=== PATIENT | male | born 1955 ===

== ENCOUNTER 2017-04-27 19:23 | Inpatient (IN) | payer BC ==
[2017-04-27] MEDS ORDERED: Albuterol-Ipratrop 3 mg / 0.5 (3 ml) UD IH STA ×2 (20:05→23:36)
[2017-04-27 20:24] LABS: HEMOGLOBIN 8.3 g/dL (14.0-18.0); MEAN CELL VOLUME 69.2 fl (80.0-105.0); MEAN CORPUSCULAR HEMOGLOBIN 19.5 pg (25.0-35.0); MEAN CORPUSCULAR HGB CONC 28.2 g/dl (31.0-37.0); MEAN PLATELET VOLUME 9.4 fl (7.0-11.0); RBC 4.25 10^6/uL (3.5-6.1); RED CELL DISTRIBUTION WIDTH 18.9 % (11.5-14.5); WHITE BLOOD COUNT 12.3 10^3/ul (4.5-11.0)
--- NOTE | 2017-04-27 20:32 | ED PDOC ---
Arrival/HPI - General Chief Complaint: Shortness Of Breath Time Seen by Provider: 04/27/17 19:44 Historian: Patient - History of Present Illness Narrative History of Present Illness (Text): 04/27/17 19:45 Gema Fernandez is a 62 year old male, who has no significant past medical history, who presents to the emergency department for reevaluation of chronic shortness of breath for the past few weeks. Patient also states that he has associated worsening bilateral leg swelling during that time. Patient notes that he has trouble sleeping at night. He notes that he has not seen a doctor in years. Patient denies any chest pain, fever, chills, or any other complaints at this time. Family history is consistent with CAD. Time/Duration: < month Symptom Onset: Gradual Symptom Course: Unchanged Severity Level: Mild Activities at Onset: Light Context: Home Past Medical History - Provider Review Nursing Documentation Reviewed: Yes - Psychiatric Hx Psychophysiologic Disorder: No Hx Substance Use: No Family/Social History - Physician Review Nursing Documentation Reviewed: Yes Family/Social History: No Known Family HX Smoking Status: Never Smoked Hx Alcohol Use: Yes Frequency of alcohol use: Socially Hx Substance Use: No Allergies/Home Meds Allergies/Adverse Reactions: Allergies No Known Allergies Allergy (Verified 04/27/17 19:35) Home Medications: Home Meds Medication Instructions Recorded Confirmed No Known Home Med 04/27/17 04/27/17 Review of Systems - Physician Review All systems were reviewed & negative as marked: Yes - Review of Systems Constitutional: absent: Fevers, Night Sweats Eyes: absent: Vision Changes ENT: absent: Hearing Changes Respiratory: SOB Cardiovascular: absent: Chest Pain Gastrointestinal: absent: Abdominal Pain Genitourinary Male: absent: Dysuria, Frequency Musculoskeletal: Other (bilateral leg swelling) Skin: absent: Rash, Pruritis Neurological: absent: Headache, Dizziness Endocrine: absent: Diaphoresis Hemo/Lymphatic: absent: Adenopathy Psychiatric: absent: Anxiety, Depression Physical Exam Vital Signs Reviewed: Yes Vital Signs Temp Pulse Resp BP Pulse Ox 04/28/17 19:20 84 100 04/28/17 19:15 84 101/61 100 04/28/17 19:10 83 100 04/28/17 19:00 83 99/56 L 100 04/28/17 18:50 82 100 04/28/17 18:45 82 102/56 L 99 02/14/18 18:40 83 02/14/18 18:33 81 02/14/18 18:32 81 02/14/18 18:31 81 02/14/18 18:30 82 0214/18 18:28 82 0214/18 18:27 82 0214/18 18:26 83 0214/18 18:25 84 0214/18 18:24 84 0214/18 18:20 86 98 0214/18 18:16 113 H 95/66 L 82 L 0214/18 18:10 78 100 0214/18 18:00 80 99/58 L 100 0214/18 17:50 79 100 0214/18 17:46 78 92/48 L 100 0214/18 17:40 77 100 0214/18 17:37 76 83/46 L 99 0214/18 17:36 76 80/49 L 99 0214/18 17:35 77 85/51 L 99 021418 17:33 77 89/43 L 99 021418 17:32 78 88/46 L 96 0214/18 17:30 77 95/45 L 100 0214/18 17:20 80 99 0214/18 17:15 80 92/38 L 99 0214/18 17:10 80 99 021418 17:02 80 78/46 L 99 021418 17:00 79 80/43 L 97 14/18 16:50 78 99 14/18 16:40 78 99 021418 16:30 79 99 0214/18 16:20 80 100 0214/18 16:10 80 100 0214/18 16:00 80 103/56 L 98 0214/18 10:32 28 H 0214/18 10:30 101 H 153/83 H 100 0214/18 10:27 109 H 0214/18 10:20 97 H 100 0214/18 10:10 97 H 100 0214/18 10:00 97 H 132/69 100 0214/18 09:50 97 H 100 0214/18 09:40 98 H 100 0214/18 09:30 96 H 130/69 100 0214/18 09:20 97 H 100 0214/18 09:10 99 H 100 04/28/17 09:04 118/66 04/28/17 09:00 99 H 118/66 100 04/28/17 08:50 99 H 100 04/28/17 08:40 99 H 100 04/28/17 08:30 99 H 119/59 L 100 04/28/17 08:20 100 H 100 04/28/17 08:10 100 H 100 04/28/17 08:08 32 H 100 04/28/17 08:00 100 H 116/58 L 100 04/28/17 07:57 104 H 04/28/17 07:50 104 H 89 L 04/28/17 07:49 105 H 04/28/17 07:48 102 H 04/28/17 07:47 102 H 04/28/17 07:40 97 H 100 04/28/17 07:38 101 H 125/56 L 100 04/28/17 07:30 104 H 134/61 100 04/28/17 07:23 107 H 04/28/17 07:22 106 H 04/28/17 07:21 107 H 04/28/17 07:20 107 H 04/28/17 07:19 108 H 04/28/17 07:18 109 H 04/28/17 07:17 112 H 04/28/17 07:16 176/106 H 04/28/17 07:15 109 H 04/28/17 07:13 109 H 04/28/17 07:10 106 H 95 04/28/17 07:00 98 H 135/73 96 04/28/17 06:56 127/70 04/28/17 06:55 97 H 33 H 97 04/28/17 06:50 96 H 30 H 91 L 04/28/17 06:40 86 99 04/28/17 06:33 109/60 04/28/17 02:59 112 H 18 127/110 H 96 04/28/17 01:31 99 H 93 H 146/102 H 99 04/27/17 23:23 96 H 20 122/96 H 96 04/27/17 19:59 24 04/27/17 19:23 98.2 F 106 H 22 124/76 98 Temperature: Afebrile Blood Pressure: Normal Pulse: Regular Respiratory Rate: Normal Appearance: Positive for: Well-Appearing, Non-Toxic, Comfortable Pain Distress: None Mental Status: Positive for: Alert and Oriented X 3 - Systems Exam Head: Present: Atraumatic, Normocephalic Pupils: Present: PERRL Extroacular Muscles: Present: EOMI Conjunctiva: Present: Normal Ears: Present: NORMAL TM Mouth: Present: Moist Mucous Membranes Pharnyx: Present: Normal, Other (hoarseness noted accentuated with phonation( chronic as per family)) Neck: Present: Normal Range of Motion Respiratory/Chest: Present: Rhonchi (scattered rhonchi bilaterally) Cardiovascular: Present: Regular Rate and Rhythm, Normal S1, S2. No: Murmurs Abdomen: Present: Normal Bowel Sounds, Other (globus). No: Tenderness, Distention, Peritoneal Signs Back: Present: Normal Inspection Upper Extremity: Present: Normal Inspection. No: Cyanosis, Edema Lower Extremity: Present: Edema (Bilateral LE edema). No: Buzz's Sign, Tenderness (no calf tenderness) Neurological: Present: GCS=15, CN II-XII Intact, Speech Normal, Motor Func Grossly Intact, Normal Sensory Function, Normal Cerebellar Funct, Norm Deep Tendon Reflexes, Gait Normal, Memory Normal, Normal 2Pt Descrimination Skin: Present: Warm, Dry, Normal Color. No: Rashes Psychiatric: Present: Alert, Oriented x 3, Normal Insight, Normal Concentration Medical Decision Making ED Course and Treatment: 04/27/17 20:37 Impression: 62 year old male who presents to the emergency department for reevaluation of chronic shortness of breath for the past few weeks. Plan: -- EKG -- Chest X-ray -- LE Ultrasound -- Labs -- Duoneb -- Rapid Flu -- Blood Culture -- Reassess and disposition Progress Notes: 04/27/17 21:51 EKG reviewed sinus tachycardiac at 104 bpm. LAD. incomplete right bundle branch block. Non specific ST/T wave changes 04/27/17 22:04 US Duplex Lower Extremities negative for DVT. Chest X-ray shows: Limitations: Radiographic technique - mild. Lungs: No consolidation. Pleural space: Cannot exclude small pleural effusions. No pneumothorax. Heart: Mild cardiomegaly. Mediastinum: Tortuosity of thoracic aorta. Prominence of central pulmonary vasculature. Bones/joints: No acute fracture. IMPRESSION: 1. Possible mild pulmonary vascular congestion. Clinical correlation is needed. 2. Incidental/non-acute findings are described above. 04/27/17 22:56 CTA Chest shows: Limitations: Motion artifact - mild to moderate. Suboptimal timing of bolus. Pulmonary arteries: No definite filling defects within main, lobar, segmental branches. Suboptimal evaluation of subsegmental branches. Aorta: Ectasia of ascending thoracic aorta, up to 4.0 cm in diameter. 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 No rupture. Inferior vena cava: Retrograde filling of IVC and hepatic veins. Lungs: Mild atelectasis/scarring. No consolidation. Minimal mosaic pattern of lung parenchyma. Mild interlobular septal thickening. Pleural space: No significant effusion. No pneumothorax. Heart: Mild cardiomegaly. No significant pericardial effusion. Coronary artery calcifications. Bones/joints: Degenerative changes of shoulders and spine. No acute fracture. Soft tissues: Unremarkable. Lymph nodes: No pathologically enlarged lymph nodes. Liver: Fatty infiltration. Upper abdomen: Elevated RIGHT hemidiaphragm. IMPRESSION: 1. No definite pulmonary embolism. 2. Possible early interstitial edema. Clinical correlation is needed. 3. Incidental/non-acute findings are described above. 04/27/17 23:[address] Page, who request patient go to hospitalist service. 04/27/17 23:44 Case discussed with resident commercial collections driver and Dr. Coronel, who is aware and agrees with plan. Accepts patient into hospital service to telemetry for dyspnea, pneumonia , COPD, and hyponatremia. 04/28/17 01:40 CT Neck shows: Limitations: Lack of intravenous contrast. Motion artifact - mild to moderate. Nasopharynx: Unremarkable. Oropharynx: No significant tonsillar enlargement. Hypopharynx: Unremarkable. Larynx: Apparent prominence of aryepiglottic folds with narrowing of airway. Trachea: Unremarkable. Retropharyngeal space: Unremarkable. Submandibular/parotid glands: Unremarkable. Glands are normal in size. Thyroid: Unremarkable. No enlarged or calcified nodules. Bones/joints: Degenerative changes of cervical spine. No acute fracture. Subluxation of LEFT temporomandibular joint. Soft tissues: Unremarkable. Vasculature: No acute findings. Lymph nodes: No pathologically enlarged lymph nodes. Sinuses: Scattered minimal to mild mucosal thickening. LEFT maxillary retention cyst. Mastoid air cells: No mastoid effusion. Orbits: Unremarkable as visualized. Lung apices: Unremarkable as visualized. Other findings: See chest CT report for additional details. IMPRESSION: 1. Apparent prominence of aryepiglottic folds with narrowing of airway. Clinical correlation is needed. 2. Incidental/non-acute findings are described above. ENT and coat ironer hand paged. 04/28/17 01:46 Pt.with continued stridorous-like sounds. CT scan of neck was performed results show apparent prominence of aryepiglottic folds with narrowing of airway. Case was discussed with ENT Dr. Huston, who will come to evaluate pt. Second Hand Dr. Cordova also consult on case to consider possible upgrade to ICU pending ENT evaluation. 04/28/17 03:[address] Huston, present in ED to evaluate pt.Concern for possible eventual airway compromise pt. to go to OR for elective intubation possible tracheostomy/subsequent ICU admission. - Critical Care Critical Care Minutes: 30 minutes - Lab Interpretations Lab Results: 04/27/17 20:15 04/27/17 20:15 Lab Results 04/27/17 23:12: pCO2 47 H, pO2 48.0 L, HCO3 27.2, ABG pH 7.37, ABG Total CO2 28.6 H, ABG O2 Saturation 87.1 L, ABG O2 Content 9.8 L, ABG Base Excess 1.6, ABG Hemoglobin 8.2 L, ABG Carboxyhemoglobin 2.7 H, POC ABG HHb (Measured) 12.6 H , ABG Methemoglobin 0.0, ABG O2 Capacity 11.3 L, Hgb O2 Saturation 84.7 L, FiO2 21.0 04/27/17 20:15: Serum Osmolality 265 L 04/27/17 20:15: WBC 12.3 H, RBC 4.25, Hgb 8.3 L, Hct 29.4 L, MCV 69.2 L, MCH 19.5 L, MCHC 28.2 L, RDW 18.9 H, Plt Count 282, MPV 9.4, Gran % 76.8 H, Lymph % (Auto) 15.1 L, [place] % (Auto) 7.7 H, Eos % (Auto) 0.2 L, Baso % (Auto) 0.2, Gran # 9.27 H, Lymph # (Auto) 1.8, [place] # (Auto) 0.9 H, Eos # (Auto) 0.0, Baso # ( Auto) 0.03 04/27/17 20:15: Sodium 121 L, Potassium 4.4, Chloride 86 L, Carbon Dioxide 28, Anion Gap 12, BUN 5 L, Creatinine 0.6 L, Est GFR ( Amer) > 60, Est GFR ( Non-Af Amer) > 60, Random Glucose 129 H, Calcium 9.1, Total Bilirubin 0.6, AST 54, ALT 49, Alkaline Phosphatase 127 H, Lactate Dehydrogenase 542, Total Creatine Kinase 714 H, CK-MB (CK-2) 5.6 H, CK-MB (CK-2) % 0.8 L, Troponin I < 0.01, NT-Pro-B Natriuret Pep 224, Total Protein 7.5, Albumin 4.1, Globulin 3.4, Albumin/Globulin Ratio 1.2 I have reviewed the lab results: Yes - RAD Interpretation Radiology Orders: 04/27/17 19:59 CHEST PORTABLE [RAD] Stat 04/27/17 20:02 DUPLEX LOWER EXTRM VEIN BILAT [US] Stat 04/27/17 20:56 ANGIO CHEST PE PROTOCOL [CT] Stat Machinery Engineer: ED Physician, Radiologist - EKG Interpretation Interpreted by ED Physician: Yes Type: 12 lead EKG - Medication Orders Current Medication Orders: Acetaminophen (Tylenol 325mg Tab) 650 mg PO Q4H PRN PRN Reason: Fever >100.4 F Dexamethasone (Decadron Inj) 6 mg IVP Q8H [facility] Last Admin: 04/28/17 16:27 Dose: 6 mg IVP Administration Document 04/28/17 16:27 MDU (Rec: 04/28/17 16:28 MDU [id number]) Charges for Administration # of IVP Administrations 1 Folic Acid (Folic Acid) 1 mg IVP DAILY [facility] Last Admin: 04/28/17 16:36 Dose: Heparin Sodium (Porcine) (Heparin) 5,000 units SC Q8 LUCIA PRN Reason: Protocol Last Admin: 04/28/17 16:47 Dose: 5,000 units Subcutaneous Administrations Document 04/28/17 16:47 MDU (Rec: 04/28/17 16:47 MDU [id number]) Injection Site MAR Injection Site Left Arm Charges for Administration # of Subcutaneous Administrations 1 Propofol (Diprivan) 1,000 mg in 100 mls @ 3.538 mls/hr IV .Q24H PRN; Protocol; 5 MCG/KG/MIN PRN Reason: TITRATE PER MD ORDER Last Titration: 04/28/17 16:05 Dose: 0 mcg/kg/min, 0 mls/hr Dalal Agitation Sedation Document 04/28/17 16:05 MDU (Rec: 04/28/17 16:12 MDU [id number]) Dalal Agitation Sedation Scale Dalal Agitation Sedation Scale Score -2 Light Sedation: briefly awakens with eye contact to voice (<10 sec) Titration Intervention Document 04/28/17 16:05 MDU (Rec: 04/28/17 16:12 MDU [id number]) Titration Intake Titration Intake 0 Cumulative Intake 60 Cumulative Intake (Rx) 60 Waste Amount 0 Container Volume 40 Titration Dosing Titration Dose 0 IV Rate 0 Intake/Decrease Paused Cumulative Dose 600 Ceftriaxone Sodium (Rocephin 1 Gram Ivpb) 1 gm in 100 mls @ 100 mls/hr IVPB DAILY LUCIA PRN Reason: Protocol Last Admin: 04/28/17 09:07 Dose: 100 mls/hr eMAR Start Stop Document 04/28/17 09:07 MDU (Rec: 04/28/17 09:08 [id number] Intravenous Solution Start Date 04/28/17 Start Time 09:08 End Date 04/28/17 End time 10:08 Total Infusion Time 60 Vancomycin HCl (Vancomycin 1gm) 1 gm in 250 mls @ 167 mls/hr IVPB Q12H LUCIA PRN Reason: Protocol Last Admin: 04/28/17 19:59 Dose: 167 mls/hr eMAR Start Stop Document 04/28/17 19:59 MDU (Rec: 04/28/17 20:00 [id number][facility] Intravenous Solution Start Date 04/28/17 Start Time 20:00 End Date 04/28/17 End time 21:30 Total Infusion Time 90 Fentanyl Citrate (Fentanyl Citrate/Sodium Chloride 1 Mg/100 Ml) 1,000 mcg in 100 mls @ 2 mls/hr IV .Q24H PRN; Protocol; 20 MCG/HR PRN Reason: TITRATE PER MD ORDER Last Titration: 04/28/17 07:00 Dose: 50 mcg/hr, 5 mls/hr Dalal Agitation Sedation Document 04/28/17 07:00 MDU (Rec: 04/28/17 08:55 MDU [id number]) Dalal Agitation Sedation Scale Dalal Agitation Sedation Scale Score -3 Moderate Sedation:Movement or eye opening to voice (no eye contact) Titration Intervention Document 04/28/17 07:00 MDU (Rec: 04/28/17 08:55 MDU [id number]) Titration Intake Titration Intake 15 Cumulative Intake 15 Cumulative Intake (Rx) 15 Waste Amount 0 Container Volume 85 Titration Dosing Titration Dose 50 IV Rate 5 Intake/Decrease Increased Cumulative Dose 150 Dexmedetomidine HCl (Precedex 400mcg/100ml) 400 mcg in 100 mls @ 5.897 mls/hr IV .[id number] PRN; Protocol; 0.2 MCG/KG/HR PRN Reason: Agitation Last Admin: 04/28/17 17:33 Dose: 1 mcg/kg/hr, 29.484 mls/hr eMAR Start Stop Document 04/28/17 17:33 MDU (Rec: 04/28/17 17:35 MDU [id number]) Intravenous Solution Start Date 04/28/17 Start Time 17:34 End Date 04/28/17 Dalal Agitation Sedation Document 04/28/17 17:33 MDU (Rec: 04/28/17 17:35 [id number]) Dalal Agitation Sedation Scale Dalal Agitation Sedation Scale Score -3 Moderate Sedation:Movement or eye opening to voice (no eye contact) Titration Intervention Document 04/28/17 17:33 MDU (Rec: 04/28/17 17:35 MDU [id number]) Titration Intake Cumulative Intake (Rx) 100 Waste Amount 0 Container Volume 100 Titration Dosing Titration Dose 1 IV Rate 29.484 Intake/Decrease Started/Increased Cumulative Dose 400 Multivitamins/Vitamin C 10 ml/Thiamine HCl 100 mg/ Folic Acid 1 mg/ Sodium Chloride 1,011.2 mls @ 60 mls/hr IV .[id number] ONE Stop: 04/29/17 05:11 Last Admin: 04/28/17 16:39 Dose: 60 mls/hr eMAR Start Stop Document 04/28/17 16:39 MDU (Rec: 04/28/17 16:42 [id number]) Intravenous Solution Start Date 04/28/17 Start Time 16:40 End Date 04/29/17 End time 08:40 Total Infusion Time 960 Lorazepam (Ativan) 4 mg IVP Q2H PRN; Protocol PRN Reason: Agitation Last Admin: 04/28/17 18:19 Dose: 4 mg IVP Administration Document 04/28/17 18:19 MDU (Rec: 04/28/17 19:[id number]) Charges for Administration # of IVP Administrations 1 Behavioural Document 04/28/17 18:19 MDU (Rec: 04/28/17 19:[id number]) Maintenance Maintenance Dose No Nonmedicinal Nonmedicinal Interventions See nurse's notes Behavior Behavior for Medication: Continuous pacing/restlessness Ondansetron HCl (Zofran Inj) 4 mg IVP Q4H PRN PRN Reason: Nausea/Vomiting Pantoprazole Sodium (Protonix Inj) 40 mg IVP DAILY LUCIA Last Admin: 04/28/17 11:15 Dose: 40 mg IVP Administration Document 04/28/17 11:15 MDU (Rec: 04/28/17 11:15 [id number]) Charges for Administration # of IVP Administrations 1 Discontinued Medications Albuterol/Ipratropium (Duoneb 3 Mg/0.5 Mg (3 Ml) Ud) 3 ml IH ONCE STA Stop: 04/27/17 20:06 Last Admin: 04/27/17 20:21 Dose: 3 ml Albuterol/Ipratropium (Duoneb 3 Mg/0.5 Mg (3 Ml) Ud) 3 ml IH ONCE STA Stop: 04/27/17 23:37 Furosemide (Lasix) 20 mg IVP ONCE ONE Stop: 04/28/17 07:47 Last Admin: 04/28/17 09:04 Dose: 20 mg MAR Blood Pressure Document 04/28/17 09:04 MDU (Rec: 04/28/17 09:05 [id number]) Blood Pressure Blood Pressure (100/60-150/90) 118/66 IVP Administration Document 04/28/17 09:04 MDU (Rec: 04/28/17 09:05 MDU [id number]) Charges for Administration # of IVP Administrations 1 Sodium Chloride (Sodium Chloride 0.9%) 1,000 mls @ 150 mls/hr IV .Q6H40M LUCIA Last Admin: 04/27/17 22:05 Dose: 150 mls/hr eMAR Start Stop Document 04/27/17 22:05 JACOB (Rec: 04/27/17 22:06 JACOB [id number]) Intravenous Solution Start Date 04/27/17 Start Time 22:06 Ceftriaxone Sodium (Rocephin 1 Gram Ivpb) 1 gm in 100 mls @ 200 mls/hr IV ONCE STA PRN Reason: Protocol Stop: 04/28/17 00:06 Azithromycin (Zithromax 500mg In Ns) 500 mg in 250 mls @ 166.667 mls/hr IV STAT STA PRN Reason: Protocol Stop: 04/28/17 01:07 Last Admin: 04/28/17 16:43 Dose: Midazolam 100 mg/100ml in NS (Midazolam 100 Mg/100ml In Ns) 100 mg in 100 mls @ 1 mls/hr IV .Q24H PRN; Protocol; 1 MG/HR PRN Reason: Agitation Last Titration: 04/28/17 09:01 Dose: 1 mg/hr, 1 mls/hr [place] Agitation Sedation Document 04/28/17 09:01 MDU (Rec: 04/28/17 09:02 MDU [id number]) Dalal Agitation Sedation Scale [place] Agitation Sedation Scale Score -4 Deep Sedation: No response to voice,but movement or eye opening Titration Intervention Document 04/28/17 09:01 MDU (Rec: 04/28/17 09:02 MDU [id number]) Titration Intake Titration Intake 20 Cumulative Intake 20 Cumulative Intake (Rx) 20 Waste Amount 0 Container Volume 80 Titration Dosing Titration Dose 1 IV Rate 1 Intake/Decrease Running Cumulative Dose 20 Magnesium Sulfate 2 gm/ Sodium (Chloride) 104 mls @ 102 mls/hr IV ONCE ONE Stop: 04/28/17 10:46 Last Admin: 04/28/17 10:37 Dose: 102 mls/hr eMAR Start Stop Document 04/28/17 10:37 MDU (Rec: 02/14/18 10:38 [id number]) Intravenous Solution Start Date 04/28/17 Start Time 10:38 End Date 04/28/17 End time 11:38 Total Infusion Time 60 Lidocaine/Epinephrine (Xylocaine 1% W Epi 1:100,000 Inj) 5 ml IJ STAT STA Stop: 04/28/17 03:23 Last Admin: 04/28/17 16:42 Dose: Lorazepam (Ativan) 4 mg IVP STAT STA PRN Reason: Protocol Stop: 04/28/17 12:54 Last Admin: 04/28/17 12:55 Dose: 4 mg IVP Administration Document 04/28/17 12:55 MDU (Rec: 04/28/17 16:32 [id number]) Charges for Administration # of IVP Administrations 1 Behavioural Document 04/28/17 12:55 MDU (Rec: 04/28/17 16:32 [id number]) Maintenance Maintenance Dose No Nonmedicinal Nonmedicinal Interventions See nurse's notes Behavior Behavior for Medication: Anxiety Continuous pacing/restlessness Dangers to self/others Re-Assess: Reassess Psych Meds Document 04/28/17 13:25 MDU (Rec: 04/28/17 16:44 MDU [id number]) Reassess Psych Med Effective Methylprednisolone (Solu-Medrol) 125 mg IVP ONCE ONE Stop: 04/27/17 21:56 Last Admin: 04/27/17 22:05 Dose: 125 mg IVP Administration Document 04/27/17 22:05 JACOB (Rec: 04/27/17 22:05 JACOB [id number]) Charges for Administration # of IVP Administrations 1 Racepinephrine (Racepinephrine 2.25% Inhl Soln) 0.5 ml IH ONCE STA Stop: 04/27/17 21:56 Last Admin: 04/27/17 22:17 Dose: 0.5 ml Thiamine HCl (Vitamin B1 Inj) 100 mg IM STAT STA Stop: 04/28/17 05:00 Last Admin: 04/28/17 16:42 Dose: - Scribe Statement The provider has reviewed the documentation as recorded by the Ryan Zapata Provider Scribe Attestation: All medical record entries made by the Scribe were at my direction and personally dictated by me. I have reviewed the chart and agree that the record accurately reflects my personal performance of the history, physical exam, medical decision making, and the department course for this patient. I have also personally directed, reviewed, and agree with the discharge instructions and disposition. Disposition/Present on Arrival - Present on Arrival Any Indicators Present on Arrival: No History of DVT/PE: No History of Uncontrolled Diabetes: No Urinary Catheter: No History of Decub. Ulcer: No History Surgical Site Infection Following: None - Disposition Have Diagnosis and Disposition been Completed?: Yes Diagnosis: Dyspnea, Disorder of upper airway, COPD (chronic obstructive pulmonary disease) Disposition: HOSPITALIZED Disposition Time: 04:56 Patient Plan: Admission Condition: GUARDED
[2017-04-27 20:37] LABS: ALB/GLOB RATIO 1.2 (1.1-1.8); ALBUMIN 4.1 g/dL (3.0-4.8); ALT/SGPT 49 U/L (7-56); AST/SGOT 54 U/L (17-59); BLOOD UREA NITROGEN 5 mg/dL (7-21); CALCIUM 9.1 mg/dL (8.4-10.5); GFR AFRICAN-AMERICAN > 60; GFR NON-AFRICAN AMERICAN > 60
[2017-04-27 20:46] LABS: B-TYPE NATRIURETIC PEPTIDE 224 pg/mL (0-450)
[2017-04-27 20:50] LABS: TROPONIN I < 0.01 ng/mL
[2017-04-27 20:55] LABS: CK MB% 0.8 % (2.5-3.0); CK-MB 5.6 ng/mL (0.0-3.6)
[2017-04-27] MEDS ORDERED: Sodium Chloride 0.9% 1,000 ML IV SCH (21:00)
[2017-04-27] MEDS ORDERED: Iohexol 350 MG/100 ML VIAL ONE (21:22)
[2017-04-27] MEDS ORDERED: Racepinephrine 2.25% Inhal Soln 0.5 ML UD ONE (21:53)
[2017-04-27] MEDS ORDERED: Racepinephrine 2.25% Inhal Soln 0.5 ML UD IH STA (21:55)
--- NOTE | 2017-04-27 22:02 | RAD ---
EXAM: XR Chest, 1 View CLINICAL HISTORY: 62 years old, male; Signs and symptoms; Shortness of breath; Additional info: SOB TECHNIQUE: Frontal view of the chest. COMPARISON: No relevant prior studies available. FINDINGS: Limitations: Radiographic technique - mild. Lungs: No consolidation. Pleural space: Cannot exclude small pleural effusions. No pneumothorax. Heart: Mild cardiomegaly. Mediastinum: Tortuosity of thoracic aorta. Prominence of central pulmonary vasculature. Bones/joints: No acute fracture. IMPRESSION: 1. Possible mild pulmonary vascular congestion. Clinical correlation is needed. 2. Incidental/non-acute findings are described above.
--- NOTE | 2017-04-27 22:52 | CT ---
EXAM: CT Angiography Chest With Intravenous Contrast CLINICAL HISTORY: 62 years old, male; Signs and symptoms; Shortness of breath and wheezing; Additional info: SOB pt unable to slow breathing and follow breathing instructions TECHNIQUE: Axial computed tomographic angiography images of the chest with intravenous contrast using pulmonary embolism protocol. All CT scans at this facility use one or more dose reduction techniques, viz.: automated exposure control; ma/kV adjustment per patient size (including targeted exams where dose is matched to indication; i.e. head); or iterative reconstruction technique. MIP reconstructed images were created and reviewed. Coronal and sagittal reformatted images were created and reviewed. CONTRAST: 100 mL of OMNI 350 administered intravenously. COMPARISON: No relevant prior studies available. FINDINGS: Limitations: Motion artifact - mild to moderate. Suboptimal timing of bolus. Pulmonary arteries: No definite filling defects within main, lobar, segmental branches. Suboptimal evaluation of subsegmental branches. Aorta: Ectasia of ascending thoracic aorta, up to 4.0 cm in diameter. 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 No rupture. Inferior vena cava: Retrograde filling of IVC and hepatic veins. Lungs: Mild atelectasis/scarring. No consolidation. Minimal mosaic pattern of lung parenchyma. Mild interlobular septal thickening. Pleural space: No significant effusion. No pneumothorax. Heart: Mild cardiomegaly. No significant pericardial effusion. Coronary artery calcifications. Bones/joints: Degenerative changes of shoulders and spine. No acute fracture. Soft tissues: Unremarkable. Lymph nodes: No pathologically enlarged lymph nodes. Liver: Fatty infiltration. Upper abdomen: Elevated RIGHT hemidiaphragm. IMPRESSION: 1. No definite pulmonary embolism. 2. Possible early interstitial edema. Clinical correlation is needed. 3. Incidental/non-acute findings are described above.
[2017-04-27 23:16] LABS: ARTERIAL BLOOD GAS HCO3 27.2 mmol/L (21-28); ARTERIAL BLOOD GAS HEMOGLOBIN 8.2 g/dL (11.7-17.4); ARTERIAL BLOOD GAS O2 CAPACITY 11.3 mL/dl (16-24); ARTERIAL BLOOD GAS O2 CONTENT 9.8 ML/dl (15-23); ARTERIAL BLOOD GAS O2 SAT 87.1 % (95-98); ARTERIAL BLOOD GAS PCO2 47 mm/Hg (35-45); ARTERIAL BLOOD GAS PH 7.37 (7.35-7.45); ARTERIAL BLOOD GAS TCO2 28.6 mmol.L (22-28)
[2017-04-27] MEDS ORDERED: cefTRIAXone 1 gm 1 GM/100 ML BAG IV STA (23:37)
[2017-04-27] MEDS ORDERED: Azithromycin 500MG/NS 250ml 500 MG/250 ML BAG IV STA (23:38)
--- NOTE | 2017-04-28 00:09 | CP.PCM.HP ---
"<Bruce Pardo - Last Filed: 04/28/17 07:47> History of Present Illness - History of Present Illness History of Present Illness: 62 year old male with no significant past medical history presents to the hospital for 3 weeks of progressive shortness of breath. Patient accompanied by family member at bedside. Patient states he had no inciting events that caused him to become short of breath. He has not been sick or had any sick contacts recently. Initially, patient states shortness of breath was intermittent, but now has been continuous over the last few days. Patient came to the ED due to his 's recommendations. He has never had symptoms like this before. Over the past 3 weeks, patient has admitted to dyspnea on exertion and increased lower extremity edema, both of which are new findings. He has not followed up with a doctor in over 5 years because his PMD retired. Patient admits to mild hoarseness in his breath and inability to talk in complete sentences. He admits to being unable to lay flat without exacerbating his SOB. Patient denied any increased urinary frequency but per sister and brother in-law, he has been urinating more frequently. Denies chest pain, nausea, vomiting, diarrhea, fever , chills, dysuria, changes in vision. PMH: Denies but possible HLD. Surgical History: Right knee surgery Family Medical History: Hyperlipidemia Social History: Daily drinker (as per family member), denies tobacco or illicit drug use. Lives with at home Medication: Garlic pills for HLD Allergies: NKDA Present on Admission - Present on Admission Any Indicators Present on Admission: No Past Patient History - Past Social History Smoking Status: Never Smoked - PSYCHIATRIC Hx Psychophysiologic Disorder: No Hx Substance Use: No - SURGICAL HISTORY Hx Surgeries: No Meds Allergies/Adverse Reactions: Allergies Allergy/AdvReac Type Severity Reaction Status Date / Time No Known Allergies Allergy Verified 04/27/17 19:35 Results - Vital Signs Recent Vital Signs: Last Vital Signs Temp Pulse Resp 24 04/27/17 19:59 BP Pulse Ox - Labs Result Diagrams: 04/27/17 20:15 04/27/17 20:15 Labs: Laboratory Results - last 24 hr 04/27/17 04/27/17 04/27/17 20:15 20:15 23:12 WBC 12.3 H RBC 4.25 Hgb 8.3 L Hct 29.4 L MCV 69.2 L MCH 19.5 L MCHC 28.2 L RDW 18.9 H Plt Count 282 MPV 9.4 pCO2 47 H pO2 48.0 L HCO3 27.2 ABG pH 7.37 ABG Total CO2 28.6 H ABG O2 Saturation 87.1 L ABG O2 Content 9.8 L ABG Base Excess 1.6 ABG Hemoglobin 8.2 L ABG Carboxyhemoglobin 2.7 H POC ABG HHb (Measured) 12.6 H ABG Methemoglobin 0.0 ABG O2 Capacity 11.3 L Hgb O2 Saturation 84.7 L FiO2 21.0 Sodium 121 L Potassium 4.4 Chloride 86 L Carbon Dioxide 28 Anion Gap 12 BUN 5 L Creatinine 0.6 L Est GFR ( Amer) > 60 Est GFR (Non-Af Amer) > 60 Random Glucose 129 H Calcium 9.1 Total Bilirubin 0.6 AST 54 ALT 49 Alkaline Phosphatase 127 H Lactate Dehydrogenase 542 Total Creatine Kinase 714 H CK-MB (CK-2) 5.6 H CK-MB (CK-2) % 0.8 L Troponin I < 0.01 NT-Pro-B Natriuret Pep 224 Total Protein 7.5 Albumin 4.1 Globulin 3.4 Albumin/Globulin Ratio 1.2 Assessment & Plan - Assessment and Plan (Free Text) Assessment: 62 year old male with no past medical history presenting with hypoxemic respiratory failure secondary to upper airway narrowing/obstruction vs epiglottitis. Patient received CT of neck which demonstrated prominence of aryepiglottic folds with significant narrowing of airway. Patient also received CTA of chest which did not show any evidence of PE. ENT was consulted, they determined patient needed a tracheostomy for airway protection. Will admit patient to ICU for further monitoring and care. Will continue antibiotics and steroids. Plan: SOB: DDx: Epiglottitis vs URI vs CHF vs mixed presentation CXR: Pulm congestion (mild) Neck Soft Tissue CT: Shows prominence of aryaepiglottis and narrowing of the airways Chest CT: Negative for PE, mild interstial edema, scarring, and atelactasis BNP: WNL @ 224 ENT Consulted ICU Consulted Rocephin/Vanco Tracheostomy per ENT ProCal Blood/Urine Cultures ECHO Hyponatremia: Likely 2/2 to beer potomania vs polydipsia Urine Sodium, Osm | Serum Osm - F/U HgBA1c Hx of Alcoholism Thiamine and folate Urine Toxicology Possible Hx of HLD Consider Fasting lipid panel in the AM. Proph Protonix Hold Anticoag due to procedure. Patient seen and discussed with Dr. Coronel and Dr. Cordova. Bruce Pardo - PGY1 <Celso Coronel N - Last Filed: 04/29/17 02:37> Results - Vital Signs Recent Vital Signs: Last Vital Signs Temp 99.1 F 04/29/17 00:00 Pulse 82 04/29/17 00:40 Resp 28 H 04/28/17 10:32 BP 101/60 04/29/17 00:30 Pulse Ox 100 04/29/17 00:40 - Labs Result Diagrams: 04/28/17 07:30 04/29/17 00:15 Labs: Laboratory Results - last 24 hr 04/28/17 04/28/17 04/28/17 07:00 07:30 07:30 WBC 16.0 H D RBC 3.91 Hgb 7.6 L Hct 27.0 L MCV 69.1 L MCH 19.4 L MCHC 28.1 L RDW 18.9 H Plt Count 247 MPV 9.3 Gran % 85.0 H Lymph % (Auto) 7.0 L [place] % (Auto) 7.8 H Eos % (Auto) 0.1 L Baso % (Auto) 0.1 Gran # 13.61 H Lymph # (Auto) 1.1 L [place] # (Auto) 1.2 H Eos # (Auto) 0.0 Baso # (Auto) 0.01 Retic Count pCO2 pO2 HCO3 ABG pH ABG Total CO2 ABG O2 Saturation ABG Base Excess ABG Potassium Glucose Lactate Mechanical Rate FiO2 Tidal Volume PEEP Sodium Potassium Chloride Carbon Dioxide Anion Gap BUN Creatinine Est GFR ( Amer) Est GFR (Non-Af Amer) Random Glucose Hemoglobin A1c 6.1 Calcium Phosphorus 4.6 H Magnesium 1.5 L Iron TIBC % Saturation Transferrin Ferritin 8.0 Total Bilirubin AST ALT Alkaline Phosphatase Troponin I Total Protein Albumin Globulin Albumin/Globulin Ratio Triglycerides 35 Cholesterol 134 LDL Cholesterol Direct 74 HDL Cholesterol 44 Vitamin B12 266 Procalcitonin TSH 3rd Generation Arterial Blood Potassium Urine Color Urine Appearance Urine pH Ur Specific [place] Urine Protein Urine Glucose (UA) Urine Ketones Urine Blood Urine Nitrate Urine Bilirubin Urine Urobilinogen Ur Leukocyte Esterase Ur Random Sodium Ur Random Potassium Urine Opiates Screen Urine Methadone Screen Ur Barbiturates Screen Ur Phencyclidine Scrn Ur Amphetamines Screen U Benzodiazepines Scrn U Oth Cocaine Metabols U Cannabinoids Screen 04/28/17 04/28/17 04/28/17 07:30 07:30 08:40 WBC RBC Hgb Hct MCV MCH MCHC RDW Plt Count MPV Gran % Lymph % (Auto) [place] % (Auto) Eos % (Auto) Baso % (Auto) Gran # Lymph # (Auto) [place] # (Auto) Eos # (Auto) Baso # (Auto) Retic Count pCO2 52 H pO2 71.0 L HCO3 25.0 ABG pH 7.29 L ABG Total CO2 26.6 ABG O2 Saturation 97.1 ABG Base Excess -2.3 L ABG Potassium 4.0 Glucose 166 H Lactate 0.8 Mechanical Rate 20 FiO2 60.0 Tidal Volume 400 PEEP 5 Sodium 122 L 121.0 L Potassium 4.2 Chloride 90 L 93.0 L Carbon Dioxide 25 Anion Gap 12 BUN 8 Creatinine 0.8 Est GFR ( Amer) > 60 Est GFR (Non-Af Amer) > 60 Random Glucose 184 H Hemoglobin A1c Calcium 8.0 L Phosphorus Magnesium Iron TIBC % Saturation Transferrin Ferritin Total Bilirubin 0.6 AST 47 ALT 40 Alkaline Phosphatase 100 Troponin I 0.02 D Total Protein 6.8 Albumin 3.4 Globulin 3.4 Albumin/Globulin Ratio 1.0 L Triglycerides Cholesterol LDL Cholesterol Direct HDL Cholesterol Vitamin B12 Procalcitonin 0.08 L TSH 3rd Generation Arterial Blood Potassium 4.0 Urine Color Urine Appearance Urine pH Ur Specific [place] Urine Protein Urine Glucose (UA) Urine Ketones Urine Blood Urine Nitrate Urine Bilirubin Urine Urobilinogen Ur Leukocyte Esterase Ur Random Sodium Ur Random Potassium Urine Opiates Screen Urine Methadone Screen Ur Barbiturates Screen Ur Phencyclidine Scrn Ur Amphetamines Screen U Benzodiazepines Scrn U Oth Cocaine Metabols U Cannabinoids Screen 04/28/17 04/28/17 04/28/17 09:50 09:50 09:50 WBC RBC Hgb Hct MCV MCH MCHC RDW Plt Count MPV Gran % Lymph % (Auto) [place] % (Auto) Eos % (Auto) Baso % (Auto) Gran # Lymph # (Auto) [place] # (Auto) Eos # (Auto) Baso # (Auto) Retic Count 2.88 H pCO2 pO2 HCO3 ABG pH ABG Total CO2 ABG O2 Saturation ABG Base Excess ABG Potassium Glucose Lactate Mechanical Rate FiO2 Tidal Volume PEEP Sodium Potassium Chloride Carbon Dioxide Anion Gap BUN Creatinine Est GFR ( Amer) Est GFR (Non-Af Amer) Random Glucose Hemoglobin A1c Calcium Phosphorus Magnesium Iron 30 L TIBC 363 % Saturation 8 L Transferrin 316.83 Ferritin Total Bilirubin AST ALT Alkaline Phosphatase Troponin I Total Protein Albumin Globulin Albumin/Globulin Ratio Triglycerides Cholesterol LDL Cholesterol Direct HDL Cholesterol Vitamin B12 Procalcitonin TSH 3rd Generation Arterial Blood Potassium Urine Color Urine Appearance Urine pH Ur Specific [place] Urine Protein Urine Glucose (UA) Urine Ketones Urine Blood Urine Nitrate Urine Bilirubin Urine Urobilinogen Ur Leukocyte Esterase Ur Random Sodium Ur Random Potassium Urine Opiates Screen Urine Methadone Screen Ur Barbiturates Screen Ur Phencyclidine Scrn Ur Amphetamines Screen U Benzodiazepines Scrn U Oth Cocaine Metabols U Cannabinoids Screen 04/28/17 04/28/17 04/28/17 10:00 12:40 12:40 WBC RBC Hgb Hct MCV MCH MCHC RDW Plt Count MPV Gran % Lymph % (Auto) [place] % (Auto) Eos % (Auto) Baso % (Auto) Gran # Lymph # (Auto) [place] # (Auto) Eos # (Auto) Baso # (Auto) Retic Count pCO2 pO2 HCO3 ABG pH ABG Total CO2 ABG O2 Saturation ABG Base Excess ABG Potassium Glucose Lactate Mechanical Rate FiO2 Tidal Volume PEEP Sodium Potassium Chloride Carbon Dioxide Anion Gap BUN Creatinine Est GFR ( Amer) Est GFR (Non-Af Amer) Random Glucose Hemoglobin A1c Calcium Phosphorus Magnesium Iron TIBC % Saturation Transferrin Ferritin Total Bilirubin AST ALT Alkaline Phosphatase Troponin I Total Protein Albumin Globulin Albumin/Globulin Ratio Triglycerides Cholesterol LDL Cholesterol Direct HDL Cholesterol Vitamin B12 Procalcitonin TSH 3rd Generation 0.31 L Arterial Blood Potassium Urine Color Light yellow Urine Appearance Clear Urine pH 5.5 Ur Specific [place] <= 1.005 Urine Protein Negative Urine Glucose (UA) Negative Urine Ketones Negative Urine Blood Negative Urine Nitrate Negative Urine Bilirubin Negative Urine Urobilinogen 0.2 Ur Leukocyte Esterase Negative Ur Random Sodium 14 Ur Random Potassium 8.7 Urine Opiates Screen Negative Urine Methadone Screen Negative Ur Barbiturates Screen Negative Ur Phencyclidine Scrn Negative Ur Amphetamines Screen Negative U Benzodiazepines Scrn Positive U Oth Cocaine Metabols Negative U Cannabinoids Screen Negative 04/28/17 04/29/17 19:54 00:15 WBC RBC Hgb Hct MCV MCH MCHC RDW Plt Count MPV Gran % Lymph % (Auto) [place] % (Auto) Eos % (Auto) Baso % (Auto) Gran # Lymph # (Auto) [place] # (Auto) Eos # (Auto) Baso # (Auto) Retic Count pCO2 pO2 HCO3 ABG pH ABG Total CO2 ABG O2 Saturation ABG Base Excess ABG Potassium Glucose Lactate Mechanical Rate FiO2 Tidal Volume PEEP Sodium 128 L 133 Potassium 5.0 5.0 Chloride 96 L 100 Carbon Dioxide 26 28 Anion Gap 11 11 BUN 15 17 Creatinine 0.9 0.8 Est GFR ( Amer) > 60 > 60 Est GFR (Non-Af Amer) > 60 > 60 Random Glucose 130 H 156 H Hemoglobin A1c Calcium 8.6 8.7 Phosphorus Magnesium Iron TIBC % Saturation Transferrin Ferritin Total Bilirubin AST ALT Alkaline Phosphatase Troponin I Total Protein Albumin Globulin Albumin/Globulin Ratio Triglycerides Cholesterol LDL Cholesterol Direct HDL Cholesterol Vitamin B12 Procalcitonin TSH 3rd Generation Arterial Blood Potassium Urine Color Urine Appearance Urine pH Ur Specific [place] Urine Protein Urine Glucose (UA) Urine Ketones Urine Blood Urine Nitrate Urine Bilirubin Urine Urobilinogen Ur Leukocyte Esterase Ur Random Sodium Ur Random Potassium Urine Opiates Screen Urine Methadone Screen Ur Barbiturates Screen Ur Phencyclidine Scrn Ur Amphetamines Screen U Benzodiazepines Scrn U Oth Cocaine Metabols U Cannabinoids Screen"
[2017-04-28 00:37] LABS: BASO # 0.03 K/mm3 (0.0-2.0); BASO % 0.2 % (0.0-3.0); EOS % 0.2 % (1.5-5.0); GRAN # 9.27 (1.4-6.5); GRAN % 76.8 % (50.0-68.0); LYMPH # 1.8 (1.2-3.4); LYMPH % 15.1 % (22.0-35.0); MONO # 0.9 (0.1-0.6); MONO % 7.7 % (1.0-6.0)
--- NOTE | 2017-04-28 00:58 | CT ---
EXAM: CT Neck Without Intravenous Contrast CLINICAL HISTORY: 62 years old, male; Signs and symptoms; Other: SOB TECHNIQUE: Axial computed tomography images of the neck without intravenous contrast. All CT scans at this facility use one or more dose reduction techniques, viz.: automated exposure control; ma/kV adjustment per patient size (including targeted exams where dose is matched to indication; i.e. head); or iterative reconstruction technique. Coronal and sagittal reformatted images were created and reviewed. COMPARISON: No relevant prior studies available. FINDINGS: Limitations: Lack of intravenous contrast. Motion artifact - mild to moderate. Nasopharynx: Unremarkable. Oropharynx: No significant tonsillar enlargement. Hypopharynx: Unremarkable. Larynx: Apparent prominence of aryepiglottic folds with narrowing of airway. Trachea: Unremarkable. Retropharyngeal space: Unremarkable. Submandibular/parotid glands: Unremarkable. Glands are normal in size. Thyroid: Unremarkable. No enlarged or calcified nodules. Bones/joints: Degenerative changes of cervical spine. No acute fracture. Subluxation of LEFT temporomandibular joint. Soft tissues: Unremarkable. Vasculature: No acute findings. Lymph nodes: No pathologically enlarged lymph nodes. Sinuses: Scattered minimal to mild mucosal thickening. LEFT maxillary retention cyst. Mastoid air cells: No mastoid effusion. Orbits: Unremarkable as visualized. Lung apices: Unremarkable as visualized. Other findings: See chest CT report for additional details. IMPRESSION: 1. Apparent prominence of aryepiglottic folds with narrowing of airway. Clinical correlation is needed. 2. Incidental/non-acute findings are described above.
--- NOTE | 2017-04-28 02:44 | CP.PCM.CON ---
<AlisDonis estrella - Last Filed: 04/28/17 04:35> History of Present Illness - History of Present Illness History of Present Illness: 62 year old male with no significant past medical history presents to the hospital for 3 weeks of progressive shortness of breath. Patient accompanied by family member at bedside. Patient states he had no inciting events that caused him to become short of breath. He has not been sick or had any sick contacts recently. Initially, patient states shortness of breath was intermittent, but now has been continuous over the last few days. Patient came to the ED due to his 's recommendations. He has never had symptoms like this before. Over the past 3 weeks, patient has admitted to dyspnea on exertion and increased lower extremity edema, both of which are new findings. He has not followed up with a doctor in over 5 years because his PMD retired. Patient admits to mild hoarseness in his breath and inability to talk in complete sentences. He also mentions having polydipsia, drinking more water than he usually does, although he is unable to quantify how much. Denies chest pain, nausea, vomiting, diarrhea , fever, chills, dysuria, changes in vision. PMH: None Surgical History: Right knee surgery Family Medical History: Hyperlipidemia Social History: Daily drinker (as per family member), denies tobacco or illicit drug use. Lives with at home Medication: None Allergies: NKDA Review of Systems - Review of Systems Review of Systems: 12 point ROS as per HPI, otherwise negative Past Patient History - Past Social History Smoking Status: Never Smoked - PSYCHIATRIC Hx Psychophysiologic Disorder: No Hx Substance Use: No - SURGICAL HISTORY Hx Surgeries: No Meds Allergies/Adverse Reactions: Allergies Allergy/AdvReac Type Severity Reaction Status Date / Time No Known Allergies Allergy Verified 04/27/17 19:35 - Medications Medications: Current Medications Sodium Chloride (Sodium Chloride 0.9%) 1,000 mls @ 150 mls/hr IV .Q6H40M [facility] Last Admin: 04/27/17 22:05 Dose: 150 mls/hr Physical Exam - Constitutional Appears: Toxic, In Acute Distress - Head Exam Head Exam: ATRAUMATIC, NORMAL INSPECTION, NORMOCEPHALIC - Eye Exam Eye Exam: EOMI, Normal appearance - ENT Exam ENT Exam: Mucous Membranes Moist Additional comments: Unable to visualize throat - Neck Exam Neck exam: Positive for: Normal Inspection. Negative for: Lymphadenopathy, Tenderness - Respiratory Exam Respiratory Exam: Decreased Breath Sounds, Respiratory Distress, Stridor. absent: Clear to Auscultation Bilateral, NORMAL BREATHING PATTERN - Cardiovascular Exam Cardiovascular Exam: RRR, +S1, +S2 - GI/Abdominal Exam GI & Abdominal Exam: Normal Bowel Sounds, Soft. absent: Tenderness - Extremities Exam Extremities exam: Positive for: pedal edema (+1 edema b/l). Negative for: calf tenderness - Neurological Exam Neurological exam: Alert, CN II-XII Intact, Oriented x3 - Psychiatric Exam Psychiatric exam: Normal Affect, Normal Mood - Skin Skin Exam: Intact, Normal Color, Warm Results - Vital Signs Recent Vital Signs: Last Vital Signs Temp Pulse Resp 24 04/27/17 19:59 BP Pulse Ox - Labs Result Diagrams: 04/27/17 20:15 04/27/17 20:15 Labs: Laboratory Results - last 24 hr 04/28/17 00:25 Influenza Typ A,B (EIA) Negative for flu a/b Assessment & Plan - Assessment and Plan (Free Text) Plan: 62 year old male with no past medical history presenting with hypoxemic respiratory failure secondary to upper airway narrowing/obstruction vs epiglottitis. Patient received CT of neck which demonstrated prominence of aryepiglottic folds with significant narrowing of airway. Patient also received CTA of chest which did not show any evidence of PE. ENT was consulted, they determined patient needed a tracheostomy for airway protection. Will admit patient to ICU for further monitoring and care. Will continue antibiotics and steroids. Neuro AAOx3 Will add thiamine and folate for history of alcoholism [facility] Protocol Will place patient on sedation after procedure, Propofol drip Cardio Hemodynamically stable Maintain MAP greater than 65 CXR shows pulmonary congestion Strict I's and O's Will obtain Echocardiogram Pulm Tracheostomy as per ENT Will start Decadron 6 mg q8h Maintain O2 sat greater than 92% ABG after procedure ENT consulted GI Protonix NPO Nephro Hyponatremic, possibly secondary to beer potomania or polydipsia Urine lytes and serum osmolality ordered Will recheck sodium in AM No fluids at this time Maintain normovolemia Heme/ID Afebrile, leukocytosis Blood and urine culture Rocephin and Vancomycin Procal ordered Urine tox Hold anticoagulation due to procedure Endo HgA1c Maintain euglycemia Bhsameer, PGY-2 <Tasha,Carlos Q - Last Filed: 04/28/17 05:51> Meds - Medications Medications: Current Medications Acetaminophen (Tylenol 325mg Tab) 650 mg PO Q4H PRN PRN Reason: Fever >100.4 F Dexamethasone (Decadron Inj) 6 mg IVP Q8H [facility]UCIA Folic Acid (Folic Acid) 1 mg IVP DAILY [facility] Propofol (Diprivan) 1,000 mg in 100 mls @ 3.538 mls/hr IV .Q24H PRN; Protocol; 5 MCG/KG/MIN PRN Reason: TITRATE PER MD ORDER Ceftriaxone Sodium (Rocephin 1 Gram Ivpb) 1 gm in 100 mls @ 100 mls/hr IVPB DAILY LUCIA PRN Reason: Protocol Vancomycin HCl (Vancomycin 1gm) 1 gm in 250 mls @ 167 mls/hr IVPB Q12H LUCIA PRN Reason: Protocol Ondansetron HCl (Zofran Inj) 4 mg IVP Q4H PRN PRN Reason: Nausea/Vomiting Pantoprazole Sodium (Protonix Inj) 40 mg IVP DAILY [facility] Results - Vital Signs Recent Vital Signs: Last Vital Signs Temp 98.2 F 04/27/17 19:23 Pulse 112 H 04/28/17 02:59 Resp 18 04/28/17 02:59 BP 127/110 H 04/28/17 02:59 Pulse Ox 96 04/28/17 02:59 - Labs Result Diagrams: 04/27/17 20:15 04/27/17 20:15 Labs: Laboratory Results - last 24 hr 04/28/17 00:25 Influenza Typ A,B (EIA) Negative for flu a/b Attending/Attestation - Attestation I have personally seen and examined this patient.: Yes I have fully participated in the care of the patient.: Yes I have reviewed all pertinent clinical information: Yes Notes (Text): 04/28/17 05:50 I agree with the above mentioned note and exam by the resident with the addition /exception of the following: Reason for ICU consult: stridor 62 y/o male who denies significant PMHx came to the ED with worsening hoarseness and a cough for the past 3 weeks. Patient reported that he also developed some shortness of breath over the past few days. Patient was initially planned to be admitted to the telemetry floor, however his neck CT revealed significant aryepiglottic fold edema/thickness narrowing his airway. I asked Dr. Bello to obtain a stat ENT consultation for video laryngoscopy to determine if the patient required emergent intubation due to his combined hypoxic/hypercapnic failure in the setting of a patient with stridor and hoarseness concering for obstructive epiglotitis. ENT evaluated the patient in the ER and made the decision to bring the patient to the OR for possible endotracheal intubation vs tracheostomy. As per my discussion with the house staff, the patient is scheduled to receive a tracheostomy in the OR. We will continue to treat as epiglotitis with IV Abx and follow along with ENT once he is returned to the ICU. Hyponatremia with an unclear cause at this time as patient did report increased fluid intake; pending serum/urine osm along with urine electrolytes; will hold IVF at this time as his cxr appears to show some pulmonary vascular congestion. all labs and images reviewed personally thus far total time of care: 55 minutes
[2017-04-28] MEDS ORDERED: Racepinephrine 2.25% Inhal Soln 0.5 ML UD ONE (03:18)
[2017-04-28] MEDS ORDERED: Lidocaine 1% w Epi 1:100,000 Inj IJ STA (03:22)
[2017-04-28] MEDS ORDERED: Etomidate 20 mg/10ml Inj IV ONE (04:02)
[2017-04-28] MEDS ORDERED: Oxymetazoline 0.05% Nasal Spray (30 ml) NS ONE (04:02)
[2017-04-28] MEDS ORDERED: Rocuronium 10 mg/ml (5 ml) ONE (04:10)
[2017-04-28] MEDS ORDERED: ePHEDrine 50 mg/ml Inj ONE ×2 (04:15→05:07)
[2017-04-28] MEDS ORDERED: Phenylephrine 10 mg/ml Inj ONE (04:17)
[2017-04-28] MEDS ORDERED: Propofol 10 mg/ml 1,000 MG/100 ML VIAL IV PRN (04:59)
[2017-04-28] MEDS ORDERED: Thiamine 100 mg/ml Inj IM STA (04:59)
[2017-04-28] MEDS ORDERED: Midazolam 100 mg/100ml in NS 100 MG/100 ML SOL IV PRN (06:39)
[2017-04-28] MEDS: Fentanyl 1000mcg/100ml NS 1,000 MCG/100 ML BAG IV PRN ×2 (06:47→22:26)
[2017-04-28] MEDS: Vancomycin 1gm in NS 250ml 1 GM/250 ML BAG IVPB SCH ×2 (06:49→19:59)
[2017-04-28] MEDS: Dexamethasone 4 mg/1 ml IVP SCH ×3 (06:50→21:18)
[2017-04-28] MEDS ORDERED: Propofol 10 mg/ml 1,000 MG/100 ML VIAL ONE (07:15)
[2017-04-28 07:49] LABS: BASO # 0.01 K/mm3 (0.0-2.0); BASO % 0.1 % (0.0-3.0); EOS % 0.1 % (1.5-5.0); GRAN # 13.61 (1.4-6.5); LYMPH # 1.1 (1.2-3.4); MEAN CELL VOLUME 69.1 fl (80.0-105.0); MEAN CORPUSCULAR HEMOGLOBIN 19.4 pg (25.0-35.0); MEAN CORPUSCULAR HGB CONC 28.1 g/dl (31.0-37.0); MEAN PLATELET VOLUME 9.3 fl (7.0-11.0); MONO # 1.2 (0.1-0.6); MONO % 7.8 % (1.0-6.0); RBC 3.91 10^6/uL (3.5-6.1); RED CELL DISTRIBUTION WIDTH 18.9 % (11.5-14.5)
[2017-04-28 07:52] LABS: HEMOGLOBIN 7.6 g/dL (14.0-18.0)
--- NOTE | 2017-04-28 07:58 | CP.CCUPN ---
Addendum entered and electronically signed by Frantz Brenner DO 04/28/17 13:08 : Patient became agitated when placed on trach collar, and Ativan STAT and PRN were ordered. ENT Resident Ju contacted and will examine patient to ensure proper trach collar placement and function. CXR will also be ordered STAT. Original Note: <Frantz Brenner - Last Filed: 04/28/17 12:38> CCU Subjective - Physician Review Subjective (Free Text): Frantz Brenner PGY1 ICU Note for Dr. Rosa Patient seen and examined at bedside s/p emergent tracheostomy by ENT. Patient is sedated s/p tracheostomy. ROS could not be obtained. 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 CCU Objective - Physical Exam Physical Exam Limitations: Positive for: Altered Mental Status Head: Positive for: Atraumatic, Normocephalic Pupils: Positive for: PERRL Conjunctiva: Positive for: Normal Ears: Positive for: Normal Mouth: Positive for: Dry Pharnyx: Positive for: Other (poorly visualized due to body habitus) Neck: Positive for: Other (s/p tracheostomy, on vent) Respiratory/Chest: Positive for: Rales (noted b/l diffusely) Cardiovascular: Positive for: Regular Rate and Rhythm, Normal S1, S2. Negative for: Murmurs Abdomen: Positive for: Normal Bowel Sounds, Other (obese body habitus). Negative for: Tenderness, Distention, Peritoneal Signs Genitourinary Male: Positive for: Other (christianson in place) Back: Positive for: Normal Inspection Upper Extremity: Positive for: Normal Inspection. Negative for: Cyanosis, Edema Lower Extremity: Positive for: Edema (1+ b/l). Negative for: Buzz's Sign, Tenderness (no calf tenderness) Neurological: Positive for: Speech Normal, Other (sedated). Negative for: GCS= 15, CN II-XII Intact (could not assess; sedated) Skin: Positive for: Warm, Dry, Normal Color. Negative for: Rashes Psychiatric: Positive for: Other (sedated, altered) - Medications Active Medications: Active Medications Generic Name Dose Route Start Last Admin Trade Name Freq PRN Reason Stop Dose Admin Acetaminophen 650 mg 04/28/17 04:58 Tylenol 325mg Tab PO Q4H PRN Fever >100.4 F Dexamethasone 6 mg 04/28/17 05:00 04/28/17 06:50 Decadron Inj IVP 6 mg Q8H LUCIA Administration Folic Acid 1 mg 04/28/17 10:00 Folic Acid IVP DAILY LUCIA Propofol 1,000 mg in 100 mls @ 3.538 mls/hr 04/28/17 04:59 Diprivan IV .Q24H PRN TITRATE PER MD ORDER Protocol 5 MCG/KG/MIN Ceftriaxone Sodium 1 gm in 100 mls @ 100 mls/hr 04/28/17 10:00 Rocephin 1 Gram Ivpb IVPB DAILY LUCIA Protocol Vancomycin HCl 1 gm in 250 mls @ 167 mls/hr 04/28/17 05:00 04/28/17 06:49 Vancomycin 1gm IVPB 167 mls/hr Q12H LUCIA Administration Protocol Fentanyl Citrate 1,000 mcg in 100 mls @ 2 mls/hr 04/28/17 06:40 04/28/17 06: 47 Fentanyl Citrate/Sodium Chloride 1 Mg/100 Ml IV 20 mcg/hr .Q24H PRN 2 mls/hr TITRATE PER MD ORDER Administration Protocol 20 MCG/HR Dexmedetomidine HCl 400 mcg in 100 mls @ 5.897 mls/hr 04/28/17 07:36 Precedex 400mcg/100ml IV .[id number] PRN Agitation Protocol 0.2 MCG/KG/HR Ondansetron HCl 4 mg 04/28/17 04:58 Zofran Inj IVP Q4H PRN Nausea/Vomiting Pantoprazole Sodium 40 mg 04/28/17 10:00 Protonix Inj IVP DAILY [facility] - Patient Studies Lab Studies: Lab Studies 04/28/17 04/28/17 Range/Units 07:30 00:25 WBC 16.0 H D (4.5-11.0) 10^3/ul RBC 3.91 (3.5-6.1) 10^6/uL Hgb 7.6 L (14.0-18.0) g/dL Hct 27.0 L (42.0-52.0) % MCV 69.1 L (80.0-105.0) fl MCH 19.4 L (25.0-35.0) pg MCHC 28.1 L (31.0-37.0) g/dl RDW 18.9 H (11.5-14.5) % Plt Count 247 (120.0-450.0) 10^3/uL MPV 9.3 (7.0-11.0) fl Gran % 85.0 H (50.0-68.0) % Lymph % (Auto) 7.0 L (22.0-35.0) % Arthur % (Auto) 7.8 H (1.0-6.0) % Eos % (Auto) 0.1 L (1.5-5.0) % Baso % (Auto) 0.1 (0.0-3.0) % Gran # 13.61 H (1.4-6.5) Lymph # (Auto) 1.1 L (1.2-3.4) Arthur # (Auto) 1.2 H (0.1-0.6) Eos # (Auto) 0.0 (0.0-0.7) Baso # (Auto) 0.01 (0.0-2.0) K/mm3 Influenza Typ A,B (EIA) Negative for flu a/b (NEGATIVE) Laboratory Results - last 24 hr 04/28/17 04/28/17 00:25 07:30 WBC 16.0 H D RBC 3.91 Hgb 7.6 L Hct 27.0 L MCV 69.1 L MCH 19.4 L MCHC 28.1 L RDW 18.9 H Plt Count 247 MPV 9.3 Gran % 85.0 H Lymph % (Auto) 7.0 L Arthur % (Auto) 7.8 H Eos % (Auto) 0.1 L Baso % (Auto) 0.1 Gran # 13.61 H Lymph # (Auto) 1.1 L Arthur # (Auto) 1.2 H Eos # (Auto) 0.0 Baso # (Auto) 0.01 Influenza Typ A,B (EIA) Negative for flu a/b Review of Systems - Review of Systems Systems not reviewed;Unavailable: Intubated Critical Care Progress Note - Ventilator Checklist Head of Bed 30 Degrees: Yes Daily Sedation Vacation: Yes Daily Assessment of Readiness to Wean: Yes Daily Spontaneous Breathing Trial: Yes PUD Prophalyxis: Yes DVT Prophylaxis: Yes Oral Care with Chlorhexidine Gluconate {CHG}: Yes - Vent Settings MODE:: PRESSURE SUPPORT - Extremities/Vascular Does the Patient need a Central Venous Catheter?: No (hemodynamically stable) Does the Patient have a Christianson Catheter?: Yes Does the Patient need a Christianson Catheter?: Yes - Prophylaxis GI Prophylaxis GI: PPI - Prophylaxis DVT Prophylaxis DVT: SCDs - Nutrition Nutrition: Nutrition Category Date Time Status NPO Diet [DIET] Diets 04/28/17 Breakfast Ordered Assessment/Plan - Assessment and Plan (Free Text) Assessment: 62 y/o AAM with a PMH of morbid obesity and sleep apnea who was admitted for combined hypoxic/hypercapnic respiratory failure secondary to upper airway obstruction and narrowing requiring emergent tracheostomy. Plan: Neuro: - Patient is sedated post tracheostomy - CIWA protocol given that family provides hx of daily ETOH abuse - cont thiamine, folic acid and MV given hx of ETOH use - currently sedated on propofol, fentanyl, and versed, will cont to wean patient off - UDS ordered Cardio: - Hemodynamically stable, not requiring pressors - Echo ordered to r/o CHF as cause of pedal edema and shortness of breath - EKG in ED showed sinus tachy @ 104, Left axis deviation, PRWP and an incomplete RBBB - Maintain MAP >65 - Strict I & Os - Bilateral US of LE done to r/o DVT as cause of dyspnea- pending official read - lipid panel ordered Pulm: - Shortness of breath was likely secondary to upper airway obstruction 2/2 floppy epiglottitis possibly exacerbated by infection - Emergent tracheostomy by ENT - Patient currently on vent PS with trach; if patient tolerated, will place on trach collar and if stable, patient will be cleared for transfer from ICU - Protective lung ventilation strategy includes HOB elevated, daily oral care, and aspiration precautions - ABG shows primary respiratory acidosis w/ metabolic alkalosis - Decadron 6mg q8h - Maintain O2 sat >92% - CT neck showed prominence of aryepiglottic folds with narrowing of airway - CTA showed no definite PE, 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, early interstitial edema - CXR- questionable small pleural effusions, mild cardiomegaly, mild pulmonary vascular congestion GI: - Protonix - NPO - Zofran for postop nausea Nephro: - hyponatremia possibly secondary to polydipsia or beer potomania - f/u urine lytes/Osm and serum osmolality/lytes - Mag, phos ordered - No fluids at this time - Maintain normovolemia Heme/Onc: - Microcytic anemia - Anemia workup ordered, f/u iron, ferritin, B12, folate and smear - No overt signs of bleeding, HD stable - conto monitor H/H ID: - Afebrile, leukocytosis present - flu negative - F/u blood and urine cultures, procal, urine tox screen - Rocephin and Vanc for empiric therapy - ID consulted, recs appreciated Endo: - A1c ordered - TSH ordered - Maintain euglycemia (140 - 180) GI PPX: Protonix DVT PPX: Heparin and SCDs Diet: NPO Dispo: Patient is hemodynamically stable and is improving with tapering sedation. Patient currently tolerating PS on vent; if continues to improve, will place on trach collar and if stable, patient will be cleared for transfer from ICU Patient was seen, examined and discussed with attending, Dr. Shelley Brenner PGY1 Pager # [phone] <Arturo Rosa - Last Filed: 04/28/17 16:23> CCU Objective - Vital Signs / Intake & Output Intake and Output (Last 8hrs): Intake & Output 04/28/17 04/28/17 04/28/17 06:59 14:59 22:59 Intake Total 95 0 Balance 95 0 Weight 281 lb Intake: IV 95 0 - Medications Active Medications: Active Medications Generic Name Dose Route Start Last Admin Trade Name Freq PRN Reason Stop Dose Admin Acetaminophen 650 mg 04/28/17 04:58 Tylenol 325mg Tab PO Q4H PRN Fever >100.4 F Dexamethasone 6 mg 04/28/17 05:00 04/28/17 06:50 Decadron Inj IVP 6 mg Q8H LUCIA Administration Folic Acid 1 mg 04/28/17 10:00 Folic Acid IVP DAILY LUCIA Heparin Sodium (Porcine) 5,000 units 04/28/17 08:15 04/28/17 09:12 Heparin SC 5,000 units Q8 LUCIA Administration Protocol Propofol 1,000 mg in 100 mls @ 3.538 mls/hr 04/28/17 04:59 04/28/17 16:05 Diprivan IV 0 mcg/kg/min .Q24H PRN 0 mls/hr TITRATE PER MD ORDER Titration Protocol 5 MCG/KG/MIN Ceftriaxone Sodium 1 gm in 100 mls @ 100 mls/hr 04/28/17 10:00 04/28/17 09:07 Rocephin 1 Gram Ivpb IVPB 100 mls/hr DAILY LUCIA Administration Protocol Vancomycin HCl 1 gm in 250 mls @ 167 mls/hr 04/28/17 05:00 04/28/17 06:49 Vancomycin 1gm IVPB 167 mls/hr Q12H LUCIA Administration Protocol Fentanyl Citrate 1,000 mcg in 100 mls @ 2 mls/hr 04/28/17 06:40 04/28/17 07: 00 Fentanyl Citrate/Sodium Chloride 1 Mg/100 Ml IV 50 mcg/hr .Q24H PRN 5 mls/hr TITRATE PER MD ORDER Titration Protocol 20 MCG/HR Dexmedetomidine HCl 400 mcg in 100 mls @ 5.897 mls/hr 04/28/17 07:36 10:11 Precedex 400mcg/100ml IV 0.2 mcg/kg/hr .[id number] PRN 5.897 mls/hr Agitation Administration Protocol 0.2 MCG/KG/HR Multivitamins/Vitamin C 10 ml/ 1,011.2 mls @ 60 mls/hr 04/28/17 12:20 Thiamine HCl 100 mg/ Folic IV 04/29/17 05:11 Acid 1 mg/ Sodium Chloride .[id number] ONE Lorazepam 4 mg 04/28/17 12:57 Ativan IVP Q2H PRN Agitation Protocol Ondansetron HCl 4 mg 04/28/17 04:58 Zofran Inj IVP Q4H PRN Nausea/Vomiting Pantoprazole Sodium 40 mg 04/28/17 10:00 04/28/17 11:15 Protonix Inj IVP 40 mg DAILY LUCIA Administration - Patient Studies Lab Studies: Lab Studies 04/28/17 04/28/17 04/28/17 Range/Units 12:40 12:40 10:00 WBC (4.5-11.0) 10^3/ul RBC (3.5-6.1) 10^6/uL Hgb (14.0-18.0) g/dL Hct (42.0-52.0) % MCV (80.0-105.0) fl MCH (25.0-35.0) pg MCHC (31.0-37.0) g/dl RDW (11.5-14.5) % Plt Count (120.0-450.0) 10^3/uL MPV (7.0-11.0) fl Gran % (50.0-68.0) % Lymph % (Auto) (22.0-35.0) % Arthur % (Auto) (1.0-6.0) % Eos % (Auto) (1.5-5.0) % Baso % (Auto) (0.0-3.0) % Gran # (1.4-6.5) Lymph # (Auto) (1.2-3.4) Arthur # (Auto) (0.1-0.6) Eos # (Auto) (0.0-0.7) Baso # (Auto) (0.0-2.0) K/mm3 Retic Count (0.5-1.5) % pCO2 (35-45) mm/Hg pO2 (80-100) mm/Hg HCO3 (21-28) mmol/L ABG pH (7.35-7.45) ABG Total CO2 (22-28) mmol.L ABG O2 Saturation (95-98) % ABG Base Excess (-2.0-3.0) mmol/L ABG Potassium (3.6-5.2) mmol/L Glucose (75-110) mg/dl Lactate (0.7-2.1) mmol/L Mechanical Rate FiO2 % Tidal Volume PEEP Sodium (132-148) mmol/L Potassium (3.6-5.0) mmol/L Chloride (98-107) mmol/L Carbon Dioxide (21-33) mmol/L Anion Gap (10-20) BUN (7-21) mg/dL Creatinine (0.8-1.5) mg/dl Est GFR ( Amer) Est GFR (Non-Af Amer) Random Glucose (70-110) mg/dL Hemoglobin A1c (4.2-6.5) % Calcium (8.4-10.5) mg/dL Phosphorus (2.5-4.5) mg/dL Magnesium (1.7-2.2) mg/dL Iron (45-180) ug/dL TIBC (261-462) ug/dL % Saturation (20-55) % Transferrin (206-381) mg/dL Ferritin ng/mL Total Bilirubin (0.2-1.3) mg/dL AST (17-59) U/L ALT (7-56) U/L Alkaline Phosphatase (38-126) U/L Troponin I ng/mL Total Protein (5.8-8.3) g/dL Albumin (3.0-4.8) g/dL Globulin gm/dL Albumin/Globulin Ratio (1.1-1.8) Triglycerides (35-160) mg/dL Cholesterol (130-200) mg/dL LDL Cholesterol Direct (0-129) mg/dL HDL Cholesterol (29-60) mg/dL Procalcitonin (0.19-0.49) NG/ML TSH 3rd Generation 0.31 L (0.46-4.68) mIU/mL Arterial Blood Potassium (3.6-5.2) mmol/L Urine Color Light yellow (YELLOW) Urine Appearance Clear (CLEAR) Urine pH 5.5 (4.7-8.0) Ur Specific [place] <= 1.005 (1.005-1.035) Urine Protein Negative (<30 mg/dL) mg/dL Urine Glucose (UA) Negative (NEGATIVE) mg/dL Urine Ketones Negative (NEGATIVE) mg/dL Urine Blood Negative (NEGATIVE) Urine Nitrate Negative (NEGATIVE) Urine Bilirubin Negative (NEGATIVE) Urine Urobilinogen 0.2 (<1 E.U./dL) E.U./dL Ur Leukocyte Esterase Negative (NEGATIVE) Ange/uL Ur Random Sodium 14 meq/L Ur Random Potassium 8.7 meq/L Urine Opiates Screen Negative (NEGATIVE) Urine Methadone Screen Negative (NEGATIVE) Ur Barbiturates Screen Negative (NEGATIVE) Ur Phencyclidine Scrn Negative (NEGATIVE) Ur Amphetamines Screen Negative (NEGATIVE) U Benzodiazepines Scrn Positive (NEGATIVE) U Oth Cocaine Metabols Negative (NEGATIVE) U Cannabinoids Screen Negative (NEGATIVE) Influenza Typ A,B (EIA) (NEGATIVE) 04/28/17 04/28/17 04/28/17 Range/Units 09:50 09:50 09:50 WBC (4.5-11.0) 10^3/ul RBC (3.5-6.1) 10^6/uL Hgb (14.0-18.0) g/dL Hct (42.0-52.0) % MCV (80.0-105.0) fl MCH (25.0-35.0) pg MCHC (31.0-37.0) g/dl RDW (11.5-14.5) % Plt Count (120.0-450.0) 10^3/uL MPV (7.0-11.0) fl Gran % (50.0-68.0) % Lymph % (Auto) (22.0-35.0) % Arthur % (Auto) (1.0-6.0) % Eos % (Auto) (1.5-5.0) % Baso % (Auto) (0.0-3.0) % Gran # (1.4-6.5) Lymph # (Auto) (1.2-3.4) Arthur # (Auto) (0.1-0.6) Eos # (Auto) (0.0-0.7) Baso # (Auto) (0.0-2.0) K/mm3 Retic Count 2.88 H (0.5-1.5) % pCO2 (35-45) mm/Hg pO2 (80-100) mm/Hg HCO3 (21-28) mmol/L ABG pH (7.35-7.45) ABG Total CO2 (22-28) mmol.L ABG O2 Saturation (95-98) % ABG Base Excess (-2.0-3.0) mmol/L ABG Potassium (3.6-5.2) mmol/L Glucose (75-110) mg/dl Lactate (0.7-2.1) mmol/L Mechanical Rate FiO2 % Tidal Volume PEEP Sodium (132-148) mmol/L Potassium (3.6-5.0) mmol/L Chloride (98-107) mmol/L Carbon Dioxide (21-33) mmol/L Anion Gap (10-20) BUN (7-21) mg/dL Creatinine (0.8-1.5) mg/dl Est GFR ( Amer) Est GFR (Non-Af Amer) Random Glucose (70-110) mg/dL Hemoglobin A1c (4.2-6.5) % Calcium (8.4-10.5) mg/dL Phosphorus (2.5-4.5) mg/dL Magnesium (1.7-2.2) mg/dL Iron 30 L (45-180) ug/dL TIBC 363 (261-462) ug/dL % Saturation 8 L (20-55) % Transferrin 316.83 (206-381) mg/dL Ferritin ng/mL Total Bilirubin (0.2-1.3) mg/dL AST (17-59) U/L ALT (7-56) U/L Alkaline Phosphatase (38-126) U/L Troponin I ng/mL Total Protein (5.8-8.3) g/dL Albumin (3.0-4.8) g/dL Globulin gm/dL Albumin/Globulin Ratio (1.1-1.8) Triglycerides (35-160) mg/dL Cholesterol (130-200) mg/dL LDL Cholesterol Direct (0-129) mg/dL HDL Cholesterol (29-60) mg/dL Procalcitonin (0.19-0.49) NG/ML TSH 3rd Generation (0.46-4.68) mIU/mL Arterial Blood Potassium (3.6-5.2) mmol/L Urine Color (YELLOW) Urine Appearance (CLEAR) Urine pH (4.7-8.0) Ur Specific [place] (1.005-1.035) Urine Protein (<30 mg/dL) mg/dL Urine Glucose (UA) (NEGATIVE) mg/dL Urine Ketones (NEGATIVE) mg/dL Urine Blood (NEGATIVE) Urine Nitrate (NEGATIVE) Urine Bilirubin (NEGATIVE) Urine Urobilinogen (<1 E.U./dL) E.U./dL Ur Leukocyte Esterase (NEGATIVE) Ange/uL Ur Random Sodium meq/L Ur Random Potassium meq/L Urine Opiates Screen (NEGATIVE) Urine Methadone Screen (NEGATIVE) Ur Barbiturates Screen (NEGATIVE) Ur Phencyclidine Scrn (NEGATIVE) Ur Amphetamines Screen (NEGATIVE) U Benzodiazepines Scrn (NEGATIVE) U Oth Cocaine Metabols (NEGATIVE) U Cannabinoids Screen (NEGATIVE) Influenza Typ A,B (EIA) (NEGATIVE) 04/28/17 04/28/17 04/28/17 Range/Units 08:40 07:30 07:30 WBC (4.5-11.0) 10^3/ul RBC (3.5-6.1) 10^6/uL Hgb (14.0-18.0) g/dL Hct (42.0-52.0) % MCV (80.0-105.0) fl MCH (25.0-35.0) pg MCHC (31.0-37.0) g/dl RDW (11.5-14.5) % Plt Count (120.0-450.0) 10^3/uL MPV (7.0-11.0) fl Gran % (50.0-68.0) % Lymph % (Auto) (22.0-35.0) % Arthur % (Auto) (1.0-6.0) % Eos % (Auto) (1.5-5.0) % Baso % (Auto) (0.0-3.0) % Gran # (1.4-6.5) Lymph # (Auto) (1.2-3.4) Arthur # (Auto) (0.1-0.6) Eos # (Auto) (0.0-0.7) Baso # (Auto) (0.0-2.0) K/mm3 Retic Count (0.5-1.5) % pCO2 52 H (35-45) mm/Hg pO2 71.0 L (80-100) mm/Hg HCO3 25.0 (21-28) mmol/L ABG pH 7.29 L (7.35-7.45) ABG Total CO2 26.6 (22-28) mmol.L ABG O2 Saturation 97.1 (95-98) % ABG Base Excess -2.3 L (-2.0-3.0) mmol/L ABG Potassium 4.0 (3.6-5.2) mmol/L Glucose 166 H (75-110) mg/dl Lactate 0.8 (0.7-2.1) mmol/L Mechanical Rate 20 FiO2 60.0 % Tidal Volume 400 PEEP 5 Sodium 121.0 L 122 L (132-148) mmol/L Potassium 4.2 (3.6-5.0) mmol/L Chloride 93.0 L 90 L (98-107) mmol/L Carbon Dioxide 25 (21-33) mmol/L Anion Gap 12 (10-20) BUN 8 (7-21) mg/dL Creatinine 0.8 (0.8-1.5) mg/dl Est GFR ( Amer) > 60 Est GFR (Non-Af Amer) > 60 Random Glucose 184 H (70-110) mg/dL Hemoglobin A1c (4.2-6.5) % Calcium 8.0 L (8.4-10.5) mg/dL Phosphorus (2.5-4.5) mg/dL Magnesium (1.7-2.2) mg/dL Iron (45-180) ug/dL TIBC (261-462) ug/dL % Saturation (20-55) % Transferrin (206-381) mg/dL Ferritin ng/mL Total Bilirubin 0.6 (0.2-1.3) mg/dL AST 47 (17-59) U/L ALT 40 (7-56) U/L Alkaline Phosphatase 100 (38-126) U/L Troponin I 0.02 D ng/mL Total Protein 6.8 (5.8-8.3) g/dL Albumin 3.4 (3.0-4.8) g/dL Globulin 3.4 gm/dL Albumin/Globulin Ratio 1.0 L (1.1-1.8) Triglycerides (35-160) mg/dL Cholesterol (130-200) mg/dL LDL Cholesterol Direct (0-129) mg/dL HDL Cholesterol (29-60) mg/dL Procalcitonin 0.08 L (0.19-0.49) NG/ML TSH 3rd Generation (0.46-4.68) mIU/mL Arterial Blood Potassium 4.0 (3.6-5.2) mmol/L Urine Color (YELLOW) Urine Appearance (CLEAR) Urine pH (4.7-8.0) Ur Specific [place] (1.005-1.035) Urine Protein (<30 mg/dL) mg/dL Urine Glucose (UA) (NEGATIVE) mg/dL Urine Ketones (NEGATIVE) mg/dL Urine Blood (NEGATIVE) Urine Nitrate (NEGATIVE) Urine Bilirubin (NEGATIVE) Urine Urobilinogen (<1 E.U./dL) E.U./dL Ur Leukocyte Esterase (NEGATIVE) Ange/uL Ur Random Sodium meq/L Ur Random Potassium meq/L Urine Opiates Screen (NEGATIVE) Urine Methadone Screen (NEGATIVE) Ur Barbiturates Screen (NEGATIVE) Ur Phencyclidine Scrn (NEGATIVE) Ur Amphetamines Screen (NEGATIVE) U Benzodiazepines Scrn (NEGATIVE) U Oth Cocaine Metabols (NEGATIVE) U Cannabinoids Screen (NEGATIVE) Influenza Typ A,B (EIA) (NEGATIVE) 04/28/17 04/28/17 04/28/17 Range/Units 07:30 07:30 07:00 WBC 16.0 H D (4.5-11.0) 10^3/ul RBC 3.91 (3.5-6.1) 10^6/uL Hgb 7.6 L (14.0-18.0) g/dL Hct 27.0 L (42.0-52.0) % MCV 69.1 L (80.0-105.0) fl MCH 19.4 L (25.0-35.0) pg MCHC 28.1 L (31.0-37.0) g/dl RDW 18.9 H (11.5-14.5) % Plt Count 247 (120.0-450.0) 10^3/uL MPV 9.3 (7.0-11.0) fl Gran % 85.0 H (50.0-68.0) % Lymph % (Auto) 7.0 L (22.0-35.0) % Arthur % (Auto) 7.8 H (1.0-6.0) % Eos % (Auto) 0.1 L (1.5-5.0) % Baso % (Auto) 0.1 (0.0-3.0) % Gran # 13.61 H (1.4-6.5) Lymph # (Auto) 1.1 L (1.2-3.4) Arthur # (Auto) 1.2 H (0.1-0.6) Eos # (Auto) 0.0 (0.0-0.7) Baso # (Auto) 0.01 (0.0-2.0) K/mm3 Retic Count (0.5-1.5) % pCO2 (35-45) mm/Hg pO2 (80-100) mm/Hg HCO3 (21-28) mmol/L ABG pH (7.35-7.45) ABG Total CO2 (22-28) mmol.L ABG O2 Saturation (95-98) % ABG Base Excess (-2.0-3.0) mmol/L ABG Potassium (3.6-5.2) mmol/L Glucose (75-110) mg/dl Lactate (0.7-2.1) mmol/L Mechanical Rate FiO2 % Tidal Volume PEEP Sodium (132-148) mmol/L Potassium (3.6-5.0) mmol/L Chloride (98-107) mmol/L Carbon Dioxide (21-33) mmol/L Anion Gap (10-20) BUN (7-21) mg/dL Creatinine (0.8-1.5) mg/dl Est GFR ( Amer) Est GFR (Non-Af Amer) Random Glucose (70-110) mg/dL Hemoglobin A1c 6.1 (4.2-6.5) % Calcium (8.4-10.5) mg/dL Phosphorus 4.6 H (2.5-4.5) mg/dL Magnesium 1.5 L (1.7-2.2) mg/dL Iron (45-180) ug/dL TIBC (261-462) ug/dL % Saturation (20-55) % Transferrin (206-381) mg/dL Ferritin 8.0 ng/mL Total Bilirubin (0.2-1.3) mg/dL AST (17-59) U/L ALT (7-56) U/L Alkaline Phosphatase (38-126) U/L Troponin I ng/mL Total Protein (5.8-8.3) g/dL Albumin (3.0-4.8) g/dL Globulin gm/dL Albumin/Globulin Ratio (1.1-1.8) Triglycerides 35 (35-160) mg/dL Cholesterol 134 (130-200) mg/dL LDL Cholesterol Direct 74 (0-129) mg/dL HDL Cholesterol 44 (29-60) mg/dL Procalcitonin (0.19-0.49) NG/ML TSH 3rd Generation (0.46-4.68) mIU/mL Arterial Blood Potassium (3.6-5.2) mmol/L Urine Color (YELLOW) Urine Appearance (CLEAR) Urine pH (4.7-8.0) Ur Specific [place] (1.005-1.035) Urine Protein (<30 mg/dL) mg/dL Urine Glucose (UA) (NEGATIVE) mg/dL Urine Ketones (NEGATIVE) mg/dL Urine Blood (NEGATIVE) Urine Nitrate (NEGATIVE) Urine Bilirubin (NEGATIVE) Urine Urobilinogen (<1 E.U./dL) E.U./dL Ur Leukocyte Esterase (NEGATIVE) Ange/uL Ur Random Sodium meq/L Ur Random Potassium meq/L Urine Opiates Screen (NEGATIVE) Urine Methadone Screen (NEGATIVE) Ur Barbiturates Screen (NEGATIVE) Ur Phencyclidine Scrn (NEGATIVE) Ur Amphetamines Screen (NEGATIVE) U Benzodiazepines Scrn (NEGATIVE) U Oth Cocaine Metabols (NEGATIVE) U Cannabinoids Screen (NEGATIVE) Influenza Typ A,B (EIA) (NEGATIVE) 04/28/17 Range/Units 00:25 WBC (4.5-11.0) 10^3/ul RBC (3.5-6.1) 10^6/uL Hgb (14.0-18.0) g/dL Hct (42.0-52.0) % MCV (80.0-105.0) fl MCH (25.0-35.0) pg MCHC (31.0-37.0) g/dl RDW (11.5-14.5) % Plt Count (120.0-450.0) 10^3/uL MPV (7.0-11.0) fl Gran % (50.0-68.0) % Lymph % (Auto) (22.0-35.0) % Arthur % (Auto) (1.0-6.0) % Eos % (Auto) (1.5-5.0) % Baso % (Auto) (0.0-3.0) % Gran # (1.4-6.5) Lymph # (Auto) (1.2-3.4) Arthur # (Auto) (0.1-0.6) Eos # (Auto) (0.0-0.7) Baso # (Auto) (0.0-2.0) K/mm3 Retic Count (0.5-1.5) % pCO2 (35-45) mm/Hg pO2 (80-100) mm/Hg HCO3 (21-28) mmol/L ABG pH (7.35-7.45) ABG Total CO2 (22-28) mmol.L ABG O2 Saturation (95-98) % ABG Base Excess (-2.0-3.0) mmol/L ABG Potassium (3.6-5.2) mmol/L Glucose (75-110) mg/dl Lactate (0.7-2.1) mmol/L Mechanical Rate FiO2 % Tidal Volume PEEP Sodium (132-148) mmol/L Potassium (3.6-5.0) mmol/L Chloride (98-107) mmol/L Carbon Dioxide (21-33) mmol/L Anion Gap (10-20) BUN (7-21) mg/dL Creatinine (0.8-1.5) mg/dl Est GFR ( Amer) Est GFR (Non-Af Amer) Random Glucose (70-110) mg/dL Hemoglobin A1c (4.2-6.5) % Calcium (8.4-10.5) mg/dL Phosphorus (2.5-4.5) mg/dL Magnesium (1.7-2.2) mg/dL Iron (45-180) ug/dL TIBC (261-462) ug/dL % Saturation (20-55) % Transferrin (206-381) mg/dL Ferritin ng/mL Total Bilirubin (0.2-1.3) mg/dL AST (17-59) U/L ALT (7-56) U/L Alkaline Phosphatase (38-126) U/L Troponin I ng/mL Total Protein (5.8-8.3) g/dL Albumin (3.0-4.8) g/dL Globulin gm/dL Albumin/Globulin Ratio (1.1-1.8) Triglycerides (35-160) mg/dL Cholesterol (130-200) mg/dL LDL Cholesterol Direct (0-129) mg/dL HDL Cholesterol (29-60) mg/dL Procalcitonin (0.19-0.49) NG/ML TSH 3rd Generation (0.46-4.68) mIU/mL Arterial Blood Potassium (3.6-5.2) mmol/L Urine Color (YELLOW) Urine Appearance (CLEAR) Urine pH (4.7-8.0) Ur Specific [place] (1.005-1.035) Urine Protein (<30 mg/dL) mg/dL Urine Glucose (UA) (NEGATIVE) mg/dL Urine Ketones (NEGATIVE) mg/dL Urine Blood (NEGATIVE) Urine Nitrate (NEGATIVE) Urine Bilirubin (NEGATIVE) Urine Urobilinogen (<1 E.U./dL) E.U./dL Ur Leukocyte Esterase (NEGATIVE) Ange/uL Ur Random Sodium meq/L Ur Random Potassium meq/L Urine Opiates Screen (NEGATIVE) Urine Methadone Screen (NEGATIVE) Ur Barbiturates Screen (NEGATIVE) Ur Phencyclidine Scrn (NEGATIVE) Ur Amphetamines Screen (NEGATIVE) U Benzodiazepines Scrn (NEGATIVE) U Oth Cocaine Metabols (NEGATIVE) U Cannabinoids Screen (NEGATIVE) Influenza Typ A,B (EIA) Negative for flu a/b (NEGATIVE) Laboratory Results - last 24 hr 04/28/17 04/28/17 04/28/17 00:25 07:00 07:30 WBC RBC Hgb Hct MCV MCH MCHC RDW Plt Count MPV Gran % Lymph % (Auto) Arthur % (Auto) Eos % (Auto) Baso % (Auto) Gran # Lymph # (Auto) Arthur # (Auto) Eos # (Auto) Baso # (Auto) Retic Count pCO2 pO2 HCO3 ABG pH ABG Total CO2 ABG O2 Saturation ABG Base Excess ABG Potassium Glucose Lactate Mechanical Rate FiO2 Tidal Volume PEEP Sodium Potassium Chloride Carbon Dioxide Anion Gap BUN Creatinine Est GFR ( Amer) Est GFR (Non-Af Amer) Random Glucose Hemoglobin A1c 6.1 Calcium Phosphorus 4.6 H Magnesium 1.5 L Iron TIBC % Saturation Transferrin Ferritin 8.0 Total Bilirubin AST ALT Alkaline Phosphatase Troponin I Total Protein Albumin Globulin Albumin/Globulin Ratio Triglycerides 35 Cholesterol 134 LDL Cholesterol Direct 74 HDL Cholesterol 44 Procalcitonin TSH 3rd Generation Arterial Blood Potassium Urine Color Urine Appearance Urine pH Ur Specific [place] Urine Protein Urine Glucose (UA) Urine Ketones Urine Blood Urine Nitrate Urine Bilirubin Urine Urobilinogen Ur Leukocyte Esterase Ur Random Sodium Ur Random Potassium Urine Opiates Screen Urine Methadone Screen Ur Barbiturates Screen Ur Phencyclidine Scrn Ur Amphetamines Screen U Benzodiazepines Scrn U Oth Cocaine Metabols U Cannabinoids Screen Influenza Typ A,B (EIA) Negative for flu a/b 04/28/17 04/28/17 04/28/17 07:30 07:30 07:30 WBC 16.0 H D RBC 3.91 Hgb 7.6 L Hct 27.0 L MCV 69.1 L MCH 19.4 L MCHC 28.1 L RDW 18.9 H Plt Count 247 MPV 9.3 Gran % 85.0 H Lymph % (Auto) 7.0 L [place] % (Auto) 7.8 H Eos % (Auto) 0.1 L Baso % (Auto) 0.1 Gran # 13.61 H Lymph # (Auto) 1.1 L [place] # (Auto) 1.2 H Eos # (Auto) 0.0 Baso # (Auto) 0.01 Retic Count pCO2 pO2 HCO3 ABG pH ABG Total CO2 ABG O2 Saturation ABG Base Excess ABG Potassium Glucose Lactate Mechanical Rate FiO2 Tidal Volume PEEP Sodium 122 L Potassium 4.2 Chloride 90 L Carbon Dioxide 25 Anion Gap 12 BUN 8 Creatinine 0.8 Est GFR ( Amer) > 60 Est GFR (Non-Af Amer) > 60 Random Glucose 184 H Hemoglobin A1c Calcium 8.0 L Phosphorus Magnesium Iron TIBC % Saturation Transferrin Ferritin Total Bilirubin 0.6 AST 47 ALT 40 Alkaline Phosphatase 100 Troponin I 0.02 D Total Protein 6.8 Albumin 3.4 Globulin 3.4 Albumin/Globulin Ratio 1.0 L Triglycerides Cholesterol LDL Cholesterol Direct HDL Cholesterol Procalcitonin 0.08 L TSH 3rd Generation Arterial Blood Potassium Urine Color Urine Appearance Urine pH Ur Specific [place] Urine Protein Urine Glucose (UA) Urine Ketones Urine Blood Urine Nitrate Urine Bilirubin Urine Urobilinogen Ur Leukocyte Esterase Ur Random Sodium Ur Random Potassium Urine Opiates Screen Urine Methadone Screen Ur Barbiturates Screen Ur Phencyclidine Scrn Ur Amphetamines Screen U Benzodiazepines Scrn U Oth Cocaine Metabols U Cannabinoids Screen Influenza Typ A,B (EIA) 04/28/17 04/28/17 04/28/17 08:40 09:50 09:50 WBC RBC Hgb Hct MCV MCH MCHC RDW Plt Count MPV Gran % Lymph % (Auto) [place] % (Auto) Eos % (Auto) Baso % (Auto) Gran # Lymph # (Auto) [place] # (Auto) Eos # (Auto) Baso # (Auto) Retic Count 2.88 H pCO2 52 H pO2 71.0 L HCO3 25.0 ABG pH 7.29 L ABG Total CO2 26.6 ABG O2 Saturation 97.1 ABG Base Excess -2.3 L ABG Potassium 4.0 Glucose 166 H Lactate 0.8 Mechanical Rate 20 FiO2 60.0 Tidal Volume 400 PEEP 5 Sodium 121.0 L Potassium Chloride 93.0 L Carbon Dioxide Anion Gap BUN Creatinine Est GFR ( Amer) Est GFR (Non-Af Amer) Random Glucose Hemoglobin A1c Calcium Phosphorus Magnesium Iron 30 L TIBC 363 % Saturation 8 L Transferrin Ferritin Total Bilirubin AST ALT Alkaline Phosphatase Troponin I Total Protein Albumin Globulin Albumin/Globulin Ratio Triglycerides Cholesterol LDL Cholesterol Direct HDL Cholesterol Procalcitonin TSH 3rd Generation Arterial Blood Potassium 4.0 Urine Color Urine Appearance Urine pH Ur Specific [place] Urine Protein Urine Glucose (UA) Urine Ketones Urine Blood Urine Nitrate Urine Bilirubin Urine Urobilinogen Ur Leukocyte Esterase Ur Random Sodium Ur Random Potassium Urine Opiates Screen Urine Methadone Screen Ur Barbiturates Screen Ur Phencyclidine Scrn Ur Amphetamines Screen U Benzodiazepines Scrn U Oth Cocaine Metabols U Cannabinoids Screen Influenza Typ A,B (EIA) 04/28/17 04/28/17 04/28/17 09:50 10:00 12:40 WBC RBC Hgb Hct MCV MCH MCHC RDW Plt Count MPV Gran % Lymph % (Auto) [place] % (Auto) Eos % (Auto) Baso % (Auto) Gran # Lymph # (Auto) [place] # (Auto) Eos # (Auto) Baso # (Auto) Retic Count pCO2 pO2 HCO3 ABG pH ABG Total CO2 ABG O2 Saturation ABG Base Excess ABG Potassium Glucose Lactate Mechanical Rate FiO2 Tidal Volume PEEP Sodium Potassium Chloride Carbon Dioxide Anion Gap BUN Creatinine Est GFR ( Amer) Est GFR (Non-Af Amer) Random Glucose Hemoglobin A1c Calcium Phosphorus Magnesium Iron TIBC % Saturation Transferrin 316.83 Ferritin Total Bilirubin AST ALT Alkaline Phosphatase Troponin I Total Protein Albumin Globulin Albumin/Globulin Ratio Triglycerides Cholesterol LDL Cholesterol Direct HDL Cholesterol Procalcitonin TSH 3rd Generation 0.31 L Arterial Blood Potassium Urine Color Light yellow Urine Appearance Clear Urine pH 5.5 Ur Specific [place] <= 1.005 Urine Protein Negative Urine Glucose (UA) Negative Urine Ketones Negative Urine Blood Negative Urine Nitrate Negative Urine Bilirubin Negative Urine Urobilinogen 0.2 Ur Leukocyte Esterase Negative Ur Random Sodium Ur Random Potassium Urine Opiates Screen Urine Methadone Screen Ur Barbiturates Screen Ur Phencyclidine Scrn Ur Amphetamines Screen U Benzodiazepines Scrn U Oth Cocaine Metabols U Cannabinoids Screen Influenza Typ A,B (EIA) 04/28/17 12:40 WBC RBC Hgb Hct MCV MCH MCHC RDW Plt Count MPV Gran % Lymph % (Auto) [place] % (Auto) Eos % (Auto) Baso % (Auto) Gran # Lymph # (Auto) [place] # (Auto) Eos # (Auto) Baso # (Auto) Retic Count pCO2 pO2 HCO3 ABG pH ABG Total CO2 ABG O2 Saturation ABG Base Excess ABG Potassium Glucose Lactate Mechanical Rate FiO2 Tidal Volume PEEP Sodium Potassium Chloride Carbon Dioxide Anion Gap BUN Creatinine Est GFR ( Amer) Est GFR (Non-Af Amer) Random Glucose Hemoglobin A1c Calcium Phosphorus Magnesium Iron TIBC % Saturation Transferrin Ferritin Total Bilirubin AST ALT Alkaline Phosphatase Troponin I Total Protein Albumin Globulin Albumin/Globulin Ratio Triglycerides Cholesterol LDL Cholesterol Direct HDL Cholesterol Procalcitonin TSH 3rd Generation Arterial Blood Potassium Urine Color Urine Appearance Urine pH Ur Specific [place] Urine Protein Urine Glucose (UA) Urine Ketones Urine Blood Urine Nitrate Urine Bilirubin Urine Urobilinogen Ur Leukocyte Esterase Ur Random Sodium 14 Ur Random Potassium 8.7 Urine Opiates Screen Negative Urine Methadone Screen Negative Ur Barbiturates Screen Negative Ur Phencyclidine Scrn Negative Ur Amphetamines Screen Negative U Benzodiazepines Scrn Positive U Oth Cocaine Metabols Negative U Cannabinoids Screen Negative Influenza Typ A,B (EIA) Critical Care Progress Note - Nutrition Nutrition: Nutrition Category Date Time Status NPO Diet [DIET] Diets 04/28/17 Breakfast Ordered Attending/Attestation - Attestation I have personally seen and examined this patient.: Yes I have fully participated in the care of the patient.: Yes I have reviewed all pertinent clinical information: Yes Notes (Text): 04/28/17 16:21 62 yo male with upper airways compromise due to hypopharyngeal swelling of unclear etiology, requiring emergent trach. Presently sedated, will continue with protective lung ventilation strategy, eventually weanto PS and trac collar. IV steroids, abx, ID consult, bronchodilators, HOB>35, oral hygiiene, DVT/GI prophylaxis. ENT follow up. CXR--trac in correct position, no acute pulmonary disease. ccm time 40 min
[2017-04-28 08:02] LABS: ALBUMIN 3.4 g/dL (3.0-4.8); ALT/SGPT 40 U/L (7-56); AST/SGOT 47 U/L (17-59); BLOOD UREA NITROGEN 8 mg/dL (7-21); GFR AFRICAN-AMERICAN > 60; GFR NON-AFRICAN AMERICAN > 60
[2017-04-28 08:13] LABS: TROPONIN I 0.02 ng/mL
--- NOTE | 2017-04-28 08:25 | CON ---
DATE: 04/28/2017 OTOLARYNGOLOGY CONSULTATION REFERRING PHYSICIAN: Mary Velazquez MD. REASON FOR CONSULTATION: Respiratory distress, stridor. HISTORY OF PRESENT ILLNESS: This is a 62-year-old male with no known past medical history, presented to [facility] emergency department with 3 weeks of worsening noisy breathing and dyspnea, which had worsened to the point where the patient has had some respiratory distress and came in to the ED for further evaluation and treatment. The patient states that his voice has been changing over the past 3 weeks and has had increased difficulty breathing especially when lying flat. The patient's relative states that he has had no previous issues with his voice or breathing prior to the 3 weeks. The patient is a nonsmoker and has no known history of any lung or heart disease. In the emergency room, the patient received racemic epinephrine, Solu-Medrol, but continued to have respiratory distress. History is limited due to the patient's respiratory status. The patient's relative denies any recent fevers, chills, headaches, neck pain, neck stiffness, odynophagia. Of note, the patient has had difficulty swallowing over the last week. PAST MEDICAL HISTORY: None. PAST SURGICAL HISTORY: No previous surgery to head or neck. ALLERGIES: NO KNOWN DRUG ALLERGIES. MEDICATIONS: As per med rec. SOCIAL HISTORY: The patient is a nonsmoker. No alcohol. No illicits. REVIEW OF SYSTEMS: Twelve-point review of systems is negative except as stated in the HPI. PHYSICAL EXAMINATION: VITAL SIGNS: Temperature 98.2, pulse 106, blood pressure 124/76, respirations 22, O2 of 98% on room air. GENERAL: The patient is in moderate distress, is somnolent, unable to answer questions. HEENT: Head normocephalic, atraumatic. Eyes: Extraocular muscles are grossly intact. Nose: Nares are patent bilaterally. No epistaxis. No discharge. Mouth: Oral mucosa is moist. Tongue is large. There is no floor of mouth or tongue edema. There is no uvular edema. Tonsils are 2+. Ears: Auricles symmetric. No masses. No lesions. NECK: Short, redundant soft tissue. Soft, supple. No palpable adenopathy. LABORATORY DATA: WBC 12.3, hemoglobin 8.3, platelets 282. RADIOLOGY: CT scan of the neck without contrast reveals significant narrowing at the level of the AE folds and vocal cords, which was present for 3 cuts without any severe supraglottic or subglottic edema. ASSESSMENT: This is a 62-year-old male with acute respiratory distress, stridor necessitating emergent nasotracheal intubation and tracheostomy. 1. The patient was consented for tracheostomy and fiberoptic nasotracheal intubation. All risks and benefits of the procedure were described to the patient as well as the patient's relative. Risks included infection, bleeding, damage to the surrounding structures, pneumothorax and possible . The patient understood the risks of procedure and informed consent was obtained. 2. The patient was brought to the operating room, was nasotracheally intubated and subsequently underwent tracheostomy. 3. The patient is now in the Intensive Care Unit. Will need Pulmonary consultation as well as Cardiac consultation. Recommend full workup with labs including troponins. 4. Frequent gentle suctioning of the tracheostomy. 5. Respiratory therapy. 6. We will leave tracheostomy in for at least 10 days before tracheostomy change. Thank you for the consultation. Kamlesh Huston DO
[2017-04-28 08:45] LABS: ARTERIAL BLOOD GAS O2 SAT 97.1 % (95-98); ARTERIAL BLOOD GAS PCO2 52 mm/Hg (35-45); ARTERIAL BLOOD GAS PH 7.29 (7.35-7.45); ARTERIAL BLOOD GAS TCO2 26.6 mmol.L (22-28)
[2017-04-28 09:37] LABS: MAGNESIUM 1.5 mg/dL (1.7-2.2)
--- NOTE | 2017-04-28 09:39 | CARD ---
APPROVED REPORT EKG Measurement Heart [id number] <Conclusion> Sinus tachycardia Left axis deviation/LAHB PRWP Incomplete right bundle branch block
[2017-04-28] MEDS ORDERED: Magnesium Sulfate 2 GM in Sodium Chloride 0.9% 100 ML IV ONE (09:45)
[2017-04-28] MEDS ORDERED: cefTRIAXone 1 gm 1 GM/100 ML BAG IVPB SCH (10:00)
[2017-04-28] MEDS: Dexmedetomidine 400mcg/100mL 400 MCG/100 ML BOTTLE IV PRN ×3 (10:11→22:19)
[2017-04-28 10:22] LABS: IRON 30 ug/dL (45-180)
[2017-04-28 10:32] LABS: % IRON SATURATION 8 % (20-55); TOTAL IRON BINDING CAPACITY 363 ug/dL (261-462)
[2017-04-28] MEDS ORDERED: Sodium Chloride 0.9% 1,000 ML IV SCH (11:45)
[2017-04-28] MEDS ORDERED: Multivitamin (MVI) 10 ML, Thiamine 100 MG, Folic Acid 1 MG in Sodium Chloride 0.9% 1,00... IV ONE (12:20)
[2017-04-28 13:01] LABS: PH,URINE 5.5 (4.7-8.0); URINE BILIRUBIN NEGATIVE (NEGATIVE); URINE BLOOD NEGATIVE (NEGATIVE); URINE GLUCOSE (UA) NEGATIVE (NEGATIVE); URINE LEUKOCYTE ESTERASE NEGATIVE Leu/uL (NEGATIVE); URINE NITRATE NEGATIVE (NEGATIVE); URINE PROTEIN NEGATIVE mg/dL (<30 mg/dL); URINE UROBILINOGEN 0.2 E.U./dL (<1 E.U./dL)
[2017-04-28 13:02] LABS: URINE APPEARANCE CLEAR (CLEAR); URINE COLOR LIGHT YELLOW (YELLOW)
[2017-04-28 13:10] LABS: BARBITURATES, UR NEGATIVE (NEGATIVE); BENZODIAZEPINES, UR POSITIVE (NEGATIVE); OPIATES, UR NEGATIVE (NEGATIVE); PHENCYCLIDINE, UR NEGATIVE (NEGATIVE)
--- NOTE | 2017-04-28 13:33 | RAD ---
HISTORY: sob COMPARISON: Portable chest 04/27/2017 FINDINGS: An endotracheal tube is now placed with the tip terminating approximately 2 cm above the karlos. LUNGS: No active pulmonary disease. PLEURA: No right pleural effusion. No pneumothorax bilaterally. Left costophrenic sulcus is excluded from left base with remaining left pleural space unremarkable as imaged. CARDIOVASCULAR: Prominent cardiac silhouette appears stable. Borderline pulmonary venous congestion. OSSEOUS STRUCTURES: No significant abnormalities. VISUALIZED UPPER ABDOMEN: Normal. OTHER FINDINGS: None. IMPRESSION: Status post endotracheal intubation as described above. No gross infiltrate pleural effusion or pneumothorax is identified at this time although the left costophrenic sulcus is been excluded from the image. PA chest radiograph is recommended. Stable prominent cardiac silhouette. Borderline pulmonary venous congestion again in question.
--- NOTE | 2017-04-28 18:03 | CP.PCM.CON ---
History of Present Illness - History of Present Illness History of Present Illness: Vascular surgery consult note for Dr. Cardenas Consulted for: Thoracic aortic aneurysm Patient is a 62 year old, obese male, with chronic alcohol use who has no known medical history due to patient's aversion to seeing doctors. Patient presented to ER with acute respiratory distress due to floppy epiglotitis and was taken to the OR for an emergency tracheostomy with ENT yesterday. Patient also had a CTA of the chest performed to rule out Pulmonary embolism. It was negative for PE but showed ectasia of the ascending thoracic aorta with max dilation of 4.0 and an aneurysm of the distal aortic arch extending into the descending thoracic aorta 5.0 cm in greatest diameter. Patient is sedated at time of exam but family reports increased fatigue and severe orthopnea but patient has refused to see doctors for years. They deny any complaints of chest pain, headache, or extremity weakness, numbness, or temperature changes. Patient has multiple episodes of hypertension in the hospital with max of 176/107. Family history is positive for father with severe CAD with 2 open heart procedures. Review of Systems - Review of Systems Systems not reviewed;Unavailable: Altered Mental Status Past Patient History - Past Medical History & Family History Past Medical History?: Yes Pertinent Family History: father: CAD with 2 open heart procedures and carotid stents (per family) - Past Social History Smoking Status: Never Smoked Alcohol: < 2 Drinks/Day (1 large glass of cognac) Drugs: Denies Home Situation {Lives}: With Family - PSYCHIATRIC Hx Psychophysiologic Disorder: No Hx Substance Use: No - SURGICAL HISTORY Hx Surgeries: No Other/Comment: right knee surgery Meds Allergies/Adverse Reactions: Allergies Allergy/AdvReac Type Severity Reaction Status Date / Time No Known Allergies Allergy Verified 04/27/17 19:35 - Medications Medications: Current Medications Acetaminophen (Tylenol 325mg Tab) 650 mg PO Q4H PRN PRN Reason: Fever >100.4 F Dexamethasone (Decadron Inj) 6 mg IVP Q8H [facility] Last Admin: 04/28/17 16:27 Dose: 6 mg Folic Acid (Folic Acid) 1 mg IVP DAILY [facility] Last Admin: 04/28/17 16:36 Dose: Not Given Heparin Sodium (Porcine) (Heparin) 5,000 units SC Q8 LUCIA PRN Reason: Protocol Last Admin: 04/28/17 16:47 Dose: 5,000 units Propofol (Diprivan) 1,000 mg in 100 mls @ 3.538 mls/hr IV .Q24H PRN; Protocol; 5 MCG/KG/MIN PRN Reason: TITRATE PER MD ORDER Last Titration: 04/28/17 16:05 Dose: 0 mcg/kg/min, 0 mls/hr Ceftriaxone Sodium (Rocephin 1 Gram Ivpb) 1 gm in 100 mls @ 100 mls/hr IVPB DAILY LUCIA PRN Reason: Protocol Last Admin: 04/28/17 09:07 Dose: 100 mls/hr Vancomycin HCl (Vancomycin 1gm) 1 gm in 250 mls @ 167 mls/hr IVPB Q12H LUCIA PRN Reason: Protocol Last Admin: 04/28/17 06:49 Dose: 167 mls/hr Fentanyl Citrate (Fentanyl Citrate/Sodium Chloride 1 Mg/100 Ml) 1,000 mcg in 100 mls @ 2 mls/hr IV .Q24H PRN; Protocol; 20 MCG/HR PRN Reason: TITRATE PER MD ORDER Last Titration: 04/28/17 07:00 Dose: 50 mcg/hr, 5 mls/hr Dexmedetomidine HCl (Precedex 400mcg/100ml) 400 mcg in 100 mls @ 5.897 mls/hr IV .[id number] PRN; Protocol; 0.2 MCG/KG/HR PRN Reason: Agitation Last Admin: 04/28/17 17:33 Dose: 1 mcg/kg/hr, 29.484 mls/hr Multivitamins/Vitamin C 10 ml/Thiamine HCl 100 mg/ Folic Acid 1 mg/ Sodium Chloride 1,011.2 mls @ 60 mls/hr IV .[id number] ONE Stop: 04/29/17 05:11 Last Admin: 04/28/17 16:39 Dose: 60 mls/hr Lorazepam (Ativan) 4 mg IVP Q2H PRN; Protocol PRN Reason: Agitation Ondansetron HCl (Zofran Inj) 4 mg IVP Q4H PRN PRN Reason: Nausea/Vomiting Pantoprazole Sodium (Protonix Inj) 40 mg IVP DAILY [facility] Last Admin: 04/28/17 11:15 Dose: 40 mg Physical Exam - Constitutional Appears: No Acute Distress - Head Exam Head Exam: ATRAUMATIC, NORMOCEPHALIC - Eye Exam Eye Exam: Normal appearance - ENT Exam ENT Exam: Mucous Membranes Moist - Neck Exam Additional comments: tracheostomy in place, no carotid bruits appreciated - Respiratory Exam Respiratory Exam: Stridor Additional comments: mechanically ventillated - Cardiovascular Exam Cardiovascular Exam: RRR, +S1, +S2. absent: Diastolic murmur, Systolic Murmur Additional comments: heart sounds distant - GI/Abdominal Exam GI & Abdominal Exam: Distended, Soft. absent: Firm Additional comments: No aortic bruit auscultated - Extremities Exam Extremities exam: Positive for: pedal edema, pedal pulses present Additional comments: popliteal pulses palpable. Difference between pulse pressures in the upper extremities: 3. BL wrist pulses palpable. 4 extremity skin normal color and temperature - Neurological Exam Additional comments: sedated - Psychiatric Exam Additional comments: sedated - Skin Skin Exam: Dry, Normal Color, Warm Results - Vital Signs Recent Vital Signs: Last Vital Signs Temp 98.2 F 04/27/17 19:23 Pulse 101 H 04/28/17 10:30 Resp 32 H 04/28/17 08:08 BP 153/83 H 04/28/17 10:30 Pulse Ox 100 04/28/17 10:30 - Labs Result Diagrams: 04/28/17 07:30 04/28/17 19:54 Labs: Laboratory Results - last 24 hr 04/28/17 04/28/17 04/28/17 00:25 07:00 07:30 WBC RBC Hgb Hct MCV MCH MCHC RDW Plt Count MPV Gran % Lymph % (Auto) [place] % (Auto) Eos % (Auto) Baso % (Auto) Gran # Lymph # (Auto) [place] # (Auto) Eos # (Auto) Baso # (Auto) Retic Count pCO2 pO2 HCO3 ABG pH ABG Total CO2 ABG O2 Saturation ABG Base Excess ABG Potassium Glucose Lactate Mechanical Rate FiO2 Tidal Volume PEEP Sodium Potassium Chloride Carbon Dioxide Anion Gap BUN Creatinine Est GFR ( Amer) Est GFR (Non-Af Amer) Random Glucose Hemoglobin A1c 6.1 Calcium Phosphorus 4.6 H Magnesium 1.5 L Iron TIBC % Saturation Transferrin Ferritin 8.0 Total Bilirubin AST ALT Alkaline Phosphatase Troponin I Total Protein Albumin Globulin Albumin/Globulin Ratio Triglycerides 35 Cholesterol 134 LDL Cholesterol Direct 74 HDL Cholesterol 44 Vitamin B12 266 Procalcitonin TSH 3rd Generation Arterial Blood Potassium Urine Color Urine Appearance Urine pH Ur Specific [place] Urine Protein Urine Glucose (UA) Urine Ketones Urine Blood Urine Nitrate Urine Bilirubin Urine Urobilinogen Ur Leukocyte Esterase Ur Random Sodium Ur Random Potassium Urine Opiates Screen Urine Methadone Screen Ur Barbiturates Screen Ur Phencyclidine Scrn Ur Amphetamines Screen U Benzodiazepines Scrn U Oth Cocaine Metabols U Cannabinoids Screen Influenza Typ A,B (EIA) Negative for flu a/b 04/28/17 04/28/17 04/28/17 07:30 07:30 07:30 WBC 16.0 H D RBC 3.91 Hgb 7.6 L Hct 27.0 L MCV 69.1 L MCH 19.4 L MCHC 28.1 L RDW 18.9 H Plt Count 247 MPV 9.3 Gran % 85.0 H Lymph % (Auto) 7.0 L [place] % (Auto) 7.8 H Eos % (Auto) 0.1 L Baso % (Auto) 0.1 Gran # 13.61 H Lymph # (Auto) 1.1 L [place] # (Auto) 1.2 H Eos # (Auto) 0.0 Baso # (Auto) 0.01 Retic Count pCO2 pO2 HCO3 ABG pH ABG Total CO2 ABG O2 Saturation ABG Base Excess ABG Potassium Glucose Lactate Mechanical Rate FiO2 Tidal Volume PEEP Sodium 122 L Potassium 4.2 Chloride 90 L Carbon Dioxide 25 Anion Gap 12 BUN 8 Creatinine 0.8 Est GFR ( Amer) > 60 Est GFR (Non-Af Amer) > 60 Random Glucose 184 H Hemoglobin A1c Calcium 8.0 L Phosphorus Magnesium Iron TIBC % Saturation Transferrin Ferritin Total Bilirubin 0.6 AST 47 ALT 40 Alkaline Phosphatase 100 Troponin I 0.02 D Total Protein 6.8 Albumin 3.4 Globulin 3.4 Albumin/Globulin Ratio 1.0 L Triglycerides Cholesterol LDL Cholesterol Direct HDL Cholesterol Vitamin B12 Procalcitonin 0.08 L TSH 3rd Generation Arterial Blood Potassium Urine Color Urine Appearance Urine pH Ur Specific [place] Urine Protein Urine Glucose (UA) Urine Ketones Urine Blood Urine Nitrate Urine Bilirubin Urine Urobilinogen Ur Leukocyte Esterase Ur Random Sodium Ur Random Potassium Urine Opiates Screen Urine Methadone Screen Ur Barbiturates Screen Ur Phencyclidine Scrn Ur Amphetamines Screen U Benzodiazepines Scrn U Oth Cocaine Metabols U Cannabinoids Screen Influenza Typ A,B (EIA) 04/28/17 04/28/17 04/28/17 08:40 09:50 09:50 WBC RBC Hgb Hct MCV MCH MCHC RDW Plt Count MPV Gran % Lymph % (Auto) [place] % (Auto) Eos % (Auto) Baso % (Auto) Gran # Lymph # (Auto) [place] # (Auto) Eos # (Auto) Baso # (Auto) Retic Count 2.88 H pCO2 52 H pO2 71.0 L HCO3 25.0 ABG pH 7.29 L ABG Total CO2 26.6 ABG O2 Saturation 97.1 ABG Base Excess -2.3 L ABG Potassium 4.0 Glucose 166 H Lactate 0.8 Mechanical Rate 20 FiO2 60.0 Tidal Volume 400 PEEP 5 Sodium 121.0 L Potassium Chloride 93.0 L Carbon Dioxide Anion Gap BUN Creatinine Est GFR ( Amer) Est GFR (Non-Af Amer) Random Glucose Hemoglobin A1c Calcium Phosphorus Magnesium Iron 30 L TIBC 363 % Saturation 8 L Transferrin Ferritin Total Bilirubin AST ALT Alkaline Phosphatase Troponin I Total Protein Albumin Globulin Albumin/Globulin Ratio Triglycerides Cholesterol LDL Cholesterol Direct HDL Cholesterol Vitamin B12 Procalcitonin TSH 3rd Generation Arterial Blood Potassium 4.0 Urine Color Urine Appearance Urine pH Ur Specific [place] Urine Protein Urine Glucose (UA) Urine Ketones Urine Blood Urine Nitrate Urine Bilirubin Urine Urobilinogen Ur Leukocyte Esterase Ur Random Sodium Ur Random Potassium Urine Opiates Screen Urine Methadone Screen Ur Barbiturates Screen Ur Phencyclidine Scrn Ur Amphetamines Screen U Benzodiazepines Scrn U Oth Cocaine Metabols U Cannabinoids Screen Influenza Typ A,B (EIA) 04/28/17 04/28/17 04/28/17 09:50 10:00 12:40 WBC RBC Hgb Hct MCV MCH MCHC RDW Plt Count MPV Gran % Lymph % (Auto) [place] % (Auto) Eos % (Auto) Baso % (Auto) Gran # Lymph # (Auto) [place] # (Auto) Eos # (Auto) Baso # (Auto) Retic Count pCO2 pO2 HCO3 ABG pH ABG Total CO2 ABG O2 Saturation ABG Base Excess ABG Potassium Glucose Lactate Mechanical Rate FiO2 Tidal Volume PEEP Sodium Potassium Chloride Carbon Dioxide Anion Gap BUN Creatinine Est GFR ( Amer) Est GFR (Non-Af Amer) Random Glucose Hemoglobin A1c Calcium Phosphorus Magnesium Iron TIBC % Saturation Transferrin 316.83 Ferritin Total Bilirubin AST ALT Alkaline Phosphatase Troponin I Total Protein Albumin Globulin Albumin/Globulin Ratio Triglycerides Cholesterol LDL Cholesterol Direct HDL Cholesterol Vitamin B12 Procalcitonin TSH 3rd Generation 0.31 L Arterial Blood Potassium Urine Color Light yellow Urine Appearance Clear Urine pH 5.5 Ur Specific [place] <= 1.005 Urine Protein Negative Urine Glucose (UA) Negative Urine Ketones Negative Urine Blood Negative Urine Nitrate Negative Urine Bilirubin Negative Urine Urobilinogen 0.2 Ur Leukocyte Esterase Negative Ur Random Sodium Ur Random Potassium Urine Opiates Screen Urine Methadone Screen Ur Barbiturates Screen Ur Phencyclidine Scrn Ur Amphetamines Screen U Benzodiazepines Scrn U Oth Cocaine Metabols U Cannabinoids Screen Influenza Typ A,B (EIA) 04/28/17 12:40 WBC RBC Hgb Hct MCV MCH MCHC RDW Plt Count MPV Gran % Lymph % (Auto) [place] % (Auto) Eos % (Auto) Baso % (Auto) Gran # Lymph # (Auto) [place] # (Auto) Eos # (Auto) Baso # (Auto) Retic Count pCO2 pO2 HCO3 ABG pH ABG Total CO2 ABG O2 Saturation ABG Base Excess ABG Potassium Glucose Lactate Mechanical Rate FiO2 Tidal Volume PEEP Sodium Potassium Chloride Carbon Dioxide Anion Gap BUN Creatinine Est GFR ( Amer) Est GFR (Non-Af Amer) Random Glucose Hemoglobin A1c Calcium Phosphorus Magnesium Iron TIBC % Saturation Transferrin Ferritin Total Bilirubin AST ALT Alkaline Phosphatase Troponin I Total Protein Albumin Globulin Albumin/Globulin Ratio Triglycerides Cholesterol LDL Cholesterol Direct HDL Cholesterol Vitamin B12 Procalcitonin TSH 3rd Generation Arterial Blood Potassium Urine Color Urine Appearance Urine pH Ur Specific [place] Urine Protein Urine Glucose (UA) Urine Ketones Urine Blood Urine Nitrate Urine Bilirubin Urine Urobilinogen Ur Leukocyte Esterase Ur Random Sodium 14 Ur Random Potassium 8.7 Urine Opiates Screen Negative Urine Methadone Screen Negative Ur Barbiturates Screen Negative Ur Phencyclidine Scrn Negative Ur Amphetamines Screen Negative U Benzodiazepines Scrn Positive U Oth Cocaine Metabols Negative U Cannabinoids Screen Negative Influenza Typ A,B (EIA) - Imaging and Cardiology CT scan - chest Status: Image reviewed by me, Report reviewed by me Assessment & Plan - Assessment and Plan (Free Text) Assessment: 62M with ectasia of the ascending thoracic aorta up to 4.0cm and aneurysm of the distal aortic arch/descending aorta up to 5.0cm in diameter Plan: -Follow up echocardiogram to evaluate for aortic valve insufficiency -Agressive control of hypertension medically -No vascular surgery intervention indicated at this point. If ectasia/aneurysm is asymptomatic and aortic valve is unaffected, patient can follow up with cardiothoracic surgeon as an outpatient for further monitoring and recommendations -Continue management per primary Discussed at length with Dr. Cardenas. Further recs per her Kell Staton PGY2
--- NOTE | 2017-04-28 18:18 | US ---
HISTORY: Leg pain and swelling. Evaluate for DVT PHYSICIAN(S): Clayton Warner MD. TECHNIQUE: Duplex sonography and color-flow Doppler with graded compression were used to evaluate the deep venous systems of both lower extremities. FINDINGS: The visualized deep venous systems of both lower extremities are sonographically normal and compressible. Normal wave forms and augmentation are seen. There is no sonographic evidence for deep venous thrombosis in the visualized segments of both lower extremities. IMPRESSION: No sonographic evidence for deep venous thrombosis in the visualized segments of both lower extremities.
--- NOTE | 2017-04-28 19:01 | CON ---
DATE: HISTORY OF PRESENT ILLNESS: This is a 62-year-old gentleman with history of obesity, who presented to the emergency department for reevaluation of chronic shortness of breath, which was getting worse over the last several weeks. He also reported that his legs started to get progressively more swollen. The patient did not have much of past medical history and did not see a doctor for many years. The patient denies fever, chills, sweats, nausea, vomiting, diarrhea. Due to rapid worsening of his shortness of breath associated with stridor and impending respiratory failure, the patient was emergently intubated and tracheotomy in OR by ENT was done. The patient was transferred to intensive care unit shortly after procedure. CAT scan of the neck revealed substantial swelling in the hypopharyngeal area with substantial narrowing of the airways. The patient was started on antibiotics, steroids and emergent tracheostomy was done. PAST MEDICAL HISTORY: LILIYA ?, obesity. FAMILY HISTORY: Noncontributory. SOCIAL HISTORY: Patient is lifelong nonsmoker; however, has a history of alcohol abuse. No illicit drug abuse. ALLERGIES: NKDA. REVIEW OF SYSTEM: Review of 12-organ system other than mentioned in history of present illness is negative. PHYSICAL EXAMINATION VITAL SIGNS: The patient is on PRVC 400/5/20/60%. ENT: The patient is status post trach. He is obese, with short neck. HEART: Regular rate and rhythm. S1 and S2 normal. ABDOMEN: Soft, nontender, obese, may be mildly distended. MUSCULOSKELETAL: 1+ bilateral pedal and ankle edema. NEUROLOGICAL: The patient was seen moving all extremities prior to sedation. SKIN: Moist. PSYCHIATRIC: The patient is sedated. LABORATORY DATA: Sodium 121, potassium 4.4, chloride 86, carbon dioxide 28, BUN 6, creatinine 0.6, AST 54, ALT 49, calcium 9.1, glucose 129. Troponin less than 0.01. ProBNP 224 (in people with severe obesity, proBNP can be falsely low; thus echocardiogram was ordered), albumin 4.1. WBC 12.3, hemoglobin 8.3, platelet count 282. ABG, 7.37/47/48 on room air. Influenza negative. MEDICATIONS: Tylenol p.r.n., Decadron 6 mg IV q. 8. The patient is on propofol; however, Precedex is ordered and will be switched once Precedex is available. Folic acid, Lasix x1, Zofran p.r.n., Protonix, ceftriaxone, thiamine, vancomycin. Soft tissue neck CT showed apparent prominence of aryepiglottic folds with narrowing of airways. Chest CT showed no definite pulmonary embolism, possible early interstitial edema. Reportedly (no official report, however) lower extremity ultrasound did not reveal DVT. ASSESSMENT AND PLAN: This is a 62-year-old gentleman, who presented to [facility] ER and then ICU with upper airway compromise due to substantial swelling of the hypopharyngeal area compromising his airways. Emergent ENT consult as well as emergent tracheotomy was done. Antibiotics and steroids were started. At present time, the patient is sedated; however, appeared to be comfortable. Huerta catheter was placed. One dose of Lasix was given (the patient has some lower extremity swelling, questionable pulmonary edema, proBNP even though within normal limits--can be falsely lower in people with obesity). Neurologic: The patient is sedated with propofol; however, will be switched to Precedex. The patient was seen moving all extremities. Daily sedation vacation and daily weaning trial will be tried. Pulmonary: The patient is status post tracheotomy for upper airway compromise. At present time, we will proceed with protective lung ventilation strategy with tidal volume 6 to 8 mL per predicted body weight and plateau pressure less than 30 cm of water. We will continue with daily sedation vacation and daily weaning trials. Head of bed elevated more than 35 degrees. Oral hygiene, VAP bundle. Conservative fluid and oxygen management. One dose of Lasix was given. No distinct infiltrate on chest x-ray. Cardiovascular: The patient has cardiogenic pulmonary edema and lower extremity swelling. BNP within normal limits; however, can be falsely low in people with morbid obesity. Echocardiogram is ordered. Troponin x1 is negative and second troponin is pending. EKG: No specific indicators of acute ischemia. Gastrointestinal: The patient will be n.p.o. for now. We will continue with head of bed elevated more than 35 degrees. Gastrointestinal prophylaxis. Infectious Disease: The patient has mild leukocytosis which will be trended. The patient is on ceftriaxone and vancomycin. Infectious Disease consult was requested. Procalcitonin is ordered. Blood culture and urine culture are pending. The patient have substantial areas of swelling in the hypopharyngeal area. The patient is on steroids. Renal: Huerta catheter placed. Urine output will be monitored, with a goal of more than 0.5 mL/kg per hour. Creatinine within normal limits. We will maintain mean arterial pressure more than 65. We will continue to maintain euvolemia and euglycemia for additional nepro-protective effect. We will try to avoid nephrotoxic medication but not at the expense of treating underlying disease. Endocrine: The patient is on steroids for substantial edema of the upper airways. We will keep close eye on glucose. We will maintain blood glucose within 140 to 180 range according to night sugar trial. We will continue to target euvolemia and euglycemia, normothermia and oxygen saturation more than 90%. Deep venous thrombosis and gastrointestinal prophylaxis. ccm time 40 min Arturo Rosa MD [id number]
[2017-04-28 20:24] LABS: BLOOD UREA NITROGEN 15 mg/dL (7-21); CALCIUM 8.6 mg/dL (8.4-10.5); GFR AFRICAN-AMERICAN > 60; GFR NON-AFRICAN AMERICAN > 60
[2017-04-29 01:02] LABS: BLOOD UREA NITROGEN 17 mg/dL (7-21); CALCIUM 8.7 mg/dL (8.4-10.5); GFR AFRICAN-AMERICAN > 60; GFR NON-AFRICAN AMERICAN > 60
[2017-04-29 06:09] LABS: HEMOGLOBIN 7.5 g/dL (14.0-18.0); MEAN CELL VOLUME 71.1 fl (80.0-105.0); MEAN CORPUSCULAR HEMOGLOBIN 19.2 pg (25.0-35.0); MEAN PLATELET VOLUME 9.5 fl (7.0-11.0); RBC 3.91 10^6/uL (3.5-6.1); RED CELL DISTRIBUTION WIDTH 19.6 % (11.5-14.5)
[2017-04-29] MEDS: Dexmedetomidine 400mcg/100mL 400 MCG/100 ML BOTTLE IV PRN ×5 (06:15→22:51)
[2017-04-29] MEDS: Vancomycin 1gm in NS 250ml 1 GM/250 ML BAG IVPB SCH ×2 (06:16→17:53)
[2017-04-29 06:27] LABS: ARTERIAL BLOOD GAS HCO3 25.9 mmol/L (21-28); ARTERIAL BLOOD GAS HEMOGLOBIN 7.2 g/dL (11.7-17.4); ARTERIAL BLOOD GAS O2 CAPACITY 10.3 mL/dl (16-24); ARTERIAL BLOOD GAS O2 CONTENT 10.3 ML/dl (15-23); ARTERIAL BLOOD GAS O2 SAT 100.1 % (95-98); ARTERIAL BLOOD GAS PCO2 40 mm/Hg (35-45); ARTERIAL BLOOD GAS PH 7.42 (7.35-7.45); ARTERIAL BLOOD GAS TCO2 27.1 mmol.L (22-28)
[2017-04-29 06:29] LABS: ALBUMIN 3.3 g/dL (3.0-4.8); ALT/SGPT 36 U/L (7-56); AST/SGOT 43 U/L (17-59); BLOOD UREA NITROGEN 17 mg/dL (7-21); CALCIUM 8.6 mg/dL (8.4-10.5); GFR AFRICAN-AMERICAN > 60; GFR NON-AFRICAN AMERICAN > 60
[2017-04-29] MEDS: Dexamethasone 4 mg/1 ml IVP SCH ×3 (07:40→22:50)
--- NOTE | 2017-04-29 08:03 | CP.CCUPN ---
<Frantz Brenner - Last Filed: 04/29/17 13:38> CCU Subjective - Physician Review Subjective (Free Text): Frantz Brenner PGY1 ICU Note for Dr. Rosa Patient seen and examined at bedside in ICU. Patient remains sedated and is s/p tracheostomy on vent. ROS could not be obtained. No acute overnight events were reported per nursing staff. CCU Objective - Vital Signs / Intake & Output Vital Signs (Last 4 hours): Vital Signs Temp Pulse 04/29/17 06:00 99.6 F 80 Intake and Output (Last 8hrs): Intake & Output 04/28/17 04/29/17 04/29/17 22:59 06:59 14:59 Intake Total 1735 100 Balance 1735 100 Intake: IV 1735 100 Right Forearm 1450 Oral 0 Other: # Bowel Movements 0 - Physical Exam Physical Exam Limitations: Positive for: Altered Mental Status Head: Positive for: Atraumatic, Normocephalic Pupils: Positive for: PERRL Conjunctiva: Positive for: Normal Ears: Positive for: Normal Mouth: Positive for: Moist Mucous Membranes Pharnyx: Positive for: Normal Neck: Positive for: Normal Range of Motion Respiratory/Chest: Positive for: Good Air Exchange, Wheezes (mild b/l diffuse), Other (s/p tracheostomy, on vent). Negative for: Respiratory Distress, Rales, Rhonchi, Tachypneic Cardiovascular: Positive for: Regular Rate and Rhythm, Normal S1, S2. Negative for: Murmurs Abdomen: Positive for: Normal Bowel Sounds, Other (obese body habitus). Negative for: Tenderness, Distention, Peritoneal Signs Genitourinary Male: Positive for: Other (christianson in place) Back: Positive for: Normal Inspection Upper Extremity: Positive for: Normal Inspection. Negative for: Cyanosis, Edema Lower Extremity: Positive for: Edema (1+). Negative for: Buzz's Sign, Tenderness Neurological: Positive for: Other (sedated) Skin: Positive for: Warm, Dry, Normal Color. Negative for: Rashes Psychiatric: Positive for: Other (could not assess, sedated) - Medications Active Medications: Active Medications Generic Name Dose Route Start Last Admin Trade Name Freq PRN Reason Stop Dose Admin Acetaminophen 650 mg 04/28/17 04:58 Tylenol 325mg Tab PO Q4H PRN Fever >100.4 F Dexamethasone 6 mg 04/28/17 05:00 04/29/17 07:40 Decadron Inj IVP 6 mg Q8H LUCIA Administration Folic Acid 1 mg 04/28/17 10:00 04/28/17 16:36 Folic Acid IVP Not Given DAILY [facility] Heparin Sodium (Porcine) 5,000 units 04/28/17 08:15 04/29/17 07:40 Heparin SC 5,000 units Q8 LUCIA Administration Protocol Propofol 1,000 mg in 100 mls @ 3.538 mls/hr 04/28/17 04:59 04/28/17 16:05 Diprivan IV 0 mcg/kg/min .Q24H PRN 0 mls/hr TITRATE PER MD ORDER Titration Protocol 5 MCG/KG/MIN Vancomycin HCl 1 gm in 250 mls @ 167 mls/hr 04/28/17 05:00 04/29/17 06:16 Vancomycin 1gm IVPB 167 mls/hr Q12H LUCIA Administration Protocol Fentanyl Citrate 1,000 mcg in 100 mls @ 2 mls/hr 04/28/17 06:40 04/28/17 22: 26 Fentanyl Citrate/Sodium Chloride 1 Mg/100 Ml IV 50 mcg/hr .Q24H PRN 5 mls/hr TITRATE PER MD ORDER Administration Protocol 20 MCG/HR Dexmedetomidine HCl 400 mcg in 100 mls @ 5.897 mls/hr 04/28/17 07:36 06:15 Precedex 400mcg/100ml IV 1 mcg/kg/hr .[id number] PRN 29.484 mls/hr Agitation Administration Protocol 0.2 MCG/KG/HR Ceftriaxone Sodium 2 gm in 100 mls @ 100 mls/hr 04/29/17 10:00 Rocephin 2 Gm Ivpb IVPB 05/13/17 10:01 DAILY LUCIA Protocol Lorazepam 4 mg 04/28/17 12:57 04/29/17 04:55 Ativan IVP 4 mg Q2H PRN Administration Agitation Protocol Ondansetron HCl 4 mg 04/28/17 04:58 Zofran Inj IVP Q4H PRN Nausea/Vomiting Pantoprazole Sodium 40 mg 04/28/17 10:00 04/28/17 11:15 Protonix Inj IVP 40 mg DAILY LUCIA Administration - Patient Studies Lab Studies: Microbiology Studies 04/28/17 00:19 Blood Culture - Preliminary Blood NO GROWTH AFTER 24 HOURS 04/28/17 00:09 Blood Culture - Preliminary Blood NO GROWTH AFTER 24 HOURS Lab Studies 04/29/17 04/29/17 04/29/17 Range/Units 06:22 05:30 05:30 WBC 12.0 H D (4.5-11.0) 10^3/ul RBC 3.91 (3.5-6.1) 10^6/uL Hgb 7.5 L (14.0-18.0) g/dL Hct 27.8 L (42.0-52.0) % MCV 71.1 L (80.0-105.0) fl MCH 19.2 L (25.0-35.0) pg MCHC 27.0 L (31.0-37.0) g/dl RDW 19.6 H (11.5-14.5) % Plt Count 257 (120.0-450.0) 10^3/uL MPV 9.5 (7.0-11.0) fl Retic Count (0.5-1.5) % pCO2 40 (35-45) mm/Hg pO2 174.0 H (80-100) mm/Hg HCO3 25.9 (21-28) mmol/L ABG pH 7.42 (7.35-7.45) ABG Total CO2 27.1 (22-28) mmol.L ABG O2 Saturation 100.1 H (95-98) % ABG O2 Content 10.3 L (15-23) ML/dl ABG Base Excess 1.3 (-2.0-3.0) mmol/L ABG Hemoglobin 7.2 L (11.7-17.4) g/dL ABG Carboxyhemoglobin 2.2 H (0.5-1.5) % POC ABG HHb (Measured) -0.1 L (0-5) % ABG Methemoglobin 0.2 (0.0-3.0) % ABG O2 Capacity 10.3 L (16-24) mL/dl ABG Potassium (3.6-5.2) mmol/L Hgb O2 Saturation 97.8 (95.0-98.0) % Sodium 136 (132-148) mmol/L Chloride 102 (98-107) mmol/L Glucose (75-110) mg/dl Lactate (0.7-2.1) mmol/L Mechanical Rate FiO2 60.0 % Tidal Volume PEEP Potassium 4.6 (3.6-5.0) mmol/L Carbon Dioxide 27 (21-33) mmol/L Anion Gap 12 (10-20) BUN 17 (7-21) mg/dL Creatinine 0.9 (0.8-1.5) mg/dl Est GFR ( Amer) > 60 Est GFR (Non-Af Amer) > 60 Random Glucose 143 H (70-110) mg/dL Hemoglobin A1c (4.2-6.5) % Calcium 8.6 (8.4-10.5) mg/dL Phosphorus (2.5-4.5) mg/dL Magnesium (1.7-2.2) mg/dL Iron (45-180) ug/dL TIBC (261-462) ug/dL % Saturation (20-55) % Transferrin (206-381) mg/dL Ferritin ng/mL Total Bilirubin 0.3 (0.2-1.3) mg/dL AST 43 (17-59) U/L ALT 36 (7-56) U/L Alkaline Phosphatase 92 (38-126) U/L Troponin I ng/mL Total Protein 6.6 (5.8-8.3) g/dL Albumin 3.3 (3.0-4.8) g/dL Globulin 3.3 gm/dL Albumin/Globulin Ratio 1.0 L (1.1-1.8) Triglycerides (35-160) mg/dL Cholesterol (130-200) mg/dL LDL Cholesterol Direct (0-129) mg/dL HDL Cholesterol (29-60) mg/dL Vitamin B12 (239-931) pg/mL Procalcitonin (0.19-0.49) NG/ML TSH 3rd Generation (0.46-4.68) mIU/mL Arterial Blood Potassium (3.6-5.2) mmol/L Urine Color (YELLOW) Urine Appearance (CLEAR) Urine pH (4.7-8.0) Ur Specific Raymond (1.005-1.035) Urine Protein (<30 mg/dL) mg/dL Urine Glucose (UA) (NEGATIVE) mg/dL Urine Ketones (NEGATIVE) mg/dL Urine Blood (NEGATIVE) Urine Nitrate (NEGATIVE) Urine Bilirubin (NEGATIVE) Urine Urobilinogen (<1 E.U./dL) E.U./dL Ur Leukocyte Esterase (NEGATIVE) Ange/uL Ur Random Sodium meq/L Ur Random Potassium meq/L Urine Opiates Screen (NEGATIVE) Urine Methadone Screen (NEGATIVE) Ur Barbiturates Screen (NEGATIVE) Ur Phencyclidine Scrn (NEGATIVE) Ur Amphetamines Screen (NEGATIVE) U Benzodiazepines Scrn (NEGATIVE) U Oth Cocaine Metabols (NEGATIVE) U Cannabinoids Screen (NEGATIVE) 04/29/17 04/28/17 04/28/17 Range/Units 00:15 19:54 12:40 WBC (4.5-11.0) 10^3/ul RBC (3.5-6.1) 10^6/uL Hgb (14.0-18.0) g/dL Hct (42.0-52.0) % MCV (80.0-105.0) fl MCH (25.0-35.0) pg MCHC (31.0-37.0) g/dl RDW (11.5-14.5) % Plt Count (120.0-450.0) 10^3/uL MPV (7.0-11.0) fl Retic Count (0.5-1.5) % pCO2 (35-45) mm/Hg pO2 (80-100) mm/Hg HCO3 (21-28) mmol/L ABG pH (7.35-7.45) ABG Total CO2 (22-28) mmol.L ABG O2 Saturation (95-98) % ABG O2 Content (15-23) ML/dl ABG Base Excess (-2.0-3.0) mmol/L ABG Hemoglobin (11.7-17.4) g/dL ABG Carboxyhemoglobin (0.5-1.5) % POC ABG HHb (Measured) (0-5) % ABG Methemoglobin (0.0-3.0) % ABG O2 Capacity (16-24) mL/dl ABG Potassium (3.6-5.2) mmol/L Hgb O2 Saturation (95.0-98.0) % Sodium 133 128 L (132-148) mmol/L Chloride 100 96 L (98-107) mmol/L Glucose (75-110) mg/dl Lactate (0.7-2.1) mmol/L Mechanical Rate FiO2 % Tidal Volume PEEP Potassium 5.0 5.0 (3.6-5.0) mmol/L Carbon Dioxide 28 26 (21-33) mmol/L Anion Gap 11 11 (10-20) BUN 17 15 (7-21) mg/dL Creatinine 0.8 0.9 (0.8-1.5) mg/dl Est GFR ( Amer) > 60 > 60 Est GFR (Non-Af Amer) > 60 > 60 Random Glucose 156 H 130 H (70-110) mg/dL Hemoglobin A1c (4.2-6.5) % Calcium 8.7 8.6 (8.4-10.5) mg/dL Phosphorus (2.5-4.5) mg/dL Magnesium (1.7-2.2) mg/dL Iron (45-180) ug/dL TIBC (261-462) ug/dL % Saturation (20-55) % Transferrin (206-381) mg/dL Ferritin ng/mL Total Bilirubin (0.2-1.3) mg/dL AST (17-59) U/L ALT (7-56) U/L Alkaline Phosphatase (38-126) U/L Troponin I ng/mL Total Protein (5.8-8.3) g/dL Albumin (3.0-4.8) g/dL Globulin gm/dL Albumin/Globulin Ratio (1.1-1.8) Triglycerides (35-160) mg/dL Cholesterol (130-200) mg/dL LDL Cholesterol Direct (0-129) mg/dL HDL Cholesterol (29-60) mg/dL Vitamin B12 (239-931) pg/mL Procalcitonin (0.19-0.49) NG/ML TSH 3rd Generation (0.46-4.68) mIU/mL Arterial Blood Potassium (3.6-5.2) mmol/L Urine Color (YELLOW) Urine Appearance (CLEAR) Urine pH (4.7-8.0) Ur Specific Raymond (1.005-1.035) Urine Protein (<30 mg/dL) mg/dL Urine Glucose (UA) (NEGATIVE) mg/dL Urine Ketones (NEGATIVE) mg/dL Urine Blood (NEGATIVE) Urine Nitrate (NEGATIVE) Urine Bilirubin (NEGATIVE) Urine Urobilinogen (<1 E.U./dL) E.U./dL Ur Leukocyte Esterase (NEGATIVE) Ange/uL Ur Random Sodium 14 meq/L Ur Random Potassium 8.7 meq/L Urine Opiates Screen Negative (NEGATIVE) Urine Methadone Screen Negative (NEGATIVE) Ur Barbiturates Screen Negative (NEGATIVE) Ur Phencyclidine Scrn Negative (NEGATIVE) Ur Amphetamines Screen Negative (NEGATIVE) U Benzodiazepines Scrn Positive (NEGATIVE) U Oth Cocaine Metabols Negative (NEGATIVE) U Cannabinoids Screen Negative (NEGATIVE) 04/28/17 04/28/17 04/28/17 Range/Units 12:40 10:00 09:50 WBC (4.5-11.0) 10^3/ul RBC (3.5-6.1) 10^6/uL Hgb (14.0-18.0) g/dL Hct (42.0-52.0) % MCV (80.0-105.0) fl MCH (25.0-35.0) pg MCHC (31.0-37.0) g/dl RDW (11.5-14.5) % Plt Count (120.0-450.0) 10^3/uL MPV (7.0-11.0) fl Retic Count (0.5-1.5) % pCO2 (35-45) mm/Hg pO2 (80-100) mm/Hg HCO3 (21-28) mmol/L ABG pH (7.35-7.45) ABG Total CO2 (22-28) mmol.L ABG O2 Saturation (95-98) % ABG O2 Content (15-23) ML/dl ABG Base Excess (-2.0-3.0) mmol/L ABG Hemoglobin (11.7-17.4) g/dL ABG Carboxyhemoglobin (0.5-1.5) % POC ABG HHb (Measured) (0-5) % ABG Methemoglobin (0.0-3.0) % ABG O2 Capacity (16-24) mL/dl ABG Potassium (3.6-5.2) mmol/L Hgb O2 Saturation (95.0-98.0) % Sodium (132-148) mmol/L Chloride (98-107) mmol/L Glucose (75-110) mg/dl Lactate (0.7-2.1) mmol/L Mechanical Rate FiO2 % Tidal Volume PEEP Potassium (3.6-5.0) mmol/L Carbon Dioxide (21-33) mmol/L Anion Gap (10-20) BUN (7-21) mg/dL Creatinine (0.8-1.5) mg/dl Est GFR ( Amer) Est GFR (Non-Af Amer) Random Glucose (70-110) mg/dL Hemoglobin A1c (4.2-6.5) % Calcium (8.4-10.5) mg/dL Phosphorus (2.5-4.5) mg/dL Magnesium (1.7-2.2) mg/dL Iron (45-180) ug/dL TIBC (261-462) ug/dL % Saturation (20-55) % Transferrin 316.83 (206-381) mg/dL Ferritin ng/mL Total Bilirubin (0.2-1.3) mg/dL AST (17-59) U/L ALT (7-56) U/L Alkaline Phosphatase (38-126) U/L Troponin I ng/mL Total Protein (5.8-8.3) g/dL Albumin (3.0-4.8) g/dL Globulin gm/dL Albumin/Globulin Ratio (1.1-1.8) Triglycerides (35-160) mg/dL Cholesterol (130-200) mg/dL LDL Cholesterol Direct (0-129) mg/dL HDL Cholesterol (29-60) mg/dL Vitamin B12 (239-931) pg/mL Procalcitonin (0.19-0.49) NG/ML TSH 3rd Generation 0.31 L (0.46-4.68) mIU/mL Arterial Blood Potassium (3.6-5.2) mmol/L Urine Color Light yellow (YELLOW) Urine Appearance Clear (CLEAR) Urine pH 5.5 (4.7-8.0) Ur Specific Raymond <= 1.005 (1.005-1.035) Urine Protein Negative (<30 mg/dL) mg/dL Urine Glucose (UA) Negative (NEGATIVE) mg/dL Urine Ketones Negative (NEGATIVE) mg/dL Urine Blood Negative (NEGATIVE) Urine Nitrate Negative (NEGATIVE) Urine Bilirubin Negative (NEGATIVE) Urine Urobilinogen 0.2 (<1 E.U./dL) E.U./dL Ur Leukocyte Esterase Negative (NEGATIVE) Ange/uL Ur Random Sodium meq/L Ur Random Potassium meq/L Urine Opiates Screen (NEGATIVE) Urine Methadone Screen (NEGATIVE) Ur Barbiturates Screen (NEGATIVE) Ur Phencyclidine Scrn (NEGATIVE) Ur Amphetamines Screen (NEGATIVE) U Benzodiazepines Scrn (NEGATIVE) U Oth Cocaine Metabols (NEGATIVE) U Cannabinoids Screen (NEGATIVE) 04/28/17 04/28/17 04/28/17 Range/Units 09:50 09:50 08:40 WBC (4.5-11.0) 10^3/ul RBC (3.5-6.1) 10^6/uL Hgb (14.0-18.0) g/dL Hct (42.0-52.0) % MCV (80.0-105.0) fl MCH (25.0-35.0) pg MCHC (31.0-37.0) g/dl RDW (11.5-14.5) % Plt Count (120.0-450.0) 10^3/uL MPV (7.0-11.0) fl Retic Count 2.88 H (0.5-1.5) % pCO2 52 H (35-45) mm/Hg pO2 71.0 L (80-100) mm/Hg HCO3 25.0 (21-28) mmol/L ABG pH 7.29 L (7.35-7.45) ABG Total CO2 26.6 (22-28) mmol.L ABG O2 Saturation 97.1 (95-98) % ABG O2 Content (15-23) ML/dl ABG Base Excess -2.3 L (-2.0-3.0) mmol/L ABG Hemoglobin (11.7-17.4) g/dL ABG Carboxyhemoglobin (0.5-1.5) % POC ABG HHb (Measured) (0-5) % ABG Methemoglobin (0.0-3.0) % ABG O2 Capacity (16-24) mL/dl ABG Potassium 4.0 (3.6-5.2) mmol/L Hgb O2 Saturation (95.0-98.0) % Sodium 121.0 L (132-148) mmol/L Chloride 93.0 L (98-107) mmol/L Glucose 166 H (75-110) mg/dl Lactate 0.8 (0.7-2.1) mmol/L Mechanical Rate 20 FiO2 60.0 % Tidal Volume 400 PEEP 5 Potassium (3.6-5.0) mmol/L Carbon Dioxide (21-33) mmol/L Anion Gap (10-20) BUN (7-21) mg/dL Creatinine (0.8-1.5) mg/dl Est GFR ( Amer) Est GFR (Non-Af Amer) Random Glucose (70-110) mg/dL Hemoglobin A1c (4.2-6.5) % Calcium (8.4-10.5) mg/dL Phosphorus (2.5-4.5) mg/dL Magnesium (1.7-2.2) mg/dL Iron 30 L (45-180) ug/dL TIBC 363 (261-462) ug/dL % Saturation 8 L (20-55) % Transferrin (206-381) mg/dL Ferritin ng/mL Total Bilirubin (0.2-1.3) mg/dL AST (17-59) U/L ALT (7-56) U/L Alkaline Phosphatase (38-126) U/L Troponin I ng/mL Total Protein (5.8-8.3) g/dL Albumin (3.0-4.8) g/dL Globulin gm/dL Albumin/Globulin Ratio (1.1-1.8) Triglycerides (35-160) mg/dL Cholesterol (130-200) mg/dL LDL Cholesterol Direct (0-129) mg/dL HDL Cholesterol (29-60) mg/dL Vitamin B12 (239-931) pg/mL Procalcitonin (0.19-0.49) NG/ML TSH 3rd Generation (0.46-4.68) mIU/mL Arterial Blood Potassium 4.0 (3.6-5.2) mmol/L Urine Color (YELLOW) Urine Appearance (CLEAR) Urine pH (4.7-8.0) Ur Specific Raymond (1.005-1.035) Urine Protein (<30 mg/dL) mg/dL Urine Glucose (UA) (NEGATIVE) mg/dL Urine Ketones (NEGATIVE) mg/dL Urine Blood (NEGATIVE) Urine Nitrate (NEGATIVE) Urine Bilirubin (NEGATIVE) Urine Urobilinogen (<1 E.U./dL) E.U./dL Ur Leukocyte Esterase (NEGATIVE) Ange/uL Ur Random Sodium meq/L Ur Random Potassium meq/L Urine Opiates Screen (NEGATIVE) Urine Methadone Screen (NEGATIVE) Ur Barbiturates Screen (NEGATIVE) Ur Phencyclidine Scrn (NEGATIVE) Ur Amphetamines Screen (NEGATIVE) U Benzodiazepines Scrn (NEGATIVE) U Oth Cocaine Metabols (NEGATIVE) U Cannabinoids Screen (NEGATIVE) 04/28/17 04/28/17 04/28/17 Range/Units 07:30 07:30 07:30 WBC (4.5-11.0) 10^3/ul RBC (3.5-6.1) 10^6/uL Hgb (14.0-18.0) g/dL Hct (42.0-52.0) % MCV (80.0-105.0) fl MCH (25.0-35.0) pg MCHC (31.0-37.0) g/dl RDW (11.5-14.5) % Plt Count (120.0-450.0) 10^3/uL MPV (7.0-11.0) fl Retic Count (0.5-1.5) % pCO2 (35-45) mm/Hg pO2 (80-100) mm/Hg HCO3 (21-28) mmol/L ABG pH (7.35-7.45) ABG Total CO2 (22-28) mmol.L ABG O2 Saturation (95-98) % ABG O2 Content (15-23) ML/dl ABG Base Excess (-2.0-3.0) mmol/L ABG Hemoglobin (11.7-17.4) g/dL ABG Carboxyhemoglobin (0.5-1.5) % POC ABG HHb (Measured) (0-5) % ABG Methemoglobin (0.0-3.0) % ABG O2 Capacity (16-24) mL/dl ABG Potassium (3.6-5.2) mmol/L Hgb O2 Saturation (95.0-98.0) % Sodium (132-148) mmol/L Chloride (98-107) mmol/L Glucose (75-110) mg/dl Lactate (0.7-2.1) mmol/L Mechanical Rate FiO2 % Tidal Volume PEEP Potassium (3.6-5.0) mmol/L Carbon Dioxide (21-33) mmol/L Anion Gap (10-20) BUN (7-21) mg/dL Creatinine (0.8-1.5) mg/dl Est GFR ( Amer) Est GFR (Non-Af Amer) Random Glucose (70-110) mg/dL Hemoglobin A1c 6.1 (4.2-6.5) % Calcium (8.4-10.5) mg/dL Phosphorus (2.5-4.5) mg/dL Magnesium (1.7-2.2) mg/dL Iron (45-180) ug/dL TIBC (261-462) ug/dL % Saturation (20-55) % Transferrin (206-381) mg/dL Ferritin ng/mL Total Bilirubin (0.2-1.3) mg/dL AST (17-59) U/L ALT (7-56) U/L Alkaline Phosphatase (38-126) U/L Troponin I 0.02 D ng/mL Total Protein (5.8-8.3) g/dL Albumin (3.0-4.8) g/dL Globulin gm/dL Albumin/Globulin Ratio (1.1-1.8) Triglycerides (35-160) mg/dL Cholesterol (130-200) mg/dL LDL Cholesterol Direct (0-129) mg/dL HDL Cholesterol (29-60) mg/dL Vitamin B12 (239-931) pg/mL Procalcitonin 0.08 L (0.19-0.49) NG/ML TSH 3rd Generation (0.46-4.68) mIU/mL Arterial Blood Potassium (3.6-5.2) mmol/L Urine Color (YELLOW) Urine Appearance (CLEAR) Urine pH (4.7-8.0) Ur Specific Raymond (1.005-1.035) Urine Protein (<30 mg/dL) mg/dL Urine Glucose (UA) (NEGATIVE) mg/dL Urine Ketones (NEGATIVE) mg/dL Urine Blood (NEGATIVE) Urine Nitrate (NEGATIVE) Urine Bilirubin (NEGATIVE) Urine Urobilinogen (<1 E.U./dL) E.U./dL Ur Leukocyte Esterase (NEGATIVE) Ange/uL Ur Random Sodium meq/L Ur Random Potassium meq/L Urine Opiates Screen (NEGATIVE) Urine Methadone Screen (NEGATIVE) Ur Barbiturates Screen (NEGATIVE) Ur Phencyclidine Scrn (NEGATIVE) Ur Amphetamines Screen (NEGATIVE) U Benzodiazepines Scrn (NEGATIVE) U Oth Cocaine Metabols (NEGATIVE) U Cannabinoids Screen (NEGATIVE) 04/28/17 Range/Units 07:00 WBC (4.5-11.0) 10^3/ul RBC (3.5-6.1) 10^6/uL Hgb (14.0-18.0) g/dL Hct (42.0-52.0) % MCV (80.0-105.0) fl MCH (25.0-35.0) pg MCHC (31.0-37.0) g/dl RDW (11.5-14.5) % Plt Count (120.0-450.0) 10^3/uL MPV (7.0-11.0) fl Retic Count (0.5-1.5) % pCO2 (35-45) mm/Hg pO2 (80-100) mm/Hg HCO3 (21-28) mmol/L ABG pH (7.35-7.45) ABG Total CO2 (22-28) mmol.L ABG O2 Saturation (95-98) % ABG O2 Content (15-23) ML/dl ABG Base Excess (-2.0-3.0) mmol/L ABG Hemoglobin (11.7-17.4) g/dL ABG Carboxyhemoglobin (0.5-1.5) % POC ABG HHb (Measured) (0-5) % ABG Methemoglobin (0.0-3.0) % ABG O2 Capacity (16-24) mL/dl ABG Potassium (3.6-5.2) mmol/L Hgb O2 Saturation (95.0-98.0) % Sodium (132-148) mmol/L Chloride (98-107) mmol/L Glucose (75-110) mg/dl Lactate (0.7-2.1) mmol/L Mechanical Rate FiO2 % Tidal Volume PEEP Potassium (3.6-5.0) mmol/L Carbon Dioxide (21-33) mmol/L Anion Gap (10-20) BUN (7-21) mg/dL Creatinine (0.8-1.5) mg/dl Est GFR ( Amer) Est GFR (Non-Af Amer) Random Glucose (70-110) mg/dL Hemoglobin A1c (4.2-6.5) % Calcium (8.4-10.5) mg/dL Phosphorus 4.6 H (2.5-4.5) mg/dL Magnesium 1.5 L (1.7-2.2) mg/dL Iron (45-180) ug/dL TIBC (261-462) ug/dL % Saturation (20-55) % Transferrin (206-381) mg/dL Ferritin 8.0 ng/mL Total Bilirubin (0.2-1.3) mg/dL AST (17-59) U/L ALT (7-56) U/L Alkaline Phosphatase (38-126) U/L Troponin I ng/mL Total Protein (5.8-8.3) g/dL Albumin (3.0-4.8) g/dL Globulin gm/dL Albumin/Globulin Ratio (1.1-1.8) Triglycerides 35 (35-160) mg/dL Cholesterol 134 (130-200) mg/dL LDL Cholesterol Direct 74 (0-129) mg/dL HDL Cholesterol 44 (29-60) mg/dL Vitamin B12 266 (239-931) pg/mL Procalcitonin (0.19-0.49) NG/ML TSH 3rd Generation (0.46-4.68) mIU/mL Arterial Blood Potassium (3.6-5.2) mmol/L Urine Color (YELLOW) Urine Appearance (CLEAR) Urine pH (4.7-8.0) Ur Specific Raymond (1.005-1.035) Urine Protein (<30 mg/dL) mg/dL Urine Glucose (UA) (NEGATIVE) mg/dL Urine Ketones (NEGATIVE) mg/dL Urine Blood (NEGATIVE) Urine Nitrate (NEGATIVE) Urine Bilirubin (NEGATIVE) Urine Urobilinogen (<1 E.U./dL) E.U./dL Ur Leukocyte Esterase (NEGATIVE) Ange/uL Ur Random Sodium meq/L Ur Random Potassium meq/L Urine Opiates Screen (NEGATIVE) Urine Methadone Screen (NEGATIVE) Ur Barbiturates Screen (NEGATIVE) Ur Phencyclidine Scrn (NEGATIVE) Ur Amphetamines Screen (NEGATIVE) U Benzodiazepines Scrn (NEGATIVE) U Oth Cocaine Metabols (NEGATIVE) U Cannabinoids Screen (NEGATIVE) Laboratory Results - last 24 hr 04/28/17 04/28/17 04/28/17 07:00 07:30 07:30 WBC RBC Hgb Hct MCV MCH MCHC RDW Plt Count MPV Retic Count pCO2 pO2 HCO3 ABG pH ABG Total CO2 ABG O2 Saturation ABG O2 Content ABG Base Excess ABG Hemoglobin ABG Carboxyhemoglobin POC ABG HHb (Measured) ABG Methemoglobin ABG O2 Capacity ABG Potassium Hgb O2 Saturation Sodium Chloride Glucose Lactate Mechanical Rate FiO2 Tidal Volume PEEP Potassium Carbon Dioxide Anion Gap BUN Creatinine Est GFR ( Amer) Est GFR (Non-Af Amer) Random Glucose Hemoglobin A1c 6.1 Calcium Phosphorus 4.6 H Magnesium 1.5 L Iron TIBC % Saturation Transferrin Ferritin 8.0 Total Bilirubin AST ALT Alkaline Phosphatase Troponin I 0.02 D Total Protein Albumin Globulin Albumin/Globulin Ratio Triglycerides 35 Cholesterol 134 LDL Cholesterol Direct 74 HDL Cholesterol 44 Vitamin B12 266 Procalcitonin TSH 3rd Generation Arterial Blood Potassium Urine Color Urine Appearance Urine pH Ur Specific Raymond Urine Protein Urine Glucose (UA) Urine Ketones Urine Blood Urine Nitrate Urine Bilirubin Urine Urobilinogen Ur Leukocyte Esterase Ur Random Sodium Ur Random Potassium Urine Opiates Screen Urine Methadone Screen Ur Barbiturates Screen Ur Phencyclidine Scrn Ur Amphetamines Screen U Benzodiazepines Scrn U Oth Cocaine Metabols U Cannabinoids Screen 04/28/17 04/28/17 04/28/17 07:30 08:40 09:50 WBC RBC Hgb Hct MCV MCH MCHC RDW Plt Count MPV Retic Count pCO2 52 H pO2 71.0 L HCO3 25.0 ABG pH 7.29 L ABG Total CO2 26.6 ABG O2 Saturation 97.1 ABG O2 Content ABG Base Excess -2.3 L ABG Hemoglobin ABG Carboxyhemoglobin POC ABG HHb (Measured) ABG Methemoglobin ABG O2 Capacity ABG Potassium 4.0 Hgb O2 Saturation Sodium 121.0 L Chloride 93.0 L Glucose 166 H Lactate 0.8 Mechanical Rate 20 FiO2 60.0 Tidal Volume 400 PEEP 5 Potassium Carbon Dioxide Anion Gap BUN Creatinine Est GFR ( Amer) Est GFR (Non-Af Amer) Random Glucose Hemoglobin A1c Calcium Phosphorus Magnesium Iron 30 L TIBC 363 % Saturation 8 L Transferrin Ferritin Total Bilirubin AST ALT Alkaline Phosphatase Troponin I Total Protein Albumin Globulin Albumin/Globulin Ratio Triglycerides Cholesterol LDL Cholesterol Direct HDL Cholesterol Vitamin B12 Procalcitonin 0.08 L TSH 3rd Generation Arterial Blood Potassium 4.0 Urine Color Urine Appearance Urine pH Ur Specific Raymond Urine Protein Urine Glucose (UA) Urine Ketones Urine Blood Urine Nitrate Urine Bilirubin Urine Urobilinogen Ur Leukocyte Esterase Ur Random Sodium Ur Random Potassium Urine Opiates Screen Urine Methadone Screen Ur Barbiturates Screen Ur Phencyclidine Scrn Ur Amphetamines Screen U Benzodiazepines Scrn U Oth Cocaine Metabols U Cannabinoids Screen 04/28/17 04/28/17 04/28/17 09:50 09:50 10:00 WBC RBC Hgb Hct MCV MCH MCHC RDW Plt Count MPV Retic Count 2.88 H pCO2 pO2 HCO3 ABG pH ABG Total CO2 ABG O2 Saturation ABG O2 Content ABG Base Excess ABG Hemoglobin ABG Carboxyhemoglobin POC ABG HHb (Measured) ABG Methemoglobin ABG O2 Capacity ABG Potassium Hgb O2 Saturation Sodium Chloride Glucose Lactate Mechanical Rate FiO2 Tidal Volume PEEP Potassium Carbon Dioxide Anion Gap BUN Creatinine Est GFR ( Amer) Est GFR (Non-Af Amer) Random Glucose Hemoglobin A1c Calcium Phosphorus Magnesium Iron TIBC % Saturation Transferrin 316.83 Ferritin Total Bilirubin AST ALT Alkaline Phosphatase Troponin I Total Protein Albumin Globulin Albumin/Globulin Ratio Triglycerides Cholesterol LDL Cholesterol Direct HDL Cholesterol Vitamin B12 Procalcitonin TSH 3rd Generation 0.31 L Arterial Blood Potassium Urine Color Urine Appearance Urine pH Ur Specific Raymond Urine Protein Urine Glucose (UA) Urine Ketones Urine Blood Urine Nitrate Urine Bilirubin Urine Urobilinogen Ur Leukocyte Esterase Ur Random Sodium Ur Random Potassium Urine Opiates Screen Urine Methadone Screen Ur Barbiturates Screen Ur Phencyclidine Scrn Ur Amphetamines Screen U Benzodiazepines Scrn U Oth Cocaine Metabols U Cannabinoids Screen 04/28/17 04/28/17 04/28/17 12:40 12:40 19:54 WBC RBC Hgb Hct MCV MCH MCHC RDW Plt Count MPV Retic Count pCO2 pO2 HCO3 ABG pH ABG Total CO2 ABG O2 Saturation ABG O2 Content ABG Base Excess ABG Hemoglobin ABG Carboxyhemoglobin POC ABG HHb (Measured) ABG Methemoglobin ABG O2 Capacity ABG Potassium Hgb O2 Saturation Sodium 128 L Chloride 96 L Glucose Lactate Mechanical Rate FiO2 Tidal Volume PEEP Potassium 5.0 Carbon Dioxide 26 Anion Gap 11 BUN 15 Creatinine 0.9 Est GFR ( Amer) > 60 Est GFR (Non-Af Amer) > 60 Random Glucose 130 H Hemoglobin A1c Calcium 8.6 Phosphorus Magnesium Iron TIBC % Saturation Transferrin Ferritin Total Bilirubin AST ALT Alkaline Phosphatase Troponin I Total Protein Albumin Globulin Albumin/Globulin Ratio Triglycerides Cholesterol LDL Cholesterol Direct HDL Cholesterol Vitamin B12 Procalcitonin TSH 3rd Generation Arterial Blood Potassium Urine Color Light yellow Urine Appearance Clear Urine pH 5.5 Ur Specific Raymond <= 1.005 Urine Protein Negative Urine Glucose (UA) Negative Urine Ketones Negative Urine Blood Negative Urine Nitrate Negative Urine Bilirubin Negative Urine Urobilinogen 0.2 Ur Leukocyte Esterase Negative Ur Random Sodium 14 Ur Random Potassium 8.7 Urine Opiates Screen Negative Urine Methadone Screen Negative Ur Barbiturates Screen Negative Ur Phencyclidine Scrn Negative Ur Amphetamines Screen Negative U Benzodiazepines Scrn Positive U Oth Cocaine Metabols Negative U Cannabinoids Screen Negative 04/29/17 04/29/17 04/29/17 00:15 05:30 05:30 WBC 12.0 H D RBC 3.91 Hgb 7.5 L Hct 27.8 L MCV 71.1 L MCH 19.2 L MCHC 27.0 L RDW 19.6 H Plt Count 257 MPV 9.5 Retic Count pCO2 pO2 HCO3 ABG pH ABG Total CO2 ABG O2 Saturation ABG O2 Content ABG Base Excess ABG Hemoglobin ABG Carboxyhemoglobin POC ABG HHb (Measured) ABG Methemoglobin ABG O2 Capacity ABG Potassium Hgb O2 Saturation Sodium 133 136 Chloride 100 102 Glucose Lactate Mechanical Rate FiO2 Tidal Volume PEEP Potassium 5.0 4.6 Carbon Dioxide 28 27 Anion Gap 11 12 BUN 17 17 Creatinine 0.8 0.9 Est GFR ( Amer) > 60 > 60 Est GFR (Non-Af Amer) > 60 > 60 Random Glucose 156 H 143 H Hemoglobin A1c Calcium 8.7 8.6 Phosphorus Magnesium Iron TIBC % Saturation Transferrin Ferritin Total Bilirubin 0.3 AST 43 ALT 36 Alkaline Phosphatase 92 Troponin I Total Protein 6.6 Albumin 3.3 Globulin 3.3 Albumin/Globulin Ratio 1.0 L Triglycerides Cholesterol LDL Cholesterol Direct HDL Cholesterol Vitamin B12 Procalcitonin TSH 3rd Generation Arterial Blood Potassium Urine Color Urine Appearance Urine pH Ur Specific Raymond Urine Protein Urine Glucose (UA) Urine Ketones Urine Blood Urine Nitrate Urine Bilirubin Urine Urobilinogen Ur Leukocyte Esterase Ur Random Sodium Ur Random Potassium Urine Opiates Screen Urine Methadone Screen Ur Barbiturates Screen Ur Phencyclidine Scrn Ur Amphetamines Screen U Benzodiazepines Scrn U Oth Cocaine Metabols U Cannabinoids Screen 04/29/17 06:22 WBC RBC Hgb Hct MCV MCH MCHC RDW Plt Count MPV Retic Count pCO2 40 pO2 174.0 H HCO3 25.9 ABG pH 7.42 ABG Total CO2 27.1 ABG O2 Saturation 100.1 H ABG O2 Content 10.3 L ABG Base Excess 1.3 ABG Hemoglobin 7.2 L ABG Carboxyhemoglobin 2.2 H POC ABG HHb (Measured) -0.1 L ABG Methemoglobin 0.2 ABG O2 Capacity 10.3 L ABG Potassium Hgb O2 Saturation 97.8 Sodium Chloride Glucose Lactate Mechanical Rate FiO2 60.0 Tidal Volume PEEP Potassium Carbon Dioxide Anion Gap BUN Creatinine Est GFR ( Amer) Est GFR (Non-Af Amer) Random Glucose Hemoglobin A1c Calcium Phosphorus Magnesium Iron TIBC % Saturation Transferrin Ferritin Total Bilirubin AST ALT Alkaline Phosphatase Troponin I Total Protein Albumin Globulin Albumin/Globulin Ratio Triglycerides Cholesterol LDL Cholesterol Direct HDL Cholesterol Vitamin B12 Procalcitonin TSH 3rd Generation Arterial Blood Potassium Urine Color Urine Appearance Urine pH Ur Specific Raymond Urine Protein Urine Glucose (UA) Urine Ketones Urine Blood Urine Nitrate Urine Bilirubin Urine Urobilinogen Ur Leukocyte Esterase Ur Random Sodium Ur Random Potassium Urine Opiates Screen Urine Methadone Screen Ur Barbiturates Screen Ur Phencyclidine Scrn Ur Amphetamines Screen U Benzodiazepines Scrn U Oth Cocaine Metabols U Cannabinoids Screen Review of Systems - Review of Systems Systems not reviewed;Unavailable: Intubated Critical Care Progress Note - Ventilator Checklist Head of Bed 30 Degrees: Yes Daily Sedation Vacation: Yes Daily Assessment of Readiness to Wean: Yes Daily Spontaneous Breathing Trial: Yes PUD Prophalyxis: Yes DVT Prophylaxis: Yes - Extremities/Vascular Does the Patient have a Central Venous Catheter?: No Does the Patient need a Central Venous Catheter?: No Does the Patient have a Christianson Catheter?: Yes Does the Patient need a Christianson Catheter?: Yes - Restraints Justification for Restraints: High risk for self extubation, High risk for removing IV access, High risk for harming self - Prophylaxis GI Prophylaxis GI: PPI - Prophylaxis DVT Prophylaxis DVT: Heparin SQ, SCDs - Nutrition Nutrition: Nutrition Category Date Time Status NPO Diet [DIET] Diets 04/28/17 Breakfast Ordered Assessment/Plan - Assessment and Plan (Free Text) Assessment: 62 y/o AAM with a PMH of morbid obesity and sleep apnea who was admitted for combined hypoxic/hypercapnic respiratory failure secondary to upper airway obstruction and narrowing requiring emergent tracheostomy. Plan: Neuro: - Patient remains sedated due to agitation - CIWA protocol given that family provides hx of daily ETOH abuse - cont thiamine, folic acid and MV given hx of ETOH use - daily attempts to wean off sedation - UDS was unremarkable Cardio: - Hemodynamically stable, not requiring pressors - Echo showed EF 52% and unremarkable valvular findings - EKG in ED showed sinus tachy @ 104, Left axis deviation, PRWP and an incomplete RBBB - Maintain MAP >65 - Strict I & Os - Bilateral US of LE done to r/o DVT as cause of dyspnea- pending official read - lipid panel ordered Pulm: - Shortness of breath was likely secondary to upper airway obstruction 2/2 epiglottitis possibly exacerbated by infection - s/p emergent tracheostomy by ENT - Patient currently on vent PS with tracheostomy; if patient tolerated, will place on trach collar as tolerated and if stable, patient will be cleared for transfer from ICU - Protective lung ventilation strategy includes HOB elevated, daily oral care, and aspiration precautions; daily attempts to wean off vent and sedation; GI and DVT ppx - Decadron 6mg q8h - Maintain O2 sat >92% - CT neck showed prominence of aryepiglottic folds with narrowing of airway - CTA showed no definite PE, 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, early interstitial edema - CXR shows low lung volumes on right with no other acute findings GI: - Protonix - NPO - Zofran for postop nausea Nephro: - hyponatremia improved - will trend electrolytes and replete as needed - No fluids at this time - Maintain normovolemia Heme/Onc: - Microcytic anemia noted - No overt signs of bleeding, HD stable - cont to monitor H/H ID: - Afebrile, leukocytosis improved - flu negative - F/u blood and urine cultures, procal, urine tox screen - Rocephin and Vanc for empiric therapy - ID consulted, recs appreciated Endo: - A1c showed patient no diabetic - Thyroid studies showed subclinial hyperthyroidsim - Maintain euglycemia (140 - 180) GI PPX: Protonix DVT PPX: Heparin and SCDs Diet: NPO Dispo: Patient is hemodynamically stable. continue attempting weaning off sedation. Patient currently tolerating PS on vent; if continues to improve, will place on trach collar and if stable, patient will be cleared for transfer from ICU Patient was seen, examined and discussed with attending, Dr. Shelley Brenner PGY1 Pager # [phone] <Arturo Rosa - Last Filed: 04/30/17 12:43> CCU Objective - Vital Signs / Intake & Output Intake and Output (Last 8hrs): Intake & Output 04/29/17 04/30/17 04/30/17 22:59 06:59 14:59 Intake Total 1484 912 0.8 Output Total 1250 1250 Balance 234 -338 0.8 Intake: IV 1484 912 0.8 Left Antecubital 800 120 Left Hand 384 490 Left Wrist 0 Right Wrist 0 Oral 0 Output: Urine 1250 1250 Urethral (Christianson) 1250 1250 Stool 0 Other: # Bowel Movements 0 - Medications Active Medications: Active Medications Generic Name Dose Route Start Last Admin Trade Name Freq PRN Reason Stop Dose Admin Acetaminophen 650 mg 04/30/17 09:49 04/30/17 10:06 Tylenol 650 Mg Supp RC 650 mg Q4H PRN Administration Fever >100.4 F Acetylcysteine 4 ml 04/30/17 12:45 Acetylcysteine 20% IH [id number] LUCIA Albuterol/Ipratropium 3 ml 04/30/17 12:34 Duoneb 3 Mg/0.5 Mg (3 Ml) Ud IH [id number] LUCIA Dexamethasone 4 mg 04/30/17 10:30 Decadron Inj IVP Q8H LUCIA Folic Acid 1 mg 04/28/17 10:00 04/29/17 13:50 Folic Acid IVP 1 mg DAILY LUCIA Administration Heparin Sodium (Porcine) 5,000 units 04/28/17 08:15 04/30/17 05:30 Heparin SC 5,000 units Q8 LUCIA Administration Protocol Propofol 1,000 mg in 100 mls @ 3.538 mls/hr 04/28/17 04:59 04/28/17 16:05 Diprivan IV 0 mcg/kg/min .Q24H PRN 0 mls/hr TITRATE PER MD ORDER Titration Protocol 5 MCG/KG/MIN Vancomycin HCl 1 gm in 250 mls @ 167 mls/hr 04/28/17 05:00 04/30/17 05:26 Vancomycin 1gm IVPB 167 mls/hr Q12H LUCIA Administration Protocol Fentanyl Citrate 1,000 mcg in 100 mls @ 2 mls/hr 04/28/17 06:40 04/28/17 22: 26 Fentanyl Citrate/Sodium Chloride 1 Mg/100 Ml IV 50 mcg/hr .Q24H PRN 5 mls/hr TITRATE PER MD ORDER Administration Protocol 20 MCG/HR Dexmedetomidine HCl 400 mcg in 100 mls @ 5.897 mls/hr 04/28/17 07:36 09:31 Precedex 400mcg/100ml IV 0.8 mcg/kg/hr .[id number] PRN 23.587 mls/hr Agitation Administration Protocol 0.2 MCG/KG/HR Ceftriaxone Sodium 2 gm in 100 mls @ 100 mls/hr 04/29/17 10:00 04/30/17 09:30 Rocephin 2 Gm Ivpb IVPB 05/13/17 10:01 100 mls/hr DAILY LUCIA Administration Protocol Iron Sucrose 100 mg 04/30/17 12:45 Venofer IVP 05/02/17 13:00 DAILY LUCIA Lorazepam 4 mg 04/28/17 12:57 04/30/17 05:25 Ativan IVP 4 mg Q2H PRN Administration Agitation Protocol Ondansetron HCl 4 mg 04/28/17 04:58 04/30/17 09:38 Zofran Inj IVP 4 mg Q4H PRN Administration Nausea/Vomiting Pantoprazole Sodium 40 mg 04/28/17 10:00 04/30/17 09:31 Protonix Inj IVP 40 mg DAILY LUCIA Administration - Patient Studies Lab Studies: Microbiology Studies 04/28/17 00:19 Blood Culture - Preliminary Blood NO GROWTH AFTER 48 HOURS 04/28/17 00:09 Blood Culture - Preliminary Blood NO GROWTH AFTER 48 HOURS 04/28/17 09:00 MRSA Culture (Admit) - Final Naris MRSA NOT DETECTED 04/28/17 12:40 Urine Culture - Final Urine,Christianson No Growth (<1,000 CFU/ML) Lab Studies 04/30/17 04/30/17 04/30/17 Range/Units 10:00 06:15 05:30 WBC 14.1 H (4.5-11.0) 10^3/ul RBC 4.01 (3.5-6.1) 10^6/uL Hgb 7.7 L (14.0-18.0) g/dL Hct 28.9 L (42.0-52.0) % MCV 72.1 L (80.0-105.0) fl MCH 19.2 L (25.0-35.0) pg MCHC 26.6 L (31.0-37.0) g/dl RDW 19.9 H (11.5-14.5) % Plt Count 249 (120.0-450.0) 10^3/uL MPV 10.0 (7.0-11.0) fl pCO2 39 (35-45) mm/Hg pO2 118.0 H (80-100) mm/Hg HCO3 24.7 (21-28) mmol/L ABG pH 7.41 (7.35-7.45) ABG Total CO2 25.9 (22-28) mmol.L ABG O2 Saturation 99.1 H (95-98) % ABG O2 Content 12.2 L (15-23) ML/dl ABG Base Excess 0.1 (-2.0-3.0) mmol/L ABG Hemoglobin 8.8 L (11.7-17.4) g/dL ABG Carboxyhemoglobin 1.9 H (0.5-1.5) % POC ABG HHb (Measured) 0.9 (0-5) % ABG Methemoglobin 0.7 (0.0-3.0) % ABG O2 Capacity 12.3 L (16-24) mL/dl Hgb O2 Saturation 96.4 (95.0-98.0) % FiO2 40.0 % Sodium (132-148) mmol/L Potassium (3.6-5.0) mmol/L Chloride (98-107) mmol/L Carbon Dioxide (21-33) mmol/L Anion Gap (10-20) BUN (7-21) mg/dL Creatinine (0.8-1.5) mg/dl Est GFR ( Amer) Est GFR (Non-Af Amer) Random Glucose (70-110) mg/dL Lactic Acid 1.1 (0.7-2.1) mmol/L Calcium (8.4-10.5) mg/dL Total Bilirubin (0.2-1.3) mg/dL AST (17-59) U/L ALT (7-56) U/L Alkaline Phosphatase (38-126) U/L Total Protein (5.8-8.3) g/dL Albumin (3.0-4.8) g/dL Globulin gm/dL Albumin/Globulin Ratio (1.1-1.8) RBC Folate (>280) ng/mL RBC KRISTIAN Nuclear Membr Pat (Negative) Proteinase 3 (PR3) (<1.0) AI Myeloperoxidase Ab (<1.0) AI RPR (NONREACTIVE) HIV 1&2 Ag/Ab, 4th Gen (Nonreactive) 04/30/17 04/29/17 04/29/17 Range/Units 05:30 18:08 12:25 WBC (4.5-11.0) 10^3/ul RBC (3.5-6.1) 10^6/uL Hgb (14.0-18.0) g/dL Hct (42.0-52.0) % MCV (80.0-105.0) fl MCH (25.0-35.0) pg MCHC (31.0-37.0) g/dl RDW (11.5-14.5) % Plt Count (120.0-450.0) 10^3/uL MPV (7.0-11.0) fl pCO2 (35-45) mm/Hg pO2 (80-100) mm/Hg HCO3 (21-28) mmol/L ABG pH (7.35-7.45) ABG Total CO2 (22-28) mmol.L ABG O2 Saturation (95-98) % ABG O2 Content (15-23) ML/dl ABG Base Excess (-2.0-3.0) mmol/L ABG Hemoglobin (11.7-17.4) g/dL ABG Carboxyhemoglobin (0.5-1.5) % POC ABG HHb (Measured) (0-5) % ABG Methemoglobin (0.0-3.0) % ABG O2 Capacity (16-24) mL/dl Hgb O2 Saturation (95.0-98.0) % FiO2 % Sodium 141 136 136 (132-148) mmol/L Potassium 4.3 4.4 4.6 (3.6-5.0) mmol/L Chloride 104 102 101 (98-107) mmol/L Carbon Dioxide 27 27 27 (21-33) mmol/L Anion Gap 14 12 12 (10-20) BUN 17 17 18 (7-21) mg/dL Creatinine 0.8 0.8 0.7 L (0.8-1.5) mg/dl Est GFR ( Amer) > 60 > 60 > 60 Est GFR (Non-Af Amer) > 60 > 60 > 60 Random Glucose 140 H 133 H 141 H (70-110) mg/dL Lactic Acid (0.7-2.1) mmol/L Calcium 8.9 8.9 8.6 (8.4-10.5) mg/dL Total Bilirubin 0.3 (0.2-1.3) mg/dL AST 44 (17-59) U/L ALT 32 (7-56) U/L Alkaline Phosphatase 90 (38-126) U/L Total Protein 6.7 (5.8-8.3) g/dL Albumin 3.2 (3.0-4.8) g/dL Globulin 3.4 gm/dL Albumin/Globulin Ratio 0.9 L (1.1-1.8) RBC Folate (>280) ng/mL RBC RKISTIAN Nuclear Membr Pat (Negative) Proteinase 3 (PR3) (<1.0) AI Myeloperoxidase Ab (<1.0) AI RPR (NONREACTIVE) HIV 1&2 Ag/Ab, 4th Gen (Nonreactive) 04/29/17 04/29/17 04/28/17 Range/Units 05:30 05:30 13:20 WBC (4.5-11.0) 10^3/ul RBC (3.5-6.1) 10^6/uL Hgb (14.0-18.0) g/dL Hct (42.0-52.0) % MCV (80.0-105.0) fl MCH (25.0-35.0) pg MCHC (31.0-37.0) g/dl RDW (11.5-14.5) % Plt Count (120.0-450.0) 10^3/uL MPV (7.0-11.0) fl pCO2 (35-45) mm/Hg pO2 (80-100) mm/Hg HCO3 (21-28) mmol/L ABG pH (7.35-7.45) ABG Total CO2 (22-28) mmol.L ABG O2 Saturation (95-98) % ABG O2 Content (15-23) ML/dl ABG Base Excess (-2.0-3.0) mmol/L ABG Hemoglobin (11.7-17.4) g/dL ABG Carboxyhemoglobin (0.5-1.5) % POC ABG HHb (Measured) (0-5) % ABG Methemoglobin (0.0-3.0) % ABG O2 Capacity (16-24) mL/dl Hgb O2 Saturation (95.0-98.0) % FiO2 % Sodium (132-148) mmol/L Potassium (3.6-5.0) mmol/L Chloride (98-107) mmol/L Carbon Dioxide (21-33) mmol/L Anion Gap (10-20) BUN (7-21) mg/dL Creatinine (0.8-1.5) mg/dl Est GFR ( Amer) Est GFR (Non-Af Amer) Random Glucose (70-110) mg/dL Lactic Acid (0.7-2.1) mmol/L Calcium (8.4-10.5) mg/dL Total Bilirubin (0.2-1.3) mg/dL AST (17-59) U/L ALT (7-56) U/L Alkaline Phosphatase (38-126) U/L Total Protein (5.8-8.3) g/dL Albumin (3.0-4.8) g/dL Globulin gm/dL Albumin/Globulin Ratio (1.1-1.8) RBC Folate (>280) ng/mL RBC KRISTIAN Nuclear Membr Pat Negative (Negative) Proteinase 3 (PR3) <1.0 (<1.0) AI Myeloperoxidase Ab <1.0 (<1.0) AI RPR Nonreactive (NONREACTIVE) HIV 1&2 Ag/Ab, 4th Gen Nonreactive (Nonreactive) 04/28/17 Range/Units 09:50 WBC (4.5-11.0) 10^3/ul RBC (3.5-6.1) 10^6/uL Hgb (14.0-18.0) g/dL Hct (42.0-52.0) % MCV (80.0-105.0) fl MCH (25.0-35.0) pg MCHC (31.0-37.0) g/dl RDW (11.5-14.5) % Plt Count (120.0-450.0) 10^3/uL MPV (7.0-11.0) fl pCO2 (35-45) mm/Hg pO2 (80-100) mm/Hg HCO3 (21-28) mmol/L ABG pH (7.35-7.45) ABG Total CO2 (22-28) mmol.L ABG O2 Saturation (95-98) % ABG O2 Content (15-23) ML/dl ABG Base Excess (-2.0-3.0) mmol/L ABG Hemoglobin (11.7-17.4) g/dL ABG Carboxyhemoglobin (0.5-1.5) % POC ABG HHb (Measured) (0-5) % ABG Methemoglobin (0.0-3.0) % ABG O2 Capacity (16-24) mL/dl Hgb O2 Saturation (95.0-98.0) % FiO2 % Sodium (132-148) mmol/L Potassium (3.6-5.0) mmol/L Chloride (98-107) mmol/L Carbon Dioxide (21-33) mmol/L Anion Gap (10-20) BUN (7-21) mg/dL Creatinine (0.8-1.5) mg/dl Est GFR ( Amer) Est GFR (Non-Af Amer) Random Glucose (70-110) mg/dL Lactic Acid (0.7-2.1) mmol/L Calcium (8.4-10.5) mg/dL Total Bilirubin (0.2-1.3) mg/dL AST (17-59) U/L ALT (7-56) U/L Alkaline Phosphatase (38-126) U/L Total Protein (5.8-8.3) g/dL Albumin (3.0-4.8) g/dL Globulin gm/dL Albumin/Globulin Ratio (1.1-1.8) RBC Folate 1192 (>280) ng/mL RBC KRISTIAN Nuclear Membr Pat (Negative) Proteinase 3 (PR3) (<1.0) AI Myeloperoxidase Ab (<1.0) AI RPR (NONREACTIVE) HIV 1&2 Ag/Ab, 4th Gen (Nonreactive) Laboratory Results - last 24 hr 04/28/17 04/28/17 04/29/17 09:50 13:20 05:30 WBC RBC Hgb Hct MCV MCH MCHC RDW Plt Count MPV pCO2 pO2 HCO3 ABG pH ABG Total CO2 ABG O2 Saturation ABG O2 Content ABG Base Excess ABG Hemoglobin ABG Carboxyhemoglobin POC ABG HHb (Measured) ABG Methemoglobin ABG O2 Capacity Hgb O2 Saturation FiO2 Sodium Potassium Chloride Carbon Dioxide Anion Gap BUN Creatinine Est GFR ( Amer) Est GFR (Non-Af Amer) Random Glucose Lactic Acid Calcium Total Bilirubin AST ALT Alkaline Phosphatase Total Protein Albumin Globulin Albumin/Globulin Ratio RBC Folate 1192 KRISTIAN Nuclear Membr Pat Negative Proteinase 3 (PR3) <1.0 Myeloperoxidase Ab <1.0 RPR HIV 1&2 Ag/Ab, 4th Gen Nonreactive 04/29/17 04/29/17 04/29/17 05:30 12:25 18:08 WBC RBC Hgb Hct MCV MCH MCHC RDW Plt Count MPV pCO2 pO2 HCO3 ABG pH ABG Total CO2 ABG O2 Saturation ABG O2 Content ABG Base Excess ABG Hemoglobin ABG Carboxyhemoglobin POC ABG HHb (Measured) ABG Methemoglobin ABG O2 Capacity Hgb O2 Saturation FiO2 Sodium 136 136 Potassium 4.6 4.4 Chloride 101 102 Carbon Dioxide 27 27 Anion Gap 12 12 BUN 18 17 Creatinine 0.7 L 0.8 Est GFR ( Amer) > 60 > 60 Est GFR (Non-Af Amer) > 60 > 60 Random Glucose 141 H 133 H Lactic Acid Calcium 8.6 8.9 Total Bilirubin AST ALT Alkaline Phosphatase Total Protein Albumin Globulin Albumin/Globulin Ratio RBC Folate KRISTIAN Nuclear Membr Pat Proteinase 3 (PR3) Myeloperoxidase Ab RPR Nonreactive HIV 1&2 Ag/Ab, 4th Gen 04/30/17 04/30/17 04/30/17 05:30 05:30 06:15 WBC 14.1 H RBC 4.01 Hgb 7.7 L Hct 28.9 L MCV 72.1 L MCH 19.2 L MCHC 26.6 L RDW 19.9 H Plt Count 249 MPV 10.0 pCO2 39 pO2 118.0 H HCO3 24.7 ABG pH 7.41 ABG Total CO2 25.9 ABG O2 Saturation 99.1 H ABG O2 Content 12.2 L ABG Base Excess 0.1 ABG Hemoglobin 8.8 L ABG Carboxyhemoglobin 1.9 H POC ABG HHb (Measured) 0.9 ABG Methemoglobin 0.7 ABG O2 Capacity 12.3 L Hgb O2 Saturation 96.4 FiO2 40.0 Sodium 141 Potassium 4.3 Chloride 104 Carbon Dioxide 27 Anion Gap 14 BUN 17 Creatinine 0.8 Est GFR ( Amer) > 60 Est GFR (Non-Af Amer) > 60 Random Glucose 140 H Lactic Acid Calcium 8.9 Total Bilirubin 0.3 AST 44 ALT 32 Alkaline Phosphatase 90 Total Protein 6.7 Albumin 3.2 Globulin 3.4 Albumin/Globulin Ratio 0.9 L RBC Folate KRISTIAN Nuclear Membr Pat Proteinase 3 (PR3) Myeloperoxidase Ab RPR HIV 1&2 Ag/Ab, 4th Gen 04/30/17 10:00 WBC RBC Hgb Hct MCV MCH MCHC RDW Plt Count MPV pCO2 pO2 HCO3 ABG pH ABG Total CO2 ABG O2 Saturation ABG O2 Content ABG Base Excess ABG Hemoglobin ABG Carboxyhemoglobin POC ABG HHb (Measured) ABG Methemoglobin ABG O2 Capacity Hgb O2 Saturation FiO2 Sodium Potassium Chloride Carbon Dioxide Anion Gap BUN Creatinine Est GFR ( Amer) Est GFR (Non-Af Amer) Random Glucose Lactic Acid 1.1 Calcium Total Bilirubin AST ALT Alkaline Phosphatase Total Protein Albumin Globulin Albumin/Globulin Ratio RBC Folate KRISTIAN Nuclear Membr Pat Proteinase 3 (PR3) Myeloperoxidase Ab RPR HIV 1&2 Ag/Ab, 4th Gen Critical Care Progress Note - Nutrition Nutrition: Nutrition Category Date Time Status NPO Diet [DIET] Diets 04/28/17 Breakfast Ordered Attending/Attestation - Attestation I have personally seen and examined this patient.: Yes I have fully participated in the care of the patient.: Yes I have reviewed all pertinent clinical information: Yes Notes (Text): 04/30/17 12:[address] Rosa note
--- NOTE | 2017-04-29 08:12 | OP ---
PROCEDURE DATE: 04/28/2017 EAR, NOSE AND THROAT OPERATIVE REPORT PREOPERATIVE DIAGNOSIS: Acute upper airway obstruction. POSTOPERATIVE DIAGNOSIS: Acute upper airway obstruction. PROCEDURES: 1. Fiberoptic transnasal intubation. 2. Tracheostomy with thyroid isthmusectomy and skin flap. SURGEON: Kamlesh Huston DO. ASSISTANTS: Dr. Leonardo and . TYPE OF ANESTHESIA: General endotracheal tube anesthesia. ESTIMATED BLOOD LOSS: Approximately 10 mL. IV FLUID INTAKE: Crystalloid. SPECIMENS: None. TUBES: Eight proximal long XLT tracheostomy Shiley. COMPLICATIONS: None. CONDITION: Stable. HISTORY OF PRESENT ILLNESS: Patient is a 62-year-old male with an unknown past medical history who had presented to [facility] on the evening of 04/27/2017 with a complaint of shortness of breath. He was evaluated by the emergency room staff and found to be stridorous with acute respiratory compromise. They had earlier performed a CAT scan, which revealed the presence of a supraglottic edema. Otolaryngology Service was consulted for further evaluation of the patient's airway. Upon examination of the patient in the emergency room, it was deemed that the patient had inspiratory stridor and impending respiratory compromise. Decision was made to attempt fiberoptic intubation in the operating room as well as perform likely tracheostomy and direct laryngoscopy at that time. Kind of the procedure, the purpose, risks, and benefits were thoroughly discussed with the patient in detail. Risks were described inclusive, but not limited to pain, infection, bleeding, scarring, damage to surrounding structures, pneumothoraces, loss of airway and potentially were all described in detail with the patient. Informed consent was obtained after all questions were answered. PAST MEDICAL HISTORY: Unknown. MEDICATIONS: Unknown. ALLERGIES: NO KNOWN DRUG ALLERGIES. FINDINGS: 1. Eight XLT proximal length tracheostomy Shiley placed into the tracheal lumen under direct visualization with confirmation of proper placement with end-tidal CO2 on anesthesia circuit. 2. There was mucosal redundancy of the epiglottis, which appeared extremely floppy in nature. There was also mucosal redundancy of the aryepiglottic folds and arytenoids with noted aerodynamic collapse and bivalving overlying the glottis. No obvious signs of acute infection. No significant edema. No masses or lesions were visualized. PROCEDURE IN DETAIL: On 04/28/2017, after obtaining preoperative informed consent, the patient was brought to the operating room and placed in the operating room in a seated position. At this point, a time-out was called confirming proper patient and procedure,The patient was prepped for fiberoptic intubation. To note, the patient was also at this time prepped for potential awake tracheostomy if intubation was unsuccessful. The neck landmarks were palpated. He was noted to have a low-lying larynx with the thyroid notch just above the sternal notch. Transverse (horizontal) incision was marked and this neck skin was anesthetized with 1% lidocaine with 1:100,000 epinephrine. To note, previously a nasal trumpet was placed in the right nasal cavity. At this point, we used a flexible fiberoptic bronchoscope with a loaded six cuffed endotracheal tube to proceed forward with flexible fiberoptic nasopharyngoscopy. The nasal trumpet was removed. The scope was passed in the right nasal cavity. The right nasal cavity itself was unremarkable. There was some redundancy of the tissues in the nasopharynx with no discrete mass or lesion visualized. Then, the scope was passed into the oropharynx. The epiglottis itself was noted to be significantly floppy with mucosal redundancy. The plica was noted to be blunted. There was no discrete mass or lesion visualized. At this point, we had visualization of the supraglottis, the aryepiglottic folds and arytenoids appeared with significant mucosal redundancy and noted aerodynamic collapse with respiration with bivalving into the glottic structures. The flexible fiberoptic scope was allowed to be passed under visualization between the obstruction and the glottis itself was visualized. There was no mass, lesion, or edema noted to the true vocal cord. The scope was passed into the trachea and the six cuffed endotracheal tube was advanced through the right naris into the tracheal lumen confirmed with bronchoscopy evaluation as well as confirmation of end-tidal CO2 on the anesthesia circuit. After successful fiberoptic intubation and based on the findings on endoscopy, it was deemed necessary to perform tracheostomy for airway obstruction. The patient was at this point made supine. A shoulder roll was placed. He was further prepped and draped in the sterile fashion for tracheostomy procedure. At this point, approximately a 4 cm horizontal incision was natural skin crease approximately 2 fingerbreadth above the sternal notch. As stated, the patient has a significantly stocky neck with difficult landmarks as the thyroid notch was staying just above the sternal notch. The plain incision was made using monopolar electrocautery on cut function. Dissection was carried down to the epidermal and dermal tissues on cut function. The subcutaneous tissues were dissected using monopolar cautery on coagulate function. Platysma muscle was . At this point, we had visualization of the strap muscles. The midline raphe was discovered and the strap muscles were in the midline. At this point, we had visualization of the thyroid isthmus, which appeared to be enlarged overlying the tracheal wall obscuring view of the tracheal anatomy as it deemed necessary to perform thyroid isthmusectomy. The thyroid was split in the midline using monopolar electrocautery. The split ends of the thyroid were crossclamped and suture ligated using 3-0 Vicryl suture in U-stitch fashion. To note, there are small bleeding vessels noted from the thyroid were suture ligated using 3-0 silk suture. After successfully the thyroid isthmus, we now have visualization of the tracheal wall. A blunt dissection was used to further enhance view of the tracheal rings. At this point, communication occurred with the Anesthesia service that we got into the patient's airway. The cuff was lied down and advanced. hook was placed and we had better visualization of the trachea. Given the patient's anatomy, it was deemed necessary to perform a tracheotomy through the first and second tracheal ring as the second and third ring appeared too deep to access. Using 11 blade scalpel, an incision was made through the tracheal wall. This was extended laterally with Metzenbaum scissors and a tracheal flap was created by cutting downward one tracheal ring. The skin flap was secured using 3-0 Vicryl suture in a half-mattress fashion. At this point, we had excellent visualization of the tracheal lumen, the endotracheal tube was withdrawn. A cuff tested sized 8 XLT proximal long tracheostomy Shiley was placed gently into the tracheal lumen under direct visual observation. After the tracheostomy apparatus has been placed, position was confirmed with easy passage of the suction catheter as confirmation of the end-tidal CO2 after six breaths on the anesthesia circuit. Once we had proper confirmation, the tracheostomy apparatus was secured in 4 corners using 2-0 silk suture. An umbilical tie was placed to further secure the tracheostomy. Hemostasis had been noted to be adequate throughout the duration of the case with no significant blood loss, although Surgicel packing was placed for further gauze was placed. At this point, we proceeded forward with further direct laryngoscopy to further get an assessment of the patient's pathologic process. Lips and dentition were lubricated as was the Dedo laryngoscope. A Dedo laryngoscope was inserted into the oral cavity after BiPAP was placed. We proceeded for the systematic microlaryngoscopy. Scope was passed in the oral cavity. Incision was noted to be quite poor. The hard and soft palate itself appeared to be unremarkable. The tongue was noted to be enlarged with no significant edema. The uvula was noted to be in the midline. The tonsils were symmetric and free of mass or lesion. There is redundancy at the base of tongue, although no discrete mass or lesion was visualized. At this point, with visualization of the epiglottis, the epiglottis appeared extremely redundant with no significant cartilaginous support and a 0 degree endoscope was advanced and further documentation was obtained of the view of the epiglottis. At this point, the scope was further advanced into the supraglottis. It is difficult for assessment, although the posterior supraglottis was visualized. The epiglottic folds and arytenoids appeared redundant. It was difficult to access the glottis further with no discrete mass, lesion or edema was visualized. There did not appear to be any acute pathologic process to biopsy and at this point, the procedure itself was terminated. The laryngoscope was withdrawn. The BiPAP was removed. Lips and dentition were felt to be unharmed and at this point, the procedure in its entirety was complete. The patient was sent back to the Anesthesia service. He was transferred to the ICU in stable condition. Dr. Kamlesh Huston DO
--- NOTE | 2017-04-29 08:49 | RAD ---
HISTORY: trach collar COMPARISON: 04/28/2017. FINDINGS: LUNGS: Tracheostomy tube terminates 1.5 cm proximal to the karlos. There is low lung volume on the right. The left lung is clear. PLEURA: No significant pleural effusion identified, no pneumothorax apparent. CARDIOVASCULAR: Persistent cardiomegaly. OSSEOUS STRUCTURES: No significant abnormalities. VISUALIZED UPPER ABDOMEN: Normal. OTHER FINDINGS: None. IMPRESSION: Low lung volume on the right. No acute findings.
[2017-04-29 09:11] LABS: FREE T4 1.19 ng/dL (0.78-2.19); T4 7.9 ug/dL (5.5-11.0)
[2017-04-29 09:24] LABS: T3 1.02 ng/mL (0.97-1.69)
--- NOTE | 2017-04-29 09:51 | CARD ---
APPROVED REPORT EXAM: Two-dimensional and M-mode echocardiogram with Doppler and color Doppler. Other Information Quality : AverageRhythm : INDICATION Congestive Heart Failure 2D DIMENSIONS Left Atrium (2D)4.2 (1.6-4.0cm)IVSd1.2 (0.7-1.1cm) LVDd5.1 (3.9-5.9cm)PWd1.2 (0.7-1.1cm) LVDs3.7 (2.5-4.0cm)FS (%) 27.4 % LVEF (%)52.0 (>50%) M-Mode DIMENSIONS Aortic Root4.30 (2.2-3.7cm)Aortic Cusp Exc.2.20 (1.5-2.0cm) Aortic Valve AoV Peak Pqjvfwlx365.0cm/s Mitral Valve MV E Gusirtoi43.6cm/sMV A Hofgrqmp10.9cm/sE/A ratio1.1 TDI Lateral E' Peak V10.30cm/sMedial E' Peak V6.14cm/sE/Lateral E'7.8 E/Medial E'13.1 Pulmonary Valve PV Peak Wptnywtu17.0cm/sPV Peak Grad.2mmHg Tricuspid Valve TR Peak Xipmskew417ud/sRAP [id number] Peak Gr.25mmHg [id number] LEFT VENTRICLE The left ventricle is normal size. There is normal left ventricular wall thickness. The left ventricular function is normal. The left ventricular ejection fraction is within the normal range. There is normal LV segmental wall motion. RIGHT VENTRICLE The right ventricle is normal size. ATRIA The left atrium is mildly dilated. The right atrium size is normal. The interatrial septum is intact with no evidence for an atrial septal defect. AORTIC VALVE The aortic valve is normal in structure. MITRAL VALVE The mitral valve is normal in structure. TRICUSPID VALVE The tricuspid valve is normal in structure. There is trace to mild tricuspid regurgitation. PULMONIC VALVE The pulmonic valve is not well visualized. GREAT VESSELS The aortic root is normal in size. PERICARDIAL EFFUSION There is no pericardial effusion. <Conclusion> The left ventricle is normal size. There is normal left ventricular wall thickness. The left ventricular function is normal.
[2017-04-29] MEDS: cefTRIAXone 2 GM IN NS 2 GM/100 ML BAG IVPB SCH (10:00)
--- NOTE | 2017-04-29 10:08 | CP.PCM.PN ---
Subjective - Date & Time of Evaluation Date of Evaluation: 04/29/17 Time of Evaluation: 06:40 - Subjective Subjective: Patient seen and examined at bedside this AM. No adverse events overnight. Objective - Vital Signs/Intake and Output Vital Signs (last 24 hours): Temp Pulse Resp BP Pulse Ox 98.3 F 74 21 123/70 100 04/29/17 08:00 04/29/17 08:10 04/29/17 08:00 04/29/17 08:00 04/29/17 08:10 Intake and Output: 04/29/17 04/29/17 06:59 18:59 Intake Total 1447 Output Total 2950 Balance -1503 - Medications Medications: Current Medications Acetaminophen (Tylenol 325mg Tab) 650 mg PO Q4H PRN PRN Reason: Fever >100.4 F Dexamethasone (Decadron Inj) 6 mg IVP Q8H [facility] Last Admin: 04/29/17 07:40 Dose: 6 mg Folic Acid (Folic Acid) 1 mg IVP DAILY [facility] Last Admin: 04/28/17 16:36 Dose: Not Given Heparin Sodium (Porcine) (Heparin) 5,000 units SC Q8 LUCIA PRN Reason: Protocol Last Admin: 04/29/17 07:40 Dose: 5,000 units Propofol (Diprivan) 1,000 mg in 100 mls @ 3.538 mls/hr IV .Q24H PRN; Protocol; 5 MCG/KG/MIN PRN Reason: TITRATE PER MD ORDER Last Titration: 04/28/17 16:05 Dose: 0 mcg/kg/min, 0 mls/hr Vancomycin HCl (Vancomycin 1gm) 1 gm in 250 mls @ 167 mls/hr IVPB Q12H LUCIA PRN Reason: Protocol Last Admin: 04/29/17 06:16 Dose: 167 mls/hr Fentanyl Citrate (Fentanyl Citrate/Sodium Chloride 1 Mg/100 Ml) 1,000 mcg in 100 mls @ 2 mls/hr IV .Q24H PRN; Protocol; 20 MCG/HR PRN Reason: TITRATE PER MD ORDER Last Admin: 04/28/17 22:26 Dose: 50 mcg/hr, 5 mls/hr Dexmedetomidine HCl (Precedex 400mcg/100ml) 400 mcg in 100 mls @ 5.897 mls/hr IV .[id number] PRN; Protocol; 0.2 MCG/KG/HR PRN Reason: Agitation Last Admin: 04/29/17 06:15 Dose: 1 mcg/kg/hr, 29.484 mls/hr Ceftriaxone Sodium (Rocephin 2 Gm Ivpb) 2 gm in 100 mls @ 100 mls/hr IVPB DAILY LUCIA PRN Reason: Protocol Stop: 05/13/17 10:01 Lorazepam (Ativan) 4 mg IVP Q2H PRN; Protocol PRN Reason: Agitation Last Admin: 04/29/17 07:50 Dose: 4 mg Ondansetron HCl (Zofran Inj) 4 mg IVP Q4H PRN PRN Reason: Nausea/Vomiting Pantoprazole Sodium (Protonix Inj) 40 mg IVP DAILY [facility] Last Admin: 04/28/17 11:15 Dose: 40 mg - Labs Labs: 04/29/17 05:30 04/29/17 05:30 - Constitutional Appears: Non-toxic, No Acute Distress - Head Exam Head Exam: ATRAUMATIC, NORMOCEPHALIC - Eye Exam Eye Exam: Normal appearance. 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 If ectasia/ aneurysm is asymptomatic and aortic valve is unaffected, patient can follow up with cardiothoracic surgeon as an outpatient for further monitoring and recommendations -Continue management per primary Discussed at length with Dr. Cardenas who agrees with the above plan Kell Staton PGY2
[2017-04-29 11:48] LABS: OSMOLALITY,URINE 140 mosm/kg (300-1000)
[2017-04-29 12:42] LABS: BLOOD UREA NITROGEN 18 mg/dL (7-21); CALCIUM 8.6 mg/dL (8.4-10.5); GFR AFRICAN-AMERICAN > 60; GFR NON-AFRICAN AMERICAN > 60
--- NOTE | 2017-04-29 15:21 | PN ---
DATE: SUBJECTIVE: The patient was seen and examined at bedside. He was on 150 mcg/hour of fentanyl and Precedex 1 mcg/kg/hour. During morning hours, his sedation went down to fentanyl 25 mcg/hour and he was switched onto pressure support 5/5 with a FiO2 down to 40%. He tolerated very well. We will continue to wean down his sedation. PHYSICAL EXAMINATION: VITAL SIGNS: Meanwhile, his temperature 98.3, oxygen saturation 100% on 40% FiO2, blood pressure 123/70, end-tidal CO2 of 37. ENT: Head and neck atraumatic. LUNGS: Clear to auscultation bilaterally. HEART: Regular rate and rhythm. S1, S2 normal. ABDOMEN: Soft, nontender, nondistended, obese. MUSCULOSKELETAL: Trace bilateral pedal and ankle edema. NEUROLOGIC: The patient was observed moving all extremities. SKIN: Moist. PSYCHIATRIC: The patient is still sedated. DIAGNOSTIC DATA: Echocardiogram performed yesterday showed ejection fraction 52%. Normal wall thickness of the left ventricle and left ventricular function is normal. Left atrium is mildly dilated. Chest x-ray showed normal position of the tracheotomy tube, low lung volumes, but no acute pulmonary disease. LABORATORY DATA: WBC 12 down from 16, hemoglobin 7.5, platelet count 257. Sodium 136, potassium 4.6, chloride 101, carbon dioxide 27, BUN 18, creatinine 0.7, glucose 141. ABG prior to switching to pressure support showed pH 7.42, pCO2 40, pO2 174 on 60% FiO2. Influenza negative. MEDICATIONS: Tylenol p.r.n., Decadron 6 mg IV q.8 hours, Precedex, fentanyl, folic acid, heparin subcu, Ativan p.r.n., Zofran p.r.n., Protonix, ceftriaxone, thiamine, vancomycin. ASSESSMENT AND PLAN: This is a 62-year-old gentleman who presented with upper airway compromise due to hypopharyngeal swelling of unclear etiology. Patient was started on IV Decadron, antibiotics and emergent tracheotomy was done by ENT service. Patient was transferred to ICU for further management and monitoring. At present time, we are gradually tapering down his sedation in an attempt to wean his mechanical ventilatory support. Patient likely has severe obstructive sleep apnea based on symptoms provided by his niece who is working in sleep lab and has some experience in sleep medicine and observed him prior to admission to [facility] with snoring and witnessed episodes of apnea. The tracheotomy per se would bypass upper airways and eliminate LILIYA as a risk factor for weaning failure, helping with eventual weaning processl. At present time, we will continue to maintain euvolemia, euglycemia, normothermia and oxygen saturation more than 90%. Patient continued to be on ceftriaxone and vancomycin. We will continue with head of bed elevated more than 35 degrees. Conservative fluid and oxygen management. We will continue with daily sedation vacation and weaning trials. We will continue with oral hygiene and deep vein thrombosis and gastrointestinal prophylaxis. ccm time 40 min Arturo Rosa MD MTDD
--- NOTE | 2017-04-29 16:04 | CP.PCM.PN ---
<Jose Masters - Last Filed: 04/30/17 04:00> Subjective - Date & Time of Evaluation Date of Evaluation: 04/29/17 Time of Evaluation: 07:00 - Subjective Subjective: Patient seen and examined on bedside, still sedated and on vent support. As per nursing patient gets very agitated when off sedation. FiO2 60%, PEEP 5, Respirations 20, TV 420 Objective - Vital Signs/Intake and Output Vital Signs (last 24 hours): Temp Pulse Resp BP Pulse Ox 98.3 F 79 21 94/54 L 99 04/29/17 08:00 04/29/17 13:20 04/29/17 08:00 04/29/17 13:00 04/29/17 13:20 Intake and Output: 04/29/17 04/29/17 06:59 18:59 Intake Total 1447 100 Output Total 2950 Balance -1503 100 - Medications Medications: Current Medications Acetaminophen (Tylenol 325mg Tab) 650 mg PO Q4H PRN PRN Reason: Fever >100.4 F Dexamethasone (Decadron Inj) 6 mg IVP Q8H [facility] Last Admin: 04/29/17 13:54 Dose: 6 mg Folic Acid (Folic Acid) 1 mg IVP DAILY [facility] Last Admin: 04/29/17 13:50 Dose: 1 mg Heparin Sodium (Porcine) (Heparin) 5,000 units SC Q8 [facility] PRN Reason: Protocol Last Admin: 04/29/17 13:56 Dose: 5,000 units Propofol (Diprivan) 1,000 mg in 100 mls @ 3.538 mls/hr IV .Q24H PRN; Protocol; 5 MCG/KG/MIN PRN Reason: TITRATE PER MD ORDER Last Titration: 04/28/17 16:05 Dose: 0 mcg/kg/min, 0 mls/hr Vancomycin HCl (Vancomycin 1gm) 1 gm in 250 mls @ 167 mls/hr IVPB Q12H [facility] PRN Reason: Protocol Last Admin: 04/29/17 06:16 Dose: 167 mls/hr Fentanyl Citrate (Fentanyl Citrate/Sodium Chloride 1 Mg/100 Ml) 1,000 mcg in 100 mls @ 2 mls/hr IV .Q24H PRN; Protocol; 20 MCG/HR PRN Reason: TITRATE PER MD ORDER Last Admin: 04/28/17 22:26 Dose: 50 mcg/hr, 5 mls/hr Dexmedetomidine HCl (Precedex 400mcg/100ml) 400 mcg in 100 mls @ 5.897 mls/hr IV .[id number] PRN; Protocol; 0.2 MCG/KG/HR PRN Reason: Agitation Last Admin: 04/29/17 13:51 Dose: 1 mcg/kg/hr, 29.484 mls/hr Ceftriaxone Sodium (Rocephin 2 Gm Ivpb) 2 gm in 100 mls @ 100 mls/hr IVPB DAILY [facility] PRN Reason: Protocol Stop: 05/13/17 10:01 Last Admin: 04/29/17 10:00 Dose: 100 mls/hr Lorazepam (Ativan) 4 mg IVP Q2H PRN; Protocol PRN Reason: Agitation Last Admin: 04/29/17 14:20 Dose: 4 mg Ondansetron HCl (Zofran Inj) 4 mg IVP Q4H PRN PRN Reason: Nausea/Vomiting Pantoprazole Sodium (Protonix Inj) 40 mg IVP DAILY [facility] Last Admin: 04/29/17 11:00 Dose: 40 mg - Labs Labs: 04/29/17 05:30 04/29/17 12:25 - Head Exam Head Exam: ATRAUMATIC, NORMAL INSPECTION, NORMOCEPHALIC - Respiratory Exam Respiratory Exam: absent: Stridor Additional comments: on vent support - Cardiovascular Exam Cardiovascular Exam: REGULAR RHYTHM, +S1, +S2 - GI/Abdominal Exam GI & Abdominal Exam: Soft, Hypoactive Bowel Sounds - Neurological Exam Additional comments: sedated Assessment and Plan - Assessment and Plan (Free Text) Assessment: 62 year old male with no past medical history presenting with hypoxemic respiratory failure secondary to upper airway narrowing/obstruction vs epiglottitis. Plan: Dyspnea ue to hypopharangyeal swelling Epiglottitis vs URI vs CHF vs mixed presentation CXR: Pulm congestion (mild) Neck Soft Tissue CT: Shows prominence of aryaepiglottis and narrowing of the airways BNP: WNL @ 224 ENT Consulted;Tracheostomy done as per ENT ICU on consult Continue with Ceftriaxone and Vancomycin ProCal negative Blood/Urine Cultures reveal no growths ECHO reveals no abnormalities Ectasia of the ascending thoracic aorta up to 4.0cm and aneurysm of the distal aortic arch/descending aorta up to 5.0cm in diameter Vascular surgery consulted No current intervention at this time; will follow up as outpatient Hyponatremia resolved Hx of Alcoholism Thiamine and folate Possible Hx of HLD Lipid panel reveals no abnormalities Proph Protonix Heparin Patient seen and discussed with Dr. Coronel <Светлана Coronel - Last Filed: 04/30/17 17:13> Objective - Vital Signs/Intake and Output Vital Signs (last 24 hours): Temp Pulse Resp BP Pulse Ox 99.9 F H 108 H 30 H 135/82 99 04/30/17 08:00 04/30/17 13:00 04/30/17 13:00 04/30/17 13:00 04/30/17 13:00 Intake and Output: 04/30/17 04/30/17 06:59 18:59 Intake Total 1012 0.8 Output Total 1250 Balance -238 0.8 - Medications Medications: Current Medications Albuterol/Ipratropium (Duoneb 3 Mg/0.5 Mg (3 Ml) Ud) 3 ml IH [id number] PRN PRN Reason: Cough and congestion Dexamethasone (Decadron Inj) 4 mg IVP Q8H [facility] Last Admin: 04/30/17 14:09 Dose: 4 mg Folic Acid (Folic Acid) 1 mg IVP DAILY [facility] Last Admin: 04/29/17 13:50 Dose: 1 mg Heparin Sodium (Porcine) (Heparin) 5,000 units SC Q8 [facility] PRN Reason: Protocol Last Admin: 04/30/17 14:04 Dose: 5,000 units Propofol (Diprivan) 1,000 mg in 100 mls @ 3.538 mls/hr IV .Q24H PRN; Protocol; 5 MCG/KG/MIN PRN Reason: TITRATE PER MD ORDER Last Titration: 04/28/17 16:05 Dose: 0 mcg/kg/min, 0 mls/hr Vancomycin HCl (Vancomycin 1gm) 1 gm in 250 mls @ 167 mls/hr IVPB Q12H [facility] PRN Reason: Protocol Last Admin: 04/30/17 05:26 Dose: 167 mls/hr Fentanyl Citrate (Fentanyl Citrate/Sodium Chloride 1 Mg/100 Ml) 1,000 mcg in 100 mls @ 2 mls/hr IV .Q24H PRN; Protocol; 20 MCG/HR PRN Reason: TITRATE PER MD ORDER Last Admin: 04/28/17 22:26 Dose: 50 mcg/hr, 5 mls/hr Dexmedetomidine HCl (Precedex 400mcg/100ml) 400 mcg in 100 mls @ 5.897 mls/hr IV .[id number] PRN; Protocol; 0.2 MCG/KG/HR PRN Reason: Agitation Last Admin: 04/30/17 09:31 Dose: 0.8 mcg/kg/hr, 23.587 mls/hr Iron Sucrose 100 mg/ Sodium (Chloride) 105 mls @ 210 mls/hr IVPB DAILY [facility] Stop: 05/02/17 13:15 Meropenem/Sodium Chloride (Meropenem 1g/Ns 100ml Ivpb) 1 gm in 100 mls @ 100 mls/hr IVPB Q8 [facility] PRN Reason: Protocol Stop: 05/14/17 14:01 Last Admin: 04/30/17 14:03 Dose: 100 mls/hr Lorazepam (Ativan) 4 mg IVP Q4H PRN; Protocol PRN Reason: Agitation Ondansetron HCl (Zofran Inj) 4 mg IVP Q4H PRN PRN Reason: Nausea/Vomiting Last Admin: 04/30/17 09:38 Dose: 4 mg Pantoprazole Sodium (Protonix Inj) 40 mg IVP DAILY [facility] Last Admin: 04/30/17 09:31 Dose: 40 mg Thiamine HCl (Vitamin B1 Inj) 100 mg IM DAILY [facility] - Labs Labs: 04/30/17 05:30 04/30/17 05:30 Attending/Attestation - Attestation I have personally seen and examined this patient.: Yes I have fully participated in the care of the patient.: Yes I have reviewed all pertinent clinical information, including history, physical exam and plan: Yes Notes (Text): I have seen and examined the patient at bedside. Agree with the above note with the following additions/ exceptions: Briefly this is 62 year old morbidly obese male with LILIYA non compliant with cpap at home who came for evaluation of cough, hoarseness, dyspnea, stridor and found to have hypoxemic hypercapneic respiratory failure due to upper airway compromise related to hypopharyngeal swelling. Patient was started on decadron, Rocephin, vancomycin and emergent trach was performed by ENT. Blood and urine cultures negative. Echo is normal. He was also found to have incidental finding of descending AAA (5cm) and ascending AAA of 4 cm. Patient will be advised to follow up with cardiothoracic surgeon as an outpatient once patient becomes clinically stable. Continue banana bag. Alcohol cessation counselling will be provided once patient is awake. Currently he is on fentanyl and precedex. Wean vent as per ICU. Upon discharge patient will follow up with PMD of choice. Dr Светлана Coronel
[2017-04-29 18:21] LABS: BLOOD UREA NITROGEN 17 mg/dL (7-21); CALCIUM 8.9 mg/dL (8.4-10.5); GFR AFRICAN-AMERICAN > 60; GFR NON-AFRICAN AMERICAN > 60
--- NOTE | 2017-04-29 20:16 | CON ---
DATE: HISTORY OF PRESENT ILLNESS: The patient is a 62-year-old with no significant medical history, who was admitted through the emergency room. He presented with stridorous breathing. CT of the neck showed epiglottitis. The patient underwent an emergency tracheostomy and is currently intubated on a respirator. According to the patient's , the patient had not received any medical care because he will not go to see a doctor. He was taking no medication on the outside. He has become increasingly short of breath and dyspneic in over 3 weeks. He was treated with racemic epinephrine and Solu-Medrol. PAST MEDICAL HISTORY: None. SURGICAL HISTORY: No previous surgery. ALLERGY: NONE. SOCIAL HISTORY: The patient is a nonsmoker and is a heavy drinker. He drinks approximately 1 glass of cognac daily. REVIEW OF SYSTEMS: Except for what is stated in the history of present illness is unremarkable. PHYSICAL EXAMINATION: GENERAL: Showed an obese, black male, who is sedated and intubated. HEENT: Within normal limit. He has a tracheostomy. CHEST: Clear. CARDIAC: Showed regular rhythm. ABDOMEN: Obese. EXTREMITIES: Reveals femoral pulses and no distal pulses. LABORATORY DATA: Chest CT scan was reviewed showing a 4 cm ascending aorta. The descending aorta starting from the subclavian is approximately 5 cm to mid chest. The echocardiogram showed no aortic valvular pathology. IMPRESSION: Descending aortic aneurysm in an obese black male is an incidental finding on CAT scan. The ascending aorta is less than 5 cm and has no valvular incompetency that needs to be followed up. As far as the descending aortic aneurysm is concerned, when the patient is stabilized clinically, he should be referred to cardiothoracic surgeon for possible endograft. Elza Cardenas MD
[2017-04-30] MEDS: Dexmedetomidine 400mcg/100mL 400 MCG/100 ML BOTTLE IV PRN ×4 (01:08→09:31)
--- NOTE | 2017-04-30 03:54 | CON ---
DATE: 04/29/2017 LOCATION: Patient was seen earlier this morning in the ICU 128, bed 4. CHIEF COMPLAINT: Shortness of breath and weakness. HISTORY OF PRESENT ILLNESS: This is a 62-year-old male with morbid obesity with a BMI of 45, alcohol use, who has been having shortness of breath, was brought to the emergency room, had a CAT scan of the chest followed by CAT scan of the neck and found to have narrowing of the airway and was taken to the OR, had an emergency tracheostomy. Infectious Disease consultation is requested for antibiotics for epiglottitis. The patient at this time is intubated, trached, on the ventilator and I am unable to get any history. PAST MEDICAL HISTORY: Significant for obesity, alcohol use. PAST SURGICAL HISTORY: Significant for right knee surgery. ALLERGIES: THE PATIENT HAS NO KNOWN ALLERGIES. PHYSICAL EXAMINATION: GENERAL: The patient is in bed, trached on the vent. VITAL SIGNS: Temperature of 98, blood pressure is 120/50, respiratory rate of 21 on the vent, heart rate of 79. HEENT: Unremarkable. NECK: Supple. LUNGS: Decreased breath sounds. HEART: Normal S1 and S2. ABDOMEN: Soft, nontender. No rebound or guarding. LABORATORY DATA: Reveals a white count of 12,000, hemoglobin of 7.5. Chemistries reveals a BUN of 18, creatinine of 0.7. Procalcitonin is 0.08. Urinalysis is noted. Toxicology reveals benzodiazepines present. RPR is negative. Influenza is negative. Microbiology reveals the blood cultures had no growth. Urine cultures had no growth. The CAT scans are reviewed. ASSESSMENT AND PLAN: A 62-year-old male with morbid obesity, BMI of 45, with sepsis and upper airway narrowing with respiratory failure, trached on a vent, emergency tracheostomy with epiglottitis, upper airway narrowing or obstruction versus epiglottitis versus extrinsic obstruction. We will treat the patient with vanco and Rocephin, pending the OR cultures, clinical response, human immunodeficiency virus testing, and methicillin-resistant Staphylococcus aureus screening. We will follow closely with you. On vancomycin and ceftriaxone, organisms to be concerned is group A Strep pneumoniae, methicillin-resistant Staphylococcus aureus, Hemophilus influenzae and Moraxella. We will follow closely with you. Pedro Luis Mccracken MD [facility] # [id number]
[2017-04-30] MEDS: Vancomycin 1gm in NS 250ml 1 GM/250 ML BAG IVPB SCH ×2 (05:26→17:42)
[2017-04-30] MEDS: Dexamethasone 4 mg/1 ml IVP SCH ×3 (05:29→18:19)
[2017-04-30 06:40] LABS: ARTERIAL BLOOD GAS HCO3 24.7 mmol/L (21-28); ARTERIAL BLOOD GAS HEMOGLOBIN 8.8 g/dL (11.7-17.4); ARTERIAL BLOOD GAS O2 CAPACITY 12.3 mL/dl (16-24); ARTERIAL BLOOD GAS O2 CONTENT 12.2 ML/dl (15-23); ARTERIAL BLOOD GAS O2 SAT 99.1 % (95-98); ARTERIAL BLOOD GAS PCO2 39 mm/Hg (35-45); ARTERIAL BLOOD GAS PH 7.41 (7.35-7.45); ARTERIAL BLOOD GAS TCO2 25.9 mmol.L (22-28)
--- NOTE | 2017-04-30 06:47 | CP.PCM.PN ---
<Jose Masters - Last Filed: 04/30/17 15:09> Subjective - Date & Time of Evaluation Date of Evaluation: 04/30/17 Time of Evaluation: 05:30 - Subjective Subjective: Patient seen and examined at bedside. Patient is still sedated. Nursing staff overnight states patient still becomes agitated and had to administer ativan 4 times. Objective - Vital Signs/Intake and Output Vital Signs (last 24 hours): Temp Pulse Resp BP Pulse Ox 99.4 F 75 21 125/74 99 04/30/17 06:04 04/30/17 06:00 04/29/17 08:00 04/30/17 06:00 04/30/17 06:00 Intake and Output: 04/29/17 04/30/17 18:59 06:59 Intake Total 1484 400 Output Total 1250 Balance 234 400 - Medications Medications: Current Medications Acetaminophen (Tylenol 325mg Tab) 650 mg PO Q4H PRN PRN Reason: Fever >100.4 F Dexamethasone (Decadron Inj) 6 mg IVP Q8H [facility] Last Admin: 04/30/17 05:29 Dose: 6 mg Folic Acid (Folic Acid) 1 mg IVP DAILY [facility] Last Admin: 04/29/17 13:50 Dose: 1 mg Heparin Sodium (Porcine) (Heparin) 5,000 units SC Q8 [facility] PRN Reason: Protocol Last Admin: 04/30/17 05:30 Dose: 5,000 units Propofol (Diprivan) 1,000 mg in 100 mls @ 3.538 mls/hr IV .Q24H PRN; Protocol; 5 MCG/KG/MIN PRN Reason: TITRATE PER MD ORDER Last Titration: 04/28/17 16:05 Dose: 0 mcg/kg/min, 0 mls/hr Vancomycin HCl (Vancomycin 1gm) 1 gm in 250 mls @ 167 mls/hr IVPB Q12H [facility] PRN Reason: Protocol Last Admin: 04/30/17 05:26 Dose: 167 mls/hr Fentanyl Citrate (Fentanyl Citrate/Sodium Chloride 1 Mg/100 Ml) 1,000 mcg in 100 mls @ 2 mls/hr IV .Q24H PRN; Protocol; 20 MCG/HR PRN Reason: TITRATE PER MD ORDER Last Admin: 04/28/17 22:26 Dose: 50 mcg/hr, 5 mls/hr Dexmedetomidine HCl (Precedex 400mcg/100ml) 400 mcg in 100 mls @ 5.897 mls/hr IV .[id number] PRN; Protocol; 0.2 MCG/KG/HR PRN Reason: Agitation Last Admin: 04/30/17 05:58 Dose: 1 mcg/kg/hr, 29.484 mls/hr Ceftriaxone Sodium (Rocephin 2 Gm Ivpb) 2 gm in 100 mls @ 100 mls/hr IVPB DAILY [facility] PRN Reason: Protocol Stop: 05/13/17 10:01 Last Admin: 04/29/17 10:00 Dose: 100 mls/hr Lorazepam (Ativan) 4 mg IVP Q2H PRN; Protocol PRN Reason: Agitation Last Admin: 04/30/17 05:25 Dose: 4 mg Ondansetron HCl (Zofran Inj) 4 mg IVP Q4H PRN PRN Reason: Nausea/Vomiting Pantoprazole Sodium (Protonix Inj) 40 mg IVP DAILY [facility] Last Admin: 04/29/17 11:00 Dose: 40 mg - Labs Labs: 04/29/17 05:30 04/29/17 18:08 - Constitutional Appears: Non-toxic, No Acute Distress - Head Exam Head Exam: ATRAUMATIC, NORMAL INSPECTION, NORMOCEPHALIC - ENT Exam ENT Exam: Mucous Membranes Moist Additional comments: trach in place - GI/Abdominal Exam GI & Abdominal Exam: Soft, Normal Bowel Sounds - Neurological Exam Neurological Exam: Alert, Awake, Oriented x3 - Psychiatric Exam Psychiatric exam: Normal Affect, Normal Mood - Skin Skin Exam: Intact, Normal Color, Warm Assessment and Plan - Assessment and Plan (Free Text) Assessment: 62 year old male with no past medical history presenting with hypoxemic respiratory failure secondary to upper airway narrowing/obstruction vs epiglottitis. Plan: Dyspnea ue to hypopharangyeal swelling Epiglottitis vs URI vs CHF vs mixed presentation CXR: Pulm congestion (mild) Neck Soft Tissue CT: Shows prominence of aryaepiglottis and narrowing of the airways ProCal negative Blood/Urine Cultures reveal no growths ECHO reveals no abnormalities BNP: WNL @ 224 ENT Consulted;Tracheostomy done as per ENT ICU on consult : patient was originally sedated with fentanyl and prasudex, fentanyl has been discontinued. Patient continues to receive ativan for agitation. Patient placed on CPAP overnight. Pending ABG patient may be candidate for trach collar Continue with Ceftriaxone and Vancomycin considering leukocytosis. As per patient's nephew, patient has a 12 year old son who has been out sick for over a week with a throat infection. Anemia Iron deficiency anemia FOBT test ordered; negative Will supplement with Venofer Ectasia of the ascending thoracic aorta up to 4.0cm and aneurysm of the distal aortic arch/descending aorta up to 5.0cm in diameter Vascular surgery consulted No current intervention at this time; will follow up as outpatient Hyperthyroidism Decrease tsh in presence of normal free T4, t3 lower end of normal non thyroidal illness vs subclinical hyperthyroidism will re-check thyroid studies as patient's progresses Hyponatremia resolved Hx of Alcoholism continue with folic acid Possible Hx of HLD Lipid panel reveals no abnormalities Proph Protonix Heparin Patient seen and discussed with Dr. Coronel <Светлана Coronel - Last Filed: 05/01/17 13:11> Objective - Vital Signs/Intake and Output Vital Signs (last 24 hours): Temp Pulse Resp BP Pulse Ox 99.9 F H 108 H 30 H 135/82 99 04/30/17 08:00 04/30/17 13:00 04/30/17 13:00 04/30/17 13:00 04/30/17 13:00 Intake and Output: 04/30/17 04/30/17 06:59 18:59 Intake Total 1012 0.8 Output Total 1250 Balance -238 0.8 - Medications Medications: Current Medications Albuterol/Ipratropium (Duoneb 3 Mg/0.5 Mg (3 Ml) Ud) 3 ml IH [id number] PRN PRN Reason: Cough and congestion Dexamethasone (Decadron Inj) 4 mg IVP Q8H [facility] Last Admin: 04/30/17 14:09 Dose: 4 mg Folic Acid (Folic Acid) 1 mg IVP DAILY [facility] Last Admin: 04/29/17 13:50 Dose: 1 mg Heparin Sodium (Porcine) (Heparin) 5,000 units SC Q8 [facility] PRN Reason: Protocol Last Admin: 04/30/17 14:04 Dose: 5,000 units Vancomycin HCl (Vancomycin 1gm) 1 gm in 250 mls @ 167 mls/hr IVPB Q12H [facility] PRN Reason: Protocol Last Admin: 04/30/17 05:26 Dose: 167 mls/hr Dexmedetomidine HCl (Precedex 400mcg/100ml) 400 mcg in 100 mls @ 5.897 mls/hr IV .[id number] PRN; Protocol; 0.2 MCG/KG/HR PRN Reason: Agitation Last Admin: 04/30/17 09:31 Dose: 0.8 mcg/kg/hr, 23.587 mls/hr Iron Sucrose 100 mg/ Sodium (Chloride) 105 mls @ 210 mls/hr IVPB DAILY [facility] Stop: 05/02/17 13:15 Last Admin: 04/30/17 15:52 Dose: 210 mls/hr Meropenem/Sodium Chloride (Meropenem 1g/Ns 100ml Ivpb) 1 gm in 100 mls @ 100 mls/hr IVPB Q8 [facility] PRN Reason: Protocol Stop: 05/14/17 14:01 Last Admin: 04/30/17 14:03 Dose: 100 mls/hr Lorazepam (Ativan) 4 mg IVP Q4H PRN; Protocol PRN Reason: Agitation Ondansetron HCl (Zofran Inj) 4 mg IVP Q4H PRN PRN Reason: Nausea/Vomiting Last Admin: 04/30/17 09:38 Dose: 4 mg Pantoprazole Sodium (Protonix Inj) 40 mg IVP DAILY [facility] Last Admin: 04/30/17 09:31 Dose: 40 mg Thiamine HCl (Vitamin B1 Inj) 100 mg IM DAILY [facility] Last Admin: 04/30/17 16:01 Dose: 100 mg - Labs Labs: 04/30/17 05:30 04/30/17 05:30 Attending/Attestation - Attestation I have personally seen and examined this patient.: Yes I have fully participated in the care of the patient.: Yes I have reviewed all pertinent clinical information, including history, physical exam and plan: Yes Notes (Text): I have seen and examined the patient at bedside. Agree with the above note with the following additions/ exceptions: Briefly this is 62 year old morbidly obese male with LILIYA non compliant with cpap at home who came for evaluation of cough, hoarseness, dyspnea, stridor and found to have hypoxemic hypercapneic respiratory failure due to upper airway compromise related to hypopharyngeal swelling. Patient was started on decadron taper, Rocephin, vancomycin and emergent trach was performed by ENT. Rocephin was changed to meropenem as there is a suspicion of RLL infiltrate. Patient tolerated trach collar today. Continue pulmonary toilet and trach suction. Blood and urine cultures negative. Echo is normal. He was also found to have incidental finding of descending AAA ( 5cm) and ascending AAA of 4 cm. Patient will be advised to follow up with cardiothoracic surgeon as an outpatient once patient becomes clinically stable. Alcohol cessation counselling will be provided once patient is more awake. Currently he is on precedex. Upon discharge patient will follow up with PMD of choice. Dr Светлана Coronel
[2017-04-30 06:54] LABS: HEMOGLOBIN 7.7 g/dL (14.0-18.0); MEAN CELL VOLUME 72.1 fl (80.0-105.0); MEAN CORPUSCULAR HEMOGLOBIN 19.2 pg (25.0-35.0); MEAN CORPUSCULAR HGB CONC 26.6 g/dl (31.0-37.0); RBC 4.01 10^6/uL (3.5-6.1); RED CELL DISTRIBUTION WIDTH 19.9 % (11.5-14.5); WHITE BLOOD COUNT 14.1 10^3/ul (4.5-11.0)
[2017-04-30 07:10] LABS: ALB/GLOB RATIO 0.9 (1.1-1.8); ALBUMIN 3.2 g/dL (3.0-4.8); ALT/SGPT 32 U/L (7-56); AST/SGOT 44 U/L (17-59); BLOOD UREA NITROGEN 17 mg/dL (7-21); CALCIUM 8.9 mg/dL (8.4-10.5); GFR AFRICAN-AMERICAN > 60; GFR NON-AFRICAN AMERICAN > 60
[2017-04-30] MEDS ORDERED: Morphine 4 mg/ml ISec IVP ONE (09:24)
--- NOTE | 2017-04-30 09:28 | CP.CCUPN ---
<Frantz Brenner - Last Filed: 04/30/17 13:59> CCU Subjective - Physician Review Subjective (Free Text): Frantz Brenner PGY1 ICU Note for Dr. Rosa Patient seen and examined at bedside in ICU. Patient remains lightly sedated and is more awake and less agitated than before. Patient tolerating trach collar well. ROS could not be obtained. No acute overnight events were reported per nursing staff. CCU Objective - Vital Signs / Intake & Output Vital Signs (Last 4 hours): Vital Signs Temp Pulse Resp BP Pulse Ox 04/30/17 08:30 75 99 04/30/17 08:20 75 99 04/30/17 08:10 75 99 04/30/17 08:00 99.9 F H 76 30 H 131/84 98 04/30/17 07:50 76 98 04/30/17 07:40 77 98 04/30/17 07:30 94 H 97 04/30/17 07:29 99 H 97 04/30/17 07:28 108 H 85 L 04/30/17 07:27 102 H 92 L 04/30/17 07:26 99 H 96 04/30/17 07:25 96 H 89 L 04/30/17 07:24 86 100 04/30/17 07:23 91 H 99 04/30/17 07:22 90 98 04/30/17 07:21 94 H 04/30/17 07:20 85 86 L 04/30/17 07:10 75 97 04/30/17 07:00 75 129/82 98 04/30/17 06:50 75 99 04/30/17 06:40 74 98 04/30/17 06:30 74 98 04/30/17 06:20 74 98 04/30/17 06:10 74 98 04/30/17 06:04 99.4 F 04/30/17 06:00 76 125/74 99 04/30/17 05:50 75 100 04/30/17 05:40 74 85 L 04/30/17 05:30 76 100 Intake and Output (Last 8hrs): Intake & Output 04/29/17 04/30/17 04/30/17 22:59 06:59 14:59 Intake Total 1484 912 Output Total 1250 1250 Balance 234 -338 Intake: IV 1484 912 Left Antecubital 800 120 Left Hand 384 490 Left Wrist 0 Right Wrist 0 Oral 0 Output: Urine 1250 1250 Urethral (Christianson) 1250 1250 Stool 0 Other: # Bowel Movements 0 - Physical Exam Physical Exam Limitations: Positive for: Altered Mental Status, Other (sedated) Head: Positive for: Atraumatic, Normocephalic Pupils: Positive for: PERRL Extroacular Muscles: Positive for: EOMI Conjunctiva: Positive for: Normal Ears: Positive for: Normal Mouth: Positive for: Moist Mucous Membranes Pharnyx: Positive for: Normal Neck: Positive for: Normal Range of Motion Respiratory/Chest: Positive for: Good Air Exchange, Wheezes (mild b/l diffuse), Other (s/p tracheostomy, on vent). Negative for: Respiratory Distress, Rales, Rhonchi, Tachypneic Cardiovascular: Positive for: Regular Rate and Rhythm, Normal S1, S2. Negative for: Murmurs Abdomen: Positive for: Normal Bowel Sounds, Other (obese body habitus). Negative for: Tenderness, Distention, Peritoneal Signs Genitourinary Male: Positive for: Other (christianson in place) Back: Positive for: Normal Inspection Upper Extremity: Positive for: Normal Inspection. Negative for: Cyanosis, Edema Lower Extremity: Positive for: Edema (1+). Negative for: Buzz's Sign, Tenderness Neurological: Positive for: Other (sedated) Skin: Positive for: Warm, Dry, Normal Color. Negative for: Rashes Psychiatric: Positive for: Other (could not assess, sedated) - Medications Active Medications: Active Medications Generic Name Dose Route Start Last Admin Trade Name Romanq PRN Reason Stop Dose Admin Acetaminophen 650 mg 04/28/17 04:58 Tylenol 325mg Tab PO Q4H PRN Fever >100.4 F Dexamethasone 6 mg 04/28/17 05:00 04/30/17 05:29 Decadron Inj IVP 6 mg Q8H LUCIA Administration Folic Acid 1 mg 04/28/17 10:00 04/29/17 13:50 Folic Acid IVP 1 mg DAILY LUCIA Administration Heparin Sodium (Porcine) 5,000 units 04/28/17 08:15 04/30/17 05:30 Heparin SC 5,000 units Q8 LUCIA Administration Protocol Propofol 1,000 mg in 100 mls @ 3.538 mls/hr 04/28/17 04:59 02/14/18 16:05 Diprivan IV 0 mcg/kg/min .Q24H PRN 0 mls/hr TITRATE PER MD ORDER Titration Protocol 5 MCG/KG/MIN Vancomycin HCl 1 gm in 250 mls @ 167 mls/hr 04/28/17 05:00 04/30/17 05:26 Vancomycin 1gm IVPB 167 mls/hr Q12H LCUIA Administration Protocol Fentanyl Citrate 1,000 mcg in 100 mls @ 2 mls/hr 04/28/17 06:40 04/28/17 22: 26 Fentanyl Citrate/Sodium Chloride 1 Mg/100 Ml IV 50 mcg/hr .Q24H PRN 5 mls/hr TITRATE PER MD ORDER Administration Protocol 20 MCG/HR Dexmedetomidine HCl 400 mcg in 100 mls @ 5.897 mls/hr 04/28/17 07:36 06:00 Precedex 400mcg/100ml IV 1.5 mcg/kg/hr .[id number] PRN 44.225 mls/hr Agitation Titration Protocol 0.2 MCG/KG/HR Ceftriaxone Sodium 2 gm in 100 mls @ 100 mls/hr 04/29/17 10:00 04/29/17 10:00 Rocephin 2 Gm Ivpb IVPB 05/13/17 10:01 100 mls/hr DAILY LUCIA Administration Protocol Lorazepam 4 mg 04/28/17 12:57 04/30/17 05:25 Ativan IVP 4 mg Q2H PRN Administration Agitation Protocol Ondansetron HCl 4 mg 04/28/17 04:58 Zofran Inj IVP Q4H PRN Nausea/Vomiting Pantoprazole Sodium 40 mg 04/28/17 10:00 04/29/17 11:00 Protonix Inj IVP 40 mg DAILY LUCIA Administration - Patient Studies Lab Studies: Microbiology Studies 04/28/17 00:19 Blood Culture - Preliminary Blood NO GROWTH AFTER 48 HOURS 04/28/17 00:09 Blood Culture - Preliminary Blood NO GROWTH AFTER 48 HOURS 04/28/17 09:00 MRSA Culture (Admit) - Final Naris MRSA NOT DETECTED 04/28/17 12:40 Urine Culture - Final Urine,Christianson No Growth (<1,000 CFU/ML) Lab Studies 02/16/18 02/16/18 02/16/18 Range/Units 06:15 05:30 05:30 WBC 14.1 H (4.5-11.0) 10^3/ul RBC 4.01 (3.5-6.1) 10^6/uL Hgb 7.7 L (14.0-18.0) g/dL Hct 28.9 L (42.0-52.0) % MCV 72.1 L (80.0-105.0) fl MCH 19.2 L (25.0-35.0) pg MCHC 26.6 L (31.0-37.0) g/dl RDW 19.9 H (11.5-14.5) % Plt Count 249 (120.0-450.0) 10^3/uL MPV 10.0 (7.0-11.0) fl pCO2 39 (35-45) mm/Hg pO2 118.0 H (80-100) mm/Hg HCO3 24.7 (21-28) mmol/L ABG pH 7.41 (7.35-7.45) ABG Total CO2 25.9 (22-28) mmol.L ABG O2 Saturation 99.1 H (95-98) % ABG O2 Content 12.2 L (15-23) ML/dl ABG Base Excess 0.1 (-2.0-3.0) mmol/L ABG Hemoglobin 8.8 L (11.7-17.4) g/dL ABG Carboxyhemoglobin 1.9 H (0.5-1.5) % POC ABG HHb (Measured) 0.9 (0-5) % ABG Methemoglobin 0.7 (0.0-3.0) % ABG O2 Capacity 12.3 L (16-24) mL/dl Hgb O2 Saturation 96.4 (95.0-98.0) % FiO2 40.0 % Sodium 141 (132-148) mmol/L Potassium 4.3 (3.6-5.0) mmol/L Chloride 104 (98-107) mmol/L Carbon Dioxide 27 (21-33) mmol/L Anion Gap 14 (10-20) BUN 17 (7-21) mg/dL Creatinine 0.8 (0.8-1.5) mg/dl Est GFR ( Amer) > 60 Est GFR (Non-Af Amer) > 60 Random Glucose 140 H (70-110) mg/dL Calcium 8.9 (8.4-10.5) mg/dL Total Bilirubin 0.3 (0.2-1.3) mg/dL AST 44 (17-59) U/L ALT 32 (7-56) U/L Alkaline Phosphatase 90 (38-126) U/L C-React Prot High Sens (1.00-3.00) mg/L Total Protein 6.7 (5.8-8.3) g/dL Albumin 3.2 (3.0-4.8) g/dL Globulin 3.4 gm/dL Albumin/Globulin Ratio 0.9 L (1.1-1.8) RBC Folate (>280) ng/mL RBC Free T3 pg/mL (2.77-5.27) pg/mL Urine Osmolality (300-1000) mosm/kg Proteinase 3 (PR3) (<1.0) AI Myeloperoxidase Ab (<1.0) AI RPR (NONREACTIVE) HIV 1&2 Ag/Ab, 4th Gen (Nonreactive) 04/29/17 04/29/17 04/29/17 Range/Units 18:08 12:25 08:37 WBC (4.5-11.0) 10^3/ul RBC (3.5-6.1) 10^6/uL Hgb (14.0-18.0) g/dL Hct (42.0-52.0) % MCV (80.0-105.0) fl MCH (25.0-35.0) pg MCHC (31.0-37.0) g/dl RDW (11.5-14.5) % Plt Count (120.0-450.0) 10^3/uL MPV (7.0-11.0) fl pCO2 (35-45) mm/Hg pO2 (80-100) mm/Hg HCO3 (21-28) mmol/L ABG pH (7.35-7.45) ABG Total CO2 (22-28) mmol.L ABG O2 Saturation (95-98) % ABG O2 Content (15-23) ML/dl ABG Base Excess (-2.0-3.0) mmol/L ABG Hemoglobin (11.7-17.4) g/dL ABG Carboxyhemoglobin (0.5-1.5) % POC ABG HHb (Measured) (0-5) % ABG Methemoglobin (0.0-3.0) % ABG O2 Capacity (16-24) mL/dl Hgb O2 Saturation (95.0-98.0) % FiO2 % Sodium 136 136 (132-148) mmol/L Potassium 4.4 4.6 (3.6-5.0) mmol/L Chloride 102 101 (98-107) mmol/L Carbon Dioxide 27 27 (21-33) mmol/L Anion Gap 12 12 (10-20) BUN 17 18 (7-21) mg/dL Creatinine 0.8 0.7 L (0.8-1.5) mg/dl Est GFR ( Amer) > 60 > 60 Est GFR (Non-Af Amer) > 60 > 60 Random Glucose 133 H 141 H (70-110) mg/dL Calcium 8.9 8.6 (8.4-10.5) mg/dL Total Bilirubin (0.2-1.3) mg/dL AST (17-59) U/L ALT (7-56) U/L Alkaline Phosphatase (38-126) U/L C-React Prot High Sens (1.00-3.00) mg/L Total Protein (5.8-8.3) g/dL Albumin (3.0-4.8) g/dL Globulin gm/dL Albumin/Globulin Ratio (1.1-1.8) RBC Folate (>280) ng/mL RBC Free T3 pg/mL 2.91 (2.77-5.27) pg/mL Urine Osmolality (300-1000) mosm/kg Proteinase 3 (PR3) (<1.0) AI Myeloperoxidase Ab (<1.0) AI RPR (NONREACTIVE) HIV 1&2 Ag/Ab, 4th Gen (Nonreactive) 04/29/17 04/29/17 04/28/17 Range/Units 05:30 05:30 13:20 WBC (4.5-11.0) 10^3/ul RBC (3.5-6.1) 10^6/uL Hgb (14.0-18.0) g/dL Hct (42.0-52.0) % MCV (80.0-105.0) fl MCH (25.0-35.0) pg MCHC (31.0-37.0) g/dl RDW (11.5-14.5) % Plt Count (120.0-450.0) 10^3/uL MPV (7.0-11.0) fl pCO2 (35-45) mm/Hg pO2 (80-100) mm/Hg HCO3 (21-28) mmol/L ABG pH (7.35-7.45) ABG Total CO2 (22-28) mmol.L ABG O2 Saturation (95-98) % ABG O2 Content (15-23) ML/dl ABG Base Excess (-2.0-3.0) mmol/L ABG Hemoglobin (11.7-17.4) g/dL ABG Carboxyhemoglobin (0.5-1.5) % POC ABG HHb (Measured) (0-5) % ABG Methemoglobin (0.0-3.0) % ABG O2 Capacity (16-24) mL/dl Hgb O2 Saturation (95.0-98.0) % FiO2 % Sodium (132-148) mmol/L Potassium (3.6-5.0) mmol/L Chloride (98-107) mmol/L Carbon Dioxide (21-33) mmol/L Anion Gap (10-20) BUN (7-21) mg/dL Creatinine (0.8-1.5) mg/dl Est GFR ( Amer) Est GFR (Non-Af Amer) Random Glucose (70-110) mg/dL Calcium (8.4-10.5) mg/dL Total Bilirubin (0.2-1.3) mg/dL AST (17-59) U/L ALT (7-56) U/L Alkaline Phosphatase (38-126) U/L C-React Prot High Sens (1.00-3.00) mg/L Total Protein (5.8-8.3) g/dL Albumin (3.0-4.8) g/dL Globulin gm/dL Albumin/Globulin Ratio (1.1-1.8) RBC Folate (>280) ng/mL RBC Free T3 pg/mL (2.77-5.27) pg/mL Urine Osmolality (300-1000) mosm/kg Proteinase 3 (PR3) <1.0 (<1.0) AI Myeloperoxidase Ab <1.0 (<1.0) AI RPR Nonreactive (NONREACTIVE) HIV 1&2 Ag/Ab, 4th Gen Nonreactive (Nonreactive) 04/28/17 04/28/17 04/28/17 Range/Units 13:20 12:40 09:50 WBC (4.5-11.0) 10^3/ul RBC (3.5-6.1) 10^6/uL Hgb (14.0-18.0) g/dL Hct (42.0-52.0) % MCV (80.0-105.0) fl MCH (25.0-35.0) pg MCHC (31.0-37.0) g/dl RDW (11.5-14.5) % Plt Count (120.0-450.0) 10^3/uL MPV (7.0-11.0) fl pCO2 (35-45) mm/Hg pO2 (80-100) mm/Hg HCO3 (21-28) mmol/L ABG pH (7.35-7.45) ABG Total CO2 (22-28) mmol.L ABG O2 Saturation (95-98) % ABG O2 Content (15-23) ML/dl ABG Base Excess (-2.0-3.0) mmol/L ABG Hemoglobin (11.7-17.4) g/dL ABG Carboxyhemoglobin (0.5-1.5) % POC ABG HHb (Measured) (0-5) % ABG Methemoglobin (0.0-3.0) % ABG O2 Capacity (16-24) mL/dl Hgb O2 Saturation (95.0-98.0) % FiO2 % Sodium (132-148) mmol/L Potassium (3.6-5.0) mmol/L Chloride (98-107) mmol/L Carbon Dioxide (21-33) mmol/L Anion Gap (10-20) BUN (7-21) mg/dL Creatinine (0.8-1.5) mg/dl Est GFR ( Amer) Est GFR (Non-Af Amer) Random Glucose (70-110) mg/dL Calcium (8.4-10.5) mg/dL Total Bilirubin (0.2-1.3) mg/dL AST (17-59) U/L ALT (7-56) U/L Alkaline Phosphatase (38-126) U/L C-React Prot High Sens 4.69 H (1.00-3.00) mg/L Total Protein (5.8-8.3) g/dL Albumin (3.0-4.8) g/dL Globulin gm/dL Albumin/Globulin Ratio (1.1-1.8) RBC Folate 1192 (>280) ng/mL RBC Free T3 pg/mL (2.77-5.27) pg/mL Urine Osmolality 140 L (300-1000) mosm/kg Proteinase 3 (PR3) (<1.0) AI Myeloperoxidase Ab (<1.0) AI RPR (NONREACTIVE) HIV 1&2 Ag/Ab, 4th Gen (Nonreactive) Laboratory Results - last 24 hr 04/28/17 04/28/17 04/28/17 09:50 12:40 13:20 WBC RBC Hgb Hct MCV MCH MCHC RDW Plt Count MPV pCO2 pO2 HCO3 ABG pH ABG Total CO2 ABG O2 Saturation ABG O2 Content ABG Base Excess ABG Hemoglobin ABG Carboxyhemoglobin POC ABG HHb (Measured) ABG Methemoglobin ABG O2 Capacity Hgb O2 Saturation FiO2 Sodium Potassium Chloride Carbon Dioxide Anion Gap BUN Creatinine Est GFR ( Amer) Est GFR (Non-Af Amer) Random Glucose Calcium Total Bilirubin AST ALT Alkaline Phosphatase C-React Prot High Sens 4.69 H Total Protein Albumin Globulin Albumin/Globulin Ratio RBC Folate 1192 Free T3 pg/mL Urine Osmolality 140 L Proteinase 3 (PR3) Myeloperoxidase Ab RPR HIV 1&2 Ag/Ab, 4th Gen 04/28/17 04/29/17 04/29/17 13:20 05:30 05:30 WBC RBC Hgb Hct MCV MCH MCHC RDW Plt Count MPV pCO2 pO2 HCO3 ABG pH ABG Total CO2 ABG O2 Saturation ABG O2 Content ABG Base Excess ABG Hemoglobin ABG Carboxyhemoglobin POC ABG HHb (Measured) ABG Methemoglobin ABG O2 Capacity Hgb O2 Saturation FiO2 Sodium Potassium Chloride Carbon Dioxide Anion Gap BUN Creatinine Est GFR ( Amer) Est GFR (Non-Af Amer) Random Glucose Calcium Total Bilirubin AST ALT Alkaline Phosphatase C-React Prot High Sens Total Protein Albumin Globulin Albumin/Globulin Ratio RBC Folate Free T3 pg/mL Urine Osmolality Proteinase 3 (PR3) <1.0 Myeloperoxidase Ab <1.0 RPR Nonreactive HIV 1&2 Ag/Ab, 4th Gen Nonreactive 04/29/17 04/29/17 04/29/17 08:37 12:25 18:08 WBC RBC Hgb Hct MCV MCH MCHC RDW Plt Count MPV pCO2 pO2 HCO3 ABG pH ABG Total CO2 ABG O2 Saturation ABG O2 Content ABG Base Excess ABG Hemoglobin ABG Carboxyhemoglobin POC ABG HHb (Measured) ABG Methemoglobin ABG O2 Capacity Hgb O2 Saturation FiO2 Sodium 136 136 Potassium 4.6 4.4 Chloride 101 102 Carbon Dioxide 27 27 Anion Gap 12 12 BUN 18 17 Creatinine 0.7 L 0.8 Est GFR ( Amer) > 60 > 60 Est GFR (Non-Af Amer) > 60 > 60 Random Glucose 141 H 133 H Calcium 8.6 8.9 Total Bilirubin AST ALT Alkaline Phosphatase C-React Prot High Sens Total Protein Albumin Globulin Albumin/Globulin Ratio RBC Folate Free T3 pg/mL 2.91 Urine Osmolality Proteinase 3 (PR3) Myeloperoxidase Ab RPR HIV 1&2 Ag/Ab, 4th Gen 04/30/17 04/30/17 04/30/17 05:30 05:30 06:15 WBC 14.1 H RBC 4.01 Hgb 7.7 L Hct 28.9 L MCV 72.1 L MCH 19.2 L MCHC 26.6 L RDW 19.9 H Plt Count 249 MPV 10.0 pCO2 39 pO2 118.0 H HCO3 24.7 ABG pH 7.41 ABG Total CO2 25.9 ABG O2 Saturation 99.1 H ABG O2 Content 12.2 L ABG Base Excess 0.1 ABG Hemoglobin 8.8 L ABG Carboxyhemoglobin 1.9 H POC ABG HHb (Measured) 0.9 ABG Methemoglobin 0.7 ABG O2 Capacity 12.3 L Hgb O2 Saturation 96.4 FiO2 40.0 Sodium 141 Potassium 4.3 Chloride 104 Carbon Dioxide 27 Anion Gap 14 BUN 17 Creatinine 0.8 Est GFR ( Amer) > 60 Est GFR (Non-Af Amer) > 60 Random Glucose 140 H Calcium 8.9 Total Bilirubin 0.3 AST 44 ALT 32 Alkaline Phosphatase 90 C-React Prot High Sens Total Protein 6.7 Albumin 3.2 Globulin 3.4 Albumin/Globulin Ratio 0.9 L RBC Folate Free T3 pg/mL Urine Osmolality Proteinase 3 (PR3) Myeloperoxidase Ab RPR HIV 1&2 Ag/Ab, 4th Gen Review of Systems - Review of Systems Systems not reviewed;Unavailable: Altered Mental Status Critical Care Progress Note - Ventilator Checklist Head of Bed 30 Degrees: Yes Daily Sedation Vacation: Yes Daily Assessment of Readiness to Wean: Yes Daily Spontaneous Breathing Trial: Yes PUD Prophalyxis: Yes DVT Prophylaxis: Yes - Prophylaxis GI Prophylaxis GI: PPI - Prophylaxis DVT Prophylaxis DVT: Heparin SQ, SCDs - Nutrition Nutrition: Nutrition Category Date Time Status NPO Diet [DIET] Diets 04/28/17 Breakfast Ordered Assessment/Plan - Assessment and Plan (Free Text) Assessment: 62 y/o AAM with a PMH of morbid obesity and sleep apnea who was admitted for combined hypoxic/hypercapnic respiratory failure secondary to upper airway obstruction and narrowing requiring emergent tracheostomy. Patient is more awake but remains lethargic on light sedation but is tolerating trach collar better. Plan: Neuro: - Patient is less sedated, but will monitor for signs of agitation to ensure patient safety - CIWA protocol given that family provides hx of daily ETOH abuse - cont thiamine, folic acid and MV given hx of ETOH use - daily attempts to wean fully off sedation - UDS was unremarkable Cardio: - Hemodynamically stable, not requiring pressors - Echo showed EF 52% and unremarkable valvular findings - EKG in ED showed sinus tachy @ 104, Left axis deviation, PRWP and an incomplete RBBB - Maintain MAP > 65 - Strict I & Os - Bilateral US of LE negative for DVT - lipid panel was normal - vascular 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 Pulm: - shortness of breath was likely secondary to upper airway obstruction 2/2 epiglottitis possibly exacerbated by infection - s/p emergent tracheostomy by ENT - Patient currently on vent PS with tracheostomy; if patient tolerated, will place on trach collar as tolerated and if stable, patient will be cleared for transfer from ICU - Protective lung ventilation strategy includes HOB elevated, daily oral care, and aspiration precautions; daily attempts to wean off vent and sedation; GI and DVT ppx - Decadron decreased to 4mg q6 - Maintain O2 sat >92% - CT neck showed prominence of aryepiglottic folds with narrowing of airway - CTA showed no definite PE, 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, early interstitial edema - CXR shows low lung volumes on right with no other acute findings GI: - Protonix - NPO, advance as tolerated - swallow eval pending - Zofran for postop nausea Nephro: - will trend electrolytes and replete as needed - No fluids at this time - Maintain normovolemia Heme/Onc: - Microcytic anemia noted - Per medical team, will check stool occult blood test and start iron supplements - No overt signs of bleeding, HD stable - cont to monitor H/H ID: - Afebrile, leukocytosis present - discussed with ID regarding d/c abx however recommend continuing due to indeterminate procal level - flu negative - urine and naris cultures negative so far - blood cultures negative x48hrs - Rocephin and Vanc for empiric therapy - ID consulted, recs appreciated Endo: - A1c showed patient no diabetic - Thyroid studies showed subclinial hyperthyroidsim - Maintain euglycemia (140 - 180) GI PPX: Protonix DVT PPX: Heparin and SCDs Diet: NPO Dispo: Patient is hemodynamically stable. continue attempting weaning off sedation. Patient currently tolerating PS on vent; if continues to improve, will place on trach collar and if stable, patient will be cleared for transfer from ICU Patient was seen, examined and discussed with attending, Dr. Shelley Brenner PGY1 Pager # [phone] <Arturo Rosa - Last Filed: 04/30/17 17:41> CCU Objective - Vital Signs / Intake & Output Intake and Output (Last 8hrs): Intake & Output 04/30/17 04/30/17 04/30/17 06:59 14:59 22:59 Intake Total 912 0.8 Output Total 1250 Balance -338 0.8 Intake: IV 912 0.8 Left Antecubital 120 Left Hand 490 Left Wrist 0 Right Wrist 0 Oral 0 Output: Urine 1250 Urethral (Christianson) 1250 Other: # Bowel Movements 0 - Medications Active Medications: Active Medications Generic Name Dose Route Start Last Admin Trade Name Freq PRN Reason Stop Dose Admin Albuterol/Ipratropium 3 ml 04/30/17 12:53 Duoneb 3 Mg/0.5 Mg (3 Ml) Ud IH [id number] PRN Cough and congestion Dexamethasone 4 mg 04/30/17 10:30 04/30/17 14:09 Decadron Inj IVP 4 mg Q8H LUCIA Administration Folic Acid 1 mg 04/28/17 10:00 04/29/17 13:50 Folic Acid IVP 1 mg DAILY LUCIA Administration Heparin Sodium (Porcine) 5,000 units 04/28/17 08:15 04/30/17 14:04 Heparin SC 5,000 units Q8 LUCIA Administration Protocol Vancomycin HCl 1 gm in 250 mls @ 167 mls/hr 04/28/17 05:00 04/30/17 05:26 Vancomycin 1gm IVPB 167 mls/hr Q12H LUCIA Administration Protocol Dexmedetomidine HCl 400 mcg in 100 mls @ 5.897 mls/hr 04/28/17 07:36 09:31 Precedex 400mcg/100ml IV 0.8 mcg/kg/hr .[id number] PRN 23.587 mls/hr Agitation Administration Protocol 0.2 MCG/KG/HR Iron Sucrose 100 mg/ Sodium 105 mls @ 210 mls/hr 04/30/17 12:45 04/30/17 15: 52 Chloride IVPB 05/02/17 13:15 210 mls/hr DAILY LUCIA Administration Meropenem/Sodium Chloride 1 gm in 100 mls @ 100 mls/hr 04/30/17 14:00 14:03 Meropenem 1g/Ns 100ml Ivpb IVPB 05/14/17 14:01 100 mls/hr Q8 LUCIA Administration Protocol Lorazepam 4 mg 04/30/17 13:31 Ativan IVP Q4H PRN Agitation Protocol Ondansetron HCl 4 mg 04/28/17 04:58 04/30/17 09:38 Zofran Inj IVP 4 mg Q4H PRN Administration Nausea/Vomiting Pantoprazole Sodium 40 mg 04/28/17 10:00 04/30/17 09:31 Protonix Inj IVP 40 mg DAILY LUCIA Administration Thiamine HCl 100 mg 04/30/17 14:00 04/30/17 16:01 Vitamin B1 Inj IM 100 mg DAILY LUCIA Administration - Patient Studies Lab Studies: Microbiology Studies 04/29/17 07:00 MRSA Culture (Admit) - Final Naris MRSA NOT DETECTED 04/28/17 00:19 Blood Culture - Preliminary Blood NO GROWTH AFTER 48 HOURS 04/28/17 00:09 Blood Culture - Preliminary Blood NO GROWTH AFTER 48 HOURS 04/28/17 09:00 MRSA Culture (Admit) - Final Naris MRSA NOT DETECTED Lab Studies 04/30/17 04/30/17 04/30/17 Range/Units 12:40 10:00 10:00 WBC (4.5-11.0) 10^3/ul RBC (3.5-6.1) 10^6/uL Hgb (14.0-18.0) g/dL Hct (42.0-52.0) % MCV (80.0-105.0) fl MCH (25.0-35.0) pg MCHC (31.0-37.0) g/dl RDW (11.5-14.5) % Plt Count (120.0-450.0) 10^3/uL MPV (7.0-11.0) fl pCO2 (35-45) mm/Hg pO2 (80-100) mm/Hg HCO3 (21-28) mmol/L ABG pH (7.35-7.45) ABG Total CO2 (22-28) mmol.L ABG O2 Saturation (95-98) % ABG O2 Content (15-23) ML/dl ABG Base Excess (-2.0-3.0) mmol/L ABG Hemoglobin (11.7-17.4) g/dL ABG Carboxyhemoglobin (0.5-1.5) % POC ABG HHb (Measured) (0-5) % ABG Methemoglobin (0.0-3.0) % ABG O2 Capacity (16-24) mL/dl Hgb O2 Saturation (95.0-98.0) % FiO2 % Sodium (132-148) mmol/L Potassium (3.6-5.0) mmol/L Chloride (98-107) mmol/L Carbon Dioxide (21-33) mmol/L Anion Gap (10-20) BUN (7-21) mg/dL Creatinine (0.8-1.5) mg/dl Est GFR ( Amer) Est GFR (Non-Af Amer) Random Glucose (70-110) mg/dL Lactic Acid 1.1 (0.7-2.1) mmol/L Calcium (8.4-10.5) mg/dL Total Bilirubin (0.2-1.3) mg/dL AST (17-59) U/L ALT (7-56) U/L Alkaline Phosphatase (38-126) U/L Total Protein (5.8-8.3) g/dL Albumin (3.0-4.8) g/dL Globulin gm/dL Albumin/Globulin Ratio (1.1-1.8) Procalcitonin < 0.05 L (0.19-0.49) NG/ML Stool Occult Blood Negative (NEGATIVE) KRISTIAN Nuclear Membr Pat (Negative) Proteinase 3 (PR3) (<1.0) AI Myeloperoxidase Ab (<1.0) AI T.pallidum Ab (FTA-ABS) (Nonreactive) HIV 1&2 Ag/Ab, 4th Gen (Nonreactive) 04/30/17 04/30/17 04/30/17 Range/Units 06:15 05:30 05:30 WBC 14.1 H (4.5-11.0) 10^3/ul RBC 4.01 (3.5-6.1) 10^6/uL Hgb 7.7 L (14.0-18.0) g/dL Hct 28.9 L (42.0-52.0) % MCV 72.1 L (80.0-105.0) fl MCH 19.2 L (25.0-35.0) pg MCHC 26.6 L (31.0-37.0) g/dl RDW 19.9 H (11.5-14.5) % Plt Count 249 (120.0-450.0) 10^3/uL MPV 10.0 (7.0-11.0) fl pCO2 39 (35-45) mm/Hg pO2 118.0 H (80-100) mm/Hg HCO3 24.7 (21-28) mmol/L ABG pH 7.41 (7.35-7.45) ABG Total CO2 25.9 (22-28) mmol.L ABG O2 Saturation 99.1 H (95-98) % ABG O2 Content 12.2 L (15-23) ML/dl ABG Base Excess 0.1 (-2.0-3.0) mmol/L ABG Hemoglobin 8.8 L (11.7-17.4) g/dL ABG Carboxyhemoglobin 1.9 H (0.5-1.5) % POC ABG HHb (Measured) 0.9 (0-5) % ABG Methemoglobin 0.7 (0.0-3.0) % ABG O2 Capacity 12.3 L (16-24) mL/dl Hgb O2 Saturation 96.4 (95.0-98.0) % FiO2 40.0 % Sodium 141 (132-148) mmol/L Potassium 4.3 (3.6-5.0) mmol/L Chloride 104 (98-107) mmol/L Carbon Dioxide 27 (21-33) mmol/L Anion Gap 14 (10-20) BUN 17 (7-21) mg/dL Creatinine 0.8 (0.8-1.5) mg/dl Est GFR ( Amer) > 60 Est GFR (Non-Af Amer) > 60 Random Glucose 140 H (70-110) mg/dL Lactic Acid (0.7-2.1) mmol/L Calcium 8.9 (8.4-10.5) mg/dL Total Bilirubin 0.3 (0.2-1.3) mg/dL AST 44 (17-59) U/L ALT 32 (7-56) U/L Alkaline Phosphatase 90 (38-126) U/L Total Protein 6.7 (5.8-8.3) g/dL Albumin 3.2 (3.0-4.8) g/dL Globulin 3.4 gm/dL Albumin/Globulin Ratio 0.9 L (1.1-1.8) Procalcitonin (0.19-0.49) NG/ML Stool Occult Blood (NEGATIVE) KRISTIAN Nuclear Membr Pat (Negative) Proteinase 3 (PR3) (<1.0) AI Myeloperoxidase Ab (<1.0) AI T.pallidum Ab (FTA-ABS) (Nonreactive) HIV 1&2 Ag/Ab, 4th Gen (Nonreactive) 04/29/17 04/29/17 04/28/17 Range/Units 18:08 05:30 13:20 WBC (4.5-11.0) 10^3/ul RBC (3.5-6.1) 10^6/uL Hgb (14.0-18.0) g/dL Hct (42.0-52.0) % MCV (80.0-105.0) fl MCH (25.0-35.0) pg MCHC (31.0-37.0) g/dl RDW (11.5-14.5) % Plt Count (120.0-450.0) 10^3/uL MPV (7.0-11.0) fl pCO2 (35-45) mm/Hg pO2 (80-100) mm/Hg HCO3 (21-28) mmol/L ABG pH (7.35-7.45) ABG Total CO2 (22-28) mmol.L ABG O2 Saturation (95-98) % ABG O2 Content (15-23) ML/dl ABG Base Excess (-2.0-3.0) mmol/L ABG Hemoglobin (11.7-17.4) g/dL ABG Carboxyhemoglobin (0.5-1.5) % POC ABG HHb (Measured) (0-5) % ABG Methemoglobin (0.0-3.0) % ABG O2 Capacity (16-24) mL/dl Hgb O2 Saturation (95.0-98.0) % FiO2 % Sodium 136 (132-148) mmol/L Potassium 4.4 (3.6-5.0) mmol/L Chloride 102 (98-107) mmol/L Carbon Dioxide 27 (21-33) mmol/L Anion Gap 12 (10-20) BUN 17 (7-21) mg/dL Creatinine 0.8 (0.8-1.5) mg/dl Est GFR ( Amer) > 60 Est GFR (Non-Af Amer) > 60 Random Glucose 133 H (70-110) mg/dL Lactic Acid (0.7-2.1) mmol/L Calcium 8.9 (8.4-10.5) mg/dL Total Bilirubin (0.2-1.3) mg/dL AST (17-59) U/L ALT (7-56) U/L Alkaline Phosphatase (38-126) U/L Total Protein (5.8-8.3) g/dL Albumin (3.0-4.8) g/dL Globulin gm/dL Albumin/Globulin Ratio (1.1-1.8) Procalcitonin (0.19-0.49) NG/ML Stool Occult Blood (NEGATIVE) KRISTIAN Nuclear Membr Pat Negative (Negative) Proteinase 3 (PR3) <1.0 (<1.0) AI Myeloperoxidase Ab <1.0 (<1.0) AI T.pallidum Ab (FTA-ABS) Nonreactive (Nonreactive) HIV 1&2 Ag/Ab, 4th Gen Nonreactive (Nonreactive) Laboratory Results - last 24 hr 04/28/17 04/29/17 04/29/17 13:20 05:30 18:08 WBC RBC Hgb Hct MCV MCH MCHC RDW Plt Count MPV pCO2 pO2 HCO3 ABG pH ABG Total CO2 ABG O2 Saturation ABG O2 Content ABG Base Excess ABG Hemoglobin ABG Carboxyhemoglobin POC ABG HHb (Measured) ABG Methemoglobin ABG O2 Capacity Hgb O2 Saturation FiO2 Sodium 136 Potassium 4.4 Chloride 102 Carbon Dioxide 27 Anion Gap 12 BUN 17 Creatinine 0.8 Est GFR ( Amer) > 60 Est GFR (Non-Af Amer) > 60 Random Glucose 133 H Lactic Acid Calcium 8.9 Total Bilirubin AST ALT Alkaline Phosphatase Total Protein Albumin Globulin Albumin/Globulin Ratio Procalcitonin Stool Occult Blood KRISTIAN Nuclear Membr Pat Negative Proteinase 3 (PR3) <1.0 Myeloperoxidase Ab <1.0 T.pallidum Ab (FTA-ABS) Nonreactive HIV 1&2 Ag/Ab, 4th Gen Nonreactive 04/30/17 04/30/17 04/30/17 05:30 05:30 06:15 WBC 14.1 H RBC 4.01 Hgb 7.7 L Hct 28.9 L MCV 72.1 L MCH 19.2 L MCHC 26.6 L RDW 19.9 H Plt Count 249 MPV 10.0 pCO2 39 pO2 118.0 H HCO3 24.7 ABG pH 7.41 ABG Total CO2 25.9 ABG O2 Saturation 99.1 H ABG O2 Content 12.2 L ABG Base Excess 0.1 ABG Hemoglobin 8.8 L ABG Carboxyhemoglobin 1.9 H POC ABG HHb (Measured) 0.9 ABG Methemoglobin 0.7 ABG O2 Capacity 12.3 L Hgb O2 Saturation 96.4 FiO2 40.0 Sodium 141 Potassium 4.3 Chloride 104 Carbon Dioxide 27 Anion Gap 14 BUN 17 Creatinine 0.8 Est GFR ( Amer) > 60 Est GFR (Non-Af Amer) > 60 Random Glucose 140 H Lactic Acid Calcium 8.9 Total Bilirubin 0.3 AST 44 ALT 32 Alkaline Phosphatase 90 Total Protein 6.7 Albumin 3.2 Globulin 3.4 Albumin/Globulin Ratio 0.9 L Procalcitonin Stool Occult Blood KRISTIAN Nuclear Membr Pat Proteinase 3 (PR3) Myeloperoxidase Ab T.pallidum Ab (FTA-ABS) HIV 1&2 Ag/Ab, 4th Gen 04/30/17 04/30/17 04/30/17 10:00 10:00 12:40 WBC RBC Hgb Hct MCV MCH MCHC RDW Plt Count MPV pCO2 pO2 HCO3 ABG pH ABG Total CO2 ABG O2 Saturation ABG O2 Content ABG Base Excess ABG Hemoglobin ABG Carboxyhemoglobin POC ABG HHb (Measured) ABG Methemoglobin ABG O2 Capacity Hgb O2 Saturation FiO2 Sodium Potassium Chloride Carbon Dioxide Anion Gap BUN Creatinine Est GFR ( Amer) Est GFR (Non-Af Amer) Random Glucose Lactic Acid 1.1 Calcium Total Bilirubin AST ALT Alkaline Phosphatase Total Protein Albumin Globulin Albumin/Globulin Ratio Procalcitonin < 0.05 L Stool Occult Blood Negative KRISTIAN Nuclear Membr Pat Proteinase 3 (PR3) Myeloperoxidase Ab T.pallidum Ab (FTA-ABS) HIV 1&2 Ag/Ab, 4th Gen Critical Care Progress Note - Nutrition Nutrition: Nutrition Category Date Time Status NPO Diet [DIET] Diets 04/28/17 Breakfast Ordered Attending/Attestation - Attestation I have personally seen and examined this patient.: Yes I have fully participated in the care of the patient.: Yes I have reviewed all pertinent clinical information: Yes Notes (Text): 04/30/17 17:37 off of sedation drip. tolerates trach colar for >4 hrs. will continue observe. abx, steroids (will start taper), bronchodilators, pulmonary toilet, postural drainage, chest PT, tracheal suction q6h. DVT/GI
[2017-04-30] MEDS: cefTRIAXone 2 GM IN NS 2 GM/100 ML BAG IVPB SCH (09:30)
--- NOTE | 2017-04-30 10:18 | RAD ---
HISTORY: trach, r/o pneumonia COMPARISON: 04/29/2017 FINDINGS: There is stable position of the tracheostomy tube. LUNGS: There is low lung volume on the right with basilar airspace disease. The left lung is clear. There is pulmonary venous congestion. PLEURA: Suspect right pleural effusion identified, no pneumothorax apparent. CARDIOVASCULAR: There is stable cardiomegaly. OSSEOUS STRUCTURES: No significant abnormalities. VISUALIZED UPPER ABDOMEN: Normal. OTHER FINDINGS: None. IMPRESSION: Right lower lobe airspace disease may represent atelectasis/ pneumonia or pleural effusion. Persistent cardiomegaly and pulmonary venous congestion.
[2017-04-30] MEDS ORDERED: Albuterol-Ipratrop 3 mg / 0.5 (3 ml) UD IH SCH ×2 (12:34→15:30)
[2017-04-30] MEDS ORDERED: Iron Sucrose 100 mg/5 ml Inj IVP SCH (12:45)
[2017-04-30] MEDS ORDERED: Acetylcysteine 20% Inhal Soln (4ml) IH SCH ×2 (12:45→14:00)
[2017-04-30] MEDS ORDERED: Albuterol-Ipratrop 3 mg / 0.5 (3 ml) UD IH PRN (12:53)
[2017-04-30] MEDS: Meropenem 1g/NS 100mL IVPB 1 GM/100 ML PIGGYBACK IVPB SCH ×2 (14:03→22:55)
[2017-04-30] MEDS: Thiamine 100 mg/ml Inj IM SCH (16:01)
[2017-04-30 18:00] LABS: ARTERIAL BLOOD GAS HEMOGLOBIN 7.7 g/dL (11.7-17.4); ARTERIAL BLOOD GAS O2 CAPACITY 10.7 mL/dl (16-24); ARTERIAL BLOOD GAS O2 CONTENT 10.6 ML/dl (15-23); ARTERIAL BLOOD GAS O2 SAT 99.3 % (95-98); ARTERIAL BLOOD GAS PCO2 44 mm/Hg (35-45); ARTERIAL BLOOD GAS PH 7.38 (7.35-7.45); ARTERIAL BLOOD GAS TCO2 27.4 mmol.L (22-28)
[2017-04-30] MEDS: Metoprolol 1 mg/ml Inj IVP SCH (18:31)
--- NOTE | 2017-05-01 00:26 | PN ---
DATE: 04/30/2017 SUBJECTIVE: Patient is in bed, seen earlier this morning. On trach, on a ventilator. PHYSICAL EXAMINATION: VITAL SIGNS: Temperature is 98, T-max is 99.9, blood pressure is 118/60, respiratory rate of 18, and heart rate of 107. HEENT: Unremarkable. NECK: Supple. LUNGS: Have decreased breath sounds. HEART: Normal S1 and S2. ABDOMEN: Soft, nontender. LABORATORY DATA: Reveals a white count of 14,000, hemoglobin of 7, platelets of 249. Chemistries are as noted. Procalcitonin is less than 0.05. Urinalysis is noted. RPR is nonreactive. FTA is nonreactive. HIV is nonreactive. Influenza is negative. Microbiology reveals that nares smear is negative for MRSA; screen is negative. Urine culture is negative. Blood cultures are negative. Patient also had a chest x-ray today and there are new infiltrates as per Dr. Rosa. ASSESSMENT AND PLAN: This is a 62-year-old morbidly obese male with a BMI of 45 with shortness of breath, brought to the emergency room. Had a CAT scan of the chest followed by a CAT scan of the neck and had sepsis with upper airway narrowing, respiratory failure, trached on ventilator with epiglottitis and upper airway narrowing, obstruction versus epiglottitis, also, now has a new pneumonia. We will treat the patient with vancomycin, discontinue the ceftriaxone, switch to meropenem. Pending panculture results and patient also with a procalcitonin of 0.05, thought to be bacterial pneumonia. We will follow closely with you and make further recommendations. Pedro Luis Mccracken MD
[2017-05-01] MEDS: Dexamethasone 4 mg/1 ml IVP SCH ×2 (03:13→11:20)
[2017-05-01] MEDS: Metoprolol 1 mg/ml Inj IVP SCH ×5 (03:15→23:49)
[2017-05-01 05:37] LABS: ARTERIAL BLOOD GAS HCO3 27.9 mmol/L (21-28); ARTERIAL BLOOD GAS HEMOGLOBIN 8.1 g/dL (11.7-17.4); ARTERIAL BLOOD GAS O2 CAPACITY 11.2 mL/dl (16-24); ARTERIAL BLOOD GAS O2 CONTENT 11.1 ML/dl (15-23); ARTERIAL BLOOD GAS O2 SAT 98.9 % (95-98); ARTERIAL BLOOD GAS PCO2 45 mm/Hg (35-45); ARTERIAL BLOOD GAS TCO2 29.3 mmol.L (22-28); BASO # 0.01 K/mm3 (0.0-2.0); BASO % 0.1 % (0.0-3.0); GRAN # 12.05 (1.4-6.5); GRAN % 79.6 % (50.0-68.0); HEMOGLOBIN 7.9 g/dL (14.0-18.0); LYMPH # 1.5 (1.2-3.4); LYMPH % 9.7 % (22.0-35.0); MEAN CELL VOLUME 73.2 fl (80.0-105.0); MEAN CORPUSCULAR HEMOGLOBIN 19.3 pg (25.0-35.0); MEAN CORPUSCULAR HGB CONC 26.3 g/dl (31.0-37.0); MEAN PLATELET VOLUME 9.1 fl (7.0-11.0); MONO # 1.6 (0.1-0.6); MONO % 10.6 % (1.0-6.0); RBC 4.1 10^6/uL (3.5-6.1); RED CELL DISTRIBUTION WIDTH 20.4 % (11.5-14.5); WHITE BLOOD COUNT 15.1 10^3/ul (4.5-11.0)
[2017-05-01 06:21] LABS: ALB/GLOB RATIO 0.9 (1.1-1.8); ALBUMIN 3.4 g/dL (3.0-4.8); ALT/SGPT 39 U/L (7-56); AST/SGOT 48 U/L (17-59); BLOOD UREA NITROGEN 17 mg/dL (7-21); CALCIUM 9.1 mg/dL (8.4-10.5); GFR AFRICAN-AMERICAN > 60; GFR NON-AFRICAN AMERICAN > 60
[2017-05-01] MEDS: Vancomycin 1gm in NS 250ml 1 GM/250 ML BAG IVPB SCH ×2 (06:40→17:44)
[2017-05-01] MEDS: Meropenem 1g/NS 100mL IVPB 1 GM/100 ML PIGGYBACK IVPB SCH ×3 (06:48→21:39)
--- NOTE | 2017-05-01 11:07 | PN ---
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 No significant cough or congestion. No complaints of respiratory distress. No chest pain. No fever, chills, nausea, or vomiting. No abdominal pain with diarrhea. PHYSICAL EXAMINATION VITAL SIGNS: His temperature is 99.5, pulse is 102, respirations are 30 and BP is 168/97. SKIN: Warm and dry. HEENT: Head is atraumatic, normocephalic. Eyes, reactive to light. Ear, nose, and throat, note that the patient does have tracheostomy in place. LUNGS: Reveal rare rhonchi at the bases. HEART: Has regular rate and rhythm. Normal S1, S2. ABDOMEN: Soft. Normal bowel sounds. GENITALIA: Deferred. RECTAL: Deferred. MUSCULOSKELETAL: No joint deformities. EXTREMITIES: Reveal no significant edema. NEUROLOGICAL: He is awake and alert, moving all extremities. DATA: As far as his laboratories are concerned, his white count is 15.1, hemoglobin is 7.9, and his hematocrit is 30 with platelets of 259,000. Arterial blood gas is pH 7.40, pCO2 of 45, pO2 of 112. Sodium is 144, potassium 4.0, chloride 106, CO2 of 29 with a BUN of 17, creatinine of 0.7 and a glucose of 114. Chest x-ray reveals low volume on the right with basilar airspace disease, left lung is clear. There is pulmonary vascular venous congestion. IMPRESSION: As far as impression, this patient has presented in with respiratory distress/respiratory failure secondary to upper airway obstruction and stridor. The patient had emergency tracheostomy and is noted to have history of obesity, obstructive sleep apnea and chronic obstructive pulmonary disease. There may be a component of pneumonia and it is noted that he has anemia. PLAN: As far as plan, we will continue with the aggressive trach care. The patient is on O2 support with trach collar. He is getting aggressive pulmonary toilet and is on DuoNeb as bronchodilator. He is getting subcutaneous heparin and meropenem as well as vancomycin. The patient is on Protonix as well. We will continue to treat aggressively along with the other consultants and the primary care doctor. Carlos Diehl MD [facility] # [id number]
[2017-05-01] MEDS: Thiamine 100 mg/ml Inj IM SCH (11:11)
--- NOTE | 2017-05-01 15:33 | CP.PCM.PN ---
<Jose Masters - Last Filed: 05/01/17 15:22> Subjective - Date & Time of Evaluation Date of Evaluation: 05/01/17 Time of Evaluation: 08:00 - Subjective Subjective: Patient seen and examined at bedside. Tolerating trach collar well. Patient is able to communicate now that sedation has decreased. Patient remains to be very congested as is bringing up yellow sputum, a change from the green brown sputum noted yesterday. Objective - Vital Signs/Intake and Output Vital Signs (last 24 hours): Temp Pulse Resp BP Pulse Ox 99.5 F 102 H 30 H 168/97 H 80 L 05/01/17 04:00 05/01/17 06:42 05/01/17 03:50 05/01/17 06:42 05/01/17 03:50 Intake and Output: 05/01/17 05/01/17 06:59 18:59 Intake Total 470 Balance 470 - Medications Medications: Current Medications Albuterol/Ipratropium (Duoneb 3 Mg/0.5 Mg (3 Ml) Ud) 3 ml IH [id number] PRN PRN Reason: Cough and congestion Dexamethasone (Decadron Inj) 4 mg IVP Q8H LUCIA Last Admin: 05/01/17 11:20 Dose: 4 mg Folic Acid (Folic Acid) 1 mg IVP DAILY LUCIA Last Admin: 05/01/17 13:41 Dose: 1 mg Heparin Sodium (Porcine) (Heparin) 5,000 units SC Q8 LUCIA PRN Reason: Protocol Last Admin: 05/01/17 13:42 Dose: 5,000 units Vancomycin HCl (Vancomycin 1gm) 1 gm in 250 mls @ 167 mls/hr IVPB Q12H LUCIA PRN Reason: Protocol Last Admin: 05/01/17 06:40 Dose: 167 mls/hr Dexmedetomidine HCl (Precedex 400mcg/100ml) 400 mcg in 100 mls @ 5.897 mls/hr IV .[id number] PRN; Protocol; 0.2 MCG/KG/HR PRN Reason: Agitation Last Admin: 04/30/17 09:31 Dose: 0.8 mcg/kg/hr, 23.587 mls/hr Iron Sucrose 100 mg/ Sodium (Chloride) 105 mls @ 210 mls/hr IVPB DAILY LUCIA Stop: 05/02/17 13:15 Last Admin: 05/01/17 11:11 Dose: 210 mls/hr Meropenem/Sodium Chloride (Meropenem 1g/Ns 100ml Ivpb) 1 gm in 100 mls @ 100 mls/hr IVPB Q8 LUCIA PRN Reason: Protocol Stop: 05/14/17 14:01 Last Admin: 05/01/17 13:42 Dose: 100 mls/hr Lorazepam (Ativan) 4 mg IVP Q4H PRN; Protocol PRN Reason: Agitation Metoprolol Tartrate (Lopressor) 5 mg IVP Q6 [facility] Last Admin: 05/01/17 13:41 Dose: 5 mg Ondansetron HCl (Zofran Inj) 4 mg IVP Q4H PRN PRN Reason: Nausea/Vomiting Last Admin: 04/30/17 09:38 Dose: 4 mg Pantoprazole Sodium (Protonix Inj) 40 mg IVP DAILY [facility] Last Admin: 05/01/17 11:11 Dose: 40 mg Thiamine HCl (Vitamin B1 Inj) 100 mg IM DAILY [facility] Last Admin: 05/01/17 11:11 Dose: 100 mg - Labs Labs: 05/01/17 05:15 05/01/17 05:15 - Constitutional Appears: Non-toxic - Head Exam Head Exam: ATRAUMATIC, NORMAL INSPECTION, NORMOCEPHALIC - ENT Exam ENT Exam: Mucous Membranes Moist - Neck Exam Additional comments: trach collar in place - Respiratory Exam Respiratory Exam: Clear to Ausculation Bilateral. absent: Wheezes - Cardiovascular Exam Cardiovascular Exam: REGULAR RHYTHM, +S1, +S2 - GI/Abdominal Exam GI & Abdominal Exam: Soft, Diminished Bowel Sounds - Neurological Exam Neurological Exam: Alert, Awake - Psychiatric Exam Psychiatric exam: Normal Affect, Normal Mood - Skin Skin Exam: Intact, Normal Color, Warm Assessment and Plan - Assessment and Plan (Free Text) Assessment: 62 year old male with no past medical history presenting with hypoxemic respiratory failure secondary to upper airway narrowing/obstruction vs epiglottitis. Plan: Plan: Dyspnea ue to hypopharangyeal swelling Epiglottitis vs URI vs CHF vs mixed presentation CXR: Pulm congestion (mild) Neck Soft Tissue CT: Shows prominence of aryaepiglottis and narrowing of the airways ProCal negative Blood/Urine Cultures continue to reveall no growth ECHO reveals no abnormalities BNP: WNL @ 224 ENT Consulted;Tracheostomy done as per ENT. Patient transitioned to trach collar and is tolerating well ICU on consult : patient was originally sedated with fentanyl and precedex, fentanyl has been discontinued. Patient continues to receive ativan for agitation. As per nephew patient has a baseline of agitation and aggression. Continue with Ceftriaxone and Vancomycin. Leukocytosis present with use of decadron, will begin to taper decadron dose starting tomorrow. As per patient's nephew, patient has a 12 year old son who has been out sick for over a week with a throat infection. Anemia Iron deficiency anemia FOBT test ordered; negative Continue supplementation with Venofer Ectasia of the ascending thoracic aorta up to 4.0cm and aneurysm of the distal aortic arch/descending aorta up to 5.0cm in diameter Vascular surgery consulted No current intervention at this time; will follow up as outpatient Hyperthyroidism Decrease tsh in presence of normal free T4, t3 lower end of normal non thyroidal illness vs subclinical hyperthyroidism will re-check thyroid studies as patient's progresses Hyponatremia resolved Hx of Alcoholism continue with folic acid Will discuss alcohol cessation with patient when sedation has ended Possible Hx of HLD Lipid panel reveals no abnormalities Proph Protonix Heparin Patient seen and discussed with Dr. Coronel <Светлана Coronel - Last Filed: 05/02/17 12:56> Objective - Vital Signs/Intake and Output Vital Signs (last 24 hours): Temp Pulse Resp BP Pulse Ox 98.5 F 100 H 21 124/60 98 05/02/17 04:00 05/02/17 06:20 05/02/17 04:00 05/02/17 04:00 05/02/17 04:00 Intake and Output: 05/02/17 05/02/17 06:59 18:59 Intake Total 370 450 Output Total 1200 700 Balance -830 -250 - Medications Medications: Current Medications Albuterol/Ipratropium (Duoneb 3 Mg/0.5 Mg (3 Ml) Ud) 3 ml IH [id number] PRN PRN Reason: Cough and congestion Last Admin: 05/02/17 04:00 Dose: 3 ml Dexamethasone (Decadron Inj) 2 mg IVP Q8H [facility]UCIA Last Admin: 05/02/17 10:42 Dose: 2 mg Folic Acid (Folic Acid) 1 mg IVP DAILY [facility] Last Admin: 02/18/18 09:33 Dose: 1 mg Heparin Sodium (Porcine) (Heparin) 5,000 units SC Q8 [facility]IA PRN Reason: Protocol Last Admin: 05/02/17 06:19 Dose: 5,000 units Vancomycin HCl (Vancomycin 1gm) 1 gm in 250 mls @ 167 mls/hr IVPB Q12H LUCIA PRN Reason: Protocol Last Admin: 05/02/17 07:36 Dose: 167 mls/hr Dexmedetomidine HCl (Precedex 400mcg/100ml) 400 mcg in 100 mls @ 5.897 mls/hr IV .[id number] PRN; Protocol; 0.2 MCG/KG/HR PRN Reason: Agitation Last Admin: 04/30/17 09:31 Dose: 0.8 mcg/kg/hr, 23.587 mls/hr Iron Sucrose 100 mg/ Sodium (Chloride) 105 mls @ 210 mls/hr IVPB DAILY [facility] Stop: 05/02/17 13:15 Last Admin: 05/02/17 09:25 Dose: 210 mls/hr Meropenem/Sodium Chloride (Meropenem 1g/Ns 100ml Ivpb) 1 gm in 100 mls @ 100 mls/hr IVPB Q8 [facility]IA PRN Reason: Protocol Stop: 05/14/17 14:01 Last Admin: 05/02/17 06:18 Dose: 100 mls/hr Lorazepam (Ativan) 4 mg IVP Q4H PRN; Protocol PRN Reason: Agitation Metoprolol Tartrate (Lopressor) 5 mg IVP Q6 [facility] Last Admin: 05/02/17 06:20 Dose: 5 mg Ondansetron HCl (Zofran Inj) 4 mg IVP Q4H PRN PRN Reason: Nausea/Vomiting Last Admin: 04/30/17 09:38 Dose: 4 mg Pantoprazole Sodium (Protonix Inj) 40 mg IVP DAILY [facility] Last Admin: 05/02/17 09:24 Dose: 40 mg Thiamine HCl (Vitamin B1 Inj) 100 mg IM DAILY [facility] Last Admin: 05/02/17 09:25 Dose: 100 mg - Labs Labs: 05/02/17 05:00 05/01/17 05:15 Attending/Attestation - Attestation I have personally seen and examined this patient.: Yes I have fully participated in the care of the patient.: Yes I have reviewed all pertinent clinical information, including history, physical exam and plan: Yes Notes (Text): I have seen and examined the patient at bedside. Agree with the above note with the following additions/ exceptions: Briefly this is 62 year old morbidly obese male with LILIYA non compliant with cpap at home who came for evaluation of cough, hoarseness, dyspnea, stridor and found to have hypoxemic hypercapneic respiratory failure due to upper airway compromise related to hypopharyngeal swelling. Continue decadron taper,meropenem, vancomycin and emergent trach was performed by ENT. CXR revealed RLL infiltrate and cardiomegaly. Patient tolerated trach collar . Continue pulmonary toilet and trach suction. He has been having lot of trach secretions and has been having lot of cough. Blood and urine cultures negative. Echo is normal. He was also found to have incidental finding of descending AAA (5cm) and ascending AAA of 4 cm. Patient will be advised to follow up with cardiothoracic surgeon as an outpatient once patient becomes clinically stable. Alcohol cessation counselling will be provided once patient is more awake. Currently he is on precedex. Continue IV venofer for iron deficiency anemia. Upon discharge patient will follow up with PMD of choice. Dr Светлана Coronel
--- NOTE | 2017-05-01 19:07 | PN ---
DATE: 05/01/2017 SUBJECTIVE: Patient was seen earlier this morning in the ICU, 128, bed 4. PHYSICAL EXAMINATION: VITAL SIGNS: Temperature is 99, blood pressure is 168/97. HEENT: Unremarkable. NECK: Supple. LUNGS: Have decreased breath sounds. HEART: Normal S1, S2. ABDOMEN: Soft. LABORATORY DATA: Reveals the patient's white count of 15,000, hemoglobin of 7.9, platelets of 259. Chemistries reveal a BUN of 17, creatinine of 0.7. Urinalysis is noted. Serology RPR is negative. FTA is negative. HIV is negative. Influenza is negative. Microbiology reveals the blood cultures are negative. MRSA is not detected. Urine culture is negative. Patient had a chest x-ray yesterday with a right lower lobe airspace disease. Procalcitonin from yesterday is less than 0.05. ASSESSMENT AND PLAN: This is a 62-year-old morbidly obese male with a body mass index of 45 who was admitted with sepsis and upper airway epiglottitis versus upper airway narrowing and now patient had an emergency tracheostomy, now on a trach collar, with all cultures negative and patient is on intravenous vancomycin and intravenous meropenem. We will follow with you. Pedro Luis Mccracken MD
[2017-05-02 05:31] LABS: BASO # 0.02 K/mm3 (0.0-2.0); BASO % 0.2 % (0.0-3.0); EOS # 0.1 (0.0-0.7); EOS % 0.9 % (1.5-5.0); GRAN # 8.86 (1.4-6.5); GRAN % 68.3 % (50.0-68.0); HEMOGLOBIN 7.9 g/dL (14.0-18.0); LYMPH # 2.7 (1.2-3.4); LYMPH % 20.7 % (22.0-35.0); MEAN CELL VOLUME 74.2 fl (80.0-105.0); MEAN CORPUSCULAR HEMOGLOBIN 19.6 pg (25.0-35.0); MEAN CORPUSCULAR HGB CONC 26.4 g/dl (31.0-37.0); MONO # 1.3 (0.1-0.6); MONO % 9.9 % (1.0-6.0); RBC 4.03 10^6/uL (3.5-6.1); RED CELL DISTRIBUTION WIDTH 20.4 % (11.5-14.5)
[2017-05-02] MEDS: Meropenem 1g/NS 100mL IVPB 1 GM/100 ML PIGGYBACK IVPB SCH ×3 (06:18→22:48)
[2017-05-02] MEDS: Metoprolol 1 mg/ml Inj IVP SCH ×3 (06:20→17:11)
[2017-05-02] MEDS: Vancomycin 1gm in NS 250ml 1 GM/250 ML BAG IVPB SCH ×2 (07:36→17:11)
[2017-05-02 08:13] LABS: ARTERIAL BLOOD GAS HCO3 28.5 mmol/L (21-28); ARTERIAL BLOOD GAS O2 CAPACITY 17.8 mL/dl (16-24); ARTERIAL BLOOD GAS O2 CONTENT 17.7 ML/dl (15-23); ARTERIAL BLOOD GAS O2 SAT 99.2 % (95-98); ARTERIAL BLOOD GAS PCO2 47 mm/Hg (35-45); ARTERIAL BLOOD GAS PH 7.39 (7.35-7.45); ARTERIAL BLOOD GAS TCO2 29.9 mmol.L (22-28)
[2017-05-02] MEDS: Thiamine 100 mg/ml Inj IM SCH (09:25)
[2017-05-02] MEDS: Dexamethasone 4 mg/1 ml IVP SCH ×2 (10:42→17:30)
--- NOTE | 2017-05-02 10:57 | PN ---
DATE: 05/02/2017 SUBJECTIVE: The patient is resting in bed, awake and alert, tolerating the trach and trach collar very well. The patient has occasional coughing and is able to get the phlegm up easily. No complaints of respiratory distress. No fever, chills, nausea, or vomiting. No abdominal pain or chest pain. PHYSICAL EXAMINATION: VITAL SIGNS: Note that his temperature is 98.5, his pulse is 100, respirations are 21, and BP is 124/60. SKIN: Warm and dry. HEENT: Head: Atraumatic, normocephalic. Eyes: Reactive to light. Ear, nose and throat: Seemed to be within normal limits. NECK: Supple. No JVD. Tracheostomy is in place. HEART: Has regular rate and rhythm. Normal S1, S2. LUNGS: Reveal rare rhonchi at the bases. ABDOMEN: Soft. Decreased bowel sounds. GENITALIA AND RECTAL: Deferred. MUSCULOSKELETAL: No joint deformities. EXTREMITIES: Reveal 1+ lower extremity edema. NEUROLOGIC: He seemed to be grossly intact. LABORATORY DATA: As far as his laboratories are concerned, his white count is 13.0, hemoglobin is 7.9, hematocrit 29.9 with platelets of 233,000. The patient's CMP is pending. IMPRESSION: The patient has respiratory failure requiring tracheostomy, initially presenting with upper airway obstruction and stridor. The patient has a history of obesity, obstructive sleep apnea, chronic obstructive pulmonary disease, and pneumonia as well as anemia. PLAN: We will continue with aggressive trach care and pulmonary toilet. The patient is on O2 via trach collar and we will continue with DuoNeb as a bronchodilator, meropenem as well as a vancomycin, Protonix, and subcu heparin. The patient is out of bed to chair. Carlos Diehl MD
--- NOTE | 2017-05-02 14:25 | CP.PCM.PN ---
<Jose Masters - Last Filed: 05/02/17 14:22> Subjective - Date & Time of Evaluation Date of Evaluation: 05/02/17 Time of Evaluation: 16:05 - Subjective Subjective: Patient seen and examined at bedside. Is currently in no acute distress. Patient is on trach collar and tolerating. Sitting up in chair and states he would like some chicken and to go home. Denies abdominal pain, nausea, vomiting , diarrhea, fevers, chills. Is still coughing up a large amount of mucous. Objective - Vital Signs/Intake and Output Vital Signs (last 24 hours): Temp Pulse Resp BP Pulse Ox 98.5 F 99 H 21 127/73 98 05/02/17 04:00 05/02/17 13:38 05/02/17 04:00 05/02/17 13:38 05/02/17 04:00 Intake and Output: 05/02/17 05/02/17 06:59 18:59 Intake Total 370 450 Output Total 1200 700 Balance -830 -250 - Medications Medications: Current Medications Albuterol/Ipratropium (Duoneb 3 Mg/0.5 Mg (3 Ml) Ud) 3 ml IH [id number] PRN PRN Reason: Cough and congestion Last Admin: 05/02/17 04:00 Dose: 3 ml Dexamethasone (Decadron Inj) 2 mg IVP Q8H [facility] Last Admin: 05/02/17 10:42 Dose: 2 mg Folic Acid (Folic Acid) 1 mg IVP DAILY [facility] Last Admin: 05/02/17 09:33 Dose: 1 mg Heparin Sodium (Porcine) (Heparin) 5,000 units SC Q8 [facility] PRN Reason: Protocol Last Admin: 05/02/17 06:19 Dose: 5,000 units Vancomycin HCl (Vancomycin 1gm) 1 gm in 250 mls @ 167 mls/hr IVPB Q12H [facility] PRN Reason: Protocol Last Admin: 05/02/17 07:36 Dose: 167 mls/hr Dexmedetomidine HCl (Precedex 400mcg/100ml) 400 mcg in 100 mls @ 5.897 mls/hr IV .[id number] PRN; Protocol; 0.2 MCG/KG/HR PRN Reason: Agitation Last Admin: 04/30/17 09:31 Dose: 0.8 mcg/kg/hr, 23.587 mls/hr Meropenem/Sodium Chloride (Meropenem 1g/Ns 100ml Ivpb) 1 gm in 100 mls @ 100 mls/hr IVPB Q8 [facility] PRN Reason: Protocol Stop: 05/14/17 14:01 Last Admin: 05/02/17 13:35 Dose: 100 mls/hr Lorazepam (Ativan) 4 mg IVP Q4H PRN; Protocol PRN Reason: Agitation Metoprolol Tartrate (Lopressor) 5 mg IVP Q6 [facility] Last Admin: 05/02/17 13:38 Dose: 5 mg Ondansetron HCl (Zofran Inj) 4 mg IVP Q4H PRN PRN Reason: Nausea/Vomiting Last Admin: 04/30/17 09:38 Dose: 4 mg Pantoprazole Sodium (Protonix Inj) 40 mg IVP DAILY [facility] Last Admin: 05/02/17 09:24 Dose: 40 mg Thiamine HCl (Vitamin B1 Inj) 100 mg IM DAILY [facility] Last Admin: 05/02/17 09:25 Dose: 100 mg - Labs Labs: 05/02/17 05:00 05/01/17 05:15 - Constitutional Appears: Non-toxic, No Acute Distress - Head Exam Head Exam: ATRAUMATIC, NORMAL INSPECTION, NORMOCEPHALIC - Eye Exam Eye Exam: Normal appearance - ENT Exam ENT Exam: Mucous Membranes Dry - Neck Exam Additional comments: trach collar in place - Respiratory Exam Respiratory Exam: Clear to Ausculation Bilateral. absent: Accessory Muscle Use , Chest Wall Tenderness, Prolonged Expiratory Phase - Cardiovascular Exam Cardiovascular Exam: REGULAR RHYTHM, +S1, +S2 - GI/Abdominal Exam GI & Abdominal Exam: Soft, Normal Bowel Sounds. absent: Tenderness Additional comments: large abdomen - Extremities Exam Extremities Exam: Full ROM, Normal Inspection - Back Exam Back Exam: NORMAL INSPECTION - Neurological Exam Neurological Exam: Alert, Awake, Oriented x3 - Psychiatric Exam Psychiatric exam: Normal Affect, Normal Mood - Skin Skin Exam: Intact, Normal Color, Warm Assessment and Plan - Assessment and Plan (Free Text) Assessment: 62 year old male with no past medical history presenting with hypoxemic respiratory failure secondary to upper airway narrowing/obstruction due to epiglottitis. Plan: Dyspnea ue to hypopharangyeal swelling Epiglottitis vs URI vs CHF vs mixed presentation CXR: Pulm congestion (mild) Neck Soft Tissue CT: Shows prominence of aryaepiglottis and narrowing of the airways ProCal negative Blood/Urine Cultures continue to reveall no growth ECHO reveals no abnormalities BNP: WNL @ 224 ENT Consulted;Tracheostomy done as per ENT. Patient transitioned to trach collar and is tolerating well ICU on consult : patient was originally sedated with fentanyl and precedex, fentanyl has been discontinued. Patient continues to receive ativan for agitation. As per nephew patient has a baseline of agitation and aggression. Continue with Meropenem and Vancomycin. Leukocytosis initially present due to infection and use of decadron, decadron dose tapered; leukocytosis is downtrending. As per patient's nephew, patient has a 12 year old son who has been out sick for over a week with a throat infection. Will start thin liquid diet as per speech language pathology evaluation Anemia Iron deficiency anemia FOBT test ordered; negative Continue supplementation with Venofer Ectasia of the ascending thoracic aorta up to 4.0cm and aneurysm of the distal aortic arch/descending aorta up to 5.0cm in diameter Vascular surgery consulted No current intervention at this time; will follow up as outpatient Hyperthyroidism Decrease TSH in presence of normal free T4, t3 lower end of normal non thyroidal illness vs subclinical hyperthyroidism will re-check thyroid studies as patient's progresses Hyponatremia resolved Hx of Alcoholism continue with folic acid Will discuss alcohol cessation with patient when sedation has ended Possible Hx of HLD Lipid panel reveals no abnormalities Proph Protonix Heparin Patient seen and discussed with Dr. Coronel <Светлана Coronel - Last Filed: 05/02/17 15:17> Objective - Vital Signs/Intake and Output Vital Signs (last 24 hours): Temp Pulse Resp BP Pulse Ox 98.5 F 99 H 21 127/73 98 05/02/17 04:00 05/02/17 13:38 05/02/17 04:00 05/02/17 13:38 05/02/17 04:00 Intake and Output: 05/02/17 05/02/17 06:59 18:59 Intake Total 370 450 Output Total 1200 700 Balance -830 -250 - Medications Medications: Current Medications Albuterol/Ipratropium (Duoneb 3 Mg/0.5 Mg (3 Ml) Ud) 3 ml IH [id number] PRN PRN Reason: Cough and congestion Last Admin: 05/02/17 04:00 Dose: 3 ml Dexamethasone (Decadron Inj) 2 mg IVP Q8H [facility] Last Admin: 05/02/17 10:42 Dose: 2 mg Folic Acid (Folic Acid) 1 mg IVP DAILY [facility] Last Admin: 05/02/17 09:33 Dose: 1 mg Heparin Sodium (Porcine) (Heparin) 5,000 units SC Q8 [facility] PRN Reason: Protocol Last Admin: 05/02/17 14:36 Dose: 5,000 units Vancomycin HCl (Vancomycin 1gm) 1 gm in 250 mls @ 167 mls/hr IVPB Q12H [facility] PRN Reason: Protocol Last Admin: 05/02/17 07:36 Dose: 167 mls/hr Dexmedetomidine HCl (Precedex 400mcg/100ml) 400 mcg in 100 mls @ 5.897 mls/hr IV [id number] PRN; Protocol; 0.2 MCG/KG/HR PRN Reason: Agitation Last Admin: 04/30/17 09:31 Dose: 0.8 mcg/kg/hr, 23.587 mls/hr Meropenem/Sodium Chloride (Meropenem 1g/Ns 100ml Ivpb) 1 gm in 100 mls @ 100 mls/hr IVPB Q8 [facility] PRN Reason: Protocol Stop: 05/14/17 14:01 Last Admin: 05/02/17 13:35 Dose: 100 mls/hr Lorazepam (Ativan) 4 mg IVP Q4H PRN; Protocol PRN Reason: Agitation Metoprolol Tartrate (Lopressor) 5 mg IVP Q6 [facility] Last Admin: 05/02/17 13:38 Dose: 5 mg Ondansetron HCl (Zofran Inj) 4 mg IVP Q4H PRN PRN Reason: Nausea/Vomiting Last Admin: 04/30/17 09:38 Dose: 4 mg Pantoprazole Sodium (Protonix Inj) 40 mg IVP DAILY [facility] Last Admin: 05/02/17 09:24 Dose: 40 mg Thiamine HCl (Vitamin B1 Inj) 100 mg IM DAILY [facility] Last Admin: 05/02/17 09:25 Dose: 100 mg - Labs Labs: 05/02/17 05:00 05/01/17 05:15 Attending/Attestation - Attestation I have personally seen and examined this patient.: Yes I have fully participated in the care of the patient.: Yes I have reviewed all pertinent clinical information, including history, physical exam and plan: Yes Notes (Text): I have seen and examined the patient at bedside. Agree with the above note with the following additions/ exceptions: Briefly this is 62 year old morbidly obese male with LILIYA non compliant with cpap at home who came for evaluation of cough, hoarseness, dyspnea, stridor and found to have hypoxemic hypercapneic respiratory failure due to upper airway compromise related to hypopharyngeal swelling. Continue decadron taper,meropenem, vancomycin and emergent trach was performed by ENT. CXR revealed RLL infiltrate and cardiomegaly. Patient is tolerating trach collar. Continue pulmonary toilet and trach suction. Cough has improved. He is able to speak clearly today with [place] Story valve . Speech eval recommended regular consistency diet. Blood and urine cultures negative. Echo is normal. He was also found to have incidental finding of descending AAA ( 5cm) and ascending AAA of 4 cm. Patient will be advised to follow up with cardiothoracic surgeon as an outpatient once patient becomes clinically stable. Alcohol cessation counselling will be provided once patient is more awake. Continue IV venofer for iron deficiency anemia. Upon discharge patient will follow up with PMD of choice. Dr Светлана Coronel
--- NOTE | 2017-05-02 16:00 | PN ---
DATE: 05/02/2017 SUBJECTIVE: The patient is in bed, in no acute distress, was seen earlier today. He is awake and alert. PHYSICAL EXAMINATION: VITAL SIGNS: On exam, temperature is 98, blood pressure is 120/70, respiratory rate of 21, heart rate of 92. HEENT: Examination of HEENT is unremarkable. NECK: Supple. LUNGS: Have decreased breath sounds. HEART: Normal S1, S2. ABDOMEN: Soft. LABORATORY DATA: Laboratory examination reveals the patient to have white count of 13,000, hemoglobin of 7, platelets of 233. Chemistries reveals a BUN of 17, creatinine of 0.7. Procalcitonin is less than 0.05. Urinalysis is noted and serology is noted. Blood cultures are negative. Dr. Diehl's progress note is reviewed. ASSESSMENT AND PLAN: A 62-year-old male with morbidly obesity with body mass index of 45 who was admitted with sepsis and upper airway narrowing and epiglottitis, had an emergency tracheostomy and developed healthcare-associated pneumonia, on vancomycin and meropenem currently. The patient appears to be improving. The patient was on tracheostomy collar for some time now, on tracheostomy collar again with all cultures thus for is negative. Do not have epiglottitis cultures. Review of orders confirms the patient's vancomycin to be active, requiring renewal and meropenem is active. We will order a vancomycin trough level. The patient is given vancomycin 5 in the morning and 5 at night. We will order a vancomycin trough level at 4:00 p.m. today, an hour before to 5 o'clock dose at 1600 hours, which is 4 o'clock in the afternoon. Pedro Luis Mccracken MD
[2017-05-02 16:11] LABS: ALBUMIN 3.6 g/dL (3.0-4.8); ALT/SGPT 40 U/L (7-56); AST/SGOT 36 U/L (17-59); BLOOD UREA NITROGEN 21 mg/dL (7-21); CALCIUM 9.1 mg/dL (8.4-10.5); GFR AFRICAN-AMERICAN > 60; GFR NON-AFRICAN AMERICAN > 60
[2017-05-03] MEDS: Metoprolol 1 mg/ml Inj IVP SCH ×5 (01:03→23:15)
[2017-05-03] MEDS: Dexamethasone 4 mg/1 ml IVP SCH ×3 (03:59→17:32)
[2017-05-03] MEDS: Vancomycin 1gm in NS 250ml 1 GM/250 ML BAG IVPB SCH ×2 (04:00→17:34)
[2017-05-03] MEDS: Meropenem 1g/NS 100mL IVPB 1 GM/100 ML PIGGYBACK IVPB SCH ×3 (05:45→21:08)
[2017-05-03 07:08] LABS: ARTERIAL BLOOD GAS HCO3 27.9 mmol/L (21-28); ARTERIAL BLOOD GAS HEMOGLOBIN 8.9 g/dL (11.7-17.4); ARTERIAL BLOOD GAS O2 CAPACITY 12.3 mL/dl (16-24); ARTERIAL BLOOD GAS O2 CONTENT 12.2 ML/dl (15-23); ARTERIAL BLOOD GAS O2 SAT 99.2 % (95-98); ARTERIAL BLOOD GAS PCO2 44 mm/Hg (35-45); ARTERIAL BLOOD GAS PH 7.41 (7.35-7.45); ARTERIAL BLOOD GAS TCO2 29.3 mmol.L (22-28)
[2017-05-03 07:12] LABS: BASO # 0.01 K/mm3 (0.0-2.0); BASO % 0.1 % (0.0-3.0); EOS % 0.2 % (1.5-5.0); GRAN # 9.65 (1.4-6.5); GRAN % 77.4 % (50.0-68.0); HEMOGLOBIN 7.9 g/dL (14.0-18.0); LYMPH # 1.6 (1.2-3.4); LYMPH % 12.8 % (22.0-35.0); MEAN CELL VOLUME 73.5 fl (80.0-105.0); MEAN CORPUSCULAR HEMOGLOBIN 19.6 pg (25.0-35.0); MEAN CORPUSCULAR HGB CONC 26.6 g/dl (31.0-37.0); MEAN PLATELET VOLUME 9.5 fl (7.0-11.0); MONO # 1.2 (0.1-0.6); MONO % 9.5 % (1.0-6.0); RBC 4.04 10^6/uL (3.5-6.1); RED CELL DISTRIBUTION WIDTH 20.6 % (11.5-14.5); WHITE BLOOD COUNT 12.5 10^3/ul (4.5-11.0)
[2017-05-03 07:46] LABS: FREE T4 0.91 ng/dL (0.78-2.19)
[2017-05-03] MEDS: Thiamine 100 mg/ml Inj IM SCH (08:59)
--- NOTE | 2017-05-03 10:18 | CP.PCM.PN ---
Subjective - Date & Time of Evaluation Date of Evaluation: 05/03/17 Time of Evaluation: 09:10 - Subjective Subjective: Comfortable on a chair, not in distress, afebrile overnight, no diarrhea. Objective - Vital Signs/Intake and Output Vital Signs (last 24 hours): Temp Pulse Resp BP Pulse Ox 98.5 F 82 26 H 163/84 H 98 05/03/17 05:52 05/03/17 06:00 05/03/17 04:30 05/03/17 05:46 05/02/17 04:00 Intake and Output: 05/02/17 05/03/17 18:59 06:59 Intake Total 1570 Output Total 1600 Balance -30 - Medications Medications: Current Medications Albuterol/Ipratropium (Duoneb 3 Mg/0.5 Mg (3 Ml) Ud) 3 ml IH [id number] PRN PRN Reason: Cough and congestion Last Admin: 05/02/17 04:00 Dose: 3 ml Dexamethasone (Decadron Inj) 2 mg IVP Q8H [facility] Last Admin: 05/03/17 03:59 Dose: 2 mg Folic Acid (Folic Acid) 1 mg IVP DAILY [facility] Last Admin: 05/02/17 09:33 Dose: 1 mg Heparin Sodium (Porcine) (Heparin) 5,000 units SC Q8 [facility] PRN Reason: Protocol Last Admin: 05/03/17 05:46 Dose: 5,000 units Vancomycin HCl (Vancomycin 1gm) 1 gm in 250 mls @ 167 mls/hr IVPB Q12H [facility] PRN Reason: Protocol Last Admin: 05/03/17 04:00 Dose: 167 mls/hr Meropenem/Sodium Chloride (Meropenem 1g/Ns 100ml Ivpb) 1 gm in 100 mls @ 100 mls/hr IVPB Q8 [facility] PRN Reason: Protocol Stop: 05/14/17 14:01 Last Admin: 05/03/17 05:45 Dose: 100 mls/hr Lorazepam (Ativan) 4 mg IVP Q4H PRN; Protocol PRN Reason: Agitation Metoprolol Tartrate (Lopressor) 5 mg IVP Q6 [facility] Last Admin: 05/03/17 05:46 Dose: 5 mg Ondansetron HCl (Zofran Inj) 4 mg IVP Q4H PRN PRN Reason: Nausea/Vomiting Last Admin: 04/30/17 09:38 Dose: 4 mg Pantoprazole Sodium (Protonix Inj) 40 mg IVP DAILY [facility] Last Admin: 05/02/17 09:24 Dose: 40 mg Thiamine HCl (Vitamin B1 Inj) 100 mg IM DAILY [facility] Last Admin: 05/02/17 09:25 Dose: 100 mg - Labs Labs: 05/02/17 05:00 05/02/17 15:45 - Constitutional Appears: Non-toxic, Chronically Ill - Head Exam Head Exam: NORMAL INSPECTION - Neck Exam Neck Exam: absent: Meningismus - Respiratory Exam Respiratory Exam: Decreased Breath Sounds - Cardiovascular Exam Cardiovascular Exam: +S1, +S2 - GI/Abdominal Exam GI & Abdominal Exam: Soft. absent: Tenderness Assessment and Plan - Assessment and Plan (Free Text) Plan: Assessment Sepsis with right sided HCAP, in this patient with epiglotittis morbid obesity with BMI 45 Plan Continue Vancomycin and Merrem; Vanco trough is 5.7 - will give another 1 gm of Vanco IV and re-check Vanco trough before the 4th dose from the added dose will continue to monitor clinically
--- NOTE | 2017-05-03 11:10 | CP.PCM.PN ---
<Jose Masters - Last Filed: 05/04/17 03:11> Subjective - Date & Time of Evaluation Date of Evaluation: 05/03/17 Time of Evaluation: 05:50 - Subjective Subjective: Patient seen and examined sitting up in chair. States he feels fine and states he is bringing up lots of phlegm. Patient states he misses his 12 year old son but is looking forward to going home soon. Denies chest pain, diarrhea, nausea, vomiting, abdominal pain, fevers, chills. Objective - Vital Signs/Intake and Output Vital Signs (last 24 hours): Temp Pulse Resp BP Pulse Ox 98.7 F 88 21 139/82 98 05/03/17 08:00 05/03/17 10:00 05/03/17 10:00 05/03/17 10:00 05/02/17 04:00 Intake and Output: 05/03/17 05/03/17 06:59 18:59 Intake Total 1250 Output Total 1900 Balance -650 - Medications Medications: Current Medications Albuterol/Ipratropium (Duoneb 3 Mg/0.5 Mg (3 Ml) Ud) 3 ml IH [id number] PRN PRN Reason: Cough and congestion Last Admin: 05/02/17 04:00 Dose: 3 ml Dexamethasone (Decadron Inj) 2 mg IVP Q8H [facility] Last Admin: 05/03/17 03:59 Dose: 2 mg Folic Acid (Folic Acid) 1 mg IVP DAILY [facility] Last Admin: 05/03/17 10:04 Dose: 1 mg Heparin Sodium (Porcine) (Heparin) 5,000 units SC Q8 [facility] PRN Reason: Protocol Last Admin: 05/03/17 05:46 Dose: 5,000 units Vancomycin HCl (Vancomycin 1gm) 1 gm in 250 mls @ 167 mls/hr IVPB Q12H [facility] PRN Reason: Protocol Last Admin: 05/03/17 04:00 Dose: 167 mls/hr Meropenem/Sodium Chloride (Meropenem 1g/Ns 100ml Ivpb) 1 gm in 100 mls @ 100 mls/hr IVPB Q8 [facility] PRN Reason: Protocol Stop: 05/14/17 14:01 Last Admin: 05/03/17 05:45 Dose: 100 mls/hr Vancomycin HCl (Vancomycin 1gm) 1 gm in 250 mls @ 167 mls/hr IVPB ONCE ONE PRN Reason: Protocol Stop: 05/03/17 13:29 Lorazepam (Ativan) 4 mg IVP Q4H PRN; Protocol PRN Reason: Agitation Metoprolol Tartrate (Lopressor) 5 mg IVP Q6 [facility] Last Admin: 05/03/17 05:46 Dose: 5 mg Ondansetron HCl (Zofran Inj) 4 mg IVP Q4H PRN PRN Reason: Nausea/Vomiting Last Admin: 04/30/17 09:38 Dose: 4 mg Pantoprazole Sodium (Protonix Inj) 40 mg IVP DAILY [facility] Last Admin: 05/03/17 08:59 Dose: 40 mg Thiamine HCl (Vitamin B1 Inj) 100 mg IM DAILY [facility] Last Admin: 05/03/17 08:59 Dose: 100 mg - Labs Labs: 05/03/17 05:30 05/02/17 15:45 - Constitutional Appears: Non-toxic, No Acute Distress - Head Exam Head Exam: ATRAUMATIC, NORMAL INSPECTION, NORMOCEPHALIC - Eye Exam Eye Exam: EOMI, Normal appearance - ENT Exam ENT Exam: Mucous Membranes Moist - Neck Exam Additional comments: trach collar in place - Respiratory Exam Respiratory Exam: Clear to Ausculation Bilateral, NORMAL BREATHING PATTERN. absent: Rales, Rhonchi, Wheezes - Cardiovascular Exam Cardiovascular Exam: REGULAR RHYTHM, +S1, +S2 - GI/Abdominal Exam GI & Abdominal Exam: Soft, Normal Bowel Sounds - Neurological Exam Neurological Exam: Alert, Awake, Oriented x3 - Psychiatric Exam Psychiatric exam: Normal Affect, Normal Mood - Skin Skin Exam: Intact, Normal Color, Warm Assessment and Plan - Assessment and Plan (Free Text) Assessment: 62 year old male with no past medical history presenting with hypoxemic respiratory failure secondary to upper airway narrowing/obstruction due to epiglottitis. Plan: Dyspnea ue to hypopharangyeal swelling Epiglottitis vs URI vs CHF vs mixed presentation CXR: Pulm congestion (mild) Neck Soft Tissue CT: Shows prominence of aryaepiglottis and narrowing of the airways ProCal negative Blood/Urine Cultures continue to revealed no growth Echo revealed no abnormalities ENT Consulted;Tracheostomy done as per ENT. Patient transitioned to trach collar and is tolerating well. Will discuss regarding outpatient appoint for follow up. ICU on consult : patient was originally sedated with fentanyl and precedex, fentanyl has been discontinued. Patient continues to receive ativan for agitation. As per nephew patient has a baseline of agitation and aggression. Continue with Meropenem and Vancomycin. Leukocytosis initially present due to infection and use of decadron, decadron dose tapered; leukocytosis is downtrending. As per patient's nephew, patient has a 12 year old son who has been out sick for over a week with a throat infection. Will start thin liquid diet as per speech language pathology evaluation Anemia Iron deficiency anemia FOBT test ordered; negative Continue supplementation with Venofer Ectasia of the ascending thoracic aorta up to 4.0cm and aneurysm of the distal aortic arch/descending aorta up to 5.0cm in diameter Vascular surgery consulted No current intervention at this time; will follow up as outpatient Hyperthyroidism Decrease TSH in presence of normal free T4, t3 lower end of normal non thyroidal illness vs subclinical hyperthyroidism will re-check thyroid studies as patient's progresses Hyponatremia resolved Hx of Alcoholism continue with folic acid Will discuss alcohol cessation with patient when sedation has ended Possible Hx of HLD Lipid panel reveals no abnormalities Proph Protonix Heparin Patient seen and discussed with Dr.Rangasamy Jose Blount PGY1 Dispo: will D/C meghan, patient will be transferred from ICU once bed is available, Will discuss with respiratory therapy and physical therapy about having patient up and moving without oxygen see if patient can tolerate. Contact ENT for follow up appoint outpatient for trach removal. <Tejas Lopez - Last Filed: 05/04/17 16:03> Objective - Vital Signs/Intake and Output Vital Signs (last 24 hours): Temp Pulse Resp BP Pulse Ox 98.2 F 97 H 29 H 147/61 95 05/04/17 10:19 05/04/17 14:28 05/04/17 06:00 05/04/17 14:28 05/04/17 07:06 Intake and Output: 05/04/17 05/04/17 06:59 18:59 Intake Total 450 Output Total 1575 Balance -1125 - Medications Medications: Current Medications Acetaminophen (Tylenol 325mg Tab) 650 mg PO Q6H PRN PRN Reason: Fever >100.4 F Last Admin: 05/03/17 16:00 Dose: 650 mg Albuterol/Ipratropium (Duoneb 3 Mg/0.5 Mg (3 Ml) Ud) 3 ml IH [id number] PRN PRN Reason: Cough and congestion Last Admin: 05/02/17 04:00 Dose: 3 ml Folic Acid (Folic Acid) 1 mg IVP DAILY [facility] Last Admin: 05/04/17 10:44 Dose: 1 mg Heparin Sodium (Porcine) (Heparin) 5,000 units SC Q8 [facility] PRN Reason: Protocol Last Admin: 05/04/17 14:29 Dose: 5,000 units Vancomycin HCl (Vancomycin 1gm) 1 gm in 250 mls @ 167 mls/hr IVPB Q12H [facility] PRN Reason: Protocol Last Admin: 05/04/17 04:14 Dose: 167 mls/hr Meropenem/Sodium Chloride (Meropenem 1g/Ns 100ml Ivpb) 1 gm in 100 mls @ 100 mls/hr IVPB Q8 [facility] PRN Reason: Protocol Stop: 05/14/17 14:01 Last Admin: 05/04/17 14:28 Dose: 100 mls/hr Lorazepam (Ativan) 4 mg IVP Q4H PRN; Protocol PRN Reason: Agitation Metoprolol Tartrate (Lopressor) 5 mg IVP Q6 [facility] Last Admin: 05/04/17 14:28 Dose: 5 mg Ondansetron HCl (Zofran Inj) 4 mg IVP Q4H PRN PRN Reason: Nausea/Vomiting Last Admin: 04/30/17 09:38 Dose: 4 mg Pantoprazole Sodium (Protonix Inj) 40 mg IVP DAILY [facility] Last Admin: 05/04/17 09:56 Dose: 40 mg Prednisone (Prednisone Tab) 20 mg PO DAILY [facility] Last Admin: 05/04/17 10:46 Dose: 20 mg Thiamine HCl (Vitamin B1 Inj) 100 mg IM DAILY [facility] Last Admin: 05/04/17 09:57 Dose: 100 mg - Labs Labs: 05/04/17 06:00 05/02/17 15:45 Attending/Attestation - Attestation I have personally seen and examined this patient.: Yes I have fully participated in the care of the patient.: Yes I have reviewed all pertinent clinical information, including history, physical exam and plan: Yes Notes (Text): 05/04/17 15:57 Attending note; Patient seen and examined with resident in ICU. Patient is a 62 year old morbidly obese male with obstructive sleep apnea non compliant with cpap at home who came for evaluation of cough, hoarseness, dyspnea, stridor and found to have hypoxemic hypercapneic respiratory failure due to upper airway compromise related to hypopharyngeal swelling. started on IV decadron taper,meropenem, vancomycin and emergent trach was performed by ENT. CXR revealed RLL infiltrate and cardiomegaly. Patient is tolerating trach collar. patient is able to talk without difficulty. Tolerating diet. Blood and urine cultures negative. HIV, RPR, influenza negative. Echo is normal. He was also found to have incidental finding of descending AAA (5cm) and ascending AAA of 4 cm. Patient will be advised to follow up with cardiothoracic surgeon as an outpatient once patient becomes clinically stable. chronic anemia; got IV Venofer. Hemoglobin is stable. Stool for occult blood is negative. Needs outpatient GI evaluation. Case discussed with social science teacher for discharge planning. PT evaluation requested. Continue to taper Oxygen. Upon discharge patient will follow up with PMD of choice.
[2017-05-03] MEDS ORDERED: Vancomycin 1gm in NS 250ml 1 GM/250 ML BAG IVPB ONE (12:00)
[2017-05-03] MEDS ORDERED: Dexamethasone 4 mg/1 ml IVP SCH (13:03)
[2017-05-04] MEDS: Dexamethasone 4 mg/1 ml IVP SCH ×2 (03:08→09:56)
[2017-05-04] MEDS: Vancomycin 1gm in NS 250ml 1 GM/250 ML BAG IVPB SCH ×2 (04:14→17:34)
[2017-05-04] MEDS: Meropenem 1g/NS 100mL IVPB 1 GM/100 ML PIGGYBACK IVPB SCH ×3 (05:11→22:01)
[2017-05-04] MEDS: Metoprolol 1 mg/ml Inj IVP SCH ×3 (05:11→17:33)
--- NOTE | 2017-05-04 06:03 | CP.PCM.PN ---
<Jose Masters - Last Filed: 05/04/17 16:34> Subjective - Date & Time of Evaluation Date of Evaluation: 05/04/17 Time of Evaluation: 05:50 - Subjective Subjective: Patient seen and examined at bedside in no acute distress. As per nursing staff patient was sitting in chair overnight watching tv with no complaints. 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 Patient denies shortness of breath, chest pain, nausea, vomiting, diarrhea, abdominal pain. Objective - Vital Signs/Intake and Output Vital Signs (last 24 hours): Temp Pulse Resp BP Pulse Ox 98.5 F 101 H 29 H 137/91 H 94 L 05/04/17 04:00 05/04/17 05:11 05/04/17 05:00 05/04/17 05:11 05/03/17 20:00 Intake and Output: 05/03/17 05/04/17 18:59 06:59 Intake Total 1520 Output Total 3200 300 Balance -1680 -300 - Medications Medications: Current Medications Acetaminophen (Tylenol 325mg Tab) 650 mg PO Q6H PRN PRN Reason: Fever >100.4 F Last Admin: 05/03/17 16:00 Dose: 650 mg Albuterol/Ipratropium (Duoneb 3 Mg/0.5 Mg (3 Ml) Ud) 3 ml IH [id number] PRN PRN Reason: Cough and congestion Last Admin: 05/02/17 04:00 Dose: 3 ml Dexamethasone (Decadron Inj) 1 mg IVP Q8H [facility] Last Admin: 05/04/17 03:08 Dose: 1 mg Folic Acid (Folic Acid) 1 mg IVP DAILY [facility] Last Admin: 05/03/17 10:04 Dose: 1 mg Heparin Sodium (Porcine) (Heparin) 5,000 units SC Q8 [facility] PRN Reason: Protocol Last Admin: 05/04/17 05:11 Dose: 5,000 units Vancomycin HCl (Vancomycin 1gm) 1 gm in 250 mls @ 167 mls/hr IVPB Q12H [facility] PRN Reason: Protocol Last Admin: 05/04/17 04:14 Dose: 167 mls/hr Meropenem/Sodium Chloride (Meropenem 1g/Ns 100ml Ivpb) 1 gm in 100 mls @ 100 mls/hr IVPB Q8 [facility] PRN Reason: Protocol Stop: 05/14/17 14:01 Last Admin: 05/04/17 05:11 Dose: 100 mls/hr Lorazepam (Ativan) 4 mg IVP Q4H PRN; Protocol PRN Reason: Agitation Metoprolol Tartrate (Lopressor) 5 mg IVP Q6 [facility] Last Admin: 05/04/17 05:11 Dose: 5 mg Ondansetron HCl (Zofran Inj) 4 mg IVP Q4H PRN PRN Reason: Nausea/Vomiting Last Admin: 04/30/17 09:38 Dose: 4 mg Pantoprazole Sodium (Protonix Inj) 40 mg IVP DAILY [facility] Last Admin: 05/03/17 08:59 Dose: 40 mg Thiamine HCl (Vitamin B1 Inj) 100 mg IM DAILY [facility] Last Admin: 05/03/17 08:59 Dose: 100 mg - Labs Labs: 05/03/17 05:30 05/02/17 15:45 - Constitutional Appears: Non-toxic, No Acute Distress - Head Exam Head Exam: ATRAUMATIC, NORMAL INSPECTION, NORMOCEPHALIC - Eye Exam Eye Exam: EOMI, Normal appearance - ENT Exam ENT Exam: Mucous Membranes Moist, Normal Exam - Neck Exam Neck Exam: Normal Inspection Additional comments: trach collar in place - Respiratory Exam Respiratory Exam: Clear to Ausculation Bilateral, NORMAL BREATHING PATTERN. absent: Rhonchi, Wheezes - Cardiovascular Exam Cardiovascular Exam: REGULAR RHYTHM, +S1, +S2 - GI/Abdominal Exam GI & Abdominal Exam: Soft, Normal Bowel Sounds - Back Exam Back Exam: NORMAL INSPECTION - Neurological Exam Neurological Exam: Alert, Awake, Oriented x3 - Psychiatric Exam Psychiatric exam: Normal Affect, Normal Mood - Skin Skin Exam: Intact, Normal Color, Warm Assessment and Plan - Assessment and Plan (Free Text) Assessment: 62 year old male with no past medical history presenting with hypoxemic respiratory failure secondary to upper airway narrowing/obstruction due to epiglottitis. Plan: Dyspnea ue to hypopharangyeal swelling Epiglottitis vs URI vs CHF vs mixed presentation -CXR: Pulm congestion (mild) -Neck Soft Tissue CT: Shows prominence of aryaepiglottis and narrowing of the airways -ProCal negative -Blood/Urine Cultures continue to revealed no growth -Echo revealed no abnormalities -ENT Consulted;Tracheostomy done as per ENT. Patient transitioned to trach collar and is tolerating well. Will discuss regarding outpatient appoint for follow up. -Repeat CT neck ordered so ENT can evaluate level of edema present to determine permanent trach vs temporary -ICU on consult : patient was originally sedated with fentanyl and precedex, fentanyl has been discontinued. Patient continues to receive ativan for agitation. As per nephew patient has a baseline of agitation and aggression. -Continue with Meropenem and Vancomycin. Leukocytosis initially present due to infection and use of decadron, decadron dose tapered down to Prednisone PO daily ; leukocytosis slight uptrend, will continue to monitor. -Will start thin liquid diet as per speech language pathology evaluation -Physical therapy recommends transfer to [facility]U As per patient's nephew, patient has a 12 year old son who has been out sick for over a week with a throat infection. Anemia -Iron deficiency anemia -FOBT test ordered; negative -Continue supplementation with Venofer Ectasia of the ascending thoracic aorta up to 4.0cm and aneurysm of the distal aortic arch/descending aorta up to 5.0cm in diameter -Vascular surgery consulted -No current intervention at this time; will follow up as outpatient Hyperthyroidism -Decrease TSH in presence of normal free T4, t3 lower end of normal -non thyroidal illness vs subclinical hyperthyroidism -will re-check thyroid studies as patient's progresses Hyponatremia -resolved Hx of Alcoholism -continue with folic acid and thiamine -Will discuss alcohol cessation with patient when sedation has ended Possible Hx of HLD -Lipid panel reveals no abnormalities Proph -Protonix -Heparin Patient seen and discussed with Dr.Rangasamy Jose Blount PGY1 Dispo: will D/C meghan, patient will be transferred from ICU once bed is available, Discussed with respiratory therapy and physical therapy about having patient up and moving without oxygen see if patient can tolerate. Patient will follow up with ENT as outpatient regarding trach. Patient also to follow up with sleep specialist for official diagnosis of obstructive sleep apnea. <Tejas Lopez - Last Filed: 05/04/17 18:39> Objective - Vital Signs/Intake and Output Vital Signs (last 24 hours): Temp Pulse Resp BP Pulse Ox 98.7 F 93 H 29 H 122/81 95 05/04/17 16:00 05/04/17 17:33 05/04/17 06:00 05/04/17 17:33 05/04/17 07:06 Intake and Output: 05/04/17 05/04/17 06:59 18:59 Intake Total 450 Output Total 1575 Balance -1125 - Medications Medications: Current Medications Acetaminophen (Tylenol 325mg Tab) 650 mg PO Q6H PRN PRN Reason: Fever >100.4 F Last Admin: 05/03/17 16:00 Dose: 650 mg Albuterol/Ipratropium (Duoneb 3 Mg/0.5 Mg (3 Ml) Ud) 3 ml IH [id number] PRN PRN Reason: Cough and congestion Last Admin: 05/02/17 04:00 Dose: 3 ml Folic Acid (Folic Acid) 1 mg IVP DAILY [facility] Last Admin: 05/04/17 10:44 Dose: 1 mg Heparin Sodium (Porcine) (Heparin) 5,000 units SC Q8 [facility] PRN Reason: Protocol Last Admin: 05/04/17 14:29 Dose: 5,000 units Vancomycin HCl (Vancomycin 1gm) 1 gm in 250 mls @ 167 mls/hr IVPB Q12H [facility] PRN Reason: Protocol Last Admin: 05/04/17 17:34 Dose: 167 mls/hr Meropenem/Sodium Chloride (Meropenem 1g/Ns 100ml Ivpb) 1 gm in 100 mls @ 100 mls/hr IVPB Q8 [facility] PRN Reason: Protocol Stop: 05/14/17 14:01 Last Admin: 05/04/17 14:28 Dose: 100 mls/hr Lorazepam (Ativan) 4 mg IVP Q4H PRN; Protocol PRN Reason: Agitation Metoprolol Tartrate (Lopressor) 5 mg IVP Q6 [facility] Last Admin: 05/04/17 17:33 Dose: 5 mg Ondansetron HCl (Zofran Inj) 4 mg IVP Q4H PRN PRN Reason: Nausea/Vomiting Last Admin: 04/30/17 09:38 Dose: 4 mg Pantoprazole Sodium (Protonix Inj) 40 mg IVP DAILY [facility] Last Admin: 05/04/17 09:56 Dose: 40 mg Prednisone (Prednisone Tab) 20 mg PO DAILY [facility] Last Admin: 05/04/17 10:46 Dose: 20 mg Thiamine HCl (Vitamin B1 Inj) 100 mg IM DAILY [facility] Last Admin: 05/04/17 09:57 Dose: 100 mg - Labs Labs: 05/04/17 06:00 05/02/17 15:45 Attending/Attestation - Attestation I have personally seen and examined this patient.: Yes I have fully participated in the care of the patient.: Yes I have reviewed all pertinent clinical information, including history, physical exam and plan: Yes Notes (Text): 05/04/17 18:38 Attending note; Patient seen and examined with resident in ICU. Patient is a 62 year old morbidly obese male with obstructive sleep apnea non compliant with cpap at home who came for evaluation of cough, hoarseness, dyspnea, stridor and found to have hypoxemic hypercapneic respiratory failure due to upper airway compromise related to hypopharyngeal swelling. started on IV decadron taper,meropenem, vancomycin and emergent trach was performed by ENT. CXR revealed RLL infiltrate and cardiomegaly. Patient is tolerating trach collar. repeat CT showed improvement in swelling of juarez epiglottis.follow-up with ENT closely. patient is able to talk without difficulty. Tolerating diet. Blood and urine cultures negative. HIV, RPR, influenza negative. Echo is normal. He was also found to have incidental finding of descending AAA (5cm) and ascending AAA of 4 cm. Patient will be advised to follow up with cardiothoracic surgeon as an outpatient once patient becomes clinically stable. chronic anemia; got IV Venofer. Hemoglobin is stable. Stool for occult blood is negative. Needs outpatient GI evaluation. Case discussed with psychiatric social worker for discharge planning. PT evaluation appreciated. Subacute rehabilitation recommended. Continue to taper Oxygen. Upon discharge patient will follow up with PMD of choice.
[2017-05-04 06:47] LABS: BASO # 0.02 K/mm3 (0.0-2.0); BASO % 0.2 % (0.0-3.0); EOS # 0.1 (0.0-0.7); EOS % 0.7 % (1.5-5.0); GRAN # 10.05 (1.4-6.5); GRAN % 76.1 % (50.0-68.0); LYMPH # 1.8 (1.2-3.4); LYMPH % 13.5 % (22.0-35.0); MEAN CELL VOLUME 73.9 fl (80.0-105.0); MEAN CORPUSCULAR HEMOGLOBIN 19.9 pg (25.0-35.0); MEAN CORPUSCULAR HGB CONC 26.8 g/dl (31.0-37.0); MEAN PLATELET VOLUME 9.1 fl (7.0-11.0); MONO # 1.3 (0.1-0.6); MONO % 9.5 % (1.0-6.0); RBC 4.03 10^6/uL (3.5-6.1); RED CELL DISTRIBUTION WIDTH 21.3 % (11.5-14.5); WHITE BLOOD COUNT 13.2 10^3/ul (4.5-11.0)
[2017-05-04 08:09] LABS: ARTERIAL BLOOD GAS HCO3 21.9 mmol/L (21-28); ARTERIAL BLOOD GAS HEMOGLOBIN 6.2 g/dL (11.7-17.4); ARTERIAL BLOOD GAS O2 CAPACITY 8.6 mL/dl (16-24); ARTERIAL BLOOD GAS O2 CONTENT 8.5 ML/dl (15-23); ARTERIAL BLOOD GAS O2 SAT 98.8 % (95-98); ARTERIAL BLOOD GAS PCO2 33 mm/Hg (35-45); ARTERIAL BLOOD GAS PH 7.43 (7.35-7.45); ARTERIAL BLOOD GAS TCO2 22.9 mmol.L (22-28)
[2017-05-04] MEDS: Thiamine 100 mg/ml Inj IM SCH (09:57)
--- NOTE | 2017-05-04 10:04 | CP.PCM.PN ---
Subjective - Date & Time of Evaluation Date of Evaluation: 05/04/17 Time of Evaluation: 09:50 - Subjective Subjective: Comfortable on a chair, no fevers overnight, not in distress. No diarrhea. Objective - Vital Signs/Intake and Output Vital Signs (last 24 hours): Temp Pulse Resp BP Pulse Ox 98.7 F 83 29 H 121/76 95 05/04/17 08:00 05/04/17 08:10 05/04/17 06:00 05/04/17 07:06 05/04/17 07:06 Intake and Output: 05/04/17 05/04/17 06:59 18:59 Intake Total 450 Output Total 1575 Balance -1125 - Medications Medications: Current Medications Acetaminophen (Tylenol 325mg Tab) 650 mg PO Q6H PRN PRN Reason: Fever >100.4 F Last Admin: 05/03/17 16:00 Dose: 650 mg Albuterol/Ipratropium (Duoneb 3 Mg/0.5 Mg (3 Ml) Ud) 3 ml IH [id number] PRN PRN Reason: Cough and congestion Last Admin: 05/02/17 04:00 Dose: 3 ml Dexamethasone (Decadron Inj) 1 mg IVP Q8H [facility] Last Admin: 05/04/17 03:08 Dose: 1 mg Folic Acid (Folic Acid) 1 mg IVP DAILY [facility] Last Admin: 05/03/17 10:04 Dose: 1 mg Heparin Sodium (Porcine) (Heparin) 5,000 units SC Q8 [facility] PRN Reason: Protocol Last Admin: 05/04/17 05:11 Dose: 5,000 units Vancomycin HCl (Vancomycin 1gm) 1 gm in 250 mls @ 167 mls/hr IVPB Q12H [facility] PRN Reason: Protocol Last Admin: 05/04/17 04:14 Dose: 167 mls/hr Meropenem/Sodium Chloride (Meropenem 1g/Ns 100ml Ivpb) 1 gm in 100 mls @ 100 mls/hr IVPB Q8 [facility] PRN Reason: Protocol Stop: 05/14/17 14:01 Last Admin: 05/04/17 05:11 Dose: 100 mls/hr Lorazepam (Ativan) 4 mg IVP Q4H PRN; Protocol PRN Reason: Agitation Metoprolol Tartrate (Lopressor) 5 mg IVP Q6 [facility] Last Admin: 05/04/17 05:11 Dose: 5 mg Ondansetron HCl (Zofran Inj) 4 mg IVP Q4H PRN PRN Reason: Nausea/Vomiting Last Admin: 04/30/17 09:38 Dose: 4 mg Pantoprazole Sodium (Protonix Inj) 40 mg IVP DAILY [facility] Last Admin: 05/03/17 08:59 Dose: 40 mg Thiamine HCl (Vitamin B1 Inj) 100 mg IM DAILY [facility] Last Admin: 05/03/17 08:59 Dose: 100 mg - Labs Labs: 05/04/17 06:00 05/02/17 15:45 - Constitutional Appears: Non-toxic, Chronically Ill - Head Exam Head Exam: NORMAL INSPECTION - Neck Exam Neck Exam: absent: Meningismus - Respiratory Exam Respiratory Exam: Decreased Breath Sounds - Cardiovascular Exam Cardiovascular Exam: +S1, +S2 - GI/Abdominal Exam GI & Abdominal Exam: Soft. absent: Tenderness Assessment and Plan - Assessment and Plan (Free Text) Plan: Assessment Sepsis with right sided HCAP, in this patient with epiglotittis morbid obesity with BMI 45 Plan Continue Vancomycin and Merrem day 5 - should complete at least 7 days of therapy; Vanco trough is 5.7 - has been given another 1 gm of Vanco IV yesterday and will re-check Vanco trough before the 4th dose from the added dose (tomorrow morning) will continue to monitor clinically
--- NOTE | 2017-05-04 10:56 | CT ---
PROCEDURE: CT NECK WITHOUT CONTRAST HISTORY: assess supra/epi glottiis swelling COMPARISON: 04/28/2017 TECHNIQUE: CT of the neck without intravenous contrast. Coronal and sagittal reformats generated. Radiation dose: DLP 776 mGy-cm This CT exam was performed using one or more of the following dose reduction techniques: Automated exposure control, adjustment of the mA and/or kV according to patient size, and/or use of iterative reconstruction technique. FINDINGS: NASOPHARYNX: Unremarkable. SUPRAHYOID NECK: Unremarkable oropharynx, oral cavity, parapharyngeal space and retropharyngeal space. INFRAHYOID NECK: The epiglottis is normal. There is some thickening of the aryepiglottic folds which has shown improvement since the previous study MASS: None. GLANDS: Parotid and submandibular glands unremarkable. Normal size thyroid gland, without nodule. LYMPH NODES: Normal. No lymphadenopathy. CERVICAL SPINE: No fracture or focal lesion. OTHER FINDINGS: A tracheostomy is now present IMPRESSION: Persistent thickening of the aryepiglottic folds showing improvement from previous study. The epiglottis is normal in thickness
[2017-05-05] MEDS: Metoprolol 1 mg/ml Inj IVP SCH ×3 (01:58→12:11)
[2017-05-05] MEDS: Vancomycin 1gm in NS 250ml 1 GM/250 ML BAG IVPB SCH ×2 (04:25→18:28)
[2017-05-05] MEDS: Meropenem 1g/NS 100mL IVPB 1 GM/100 ML PIGGYBACK IVPB SCH ×3 (05:58→21:47)
[2017-05-05 07:13] LABS: BASO # 0.03 K/mm3 (0.0-2.0); BASO % 0.2 % (0.0-3.0); EOS # 0.1 (0.0-0.7); GRAN # 8.64 (1.4-6.5); GRAN % 64.3 % (50.0-68.0); HEMOGLOBIN 8.3 g/dL (14.0-18.0); LYMPH # 3.4 (1.2-3.4); LYMPH % 25.4 % (22.0-35.0); MEAN CELL VOLUME 74.8 fl (80.0-105.0); MEAN CORPUSCULAR HEMOGLOBIN 20.1 pg (25.0-35.0); MEAN CORPUSCULAR HGB CONC 26.9 g/dl (31.0-37.0); MEAN PLATELET VOLUME 9.6 fl (7.0-11.0); MONO # 1.2 (0.1-0.6); MONO % 9.1 % (1.0-6.0); RBC 4.13 10^6/uL (3.5-6.1); RED CELL DISTRIBUTION WIDTH 22.4 % (11.5-14.5); WHITE BLOOD COUNT 13.4 10^3/ul (4.5-11.0)
[2017-05-05 07:38] LABS: ALB/GLOB RATIO 0.9 (1.1-1.8); ALBUMIN 3.1 g/dL (3.0-4.8); ALT/SGPT 34 U/L (7-56); AST/SGOT 42 U/L (17-59); BLOOD UREA NITROGEN 13 mg/dL (7-21); CALCIUM 8.8 mg/dL (8.4-10.5); GFR AFRICAN-AMERICAN > 60; GFR NON-AFRICAN AMERICAN > 60
[2017-05-05] MEDS: Thiamine 100 mg/ml Inj IM SCH (09:48)
--- NOTE | 2017-05-05 15:54 | CP.PCM.PN ---
<Jose Masters - Last Filed: 05/06/17 04:01> Subjective - Date & Time of Evaluation Date of Evaluation: 05/05/17 Time of Evaluation: 08:20 - Subjective Subjective: Patient seen and examined at bedside in no acute distress. States he feels great and is willing to go to subacute rehab for further progress. Denies shortness of breath, chest pain, abdominal pain, nausea, vomiting, diarrhea, fevers, chills. Continues to expectorate. Objective - Vital Signs/Intake and Output Vital Signs (last 24 hours): Temp Pulse Resp BP Pulse Ox 98.1 F 104 H 19 129/87 95 05/05/17 06:00 05/05/17 12:11 05/05/17 06:00 05/05/17 12:11 05/05/17 06:00 Intake and Output: 05/05/17 05/05/17 06:59 18:59 Intake Total 350 Balance 350 - Medications Medications: Current Medications Acetaminophen (Tylenol 325mg Tab) 650 mg PO Q6H PRN PRN Reason: Fever >100.4 F Last Admin: 05/03/17 16:00 Dose: 650 mg Albuterol/Ipratropium (Duoneb 3 Mg/0.5 Mg (3 Ml) Ud) 3 ml IH [id number] PRN PRN Reason: Cough and congestion Last Admin: 05/02/17 04:00 Dose: 3 ml Folic Acid (Folic Acid) 1 mg PO DAILY [facility] Heparin Sodium (Porcine) (Heparin) 5,000 units SC Q8 [facility] PRN Reason: Protocol Last Admin: 05/05/17 14:57 Dose: 5,000 units Vancomycin HCl (Vancomycin 1gm) 1 gm in 250 mls @ 167 mls/hr IVPB Q12H [facility] PRN Reason: Protocol Last Admin: 05/05/17 04:25 Dose: 167 mls/hr Meropenem/Sodium Chloride (Meropenem 1g/Ns 100ml Ivpb) 1 gm in 100 mls @ 100 mls/hr IVPB Q8 [facility] PRN Reason: Protocol Stop: 05/14/17 14:01 Last Admin: 05/05/17 14:56 Dose: 100 mls/hr Lorazepam (Ativan) 4 mg IVP Q4H PRN; Protocol PRN Reason: Agitation Metoprolol Tartrate (Lopressor) 5 mg IVP Q6 [facility] Last Admin: 05/05/17 12:11 Dose: 5 mg Ondansetron HCl (Zofran Inj) 4 mg IVP Q4H PRN PRN Reason: Nausea/Vomiting Last Admin: 04/30/17 09:38 Dose: 4 mg Pantoprazole Sodium (Protonix Inj) 40 mg IVP DAILY [facility] Last Admin: 05/05/17 09:48 Dose: 40 mg Prednisone (Prednisone Tab) 20 mg PO DAILY [facility] Last Admin: 05/05/17 09:48 Dose: 20 mg Thiamine HCl (Vitamin B1 Tab) 100 mg PO DAILY [facility] - Labs Labs: 05/05/17 06:30 05/05/17 06:30 - Constitutional Appears: Non-toxic, No Acute Distress - Head Exam Head Exam: ATRAUMATIC, NORMAL INSPECTION, NORMOCEPHALIC - Eye Exam Eye Exam: EOMI, Normal appearance - ENT Exam ENT Exam: Mucous Membranes Moist, Normal Exam - Neck Exam Neck Exam: Normal Inspection Additional comments: trach collar in place - Respiratory Exam Respiratory Exam: Clear to Ausculation Bilateral, NORMAL BREATHING PATTERN - Cardiovascular Exam Cardiovascular Exam: REGULAR RHYTHM, +S1, +S2 - GI/Abdominal Exam GI & Abdominal Exam: Soft, Normal Bowel Sounds Additional comments: large round abdomen - Extremities Exam Extremities Exam: Normal Inspection - Back Exam Back Exam: NORMAL INSPECTION - Neurological Exam Neurological Exam: Alert, Awake, Oriented x3 - Psychiatric Exam Psychiatric exam: Normal Affect, Normal Mood - Skin Skin Exam: Intact, Normal Color, Warm Assessment and Plan - Assessment and Plan (Free Text) Assessment: 62 year old male with no past medical history presenting with hypoxemic respiratory failure secondary to upper airway narrowing/obstruction due to epiglottitis. Plan: Dyspnea ue to hypopharangyeal swelling Epiglottitis vs URI vs CHF vs mixed presentation -CXR: Pulm congestion (mild) -Neck Soft Tissue CT: Shows prominence of aryaepiglottis and narrowing of the airways -ProCal negative -Blood/Urine Cultures continue to revealed no growth -Echo revealed no abnormalities -ENT Consulted;Tracheostomy done as per ENT. Patient transitioned to trach collar and is tolerating well. Will discuss regarding outpatient appoint for follow up. -Repeat CT neck ordered so ENT can evaluate level of edema present to determine permanent trach vs temporary -ICU on consult : patient was originally sedated with fentanyl and precedex, fentanyl has been discontinued. Patient continues to receive ativan for agitation. As per nephew patient has a baseline of agitation and aggression. -Continue with Meropenem and Vancomycin. Leukocytosis initially present due to infection and use of decadron, decadron dose tapered down to Prednisone PO daily ; leukocytosis slight uptrend, will continue to monitor. -Will start thin liquid diet as per speech language pathology evaluation -Physical therapy recommends transfer to [facility]/TCU; currently awaiting authorization from insurance company as [place]. As per patient's nephew, patient has a 12 year old son who has been out sick for over a week with a throat infection. Anemia -Iron deficiency anemia -FOBT test ordered; negative -Continue supplementation with Venofer Ectasia of the ascending thoracic aorta up to 4.0cm and aneurysm of the distal aortic arch/descending aorta up to 5.0cm in diameter -Vascular surgery consulted -No current intervention at this time; will follow up as outpatient -Findings discussed with patient now that patient is off sedation Hyperthyroidism -Decrease TSH in presence of normal free T4, t3 lower end of normal -non thyroidal illness vs subclinical hyperthyroidism -will re-check thyroid studies, results pending Hyponatremia -resolved Hx of Alcoholism -continue with folic acid and thiamine -Will discuss alcohol cessation with patient Possible Hx of HLD -Lipid panel reveals no abnormalities Proph -Protonix -Heparin Patient seen and discussed with Dr.Rangasamy Jose Blount PGY1 Dispo: will D/C meghan, patient will be transferred from ICU once bed is available, Discussed with respiratory therapy and physical therapy about having patient up and moving without oxygen see if patient can tolerate. Patient will follow up with ENT as outpatient regarding trach. Patient also to follow up with sleep specialist for official diagnosis of obstructive sleep apnea. <Tejas Lopez - Last Filed: 05/06/17 16:09> Objective - Vital Signs/Intake and Output Vital Signs (last 24 hours): Temp Pulse Resp BP Pulse Ox 99.6 F 102 H 20 130/68 95 05/06/17 12:00 05/06/17 12:00 05/06/17 12:00 05/06/17 12:00 05/06/17 05:51 Intake and Output: 05/06/17 05/06/17 06:59 18:59 Intake Total 1650 Output Total 3550 Balance -1900 - Medications Medications: Current Medications Acetaminophen (Tylenol 325mg Tab) 650 mg PO Q6H PRN PRN Reason: Fever >100.4 F Last Admin: 05/03/17 16:00 Dose: 650 mg Albuterol/Ipratropium (Duoneb 3 Mg/0.5 Mg (3 Ml) Ud) 3 ml IH [id number] PRN PRN Reason: Cough and congestion Last Admin: 05/02/17 04:00 Dose: 3 ml Folic Acid (Folic Acid) 1 mg PO DAILY [facility] Last Admin: 05/06/17 10:10 Dose: 1 mg Heparin Sodium (Porcine) (Heparin) 5,000 units SC Q8 [facility] PRN Reason: Protocol Last Admin: 05/06/17 13:12 Dose: 5,000 units Vancomycin HCl (Vancomycin 1gm) 1 gm in 250 mls @ 167 mls/hr IVPB Q12H [facility] PRN Reason: Protocol Last Admin: 05/06/17 04:25 Dose: 167 mls/hr Meropenem/Sodium Chloride (Meropenem 1g/Ns 100ml Ivpb) 1 gm in 100 mls @ 100 mls/hr IVPB Q8 [facility] PRN Reason: Protocol Stop: 05/14/17 14:01 Last Admin: 05/06/17 13:13 Dose: 100 mls/hr Lorazepam (Ativan) 1 mg IVP Q4H PRN; Protocol PRN Reason: Agitation Metoprolol Tartrate (Lopressor) 25 mg PO BID [facility] Last Admin: 05/06/17 10:10 Dose: 25 mg Ondansetron HCl (Zofran Inj) 4 mg IVP Q4H PRN PRN Reason: Nausea/Vomiting Last Admin: 04/30/17 09:38 Dose: 4 mg Pantoprazole Sodium (Protonix Ec Tab) 40 mg PO 0600 [facility] Last Admin: 05/06/17 06:18 Dose: 40 mg Prednisone (Prednisone Tab) 10 mg PO DAILY [facility] Last Admin: 05/06/17 10:10 Dose: 10 mg Thiamine HCl (Vitamin B1 Tab) 100 mg PO DAILY [facility] Last Admin: 05/06/17 10:10 Dose: 100 mg - Labs Labs: 05/06/17 06:00 05/06/17 06:00 Attending/Attestation - Attestation I have personally seen and examined this patient.: Yes I have fully participated in the care of the patient.: Yes I have reviewed all pertinent clinical information, including history, physical exam and plan: Yes Notes (Text): 05/06/17 16:08 Attending note; Patient seen and examined with resident . Patient is a 62 year old morbidly obese male with obstructive sleep apnea non compliant with cpap at home who came for evaluation of cough, hoarseness, dyspnea, stridor and found to have hypoxemic hypercapneic respiratory failure due to upper airway compromise related to hypopharyngeal swelling. started on IV decadron taper,meropenem, vancomycin and emergent trach was performed by ENT. CXR revealed RLL infiltrate and cardiomegaly. Repeat CAT scan showed improvem in the swelling of epiglottis area. patient is clinically improved. patient is able to talk without difficulty. Tolerating diet. Blood and urine cultures negative. HIV, RPR, influenza negative. Case discussed with psychiatric social worker supervisor for discharge planning. PT evaluation appreciated. Subacute rehabilitation recommended. pending acceptance to subacute rehabilitation. Upon discharge patient will follow up with PMD of choice. 05/06/17 16:09
--- NOTE | 2017-05-05 17:29 | CP.PCM.PN ---
Subjective - Date & Time of Evaluation Date of Evaluation: 05/05/17 Time of Evaluation: 10:35 - Subjective Subjective: Feeling better, breathing well, no fevers. Objective - Vital Signs/Intake and Output Vital Signs (last 24 hours): Temp Pulse Resp BP Pulse Ox 98.1 F 85 19 124/78 95 05/05/17 06:00 05/05/17 06:42 05/05/17 06:00 05/05/17 06:00 05/05/17 06:00 Intake and Output: 05/05/17 05/05/17 06:59 18:59 Intake Total 350 Balance 350 - Medications Medications: Current Medications Acetaminophen (Tylenol 325mg Tab) 650 mg PO Q6H PRN PRN Reason: Fever >100.4 F Last Admin: 05/03/17 16:00 Dose: 650 mg Albuterol/Ipratropium (Duoneb 3 Mg/0.5 Mg (3 Ml) Ud) 3 ml IH [id number] PRN PRN Reason: Cough and congestion Last Admin: 05/02/17 04:00 Dose: 3 ml Folic Acid (Folic Acid) 1 mg IVP DAILY [facility] Last Admin: 05/04/17 10:44 Dose: 1 mg Heparin Sodium (Porcine) (Heparin) 5,000 units SC Q8 LUCIA PRN Reason: Protocol Last Admin: 05/05/17 05:41 Dose: 5,000 units Vancomycin HCl (Vancomycin 1gm) 1 gm in 250 mls @ 167 mls/hr IVPB Q12H LUCIA PRN Reason: Protocol Last Admin: 05/05/17 04:25 Dose: 167 mls/hr Meropenem/Sodium Chloride (Meropenem 1g/Ns 100ml Ivpb) 1 gm in 100 mls @ 100 mls/hr IVPB Q8 LUCIA PRN Reason: Protocol Stop: 05/14/17 14:01 Last Admin: 05/05/17 05:58 Dose: 100 mls/hr Lorazepam (Ativan) 4 mg IVP Q4H PRN; Protocol PRN Reason: Agitation Metoprolol Tartrate (Lopressor) 5 mg IVP Q6 LUCIA Last Admin: 05/05/17 06:42 Dose: Not Given Ondansetron HCl (Zofran Inj) 4 mg IVP Q4H PRN PRN Reason: Nausea/Vomiting Last Admin: 04/30/17 09:38 Dose: 4 mg Pantoprazole Sodium (Protonix Inj) 40 mg IVP DAILY [facility] Last Admin: 05/04/17 09:56 Dose: 40 mg Prednisone (Prednisone Tab) 20 mg PO DAILY [facility] Last Admin: 05/04/17 10:46 Dose: 20 mg Thiamine HCl (Vitamin B1 Inj) 100 mg IM DAILY [facility] Last Admin: 05/04/17 09:57 Dose: 100 mg - Labs Labs: 05/05/17 06:30 05/05/17 06:30 - Constitutional Appears: Non-toxic, Chronically Ill - Head Exam Head Exam: NORMAL INSPECTION - ENT Exam ENT Exam: Mucous Membranes Moist - Respiratory Exam Respiratory Exam: Decreased Breath Sounds - Cardiovascular Exam Cardiovascular Exam: +S1, +S2 - GI/Abdominal Exam GI & Abdominal Exam: Soft. absent: Tenderness Assessment and Plan - Assessment and Plan (Free Text) Plan: Assessment Sepsis with right sided HCAP, in this patient with epiglotittis morbid obesity with BMI 45 Plan on Vancomycin and Merrem day 6 - should complete at least 7 days of therapy will continue to monitor clinically
[2017-05-06] MEDS: Vancomycin 1gm in NS 250ml 1 GM/250 ML BAG IVPB SCH ×2 (04:25→16:11)
[2017-05-06 05:52] VITALS: O2SAT 95
[2017-05-06] MEDS ORDERED: Pantoprazole 40 mg EC Tab PO SCH (06:00)
[2017-05-06] MEDS: Meropenem 1g/NS 100mL IVPB 1 GM/100 ML PIGGYBACK IVPB SCH ×2 (06:18→13:13)
[2017-05-06 06:54] LABS: BASO # 0.04 K/mm3 (0.0-2.0); BASO % 0.3 % (0.0-3.0); EOS # 0.1 (0.0-0.7); EOS % 0.8 % (1.5-5.0); GRAN # 8.98 (1.4-6.5); GRAN % 66.3 % (50.0-68.0); HEMOGLOBIN 8.5 g/dL (14.0-18.0); LYMPH # 3.3 (1.2-3.4); MEAN CELL VOLUME 74.9 fl (80.0-105.0); MEAN CORPUSCULAR HEMOGLOBIN 20.3 pg (25.0-35.0); MEAN CORPUSCULAR HGB CONC 27.2 g/dl (31.0-37.0); MEAN PLATELET VOLUME 9.4 fl (7.0-11.0); MONO # 1.2 (0.1-0.6); MONO % 8.6 % (1.0-6.0); RBC 4.18 10^6/uL (3.5-6.1); RED CELL DISTRIBUTION WIDTH 22.7 % (11.5-14.5); WHITE BLOOD COUNT 13.6 10^3/ul (4.5-11.0)
[2017-05-06 07:22] LABS: ALB/GLOB RATIO 0.9 (1.1-1.8); ALBUMIN 3.2 g/dL (3.0-4.8); ALT/SGPT 43 U/L (7-56); AST/SGOT 53 U/L (17-59); BLOOD UREA NITROGEN 12 mg/dL (7-21); CALCIUM 9.2 mg/dL (8.4-10.5); GFR AFRICAN-AMERICAN > 60; GFR NON-AFRICAN AMERICAN > 60
--- NOTE | 2017-05-06 11:46 | CP.PCM.DIS ---
Provider - Provider Date of Admission: 04/27/17 23:52 Attending physician: Tejas Lopez MD Primary care physician: Skip Singh MD Consults: ENT: Dr. Vera Infectious disease: Dr. Mccracken Vascular Surgery: Dr. Cardenas Time Spent in preparation of Discharge (in minutes): 45 Diagnosis - Discharge Diagnosis (1) Epiglottitis Status: Acute Priority: High (2) Abdominal aortic aneurysm (AAA) 3.0 cm to 5.5 cm in diameter in male Status: Acute Priority: Medium (3) Thoracic aortic ectasia Status: Acute Priority: Medium (4) Alcohol abuse Status: Chronic Priority: Medium Hospital Course - Lab Results Lab Results: Micro Results 04/30/17 10:00 Blood-Venous Blood Culture - Final NO GROWTH AFTER 5 DAYS 04/30/17 10:00 Blood-Venous Gram Stain - Final TEST NOT PERFORMED 04/30/17 09:45 Blood-Venous Blood Culture - Final NO GROWTH AFTER 5 DAYS 04/30/17 09:45 Blood-Venous Gram Stain - Final TEST NOT PERFORMED 04/28/17 00:19 Blood Blood Culture - Final NO GROWTH AFTER 5 DAYS 04/28/17 00:19 Blood Gram Stain - Final TEST NOT PERFORMED 04/28/17 00:09 Blood Blood Culture - Final NO GROWTH AFTER 5 DAYS 04/28/17 00:09 Blood Gram Stain - Final TEST NOT PERFORMED 04/29/17 07:00 Naris MRSA Culture (Admit) - Final MRSA NOT DETECTED 04/28/17 09:00 Naris MRSA Culture (Admit) - Final MRSA NOT DETECTED 04/28/17 12:40 Urine,[place] Urine Culture - Final No Growth (<1,000 CFU/ML) Most Recent Lab Values WBC 13.6 10^3/ul (4.5-11.0) H 05/06/17 06:00 RBC 4.18 10^6/uL (3.5-6.1) 05/06/17 06:00 Hgb 8.5 g/dL (14.0-18.0) L 05/06/17 06:00 Hct 31.3 % (42.0-52.0) L 05/06/17 06:00 MCV 74.9 fl (80.0-105.0) L 05/06/17 06:00 MCH 20.3 pg (25.0-35.0) L 05/06/17 06:00 MCHC 27.2 g/dl (31.0-37.0) L 05/06/17 06:00 RDW 22.7 % (11.5-14.5) H 05/06/17 06:00 Plt Count 173 10^3/uL (120.0-450.0) 05/06/17 06:00 MPV 9.4 fl (7.0-11.0) 05/06/17 06:00 Gran % 66.3 % (50.0-68.0) 05/06/17 06:00 Lymph % (Auto) 24.0 % (22.0-35.0) 05/06/17 06:00 Real % (Auto) 8.6 % (1.0-6.0) H 05/06/17 06:00 Eos % (Auto) 0.8 % (1.5-5.0) L 05/06/17 06:00 Baso % (Auto) 0.3 % (0.0-3.0) 05/06/17 06:00 Gran # 8.98 (1.4-6.5) H 05/06/17 06:00 Lymph # (Auto) 3.3 (1.2-3.4) 05/06/17 06:00 Real # (Auto) 1.2 (0.1-0.6) H 05/06/17 06:00 Eos # (Auto) 0.1 (0.0-0.7) 05/06/17 06:00 Baso # (Auto) 0.04 K/mm3 (0.0-2.0) 05/06/17 06:00 ESR 27 mm/hr (0.00-15.0) H 04/29/17 05:30 Retic Count 2.88 % (0.5-1.5) H 04/28/17 09:50 pCO2 33 mm/Hg (35-45) L 05/04/17 07:50 pO2 94.0 mm/Hg (80-100) 05/04/17 07:50 HCO3 21.9 mmol/L (21-28) 05/04/17 07:50 ABG pH 7.43 (7.35-7.45) 05/04/17 07:50 ABG Total CO2 22.9 mmol.L (22-28) 05/04/17 07:50 ABG O2 Saturation 98.8 % (95-98) H 05/04/17 07:50 ABG O2 Content 8.5 ML/dl (15-23) L 05/04/17 07:50 ABG Base Excess -2.2 mmol/L (-2.0-3.0) L 05/04/17 07:50 ABG Hemoglobin 6.2 g/dL (11.7-17.4) L 05/04/17 07:50 ABG Carboxyhemoglobin 2.3 % (0.5-1.5) H 05/04/17 07:50 POC ABG HHb (Measured) 1.2 % (0-5) 05/04/17 07:50 ABG Methemoglobin 1.3 % (0.0-3.0) 05/04/17 07:50 ABG O2 Capacity 8.6 mL/dl (16-24) L 05/04/17 07:50 ABG Potassium 4.0 mmol/L (3.6-5.2) 04/28/17 08:40 Hgb O2 Saturation 95.1 % (95.0-98.0) 05/04/17 07:50 Sodium 121.0 mmol/L (132-148) L 04/28/17 08:40 Chloride 93.0 mmol/L (98-107) L 04/28/17 08:40 Glucose 166 mg/dl (75-110) H 04/28/17 08:40 Lactate 0.8 mmol/L (0.7-2.1) 04/28/17 08:40 Mechanical Rate 20 04/28/17 08:40 FiO2 40.0 % 05/04/17 07:50 Tidal Volume 400 04/28/17 08:40 PEEP 5 04/28/17 08:40 Sodium 138 mmol/L (132-148) 05/06/17 06:00 Potassium 4.5 mmol/L (3.6-5.0) 05/06/17 06:00 Chloride 102 mmol/L (98-107) 05/06/17 06:00 Carbon Dioxide 28 mmol/L (21-33) 05/06/17 06:00 Anion Gap 13 (10-20) 05/06/17 06:00 BUN 12 mg/dL (7-21) 05/06/17 06:00 Creatinine 0.6 mg/dl (0.8-1.5) L 05/06/17 06:00 Est GFR ( Amer) > 60 05/06/17 06:00 Est GFR (Non-Af Amer) > 60 05/06/17 06:00 Random Glucose 108 mg/dL (70-110) 05/06/17 06:00 Hemoglobin A1c 6.1 % (4.2-6.5) 04/28/17 07:30 Serum Osmolality 265 mosm/kg (272-300) L 04/27/17 20:15 Lactic Acid 1.1 mmol/L (0.7-2.1) 04/30/17 10:00 Calcium 9.2 mg/dL (8.4-10.5) 05/06/17 06:00 Phosphorus 4.6 mg/dL (2.5-4.5) H 04/28/17 07:00 Magnesium 1.5 mg/dL (1.7-2.2) L 04/28/17 07:00 Iron 30 ug/dL (45-180) L 04/28/17 09:50 TIBC 363 ug/dL (261-462) 04/28/17 09:50 % Saturation 8 % (20-55) L 04/28/17 09:50 Transferrin 316.83 mg/dL (206-381) 04/28/17 09:50 Ferritin 8.0 ng/mL 04/28/17 07:00 Total Bilirubin 0.4 mg/dL (0.2-1.3) 05/06/17 06:00 AST 53 U/L (17-59) 05/06/17 06:00 ALT 43 U/L (7-56) 05/06/17 06:00 Alkaline Phosphatase 90 U/L (38-126) 05/06/17 06:00 Lactate Dehydrogenase 542 U/L (333-699) 04/27/17 20:15 Total Creatine Kinase 714 U/L (35-230) H 04/27/17 20:15 CK-MB (CK-2) 5.6 ng/mL (0.0-3.6) H 04/27/17 20:15 CK-MB (CK-2) % 0.8 % (2.5-3.0) L 04/27/17 20:15 Troponin I 0.02 ng/mL D 04/28/17 07:30 C-React Prot High Sens 4.69 mg/L (1.00-3.00) H 04/28/17 13:20 NT-Pro-B Natriuret Pep 224 pg/mL (0-450) 04/27/17 20:15 Total Protein 6.8 g/dL (5.8-8.3) 05/06/17 06:00 Albumin 3.2 g/dL (3.0-4.8) 05/06/17 06:00 Globulin 3.6 gm/dL 05/06/17 06:00 Albumin/Globulin Ratio 0.9 (1.1-1.8) L 05/06/17 06:00 Triglycerides 35 mg/dL (35-160) 04/28/17 07:00 Cholesterol 134 mg/dL (130-200) 04/28/17 07:00 LDL Cholesterol Direct 74 mg/dL (0-129) 04/28/17 07:00 HDL Cholesterol 44 mg/dL (29-60) 04/28/17 07:00 Vitamin B12 266 pg/mL (239-931) 04/28/17 07:00 RBC Folate 1192 ng/mL RBC (>280) 04/28/17 09:50 Procalcitonin < 0.05 NG/ML (0.19-0.49) L 04/30/17 10:00 Free T4 0.91 ng/dL (0.78-2.19) 05/03/17 05:30 Thyroxine (T4) 7.9 ug/dL (5.5-11.0) 04/29/17 08:37 Free T3 pg/mL 2.91 pg/mL (2.77-5.27) 04/29/17 08:37 Total T3 1.02 ng/mL (0.97-1.69) 04/29/17 08:37 TSH 3rd Generation 1.03 mIU/mL (0.46-4.68) 05/06/17 06:00 Arterial Blood Potassium 4.0 mmol/L (3.6-5.2) 04/28/17 08:40 Urine Color Light yellow (YELLOW) 04/28/17 12:40 Urine Appearance Clear (CLEAR) 04/28/17 12:40 Urine pH 5.5 (4.7-8.0) 04/28/17 12:40 Ur Specific [place] <= 1.005 (1.005-1.035) 04/28/17 12:40 Urine Protein Negative mg/dL (<30 mg/dL) 04/28/17 12:40 Urine Glucose (UA) Negative mg/dL (NEGATIVE) 04/28/17 12:40 Urine Ketones Negative mg/dL (NEGATIVE) 04/28/17 12:40 Urine Blood Negative (NEGATIVE) 04/28/17 12:40 Urine Nitrate Negative (NEGATIVE) 04/28/17 12:40 Urine Bilirubin Negative (NEGATIVE) 04/28/17 12:40 Urine Urobilinogen 0.2 E.U./dL (<1 E.U./dL) 04/28/17 12:40 Ur Leukocyte Esterase Negative Ange/uL (NEGATIVE) 04/28/17 12:40 Urine Osmolality 140 mosm/kg (300-1000) L 04/28/17 12:40 Ur Random Sodium 14 meq/L 04/28/17 12:40 Ur Random Potassium 8.7 meq/L 04/28/17 12:40 Stool Occult Blood Negative (NEGATIVE) 04/30/17 12:40 Vancomycin Trough 6.3 ug/mL (5.0-10.0) 05/04/17 15:43 Urine Opiates Screen Negative (NEGATIVE) 04/28/17 12:40 Urine Methadone Screen Negative (NEGATIVE) 04/28/17 12:40 Ur Barbiturates Screen Negative (NEGATIVE) 04/28/17 12:40 Ur Phencyclidine Scrn Negative (NEGATIVE) 04/28/17 12:40 Ur Amphetamines Screen Negative (NEGATIVE) 04/28/17 12:40 U Benzodiazepines Scrn Positive (NEGATIVE) 04/28/17 12:40 U Oth Cocaine Metabols Negative (NEGATIVE) 04/28/17 12:40 U Cannabinoids Screen Negative (NEGATIVE) 04/28/17 12:40 Rheumatoid Factor IgG 5 U (<=6) 04/28/17 13:20 Rheumatoid Factor IgA <5 U (<=6) 04/28/17 13:20 Rheumatoid Factor IgM <5 U (<=6) 04/28/17 13:20 KRISTIAN Nuclear Membr Pat Negative (Negative) 04/28/17 13:20 Proteinase 3 (PR3) <1.0 AI (<1.0) 04/28/17 13:20 Myeloperoxidase Ab <1.0 AI (<1.0) 04/28/17 13:20 RPR Nonreactive (NONREACTIVE) 04/29/17 05:30 T.pallidum Ab (FTA-ABS) Nonreactive (Nonreactive) 04/29/17 05:30 HIV 1&2 Ag/Ab, 4th Gen Nonreactive (Nonreactive) 04/29/17 05:30 Influenza Typ A,B (EIA) Negative for flu a/b (NEGATIVE) 04/28/17 00:25 - Hospital Course Hospital Course: Patient is a 62 year old male who presented to the ED with complaints of 3 week progressive SOB to respiratory distress, (+) cannot full sentence (+) hoarise voice (+) lower extremities edema, Patient was found to be in hypercapnic and hypoxic failure which required intubation. CT of neck was ordered which showed arytenoid prominence most likely epiglottitis. Intubation noted "floppy epiglottis" which is likely chronic in nature. ENT was consulted and patient was taken to OR for emergency Tracheostomy, started autoimmune workup. Ascending aorta 4cm, Aneurysm of aortic arch 5cm. Failed weaning due to agitation, back on PRVC. Vascular surgery consulted for further evaluation of aneurysms. Patient does well of vent as per ICU, issue is weaning of sedation patient becomes very agitated, slowly trying to wean patient of sedation. Patient's WBC 14.1. and CXR showed air/fluid level. Trach collar/CPAP. Need suction q2. Taper Decadrone to 4q8. Venofar x 3d. Suction blood/sputum. KRISTIAN/P_ ANCA/C_ANCA/RF neg. RPR/FluHIV neg. On trach collar, more reponsive tolerated trach collar, sitting up in bed, can talk states he wants chicken. Will continue to treat epiglottits, ID not convinved on pneumonia, will go with epiglottits diagnosis. passey Arie valve. upgrade diet 05/03: transferred to [facility]- evut pt ARACELIS v. home- taper roids 05/04: Change to PO prednisone, start tapering. Per ENT, ok to come off O2 slowly. F/U ENT after discharge [ ] Nect CT: persistent thickening of aryepiglottic folds with improvement. epiglottis is normal in thickness 05/05: d/c tele. taper ativan Discharge Exam - Head Exam Head Exam: ATRAUMATIC, NORMAL INSPECTION, NORMOCEPHALIC - Eye Exam Eye Exam: EOMI, Normal appearance - ENT Exam ENT Exam: Mucous Membranes Moist - Neck Exam Additional comments: trach collar in place - Respiratory Exam Respiratory Exam: Clear to PA & Lateral, UNREMARKABLE. absent: Wheezes, Respiratory Distress - Cardiovascular Exam Cardiovascular Exam: REGULAR RHYTHM, +S1, +S2 - GI/Abdominal Exam GI & Abdominal Exam: Normal Bowel Sounds, Unremarkable - Neurological Exam Neurological exam: CN II-XII Intact, Oriented x3, Reflexes Normal - Psychiatric Exam Psychiatric exam: Normal Affect, Normal Mood - Skin Skin Exam: Intact, Normal Color, Warm Discharge Plan - Discharge Medications Prescriptions: Albuterol HFA [Ventolin HFA 90 mcg/actuation (8 g)] 2 puff IH PRN PRN #1 puff PRN Reason: Shortness Of Breath Metoprolol Tartrate [Lopressor] 25 mg PO BID 14 Days #28 tab predniSONE [predniSONE Tab] See Taper PO DAILY #10 tab - Follow Up Plan Condition: GUARDED Disposition: TRANSF TO SNF Instructions: Pneumonia in Adults, Shortness of Breath (Dyspnea) (DC), Exacerbation of COPD (DC), Hyponatremia (DC) Additional Instructions: Discharge instructions: 1. Follow up with primary care doctor, Dr Singh, after discharge from subacute rehabilitation 2. Follow up with cardiothoracic surgeon of your choice for descending AAA (5cm ) and ascending AAA of 4 cm. 3. Follow up with Dr. Dr. Ludin Vera, ENT specialist for trach management: [address] [place] [address] 4. Suspected sick euthyroid syndrome during the hospital stay. Recommend outpatient follow up with primary care doctor for repeat thyroid function testing. 5. Alcohol cessation is strongly recommended 6. Follow up with outpatient sleep study for possible obstructive sleep apnea 7. Pt has iron deficiency anemia. Negative heme occult blood in the setting of microcytic anemia. Follow up with [facility] for possible colonoscopy. Referrals: Skip Singh MD [Primary Care Provider] - Ludin Vera [Doctor Osteopathy] -
--- NOTE | 2017-05-06 12:26 | CP.PCM.PN ---
Subjective - Date & Time of Evaluation Date of Evaluation: 05/06/17 Time of Evaluation: 10:25 - Subjective Subjective: Comfortable, no fevers, not in distress. Objective - Vital Signs/Intake and Output Vital Signs (last 24 hours): Temp Pulse Resp BP Pulse Ox 98.7 F 89 18 140/81 95 05/06/17 05:51 05/06/17 05:51 05/06/17 05:51 05/06/17 05:51 05/06/17 05:51 Intake and Output: 05/06/17 05/06/17 06:59 18:59 Intake Total 1650 Output Total 3550 Balance -1900 - Medications Medications: Current Medications Acetaminophen (Tylenol 325mg Tab) 650 mg PO Q6H PRN PRN Reason: Fever >100.4 F Last Admin: 05/03/17 16:00 Dose: 650 mg Albuterol/Ipratropium (Duoneb 3 Mg/0.5 Mg (3 Ml) Ud) 3 ml IH [id number] PRN PRN Reason: Cough and congestion Last Admin: 05/02/17 04:00 Dose: 3 ml Folic Acid (Folic Acid) 1 mg PO DAILY [facility] Heparin Sodium (Porcine) (Heparin) 5,000 units SC Q8 LUCIA PRN Reason: Protocol Last Admin: 05/06/17 06:19 Dose: 5,000 units Vancomycin HCl (Vancomycin 1gm) 1 gm in 250 mls @ 167 mls/hr IVPB Q12H LUCIA PRN Reason: Protocol Last Admin: 05/06/17 04:25 Dose: 167 mls/hr Meropenem/Sodium Chloride (Meropenem 1g/Ns 100ml Ivpb) 1 gm in 100 mls @ 100 mls/hr IVPB Q8 LUCIA PRN Reason: Protocol Stop: 05/14/17 14:01 Last Admin: 05/06/17 06:18 Dose: 100 mls/hr Lorazepam (Ativan) 1 mg IVP Q4H PRN; Protocol PRN Reason: Agitation Metoprolol Tartrate (Lopressor) 25 mg PO BID [facility] Last Admin: 05/05/17 18:28 Dose: 25 mg Ondansetron HCl (Zofran Inj) 4 mg IVP Q4H PRN PRN Reason: Nausea/Vomiting Last Admin: 04/30/17 09:38 Dose: 4 mg Pantoprazole Sodium (Protonix Ec Tab) 40 mg PO 0600 [facility] Last Admin: 05/06/17 06:18 Dose: 40 mg Prednisone (Prednisone Tab) 20 mg PO DAILY [facility] Last Admin: 05/05/17 09:48 Dose: 20 mg Thiamine HCl (Vitamin B1 Tab) 100 mg PO DAILY [facility] - Labs Labs: 05/06/17 06:00 05/06/17 06:00 - Constitutional Appears: Non-toxic, Chronically Ill - Head Exam Head Exam: NORMAL INSPECTION - ENT Exam ENT Exam: Mucous Membranes Moist - Neck Exam Neck Exam: absent: Meningismus - Respiratory Exam Respiratory Exam: Decreased Breath Sounds - Cardiovascular Exam Cardiovascular Exam: +S1, +S2 - GI/Abdominal Exam GI & Abdominal Exam: Soft. absent: Tenderness Assessment and Plan - Assessment and Plan (Free Text) Plan: Assessment Sepsis with right sided HCAP, in this patient with epiglotittis morbid obesity with BMI 45 Plan on Vancomycin and Merrem day 7 - should complete at least 7 days of therapy
[2017-05-06 12:32] VITALS: BP 130/68; RESP 20; TEMP 99.6
[2017-05-06 17:27] VITALS: PULSE 89
== END 2017-05-06 19:09 | DRG 3 ==
LOC: ED 19:23 → ERH 23:52 → ICU 04-28 06:59 → 3RSO 05-04 22:47
PROVIDERS: ADMIT Internal Medicine; ATTEND Internal Medicine
PROC: 0GBJ0ZZ Excision of Thyroid Gland Isthmus, Open Approach (ICD-10-PCS; 2017-04-28)
PROC: 5A1945Z Respiratory Ventilation, 24-96 Consecutive Hours (ICD-10-PCS; 2017-04-28)
PROC: 0B110F4 Bypass Trachea to Cutaneous with Tracheostomy Device, Open Approach (ICD-10-PCS; principal; 2017-04-28 03:00)
DX: A41.9 Sepsis, unspecified organism (principal); J96.91 Respiratory failure, unspecified with hypoxia; J18.9 Pneumonia, unspecified organism; J81.1 Chronic pulmonary edema; E87.4 Mixed disorder of acid-base balance; J96.92 Respiratory failure, unspecified with hypercapnia; J44.0 Chronic obstructive pulmonary disease with (acute) lower respiratory infection; J38.4 Edema of larynx; J05.10 Acute epiglottitis without obstruction; E87.1 Hypo-osmolality and hyponatremia; J98.11 Atelectasis; Z68.42 Body mass index [BMI] 45.0-49.9, adult; E66.01 Morbid (severe) obesity due to excess calories; I11.9 Hypertensive heart disease without heart failure; D50.9 Iron deficiency anemia, unspecified; E78.5 Hyperlipidemia, unspecified; G47.33 Obstructive sleep apnea (adult) (pediatric); I25.10 Atherosclerotic heart disease of native coronary artery without angina pectoris; I51.7 Cardiomegaly; I71.4 Abdominal aortic aneurysm, without rupture; I77.810 Thoracic aortic ectasia; K76.0 Fatty (change of) liver, not elsewhere classified; R63.1 Polydipsia; Y95 Nosocomial condition; Z82.49 Family history of ischemic heart disease and other diseases of the circulatory system; Z91.19 Patient's noncompliance with other medical treatment and regimen; E07.81 Sick-euthyroid syndrome; R40.2412 Glasgow coma scale score 13-15, at arrival to emergency department; J98.8 Other specified respiratory disorders; I45.10 Unspecified right bundle-branch block

== ENCOUNTER 2017-06-09 18:58 | Inpatient (IN) | payer BC ==
[2017-06-09] MEDS ORDERED: Albuterol-Ipratrop 3 mg / 0.5 (3 ml) UD IH STA (19:23)
[2017-06-09 19:45] LABS: VENOUS BLOOD GAS BASE EXCESS 3.4 mmol/L (0.0-2.0); VENOUS BLOOD GAS PO2 81 mm/Hg (30-55); VENOUS BLOOD PH 7.38 (7.32-7.43)
[2017-06-09 19:46] LABS: BASO # 0.04 K/mm3 (0.0-2.0); BASO % 0.4 % (0.0-3.0); EOS % 0.3 % (1.5-5.0); GRAN # 6.27 (1.4-6.5); GRAN % 65.5 % (50.0-68.0); HEMOGLOBIN 11.1 g/dL (14.0-18.0); LYMPH # 2.3 (1.2-3.4); LYMPH % 23.7 % (22.0-35.0); MEAN CELL VOLUME 76.1 fl (80.0-105.0); MEAN CORPUSCULAR HEMOGLOBIN 23.7 pg (25.0-35.0); MEAN CORPUSCULAR HGB CONC 31.2 g/dl (31.0-37.0); MONO % 10.1 % (1.0-6.0); RBC 4.68 10^6/uL (3.5-6.1); RED CELL DISTRIBUTION WIDTH 22.3 % (11.5-14.5); WHITE BLOOD COUNT 9.6 10^3/ul (4.5-11.0)
[2017-06-09 20:00] LABS: ALB/GLOB RATIO 1.1 (1.1-1.8); ALBUMIN 3.8 g/dL (3.0-4.8); ALT/SGPT 25 U/L (7-56); AST/SGOT 25 U/L (17-59); BLOOD UREA NITROGEN 6 mg/dL (7-21); CALCIUM 9.2 mg/dL (8.4-10.5); GFR AFRICAN-AMERICAN > 60; GFR NON-AFRICAN AMERICAN > 60
[2017-06-09] MEDS ORDERED: Albuterol-Ipratrop 3 mg / 0.5 (3 ml) UD ONE (20:03)
[2017-06-09] MEDS: Albuterol-Ipratrop 3 mg / 0.5 (3 ml) UD IH SCH ×3 (20:07→20:37)
[2017-06-09 20:17] LABS: TROPONIN I < 0.01 ng/mL
[2017-06-09 20:21] LABS: URINE APPEARANCE CLEAR (CLEAR); URINE BILIRUBIN NEGATIVE (NEGATIVE); URINE BLOOD NEGATIVE (NEGATIVE); URINE COLOR YELLOW (YELLOW); URINE GLUCOSE (UA) NEGATIVE (NEGATIVE); URINE LEUKOCYTE ESTERASE TRACE Leu/uL (NEGATIVE); URINE PROTEIN NEGATIVE mg/dL (<30 mg/dL); URINE UROBILINOGEN 0.2 E.U./dL (<1 E.U./dL)
--- NOTE | 2017-06-09 20:23 | ED PDOC ---
Arrival/HPI - General Chief Complaint: Shortness Of Breath Time Seen by Provider: 06/09/17 19:17 Historian: Patient EM Caveat: Acuity of Condition - History of Present Illness Narrative History of Present Illness (Text): 06/09/17 20:25 Gema Fernandez is a 62 year old male, who has a past medical history of CHF, who presents to the emergency department for reevaluation of chronic shortness of breath for the past 3 days. Patient also states that he has associated worsening bilateral leg swelling but is passing urine well and frequently on current medication. Patient notes that he has trouble sleeping at night due to dyspnea. Patient denies any chest pain, fever, chills, or any other complaints at this time. PMD is Dr. Singh. Time/Duration: < week Symptom Onset: Gradual Symptom Course: Unchanged, Worsening Quality: Aching, Pressure Severity Level: 3 Activities at Onset: Rest Context: Home Past Medical History - Provider Review Nursing Documentation Reviewed: Yes - Travel History Have you recently traveled outside [place] w/in the past 3 mons?: No - Cardiac Hx Cardiac Disorders: Yes - Pulmonary Hx Respiratory Disorders: Yes Other/Comment: AIRWAY BLOCKAGE, TRACHEOSTOMY - Neurological Hx Neurological Disorder: No - HEENT Hx HEENT Disorder: Yes - Renal Hx Renal Disorder: No - Endocrine/Metabolic Hx Endocrine Disorders: No - Hematological/Oncological Hx Blood Disorders: No - Integumentary Hx Dermatological Disorder: No - Musculoskeletal/Rheumatological Hx Musculoskeletal Disorders: Yes Hx Falls: Yes - Gastrointestinal Hx Gastrointestinal Disorders: No - Psychiatric Hx Psychophysiologic Disorder: No Hx Substance Use: No - Surgical History Other/Comment: right knee surgery, TRACHEOSTOMY - Anesthesia Hx Anesthesia: Yes Family/Social History - Physician Review Nursing Documentation Reviewed: Yes Family/Social History: Unknown Family HX Smoking Status: Never Smoked Hx Alcohol Use: Yes Hx Substance Use: No Allergies/Home Meds Allergies/Adverse Reactions: Allergies No Known Allergies Allergy (Verified 06/09/17 19:01) Review of Systems - Review of Systems Systems not reviewed;Unavailable: Respiratory Distress Constitutional: Normal Eyes: Normal ENT: Normal Respiratory: SOB, Wheezing Cardiovascular: Normal Gastrointestinal: Normal Genitourinary Male: Normal Musculoskeletal: Normal Skin: Normal Neurological: Normal Endocrine: Normal Hemo/Lymphatic: Normal Psychiatric: Normal Physical Exam Vital Signs Reviewed: Yes Vital Signs Temp Pulse Resp BP Pulse Ox 06/09/17 22:00 81 19 144/87 98 06/09/17 20:15 68 20 139/77 98 06/09/17 20:05 136/76 06/09/17 19:30 22 98 06/09/17 19:01 97.1 F L 83 22 125/83 97 Temperature: Afebrile Blood Pressure: Normal Pulse: Regular Respiratory Rate: Normal Appearance: Positive for: Comfortable, Ill-Appearing, Uncomfortable Pain Distress: None Mental Status: Positive for: Alert and Oriented X 3 - Systems Exam Head: Present: Atraumatic, Normocephalic Pupils: Present: PERRL Extroacular Muscles: Present: EOMI Conjunctiva: Present: Normal Mouth: Present: Moist Mucous Membranes Neck: Present: Normal Range of Motion Respiratory/Chest: Present: Clear to Auscultation, Good Air Exchange, Rhonchi. No: Respiratory Distress, Accessory Muscle Use Cardiovascular: Present: Regular Rate and Rhythm, Normal S1, S2. No: Murmurs Abdomen: Present: Normal Bowel Sounds. No: Tenderness, Distention, Peritoneal Signs Back: Present: Normal Inspection Upper Extremity: Present: Normal Inspection. No: Cyanosis, Edema Lower Extremity: Present: Normal Inspection, Swelling (B/L LE). No: Edema Neurological: Present: GCS=15, CN II-XII Intact, Speech Normal Skin: Present: Warm, Dry, Normal Color. No: Rashes Psychiatric: Present: Alert, Oriented x 3, Normal Insight, Normal Concentration Medical Decision Making ED Course and Treatment: 06/09/17 20:30 Impression Gema Fenrandez is a 62 year old male, who has a past medical history of CHF, who presents to the emergency department for reevaluation of chronic shortness of breath for the past 3 days. Plan SOB W/U Fluids Dr. Page assessed at bedside; advised CXR, CT chest, labs, Lasix and duoneb Progress Note Pt continues to have coarse tracheal sounds but O2Sat is 95 or better CXR reveals RUL PNA; remains afebrile Spoke with Camilo Rascon re: admission for Rt upper lobe PNA; Pulmon Consult w Dr. Toscano ordered Rocephin 1g IVP STAT Patient and informed - Lab Interpretations Lab Results: 06/09/17 19:35 06/09/17 19:35 Lab Results 06/09/17 20:13: Urine Color Yellow, Urine Appearance Clear, Urine pH 7.0, Ur Specific [place] <= 1.005, Urine Protein Negative, Urine Glucose (UA) Negative, Urine Ketones Negative, Urine Blood Negative, Urine Nitrate Negative, Urine Bilirubin Negative, Urine Urobilinogen 0.2, Ur Leukocyte Esterase Trace H, Urine RBC Negative, Urine WBC 1 - 3, Ur Epithelial Cells 1 - 3, Urine Bacteria Few 06/09/17 19:35: NT-Pro-B Natriuret Pep 260 06/09/17 19:35: Sodium 127 L, Chloride 91 L, Potassium 4.1, Carbon Dioxide 26, Anion Gap 14, BUN 6 L, Creatinine 0.5 L, Est GFR ( Amer) > 60, Est GFR ( Non-Af Amer) > 60, Random Glucose 111 H, Calcium 9.2, Total Bilirubin 0.3, AST 25, ALT 25, Alkaline Phosphatase 102, Lactate Dehydrogenase 405, Total Creatine Kinase 150, Troponin I < 0.01 D, Total Protein 7.5, Albumin 3.8, Globulin 3.6, Albumin/Globulin Ratio 1.1 06/09/17 19:35: pO2 81 H, VBG pH 7.38, VBG pCO2 50.0, VBG HCO3 29.6 H, VBG Total CO2 31.1 H, VBG O2 Sat (Calc) 97.6 H, VBG Base Excess 3.4 H, VBG Potassium 4.2, Sodium 126.0 L, Chloride 92.0 L, Glucose 106, Lactate 1.3, FiO2 21.0, Venous Blood Potassium 4.2 06/09/17 19:35: WBC 9.6 D, RBC 4.68, Hgb 11.1 L D, Hct 35.6 L, MCV 76.1 L, MCH 23.7 L, MCHC 31.2, RDW 22.3 H, Plt Count 281, MPV 9.0, Gran % 65.5, Lymph % ( Auto) 23.7, Elliott % (Auto) 10.1 H, Eos % (Auto) 0.3 L, Baso % (Auto) 0.4, Gran # 6.27, Lymph # (Auto) 2.3, Elliott # (Auto) 1.0 H, Eos # (Auto) 0.0, Baso # (Auto) 0.04 I have reviewed the lab results: Yes (Na 127) - RAD Interpretation Narrative RAD Interpretations (Text): 06/09/17 21:35 CXR reveals R upper lobe PNA Radiology Orders: 06/09/17 19:23 CHEST TWO VIEWS (PA/LAT) [RAD] Stat - EKG Interpretation Interpreted by ED Physician: Yes (NSR, Rate 90, Left axis deviation, incomplete RBBB) - Medication Orders Current Medication Orders: Azithromycin (Zithromax 500mg In Ns) 500 mg in 250 mls @ 167 mls/hr IVPB DAILY LUCIA PRN Reason: Protocol Levalbuterol HCl (Xopenex) 0.63 mg IH [id number] PRN PRN Reason: Shortness of Breath Methylprednisolone (Solu-Medrol) 30 mg IVP Q12 LUCIA Last Admin: 06/09/17 23:04 Dose: 30 mg IVP Administration Document 06/09/17 23:04 IT (Rec: 06/09/17 23:05 IT [id number]) Charges for Administration # of IVP Administrations 1 Metoprolol Tartrate (Lopressor) 25 mg PO BID LUCIA Discontinued Medications Albuterol/Ipratropium (Duoneb 3 Mg/0.5 Mg (3 Ml) Ud) 3 ml IH Q15M LUCIA Stop: 06/09/17 20:31 Last Admin: 06/09/17 20:37 Dose: 3 ml Furosemide (Lasix) 20 mg IVP STAT STA Stop: 06/09/17 19:54 Last Admin: 06/09/17 20:05 Dose: 20 mg MAR Blood Pressure Document 06/09/17 20:05 IT (Rec: 06/09/17 20:07 IT [id number]) Blood Pressure Blood Pressure (100/60-150/90) 136/76 IVP Administration Document 06/09/17 20:05 IT (Rec: 06/09/17 20:07 IT [id number]) Charges for Administration # of IVP Administrations 1 Sodium Chloride (Sodium Chloride 0.9%) 500 mls @ 999 mls/hr IV .Q31M STA Stop: 06/09/17 21:03 Last Admin: 06/09/17 22:14 Dose: 999 mls/hr eMAR Start Stop Document 06/09/17 22:14 IT (Rec: 06/09/17 22:14 IT [id number]) Intravenous Solution Start Date 06/09/17 Start Time 22:14 End Date 06/09/17 Ceftriaxone Sodium (Rocephin 1 Gram Ivpb) 1 gm in 100 mls @ 100 mls/hr IVPB DAILY LUCIA PRN Reason: Protocol Ceftriaxone Sodium (Rocephin 1 Gram Ivpb) 1 gm in 100 mls @ 100 mls/hr IVPB DAILY LUCIA PRN Reason: Protocol Ceftriaxone Sodium (Rocephin 1 Gram Ivpb) 1 gm in 100 mls @ 100 mls/hr IVPB STAT STA PRN Reason: Protocol Stop: 06/09/17 23:57 Last Admin: 06/09/17 23:04 Dose: 100 mls/hr eMAR Start Stop Document 06/09/17 23:04 IT (Rec: 06/09/17 23:04 IT [id number]) Intravenous Solution Start Date 06/09/17 Start Time 23:04 Disposition/Present on Arrival - Present on Arrival Any Indicators Present on Arrival: Yes History of DVT/PE: No History of Uncontrolled Diabetes: No Urinary Catheter: No History of Decub. Ulcer: No History Surgical Site Infection Following: None - Disposition Have Diagnosis and Disposition been Completed?: Yes Diagnosis: Chest congestion, Pneumonia Disposition: HOSPITALIZED Disposition Time: 21:00 Patient Plan: Admission Patient Problems: Current Active Problems Problem Status Onset Chest congestion Acute Condition: FAIR
[2017-06-09 20:32] LABS: URINE BACTERIA FEW (NEG); URINE RBC NEGATIVE /hpf (0-2)
[2017-06-09] MEDS ORDERED: Sodium Chloride 0.9% 500 ML IV STA (20:33)
[2017-06-09] MEDS ORDERED: Levalbuterol 0.63 MG/3 ML Inhal Soln UD IH PRN (22:19)
[2017-06-09] MEDS ORDERED: MethylPREDNISolone 40 mg Vial IVP SCH (22:30)
[2017-06-09] MEDS ORDERED: cefTRIAXone 1 gm 1 GM/100 ML BAG IVPB SCH (22:36)
[2017-06-09] MEDS ORDERED: cefTRIAXone 1 gm 1 GM/100 ML BAG IVPB STA (22:58)
[2017-06-10 06:44] LABS: MEAN CELL VOLUME 76.3 fl (80.0-105.0); MEAN CORPUSCULAR HEMOGLOBIN 23.3 pg (25.0-35.0); MEAN CORPUSCULAR HGB CONC 30.5 g/dl (31.0-37.0); MEAN PLATELET VOLUME 9.2 fl (7.0-11.0); RBC 5.15 10^6/uL (3.5-6.1); RED CELL DISTRIBUTION WIDTH 22.3 % (11.5-14.5); WHITE BLOOD COUNT 9.1 10^3/ul (4.5-11.0)
[2017-06-10 07:09] LABS: ALBUMIN 4.2 g/dL (3.0-4.8); ALT/SGPT 31 U/L (7-56); AST/SGOT 35 U/L (17-59); BLOOD UREA NITROGEN 6 mg/dL (7-21); CALCIUM 9.8 mg/dL (8.4-10.5); GFR AFRICAN-AMERICAN > 60; GFR NON-AFRICAN AMERICAN > 60
--- NOTE | 2017-06-10 07:39 | RAD ---
HISTORY: sob COMPARISON: Portable chest 04/30/2017. TECHNIQUE: Chest PA and lateral FINDINGS: LUNGS: Trace atelectasis is favored at the right base over infiltrate. None is seen the left. Patient apparently has had tracheostomy tube removed in the interval. PLEURA: No significant pleural effusion identified. No pneumothorax apparent. CARDIOVASCULAR: Cardiac silhouette remains prominent. No definite pulmonary venous congestion. OSSEOUS STRUCTURES: No significant abnormalities. VISUALIZED UPPER ABDOMEN: Normal. OTHER FINDINGS: None. IMPRESSION: Status post extubation endotracheal tube. Limited atelectasis right base. Left chest is clear. Cardiomegaly is stable.
[2017-06-10] MEDS ORDERED: Albuterol-Ipratrop 3 mg / 0.5 (3 ml) UD IH PRN (08:33)
[2017-06-10] MEDS ORDERED: MethylPREDNISolone 40 mg Vial IVP SCH ×3 (08:45→17:00)
[2017-06-10] MEDS ORDERED: cefTRIAXone 1 gm 1 GM/100 ML BAG IVPB SCH (10:00)
[2017-06-10] MEDS ORDERED: Azithromycin 500MG/NS 250ml 500 MG/250 ML BAG IVPB SCH (10:00)
[2017-06-10 11:36] VITALS: BMI 40.7
--- NOTE | 2017-06-10 11:59 | HP ---
HISTORY OF PRESENT ILLNESS: He was brought to the emergency room. When Gema entered in, he was having trouble breathing, coughing, wheezing, congested and very short of breath, he got very bad over the past 3 days. Also, bilateral leg swelling. Having a problem passing urine as well. Also, having trouble sleeping due to shortness of breath. He had seen Dr. Garland in the past. Also, I saw him at [facility] where he used to have a trach. The trach has now gone shortness of breath at rest. He has had airway blockage and tracheostomy in the past. He has had fall, musculoskeletal disorders. He is morbidly obese. He had right knee surgery and tracheostomy. PAST MEDICAL HISTORY: He also has CHF, shortness of breath. SOCIAL HISTORY: No smoking, does drink alcohol. No substance abuse. ALLERGIES: HE HAS NO KNOWN DRUG ALLERGIES. REVIEW OF SYSTEMS: He is very short of breath, hard to catch his breath. No acute vision or hearing changes. No sore throat. He is wheezing. He gets shortness of breath. He is coughing, very congested. I could audibly hear and to talk. No chest pain. No nausea, vomiting, constipation or diarrhea. No skin issues. No neurological issues. No anxiety. He is very short of breath, hard to catch his breath even at rest. PHYSICAL EXAMINATION: VITAL SIGNS: He has 97.1 temp, 83 pulse, 22 up to 30 respiratory rate, 125/83 blood pressure and 97% on O2 sat. GENERAL: He is very ill appearing, very uncomfortable. He is alert and oriented x3. He is in respiratory distress. HEENT: Head is atraumatic and normocephalic. Extraocular muscles are intact. Pupils are equal and reactive to light. Throat is moist. NECK: Supple. LUNGS: Congestion bilaterally. He is using accessory muscles to breath. He has congestion and wheezing. HEART: Regular rate. Normal S1, S2. ABDOMEN: Soft, obese, nontender. Positive bowel sounds. No guarding, no rebound, no CVA tenderness. EXTREMITIES: Trace edema, bilateral lower extremities. NEUROLOGICAL: is grossly intact. Alert and oriented x3. SKIN: Warm and dry. No apparent rashes or ulcers. LYMPHATICS: Thyroid midline. No palpable lymphadenopathy appreciated. IMPRESSION AND PLAN: I am told over the phone that the chest x-ray showed right upper lobe pneumonia. We will put him in for right lower lobe pneumonia and put him on Rocephin, Zithromax and get a Pulmonary consult and Cardiology consult. His medicines right now are Lopressor, Rocephin, Solu-Medrol, Xopenex, and Zithromax. He has a 127 sodium, potassium 4.1, BUN 6, creatinine 0.5. GFR is greater than 60, blood sugar is 111, calcium 9.2. Total bilirubin is 0.3. AST is 25, ALT is 25, and alk phos is 102. Lactate dehydrogenase is 405. Total creatinine kinase is 150. Troponin I is less than 0.01. BNP is . Total protein is 7.5. Albumin 3.8. Urine is clean. Blood gas shows a 7.38 pH, lactic acid is 1.3, pO2 is 81. He has a 9.6 white count, 11.1 hemoglobin, 35.6 hematocrit with platelets. The chest x-ray did not read yet, very poor x-rays. We will check his labs tomorrow. Call in Pulmonology. Gema Fernandez, who is sent in for pneumonia, right upper lobe I am told, wheezing, congestion and shortness of breath. Sonny Page DO MTDD
--- NOTE | 2017-06-10 12:19 | CON ---
DATE: 06/10/2017 PULMONARY CONSULTATION REASON FOR CONSULTATION: Shortness of breath. REFERRING PHYSICIAN: Sonny Page DO HISTORY OF PRESENT ILLNESS: The patient is a 62-year-old male, with past medical history significant for obstructive sleep apnea, obesity, recent tracheostomy for upper airway obstruction, who presents to [facility] with increasing shortness of breath at rest, dyspnea on exertion, cough, and minimal sputum production for the past 3 days. There is no history of chest pain, coughing up of blood, or chest pain - made worse with deep respirations. There is no history of temperatures, chills or infectious exposure. There is no history of night sweats, weight loss or appetite change prior to the above events. No history of leg or calf pains. No history of syncope or diaphoresis. No history of recent travel or trauma. REVIEW OF SYSTEMS: No history of nausea, vomiting or diarrhea. No acute urinary symptoms. No new neurologic complaints. Rest of the review of systems is negative. ALLERGIES: NO KNOWN ALLERGIES. SOCIAL HISTORY: Negative for tobacco and negative for alcohol. FAMILY HISTORY: No inheritable diseases. HOME MEDICATIONS: Include Lopressor, prednisone, albuterol. PHYSICAL EXAMINATION GENERAL: The patient is not short of breath at rest. He is not using accessory muscles for breathing. He does have a phonetic sounding voice. VITAL SIGNS: Temperature is 98.3, pulse 84, respirations 18, blood pressure 143/77. Oxygen saturation on nasal cannula is 96%-98%. HEENT: Normocephalic and atraumatic. No JVD. There are some coarse rhonchorous sounds heard over the trachea. CARDIOVASCULAR: Positive S1, S2. No S3 gallop. LUNGS: Decreased breath sounds at the bases. Scattered bilateral rhonchi. A few wheezes. EXTREMITIES: No clubbing, cyanosis or edema. Calves are nontender to palpation. GI: Abdomen is soft, nontender, nondistended. Bowel sounds are positive. SKIN: No acute rash. NEUROLOGIC: Limited at the present time. PERTINENT LABORATORY DATA: Chest x-ray was done yesterday and reviewed. There is a minimal linear infiltrate at the right base consistent with atelectasis. The patient also had a recent CAT scan of the chest - done on 04/27/2017. There is a minimal atelectasis/scarring at the lung bases. There is no mass, nodule or lymphadenopathy noted. The patient also had a recent CAT scan of the neck - done on 05/04/2017. There is persistent thickening of the aryepiglottic folds - improved from the previous study. CBC: White count 9.1, hemoglobin 12.0, hematocrit 39.3, platelets of 309,000. Complete metabolic profile: Sodium 128, potassium 5.1, chloride 90, glucose 137. Rest of the metabolic profile is within normal limits. IMPRESSION: 1. Acute bronchitis. 2. Recent upper airway obstruction, requiring tracheostomy. 3. Mild anemia. 4. Electrolyte abnormalities. 5. Obstructive sleep apnea. PLAN: The patient presents to [facility] with a 3-day history of worsening pulmonary symptoms. I did review the chest x-ray as above. The chest x-ray shows only minimal linear atelectasis at the right base. I have also noted the previous CAT scan of the chest. On that CAT scan, there is minimal linear scarring/atelectasis noted at the bases. There is no mass, nodule or lymphadenopathy noted. As above, the patient did present to [facility] - on 04/27/2017 - with acute upper airway obstruction. He did receive a tracheostomy during the admission, which has now been taken out. Apparently, the patient is followed closely by the ENT service. I would certainly re-consult them for this admission. On physical exam, there is [id number] bronchospasm noted. I will change the nebulizer treatments to scheduled DuoNeb treatments, and add inhaled Pulmicort. I will also increase the intravenous steroids this morning. There is no history of temperatures. There is no leukocytosis. I would continue with the current antibiotic therapy for now. The patient does feel better this morning and is clinically improved. Again, I would certainly have ENT evaluate this patient. I discuss the above with Dr. Page at length. Thank you very much for this pulmonary consultation. Yunior Toscano MD KIKI
[2017-06-10] MEDS: Albuterol-Ipratrop 3 mg / 0.5 (3 ml) UD IH SCH ×2 (13:21→20:18)
--- NOTE | 2017-06-10 13:36 | PN ---
SUBJECTIVE: I saw him sitting out of bed to chair with oxygen on. He is still having labored breathing. He is on DuoNeb, Lopressor, Pulmicort, Solu-Medrol and Zithromax. PHYSICAL EXAMINATION VITAL SIGNS: Temperature 98.2, 84 pulse, 143/77 blood pressure, 20 respiratory rate, and 96% O2 saturation on 4 liters. HEENT: His head is atraumatic and normocephalic. HEART: Regular rate. LUNGS: Decreased breath sounds. He has stridors or wheeze that I could audibly hear. ABDOMEN: Soft, morbidly obese. EXTREMITIES: Trace edema. LABORATORY DATA: He has a 9.1 white count, 12 hemoglobin, 39.3 hematocrit with 209,000 platelets. He has a 128 sodium, potassium of 5.1, BUN is 6, creatinine 0.6, GFR is greater than 60, sugar is 137, calcium is 9.8. Total bilirubin is 0.3, AST is 35, ALT is 31 and alkaline phosphatase is 110. Troponin I is less than 0.01. BNP is 260. Total protein is 8.2. He is being seen now by Pulmonary. I was told that he had right upper lobe pneumonia. He does have some stridor, status post trach. I am going to order ENT to see him. He has consults of Pulmonary, Cardiology and now, ENT. We will continue with the IV antibiotics. 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 Sonny Page DO MTDD
--- NOTE | 2017-06-10 15:44 | CT ---
PROCEDURE: CT NECK WITHOUT CONTRAST HISTORY: stridor COMPARISON: None. TECHNIQUE: CT of the neck without intravenous contrast. Coronal and sagittal reformats generated. Radiation dose: DLP 1349 mGy-cm This CT exam was performed using one or more of the following dose reduction techniques: Automated exposure control, adjustment of the mA and/or kV according to patient size, and/or use of iterative reconstruction technique. FINDINGS: Imaging of the trachea was performed with inspiratory and expiratory phases. The study included the entire trachea and proximal mainstem bronchi. There is no change in the shape of the trachea on expiration. There is no evidence of tracheomalacia. There is no tracheal stenosis or obstruction. There is soft tissue swelling in the supraglottic larynx involving the aryepiglottic folds. The epiglottis itself is not enlarged. This could be the etiology of stridor. IMPRESSION: Swelling of the aryepiglottic folds. No evidence of epiglottic swelling. No evidence of tracheomalacia
[2017-06-10] MEDS: MethylPREDNISolone 40 mg Vial IVP SCH ×2 (17:43→23:44)
[2017-06-10 17:46] LABS: ARTERIAL BLOOD GAS HCO3 28.9 mmol/L (21-28); ARTERIAL BLOOD GAS HEMOGLOBIN 11.9 g/dL (11.7-17.4); ARTERIAL BLOOD GAS O2 CAPACITY 16.3 mL/dl (16-24); ARTERIAL BLOOD GAS O2 CONTENT 15.9 ML/dl (15-23); ARTERIAL BLOOD GAS O2 SAT 97.4 % (95-98); ARTERIAL BLOOD GAS PCO2 50 mm/Hg (35-45); ARTERIAL BLOOD GAS PH 7.37 (7.35-7.45); ARTERIAL BLOOD GAS TCO2 30.4 mmol.L (22-28)
[2017-06-10] MEDS ORDERED: Glycopyrrolate 0.2 mg/ml (2ml vial) IV ONE (18:34)
--- NOTE | 2017-06-10 18:37 | CARD ---
APPROVED REPORT EKG Measurement Heart [id number] <Conclusion> Normal sinus rhythm Left axis deviation Incomplete right bundle branch block Abnormal ECG
--- NOTE | 2017-06-10 18:40 | CP.PCM.CON ---
History of Present Illness - History of Present Illness History of Present Illness: Patient recently admitted to [facility] for dyspnea. Pt has hx known to ENT service for previous laryngeal edema and subsequent tracheotomy. Pt was decanulated for he improved as an out patient. Pt now admits to thick mucus from nose and worsening breathing. Nasal congestion. Review of Systems - Constitutional Constitutional: As Per HPI - EENT Eyes: As Per HPI Ears: As Per HPI Nose/Mouth/Throat: As Per HPI, Nasal Congestion, Nasal Obstruction, Throat Swelling - Cardiovascular Cardiovascular: As Per HPI - Respiratory Respiratory: As Per HPI - Gastrointestinal Gastrointestinal: As Per HPI - Genitourinary Genitourinary: As Per HPI - Reproductive: Male Reproductive:Male: As Per HPI - Musculoskeletal Musculoskeletal: As Per HPI - Integumentary Integumentary: As Per HPI - Neurological Neurological: As Per HPI - Psychiatric Psychiatric: As Per HPI - Endocrine Endocrine: As Per HPI - Hematologic/Lymphatic Hematologic: As Per HPI Past Patient History - Past Medical History & Family History Past Medical History?: Yes - Past Social History Smoking Status: Never Smoked - CARDIAC Hx Congestive Heart Failure: Yes - PULMONARY Hx Respiratory Disorders: Yes Other/Comment: AIRWAY BLOCKAGE, TRACHEOSTOMY - NEUROLOGICAL Hx Neurological Disorder: No - HEENT Hx HEENT Problems: Yes - RENAL Hx Chronic Kidney Disease: No - ENDOCRINE/METABOLIC Hx Endocrine Disorders: No - HEMATOLOGICAL/ONCOLOGICAL Hx Blood Disorders: No - INTEGUMENTARY Hx Dermatological Problems: No - MUSCULOSKELETAL/RHEUMATOLOGICAL Hx Musculoskeletal Disorders: Yes Hx Falls: Yes - GASTROINTESTINAL Hx Gastrointestinal Disorders: No - PSYCHIATRIC Hx Psychophysiologic Disorder: No Hx Substance Use: No - SURGICAL HISTORY Other/Comment: right knee surgery, TRACHEOSTOMY - ANESTHESIA Hx Anesthesia: Yes Meds Allergies/Adverse Reactions: Allergies Allergy/AdvReac Type Severity Reaction Status Date / Time No Known Allergies Allergy Verified 06/09/17 19:01 - Medications Medications: Current Medications Albuterol/Ipratropium (Duoneb 3 Mg/0.5 Mg (3 Ml) Ud) 3 ml IH [id number] [facility] Last Admin: 06/10/17 13:21 Dose: 3 ml Albuterol/Ipratropium (Duoneb 3 Mg/0.5 Mg (3 Ml) Ud) 3 ml IH Q2H PRN PRN Reason: Shortness of Breath Budesonide (Pulmicort Respules) 0.5 mg IH [id number] [facility] Heparin Sodium (Porcine) (Heparin) 5,000 units SC Q8 LUCIA PRN Reason: Protocol Last Admin: 06/10/17 15:01 Dose: 5,000 units Ampicillin Sodium/Sulbactam (Sodium 3 gm/ Sodium Chloride) 100 mls @ 200 mls/ hr IVPB Q6 LUCIA PRN Reason: Protocol Last Admin: 06/10/17 17:46 Dose: 200 mls/hr Clindamycin Phosphate 600 mg/ (Sodium Chloride) 54 mls @ 102 mls/hr IVPB Q8 [facility] PRN Reason: Protocol Last Admin: 06/10/17 18:19 Dose: 102 mls/hr Methylprednisolone (Solu-Medrol) 60 mg IVP Q6H [facility] Last Admin: 06/10/17 17:43 Dose: 60 mg Metoprolol Tartrate (Lopressor) 25 mg PO BID [facility] Last Admin: 06/10/17 10:07 Dose: 25 mg Pantoprazole Sodium (Protonix Inj) 40 mg IVP DAILY [facility] Last Admin: 06/10/17 15:01 Dose: 40 mg Physical Exam - Constitutional Appears: Well, Non-toxic Additional comments: noted stridor on bipap - Head Exam Head Exam: ATRAUMATIC, NORMAL INSPECTION, NORMOCEPHALIC - Eye Exam Eye Exam: EOMI, Normal appearance, PERRL Pupil Exam: NORMAL ACCOMODATION, PERRL - ENT Exam ENT Exam: Mucous Membranes Moist Additional comments: Procedure: flexible fiberoptic laryngoscopy: Verbal consent obtained and scope was inserted into left nares (caty purulnece was noted bilaterally in nose); scope was advanced to the supraglottic region. The patient exhibited pus in larynx and edema of arytenoids and AE folds, Arytenoids were prolapsing into larynx. Airway was otherwise stable. Vocal cord movement is appropriate. No hypopharyngeal lesions. Patient tolerated the procedure well and should be intubatable if necessary. - Expanded ENT Exam Expanded Ear exam: absent: Auricular Hematoma, Auricular Trauma, External Canal Tenderness Mouth exam: normal external inspection Teeth exam: normal external inspection Throat exam: Normal Inspection - Neck Exam Neck exam: Positive for: Full Rom. Negative for: Lymphadenopathy, Tenderness - Respiratory Exam Respiratory Exam: Stridor Additional comments: inspiratiory stridor - Psychiatric Exam Psychiatric exam: Normal Affect, Normal Mood - Skin Skin Exam: Normal Color, Warm Results - Vital Signs Recent Vital Signs: Last Vital Signs Temp 98.0 F 06/10/17 07:30 Pulse 71 06/10/17 17:00 Resp 20 06/10/17 07:30 BP 146/88 06/10/17 10:07 Pulse Ox 96 06/10/17 07:30 - Labs Result Diagrams: 06/10/17 06:20 06/10/17 06:20 Labs: Laboratory Results - last 24 hr 06/10/17 06/10/17 06/10/17 06:20 06:20 17:30 WBC 9.1 RBC 5.15 Hgb 12.0 L Hct 39.3 L MCV 76.3 L MCH 23.3 L MCHC 30.5 L RDW 22.3 H Plt Count 309 MPV 9.2 pCO2 50 H pO2 83.0 HCO3 28.9 H ABG pH 7.37 ABG Total CO2 30.4 H ABG O2 Saturation 97.4 ABG O2 Content 15.9 ABG Base Excess 2.8 ABG Hemoglobin 11.9 ABG Carboxyhemoglobin 2.4 H POC ABG HHb (Measured) 2.5 ABG Methemoglobin 0.6 ABG O2 Capacity 16.3 Hgb O2 Saturation 94.5 L FiO2 24.0 Sodium 128 L Potassium 5.1 H Chloride 90 L Carbon Dioxide 29 Anion Gap 14 BUN 6 L Creatinine 0.6 L Est GFR ( Amer) > 60 Est GFR (Non-Af Amer) > 60 Random Glucose 137 H Calcium 9.8 Total Bilirubin 0.3 AST 35 ALT 31 Alkaline Phosphatase 110 Total Protein 8.2 Albumin 4.2 Globulin 4.0 Albumin/Globulin Ratio 1.0 L Assessment & Plan (1) Laryngeal edema determined by laryngoscopy Status: Acute (2) Dyspnea and respiratory abnormalities Status: Acute (3) Stridulous breathing Status: Acute (4) Acute recurrent maxillary sinusitis Status: Acute (5) Chest congestion Status: Acute (6) Pneumonia Status: Acute (7) Abdominal aortic aneurysm (AAA) 3.0 cm to 5.5 cm in diameter in male Status: Acute Priority: Medium (8) Supraglottic edema Status: Acute - Assessment and Plan (Free Text) Plan: Discussed case with ICU attending and resident Pt should be able to be intubated if airway compromise occurs Pt. should be treated for active infection-sinusitis/laryngitis with antibiotics and steroids If patient does not improve with treatment then he may need airway surgery as out patient. Will follow - Date & Time Date: 06/10/17 Time: 18:40
[2017-06-10] MEDS ORDERED: Propofol 10 mg/ml 1,000 MG/100 ML VIAL ONE (19:10)
[2017-06-10] MEDS ORDERED: Propofol 10 mg/ml Inj (20 ML) IVP ONE (20:00)
[2017-06-10] MEDS ORDERED: Sodium Chloride 0.9% 2,000 ML IV STA (20:06)
[2017-06-10] MEDS: Budesonide 0.5 mg/2 ml Inhal Susp UD IH SCH (20:18)
[2017-06-10] MEDS ORDERED: Lidocaine 2% Jelly (Uro-Jet) ONE (20:37)
[2017-06-10] MEDS ORDERED: Propofol 10 mg/ml Inj (20 ML) ONE (20:54)
[2017-06-10] MEDS ORDERED: Succinylcholine 200 mg/10 ml Inj IV ONE (20:55)
[2017-06-10] MEDS ORDERED: Lidocaine 2% Inj (20ml) ONE (21:00)
[2017-06-10] MEDS ORDERED: Etomidate 20 mg/10ml Inj IV ONE (21:10)
[2017-06-10] MEDS ORDERED: Phenylephrine 10 mg/ml Inj ONE (21:39)
[2017-06-10] MEDS ORDERED: Rocuronium 10 mg/ml (5 ml) ONE ×4 (21:39→22:04)
--- NOTE | 2017-06-10 23:04 | PCM.SURG1 ---
<David Zafar - Last Filed: 06/10/17 23:04> Surgeon's Initial Post Op Note - Surgeon's Notes Surgeon: Dr. Kidd Community Life Director: Dr. Zafar PGY-2 Type of Anesthesia: Other (nasotracheal intubation) Pre-Operative Diagnosis: respiratory failure Operative Findings: see operative report Post-Operative Diagnosis: same Operation Performed: nasotracheal intubation. open tracheostomy Specimen/Specimens Removed: none Estimated Blood Loss: EBL {In ML}: 15 Blood Products Given: N/A Drains Used: No Drains Post-Op Condition: Good Date of Surgery/Procedure: 06/10/17 Time of Surgery/Procedure: 23:06 <Rocco Kidd - Last Filed: 06/15/17 12:20> Attending/Attestation - Attestation I have personally seen and examined this patient.: Yes I have fully participated in the care of the patient.: Yes I have reviewed all pertinent clinical information: Yes
[2017-06-10] MEDS ORDERED: Propofol 10 mg/ml 1,000 MG/100 ML VIAL IV PRN (23:26)
--- NOTE | 2017-06-11 00:57 | CON ---
CARDIOLOGY CONSULTATION DATE: 06/10/2017 HISTORY OF PRESENT ILLNESS: The patient is a 62-year-old male who presents with progressive shortness of breath. As stated in the previous notes, the patient is status post tracheostomy since removal of upper airway obstruction last month. He was discharged in 04/2017. The patient denies previous cardiac history. No previous myocardial infarction. He does admit to COPD or previous history of lung disease. He is currently at home on tapering steroids as well as bronchodilators. He denies angina. SOCIAL HISTORY: He does not smoke now. REVIEW OF SYSTEMS: A 14-point review of systems was reviewed. No angina. Positive dyspnea including dyspnea at rest with negative edema in the lower extremities. No previous myocardial infarction. PHYSICAL EXAMINATION: VITAL SIGNS: Blood pressure is 146/88, heart rate is in the 90s. NECK: Negative JVD. LUNGS: Bilateral upper airway sounds with stridor. No rales noted. HEART: Reveals S1, S2. EXTREMITIES: Without edema. LABORATORY DATA: EKG is normal sinus rhythm with no acute changes. BUN and creatinine are unremarkable. Hemoglobin is 12. IMPRESSION: 1. Dyspnea. 2. Chronic obstructive pulmonary disease. 3. Stridor. 4. No evidence for congestive heart failure. 5. History of a recent tracheostomy. PLAN: Given these findings, the patient is mildly short of breath with a question of upper airway obstruction. ENT has been consulted. However, I will call the ICU for evaluation to observe the patient closely given his dyspnea and history of upper airway obstruction. Clayton Garland MD
[2017-06-11] MEDS: Albuterol-Ipratrop 3 mg / 0.5 (3 ml) UD IH SCH ×5 (01:22→19:47)
--- NOTE | 2017-06-11 01:55 | CON ---
DATE: 06/10/2017 SUBJECTIVE: The patient is a 62-year-old gentleman with history of CHF, VDRF, requiring tracheotomy. The patient had his trach removed about a month ago, however, over the last 3 days, he started experiencing increased shortness of breath, cough, and loud noise on inspiration (stridor). The difficulty breathing was worse in supine position. He, however, denies chest pain, fever, chills. He had some minor amounts of uzrspve-fv-xvziedhiy sputum with his cough. He was not able to do same amount of ADL as he was doing before. PAST MEDICAL HISTORY: CHF; respiratory failure, status post trach. Trach was removed about a month ago. SOCIAL HISTORY The patient is a lifelong nonsmoker, prior history of alcohol abuse. No recreational drug abuse. ALLERGIES: NKDA. FAMILY HISTORY: Noncontributory. REVIEW OF SYSTEMS: Review of 12-organ system other than mentioned in history of present illness is negative. PHYSICAL EXAMINATION: VITAL SIGNS: Temperature 98, blood pressure 144/92, heart rate 101, oxygen saturation 96% on 4 liters nasal cannula. ENT: Head and neck atraumatic. The patient has stridor on neck auscultation. HEART: Regular rate and rhythm. S1, S2 normal. ABDOMEN: Soft, nontender, nondistended. LUNGS: There is a conducted rhonchi from upper airways, heard bilaterally with left more than right. MUSCULOSKELETAL: Trace bilateral pedal and ankle edema. NEUROLOGIC: The patient moves all extremities spontaneously. SKIN: Sublimity, moist. PSYCHIATRIC: The patient is in mild distress, alert, awake, and oriented x3. LABORATORY DATA: WBC 9.1, hemoglobin 12, platelet count 309. Sodium 128, potassium 5.1, chloride 90, carbon dioxide 29, BUN 6, creatinine 0.6, glucose 137. AST 35, ALT 31, total bilirubin 0.3. Troponin less than 0.01. Lactic acid 1.3. MEDICATIONS: DuoNeb p.r.n. and every 6 hours on standard dose, budesonide, ceftriaxone, Solu-Medrol 40 mg IV every 8 hours, metoprolol p.o., azithromycin. Chest x-ray showed small bibasilar atelectasis. ASSESSMENT AND PLAN: This is a 62-year-old gentleman with stridor associated with some mild respiratory distress and worsening shortness of breath. The patient had tracheostomy removed about 1 month ago. Possibility of tracheomalacia cannot be ruled out at present time. We will proceed with CPAP titrated to patient tolerance and comfort. We will start with 8 cmH20. We will get dynamic CT chest. I agree with steroids taper, antibiotics, and pulmonary toilet. I would suggest mucolytics as well. ENT consult is pending and will be appreciated. We will continue to target euvolemia, euglycemia, normothermia, and oxygen saturation more than 90%. We will continue with DVT and GI prophylaxis. Low threshold for endotracheal intubation to stabilize airways if needed. We will admit the patient to ICU for overnight observation. Addendum: dynamic CT chest-->no tracheomalacia, but swollen aryethinoids--> upper airways endoscopy was done: abundant pus and arythenoid cartilages are swollen and prolapsing to larynx-->discussed with Dr. Kidd-->no need for immediate intubation to protect airways, but shortly thereafter, patient condition deteriorated, including his ability to protect airways-->got anesthesiologist at bedside, while waiting for ENT to arrive-->direct laryngoscopy confirm would be difficult airways-->ENT arrived and emergent fiberoptic intubation with trach performed. ccm time 40 min Arturo Rosa MD KIKI
[2017-06-11 04:20] LABS: HEMOGLOBIN 10.7 g/dL (14.0-18.0); MEAN CELL VOLUME 76.7 fl (80.0-105.0); MEAN CORPUSCULAR HEMOGLOBIN 23.5 pg (25.0-35.0); MEAN CORPUSCULAR HGB CONC 30.7 g/dl (31.0-37.0); MEAN PLATELET VOLUME 9.1 fl (7.0-11.0); RBC 4.55 10^6/uL (3.5-6.1); RED CELL DISTRIBUTION WIDTH 21.9 % (11.5-14.5); WHITE BLOOD COUNT 9.6 10^3/ul (4.5-11.0)
[2017-06-11] MEDS: MethylPREDNISolone 40 mg Vial IVP SCH ×4 (04:39→22:40)
[2017-06-11] MEDS: Sodium Chloride 0.9% 1,000 ML IV SCH (04:40)
[2017-06-11 05:05] LABS: ARTERIAL BLOOD GAS HCO3 27.9 mmol/L (21-28); ARTERIAL BLOOD GAS HEMOGLOBIN 10.8 g/dL (11.7-17.4); ARTERIAL BLOOD GAS O2 CAPACITY 15.5 mL/dl (16-24); ARTERIAL BLOOD GAS O2 CONTENT 15.5 ML/dl (15-23); ARTERIAL BLOOD GAS O2 SAT 99.9 % (95-98); ARTERIAL BLOOD GAS PCO2 43 mm/Hg (35-45); ARTERIAL BLOOD GAS PH 7.42 (7.35-7.45); ARTERIAL BLOOD GAS TCO2 29.2 mmol.L (22-28)
[2017-06-11 05:15] LABS: ALBUMIN 3.4 g/dL (3.0-4.8); ALT/SGPT 30 U/L (7-56); AST/SGOT 42 U/L (17-59); BLOOD UREA NITROGEN 10 mg/dL (7-21); CALCIUM 9.6 mg/dL (8.4-10.5); GFR AFRICAN-AMERICAN > 60; GFR NON-AFRICAN AMERICAN > 60
[2017-06-11] MEDS: Budesonide 0.5 mg/2 ml Inhal Susp UD IH SCH ×2 (08:00→19:47)
--- NOTE | 2017-06-11 08:03 | OP ---
PROCEDURE DATE: 06/10/2017 PREOPERATIVE DIAGNOSES: Laryngeal edema, airway obstruction. POSTOPERATIVE DIAGNOSES: Laryngeal edema, airway obstruction. PROCEDURES: 1. Nasotracheal intubation, emergent. 2. Tracheotomy. 3. Transtracheal injection. SURGEON: Dr. Rocco Kidd. INCIDENT RESPONSE ANALYST: Dr. David Zafar, General Surgery resident. TYPE OF ANESTHESIA: General endotracheal. COMPLICATIONS: None. CONDITION: Patient tolerated the procedure well, was sent to ICU in guarded condition. INDICATION: This is a patient evaluated by the department of Otolaryngology. Patient has a prior history of laryngeal edema where he underwent again urgent tracheotomy. Patient was doing well. He went to rehab. His tracheotomy tube was removed by the rehab doctor. He was followed up as an outpatient and did have floppy arachnoids on laryngoscopy. He seemed to be doing well though at that time. Recently, he presented to the [facility] with an upper respiratory infection. His breathing had worsened today and ENT was called for consultation. Patient was seen and examined in the ICU earlier today. He did have pus in the naris, in the larynx and laryngeal edema. He was still able to control his airway at that time. During the course of the day, the patient decompensated and required BiPAP and the ICU felt he further decompensated and require intubation. Anesthesia tried intubation and was unable to intubate. Then he was still holding his O2 sat while on the BiPAP although requiring high pressures. Decision was made to bring the patient into the Operating Room for awaken sedation and possible tracheotomy. Patient was obtunded; therefore patient's sister, Elizabeth Fernandez, made the decision for the patient. She was made well aware of the possibility of bleeding, infection, scarring, tracheal issues afterwards, loss of airway and . She was agreeable to above. Patient was then transported from the ICU to the operating room and put on an operative bed. DESCRIPTION OF PROCEDURE: Transtracheal injection of 2% lidocaine was infiltrated, nasal trumpets with lidocaine gelly were used to dilate the airway. Intubating nasolaryngoscope with endotracheal tube attached, was placed into the naris and into the supraglottic region. There appeared marked edema more than previously seen earlier in the day. Scope was advanced and penetrated through the glottis into the trachea and the tracheal tube was then advanced over the bronchoscope. Airway was obtained. Tube was secured. After shoulder roll placement, patient was prepped and draped in the usual sterile fashion. Bovie dissection was used to cut out the previous tracheotomy scar and dissect down to the trachea. At the scar attachment to the trachea, the scar was amputated and the trachea was opened in vertical fashion, and the tracheal tube was visualized. In the tracheal tube, the balloon was led down, the tube was withdrawn, and #8 proximal extension Shiley tube was placed into the airway. At this time it was felt that the patient was not oxygenating well, as he was only oxygenating in the 80s. Fiber-optic scope was passed down the tube. The tube appeared to be in the left main stem bronchus. Therefore, this tube was removed and a new #8 Shiley non-fenestrated cuffed tube was placed into the airway without difficulty. The Surgicel was packed around the tracheotomy tube. Tube was secured with 2-0 silk and chromic was used to close the tracheotomy hole to some degree. Sponge was placed under the tracheotomy tube and Jose Roberto collar was applied after trach was sutured to the neck. Patient tolerated the procedure well. He was moved to his ICU bed and transported back to the ICU in guarded condition. Rocco Kidd DO
--- NOTE | 2017-06-11 09:14 | RAD ---
HISTORY: Intubated COMPARISON: 06/09/2017 FINDINGS: LUNGS: Stable right lung infiltrates. PLEURA: No significant pleural effusion identified, no pneumothorax apparent. CARDIOVASCULAR: Stable cardiomegaly OSSEOUS STRUCTURES: No significant abnormalities. VISUALIZED UPPER ABDOMEN: Normal. OTHER FINDINGS: Tracheostomy device in satisfactory position IMPRESSION: Satisfactory position of recently placed tracheostomy device. Otherwise no interval change.
--- NOTE | 2017-06-11 11:38 | PN ---
DATE: 06/11/17(730am-820am) PULMONARY NOTE SUBJECTIVE: The patient is currently in the ICU, and on the ventilator. He is currently sedated. PHYSICAL EXAMINATION VITAL SIGNS: Temperature is 98.8, pulse 91, respirations 23/22, blood pressure 129/84. HEENT: Normocephalic, atraumatic. NECK: No JVD. There is a tracheostomy in place. CARDIOVASCULAR: Positive S1, S2. No S3 gallop. LUNGS: Decreased breath sounds at the bases. Less rhonchi. No wheezing this morning. EXTREMITIES: No clubbing, cyanosis or edema. GASTROINTESTINAL: Abdomen is soft, nondistended. Bowel sounds are positive. SKIN: No acute rash. NEUROLOGIC: Limited at the present time. PERTINENT LABORATORY DATA: Chest x-ray was done this morning and reviewed. There is a new hazy right lower lobe infiltrate noted. Arterial blood gas was done on PRVC 22, tidal volume 550, FiO2 of 60%. Results are: pH of 7.42, pCO2 of 43, pO2 of 276. Soft tissue neck CAT scan was done yesterday. There is swelling of the aryepiglottic fold. There is no evidence of epiglottic swelling. There is no evidence of tracheomalacia. There is also no tracheal stenosis or obstruction. IMPRESSION 1. Respiratory failure. 2. Upper airway obstruction, requiring repeat tracheostomy. 3. Possible aspiration pneumonia - right lower lobe. 4. Acute bronchitis. 5. Mild anemia. 6. Obstructive sleep apnea. PLAN: The patient is now in the ICU and on the ventilator. He is sedated. I did discuss the case with the night nurse at length. The night nurse informed me, that last night, the patient did present to the ICU with respiratory distress. After initially being seen by the ENT group in the afternoon, the ENT group then came back to the hospital and performed a tracheostomy. Input by Dr. Kidd is noted. I did review the chest x-ray as above. The chest x-ray now shows a right lower lobe infiltrate. I do question whether this picture is consistent with an aspiration pneumonia. There are no temperatures noted. There is no leukocytosis. I will follow the chest x-ray closely and repeat a chest film tomorrow morning. I have also reviewed the arterial blood gas. The arterial blood gas reveals a normal pH, with no significant alveolar-arterial gradient. On physical exam, there is less bronchospasm noted. I will continue with the current nebulizer treatments and intravenous steroids for now. The patient also remains on antibiotic therapy. Clinical status of the patient is certainly improved today - compared to last night. I will discuss the above with the entire ICU team in the next few moments. I did discuss the above with Dr. Page earlier this morning. Yunior Toscano MD [id number]
[2017-06-11] MEDS: Vancomycin 1gm in NS 250ml 1 GM/250 ML BAG IVPB SCH ×2 (11:49→23:30)
[2017-06-11] MEDS ORDERED: Piperacillin/Tazobact 3.375 gm 100 ML IVPB SCH (12:00)
--- NOTE | 2017-06-11 13:34 | PN ---
racheostomy and procedure are noted. The patient is comfortable, resting in bed without respiratory distress. OBJECTIVE VITAL SIGNS: Blood pressure is 130/84, heart rate in the 90s. NECK: Negative JVD. LUNGS: Without rales. HEART: Reveal S1, S2. EXTREMITIES: Without edema. DATA: Hemoglobin is 10.7. Chemistries: BUN and creatinine is 10 and 0.7. IMPRESSION 1. Status post respiratory distress secondary to upper airway obstruction. 2. Chronic obstructive pulmonary disease. 3. History of recent tracheostomy. Given these findings, we will continue with respiratory care. Patient is hemodynamically stable. Clayton Garland MD
[2017-06-11] MEDS: Meropenem IV 1 gm in NS 50 ML IVPB SCH ×2 (14:36→22:42)
--- NOTE | 2017-06-11 14:36 | PN ---
DATE: SUBJECTIVE: Yesterday, he was having some stridor and called in Ear, Nose and Throat. Also, he had to have a trach, but could not intubate him due to his trachea issues. He is now on trach and on the ventilator due to respiratory issues. He does have a right pneumonia, acute respiratory failure, trach and intubated. I saw him this mornining in the intensive care unit, sedated, comfortable. PHYSICAL EXAMINATION VITAL SIGNS: He has a 98.8 temp, 95 pulse, 129/84 blood pressure, 23 respiratory rate, and 99% O2 saturation on ventilator. HEENT: His head is atraumatic and normocephalic. NECK: Had a trach, but he is on the vent. HEART: Regular rate. LUNGS: Decreased breath sounds, but improved, less wheeze heard. ABDOMEN: Soft, obese, nontender. EXTREMITIES: Trace edema. MEDICATIONS: He is currently on ampicillin/sulbactam; clindamycin - both IVs; Diprivan; DuoNeb; heparin; Lopressor; Protonix; Pulmicort; IV fluids; and Solu-Medrol 60 every 6, it is a very high dose. LABORATORY DATA: He has a white count of 9.6, hemoglobin of 10.7, hematocrit 34.9, platelets 279. He has a 135 sodium, potassium of 4.3, BUN 10, creatinine 0.7, GFR is greater than 60, sugar is 141, calcium is 9.6. Total bilirubin is 0.3, AST is 42, ALT is 30 and alkaline phosphatase 95. Total protein is 6.8. ASSESSMENT AND PLAN: He is being seen by ENT, Cardiology, Pulmonary. I also called an Infectious Disease. He is in the intensive care unit also seen by intensive care physician. He is in trouble. He has a trachea issue. He has right pneumonia. He is intubated with trach and possibly We will check his labs tomorrow. Continue aggressive treatment and care in the intensive care unit. Sonny Page DO KIKI
--- NOTE | 2017-06-11 14:51 | CP.CCUPN ---
<Tucker Sparks - Last Filed: 06/11/17 14:51> CCU Subjective - Physician Review Subjective (Free Text): Pt was seen and evaluated at bedside. Pt is resting comfortably, with no complaints at this time. Patient is making good urine, and has not had any bowel movements overnight. Pt is nonverbal due to tracheostomy placement, but is able to follow commands and answer yes or no questions by nodding his head. Pt denies fever, lightheadedness, dizziness, chest pain, shortness of breath, abdominal pain, Nausea, vomiting, diarrhea. , gibson, is at bedside and reports that the patient consumes about a 1 glass of cognac/vodka per night. She denies any history of seizures or withdrawal symptoms. 06/11/17 14:55 CCU Objective - Vital Signs / Intake & Output Intake and Output (Last 8hrs): Intake & Output 06/10/17 06/11/17 06/11/17 22:59 06:59 14:59 Intake Total 828 Output Total 4750 Balance -3922 Intake: IV 828 Left Hand 400 Right Wrist 77 abx 300 Output: Urine 4750 Urethral (Huerta) 4750 - Physical Exam Head: Positive for: Atraumatic, Normocephalic Pupils: Positive for: PERRL Extroacular Muscles: Positive for: EOMI Conjunctiva: Positive for: Normal Mouth: Positive for: Moist Mucous Membranes Neck: Positive for: Other (tracheostomy in place ) Respiratory/Chest: Positive for: Decreased Breath Sounds, Rhonchi. Negative for : Respiratory Distress, Accessory Muscle Use, Wheezes Cardiovascular: Positive for: Regular Rate and Rhythm, Normal S1, S2. Negative for: Murmurs Abdomen: Positive for: Normal Bowel Sounds. Negative for: Tenderness, Distention, Peritoneal Signs Upper Extremity: Positive for: Normal Inspection. Negative for: Cyanosis, Edema Lower Extremity: Positive for: Edema, NORMAL PULSES. Negative for: CALF TENDERNESS Neurological: Positive for: GCS=15, Speech Normal Skin: Positive for: Warm, Dry, Normal Color. Negative for: Rashes Psychiatric: Positive for: Alert, Oriented x 3, Normal Insight, Normal Concentration - Medications Active Medications: Active Medications Generic Name Dose Route Start Last Admin Trade Name Freq PRN Reason Stop Dose Admin Albuterol/Ipratropium 3 ml 06/10/17 14:00 06/11/17 13:00 Duoneb 3 Mg/0.5 Mg (3 Ml) Ud IH 3 ml [id number] LUCIA Administration Albuterol/Ipratropium 3 ml 06/10/17 08:33 Duoneb 3 Mg/0.5 Mg (3 Ml) Ud IH Q2H PRN Shortness of Breath Budesonide 0.5 mg 06/10/17 20:00 06/11/17 08:00 Pulmicort Respules IH 0.5 mg [id number] LUCIA Administration Heparin Sodium (Porcine) 5,000 units 06/10/17 14:45 06/11/17 14:36 Heparin SC 5,000 units Q8 LUCIA Administration Protocol Propofol 1,000 mg in 100 mls @ 3.334 mls/hr 06/10/17 23:26 06/11/17 05:00 Diprivan IV 10 mcg/kg/min .Q24H PRN 6.668 mls/hr TITRATE PER MD ORDER Titration Protocol 5 MCG/KG/MIN Sodium Chloride 1,000 mls @ 100 mls/hr 06/11/17 04:45 06/11/17 04:40 Sodium Chloride 0.9% IV 100 mls/hr .Q10H LUCIA Administration Vancomycin HCl 1 gm in 250 mls @ 167 mls/hr 06/11/17 10:30 06/11/17 11:49 Vancomycin 1gm IVPB 167 mls/hr Q12H LUCIA Administration Protocol Meropenem 50 mls @ 100 mls/hr 06/11/17 14:00 06/11/17 14:36 Merrem Iv 1 Gm Premix IVPB 06/18/17 14:01 100 mls/hr Q8 LUCIA Administration Protocol Methylprednisolone 60 mg 06/10/17 17:00 06/11/17 11:49 Solu-Medrol IVP 60 mg Q6H LUCIA Administration Metoprolol Tartrate 25 mg 06/10/17 10:00 06/11/17 11:56 Lopressor PO Not Given BID LUCIA Pantoprazole Sodium 40 mg 06/10/17 14:45 06/11/17 11:48 Protonix Inj IVP 40 mg DAILY LUCIA Administration - Patient Studies Lab Studies: Lab Studies 06/11/17 06/11/17 06/11/17 Range/Units 11:08 05:01 03:50 WBC (4.5-11.0) 10^3/ul RBC (3.5-6.1) 10^6/uL Hgb (14.0-18.0) g/dL Hct (42.0-52.0) % MCV (80.0-105.0) fl MCH (25.0-35.0) pg MCHC (31.0-37.0) g/dl RDW (11.5-14.5) % Plt Count (120.0-450.0) 10^3/uL MPV (7.0-11.0) fl pCO2 43 (35-45) mm/Hg pO2 276.0 H (80-100) mm/Hg HCO3 27.9 (21-28) mmol/L ABG pH 7.42 (7.35-7.45) ABG Total CO2 29.2 H (22-28) mmol.L ABG O2 Saturation 99.9 H (95-98) % ABG O2 Content 15.5 (15-23) ML/dl ABG Base Excess 3.0 (-2.0-3.0) mmol/L ABG Hemoglobin 10.8 L (11.7-17.4) g/dL ABG Carboxyhemoglobin 1.8 H (0.5-1.5) % POC ABG HHb (Measured) 0.1 (0-5) % ABG Methemoglobin 0.8 (0.0-3.0) % ABG O2 Capacity 15.5 L (16-24) mL/dl Hgb O2 Saturation 97.4 (95.0-98.0) % FiO2 100.0 % Sodium 135 (132-148) mmol/L Potassium 4.3 (3.6-5.0) mmol/L Chloride 99 (98-107) mmol/L Carbon Dioxide 28 (21-33) mmol/L Anion Gap 12 (10-20) BUN 10 (7-21) mg/dL Creatinine 0.7 L (0.8-1.5) mg/dl Est GFR ( Amer) > 60 Est GFR (Non-Af Amer) > 60 POC Glucose (mg/dL) 133 H (65-110) mg/dL Random Glucose 141 H (70-110) mg/dL Calcium 9.6 (8.4-10.5) mg/dL Total Bilirubin 0.3 (0.2-1.3) mg/dL AST 42 (17-59) U/L ALT 30 (7-56) U/L Alkaline Phosphatase 95 (38-126) U/L Total Protein 6.8 (5.8-8.3) g/dL Albumin 3.4 (3.0-4.8) g/dL Globulin 3.4 gm/dL Albumin/Globulin Ratio 1.0 L (1.1-1.8) 06/11/17 06/10/17 Range/Units 03:50 17:30 WBC 9.6 (4.5-11.0) 10^3/ul RBC 4.55 (3.5-6.1) 10^6/uL Hgb 10.7 L (14.0-18.0) g/dL Hct 34.9 L (42.0-52.0) % MCV 76.7 L (80.0-105.0) fl MCH 23.5 L (25.0-35.0) pg MCHC 30.7 L (31.0-37.0) g/dl RDW 21.9 H (11.5-14.5) % Plt Count 279 (120.0-450.0) 10^3/uL MPV 9.1 (7.0-11.0) fl pCO2 50 H (35-45) mm/Hg pO2 83.0 (80-100) mm/Hg HCO3 28.9 H (21-28) mmol/L ABG pH 7.37 (7.35-7.45) ABG Total CO2 30.4 H (22-28) mmol.L ABG O2 Saturation 97.4 (95-98) % ABG O2 Content 15.9 (15-23) ML/dl ABG Base Excess 2.8 (-2.0-3.0) mmol/L ABG Hemoglobin 11.9 (11.7-17.4) g/dL ABG Carboxyhemoglobin 2.4 H (0.5-1.5) % POC ABG HHb (Measured) 2.5 (0-5) % ABG Methemoglobin 0.6 (0.0-3.0) % ABG O2 Capacity 16.3 (16-24) mL/dl Hgb O2 Saturation 94.5 L (95.0-98.0) % FiO2 24.0 % Sodium (132-148) mmol/L Potassium (3.6-5.0) mmol/L Chloride (98-107) mmol/L Carbon Dioxide (21-33) mmol/L Anion Gap (10-20) BUN (7-21) mg/dL Creatinine (0.8-1.5) mg/dl Est GFR ( Amer) Est GFR (Non-Af Amer) POC Glucose (mg/dL) (65-110) mg/dL Random Glucose (70-110) mg/dL Calcium (8.4-10.5) mg/dL Total Bilirubin (0.2-1.3) mg/dL AST (17-59) U/L ALT (7-56) U/L Alkaline Phosphatase (38-126) U/L Total Protein (5.8-8.3) g/dL Albumin (3.0-4.8) g/dL Globulin gm/dL Albumin/Globulin Ratio (1.1-1.8) Laboratory Results - last 24 hr 06/10/17 06/11/17 06/11/17 17:30 03:50 03:50 WBC 9.6 RBC 4.55 Hgb 10.7 L Hct 34.9 L MCV 76.7 L MCH 23.5 L MCHC 30.7 L RDW 21.9 H Plt Count 279 MPV 9.1 pCO2 50 H pO2 83.0 HCO3 28.9 H ABG pH 7.37 ABG Total CO2 30.4 H ABG O2 Saturation 97.4 ABG O2 Content 15.9 ABG Base Excess 2.8 ABG Hemoglobin 11.9 ABG Carboxyhemoglobin 2.4 H POC ABG HHb (Measured) 2.5 ABG Methemoglobin 0.6 ABG O2 Capacity 16.3 Hgb O2 Saturation 94.5 L FiO2 24.0 Sodium 135 Potassium 4.3 Chloride 99 Carbon Dioxide 28 Anion Gap 12 BUN 10 Creatinine 0.7 L Est GFR ( Amer) > 60 Est GFR (Non-Af Amer) > 60 POC Glucose (mg/dL) Random Glucose 141 H Calcium 9.6 Total Bilirubin 0.3 AST 42 ALT 30 Alkaline Phosphatase 95 Total Protein 6.8 Albumin 3.4 Globulin 3.4 Albumin/Globulin Ratio 1.0 L 06/11/17 06/11/17 05:01 11:08 WBC RBC Hgb Hct MCV MCH MCHC RDW Plt Count MPV pCO2 43 pO2 276.0 H HCO3 27.9 ABG pH 7.42 ABG Total CO2 29.2 H ABG O2 Saturation 99.9 H ABG O2 Content 15.5 ABG Base Excess 3.0 ABG Hemoglobin 10.8 L ABG Carboxyhemoglobin 1.8 H POC ABG HHb (Measured) 0.1 ABG Methemoglobin 0.8 ABG O2 Capacity 15.5 L Hgb O2 Saturation 97.4 FiO2 100.0 Sodium Potassium Chloride Carbon Dioxide Anion Gap BUN Creatinine Est GFR ( Amer) Est GFR (Non-Af Amer) POC Glucose (mg/dL) 133 H Random Glucose Calcium Total Bilirubin AST ALT Alkaline Phosphatase Total Protein Albumin Globulin Albumin/Globulin Ratio Review of Systems - Constitutional Constitutional: absent: Fever, Chills, Sweats - Cardiovascular Cardiovascular: absent: Chest Pain, Chest Pain at Rest, Chest Pain with Activity , Dyspnea, Dyspnea on Exertion - Respiratory Respiratory: absent: Cough, Dyspnea - Gastrointestinal Gastrointestinal: absent: Abdominal Pain, Nausea, Vomiting - Neurological Neurological: absent: Headaches, Vertigo, Weakness Critical Care Progress Note - Nutrition Nutrition: Nutrition Category Date Time Status NPO Diet [DIET] Diets 06/11/17 Dinner Ordered Assessment/Plan - Assessment and Plan (Free Text) Assessment: 62 year old male with PMHx CHF, LILIYA, morbid obesity, Hx of airway block, and history of ventilator dependant respiratory failure with tracheostomy 1 month ago. Presented to ED in respiratory distress, found to have RLL pneumonia on CXR ; given 1 dose of rocephin. Respiratory distress worsened and intubation was indicated, but tracheostomy was done in the OR due to history of difficult intubation with aryepilglottic swelling. Pt has tracheostomy in place, on pressure support trial, and receiving antibiotics as per ID. Plan: Neuro: AAOx3 Continue to monitor mental status Cardio: Hemodynamically stable Maintain MAP>65mmHg HTN -continue Lopressor PO CHF: Last echo done 04/28/17 shows EF of 52% Pulm: Pneumonia -CXR shows RLL infiltrate, limited RLL atelectasis, no pneumothorax -Tracheostomy; on pressure support trial. Patients tidal volumes are adequate. SpO2>95 Continue Duonebs, Budesonide GI: Protonix ppx ID: RLL pneumonia -Patient is afebrile, without leukocytosis -Infectious disease consulted, recs appreciated -Vancomycin, Merrem as per ID -BCx2 prelim negative x 24 hours -Gram negative rods in urine culture -steroids Renal: Strict Is and Os Replete electrolytes as needed IVF NS at 100mL/hr DVT ppx: heparin GI ppx: protonix Dispo: pressure support trial, which will be followed by trach collar trial <Arturo Rosa - Last Filed: 06/11/17 17:43> CCU Objective - Vital Signs / Intake & Output Intake and Output (Last 8hrs): Intake & Output 06/11/17 06/11/17 06/11/17 06:59 14:59 22:59 Intake Total 828 Output Total 4750 Balance -3922 Intake: IV 828 Left Hand 400 Right Wrist 77 abx 300 Output: Urine 4750 Urethral (Huerta) 4750 - Medications Active Medications: Active Medications Generic Name Dose Route Start Last Admin Trade Name Freq PRN Reason Stop Dose Admin Albuterol/Ipratropium 3 ml 06/10/17 14:00 06/11/17 13:00 Duoneb 3 Mg/0.5 Mg (3 Ml) Ud IH 3 ml [id number] LUCIA Administration Albuterol/Ipratropium 3 ml 06/10/17 08:33 Duoneb 3 Mg/0.5 Mg (3 Ml) Ud IH Q2H PRN Shortness of Breath Budesonide 0.5 mg 06/10/17 20:00 06/11/17 08:00 Pulmicort Respules IH 0.5 mg [id number] LUCIA Administration Heparin Sodium (Porcine) 5,000 units 06/10/17 14:45 06/11/17 14:36 Heparin SC 5,000 units Q8 LUCIA Administration Protocol Propofol 1,000 mg in 100 mls @ 3.334 mls/hr 06/10/17 23:26 06/11/17 05:00 Diprivan IV 10 mcg/kg/min .Q24H PRN 6.668 mls/hr TITRATE PER MD ORDER Titration Protocol 5 MCG/KG/MIN Sodium Chloride 1,000 mls @ 100 mls/hr 06/11/17 04:45 06/11/17 04:40 Sodium Chloride 0.9% IV 100 mls/hr .Q10H LUCIA Administration Vancomycin HCl 1 gm in 250 mls @ 167 mls/hr 06/11/17 10:30 06/11/17 11:49 Vancomycin 1gm IVPB 167 mls/hr Q12H LUCIA Administration Protocol Meropenem 50 mls @ 100 mls/hr 06/11/17 14:00 06/11/17 14:36 Merrem Iv 1 Gm Premix IVPB 06/18/17 14:01 100 mls/hr Q8 LUCIA Administration Protocol Methylprednisolone 60 mg 06/10/17 17:00 06/11/17 11:49 Solu-Medrol IVP 60 mg Q6H LUCIA Administration Metoprolol Tartrate 25 mg 06/10/17 10:00 06/11/17 11:56 Lopressor PO Not Given BID LUCIA Pantoprazole Sodium 40 mg 06/10/17 14:45 06/11/17 11:48 Protonix Inj IVP 40 mg DAILY LUCIA Administration - Patient Studies Lab Studies: Lab Studies 06/11/17 06/11/17 06/11/17 Range/Units 11:08 05:01 03:50 WBC (4.5-11.0) 10^3/ul RBC (3.5-6.1) 10^6/uL Hgb (14.0-18.0) g/dL Hct (42.0-52.0) % MCV (80.0-105.0) fl MCH (25.0-35.0) pg MCHC (31.0-37.0) g/dl RDW (11.5-14.5) % Plt Count (120.0-450.0) 10^3/uL MPV (7.0-11.0) fl pCO2 43 (35-45) mm/Hg pO2 276.0 H (80-100) mm/Hg HCO3 27.9 (21-28) mmol/L ABG pH 7.42 (7.35-7.45) ABG Total CO2 29.2 H (22-28) mmol.L ABG O2 Saturation 99.9 H (95-98) % ABG O2 Content 15.5 (15-23) ML/dl ABG Base Excess 3.0 (-2.0-3.0) mmol/L ABG Hemoglobin 10.8 L (11.7-17.4) g/dL ABG Carboxyhemoglobin 1.8 H (0.5-1.5) % POC ABG HHb (Measured) 0.1 (0-5) % ABG Methemoglobin 0.8 (0.0-3.0) % ABG O2 Capacity 15.5 L (16-24) mL/dl Hgb O2 Saturation 97.4 (95.0-98.0) % FiO2 100.0 % Sodium 135 (132-148) mmol/L Potassium 4.3 (3.6-5.0) mmol/L Chloride 99 (98-107) mmol/L Carbon Dioxide 28 (21-33) mmol/L Anion Gap 12 (10-20) BUN 10 (7-21) mg/dL Creatinine 0.7 L (0.8-1.5) mg/dl Est GFR ( Amer) > 60 Est GFR (Non-Af Amer) > 60 POC Glucose (mg/dL) 133 H (65-110) mg/dL Random Glucose 141 H (70-110) mg/dL Calcium 9.6 (8.4-10.5) mg/dL Total Bilirubin 0.3 (0.2-1.3) mg/dL AST 42 (17-59) U/L ALT 30 (7-56) U/L Alkaline Phosphatase 95 (38-126) U/L Total Protein 6.8 (5.8-8.3) g/dL Albumin 3.4 (3.0-4.8) g/dL Globulin 3.4 gm/dL Albumin/Globulin Ratio 1.0 L (1.1-1.8) 06/11/17 06/10/17 Range/Units 03:50 17:30 WBC 9.6 (4.5-11.0) 10^3/ul RBC 4.55 (3.5-6.1) 10^6/uL Hgb 10.7 L (14.0-18.0) g/dL Hct 34.9 L (42.0-52.0) % MCV 76.7 L (80.0-105.0) fl MCH 23.5 L (25.0-35.0) pg MCHC 30.7 L (31.0-37.0) g/dl RDW 21.9 H (11.5-14.5) % Plt Count 279 (120.0-450.0) 10^3/uL MPV 9.1 (7.0-11.0) fl pCO2 50 H (35-45) mm/Hg pO2 83.0 (80-100) mm/Hg HCO3 28.9 H (21-28) mmol/L ABG pH 7.37 (7.35-7.45) ABG Total CO2 30.4 H (22-28) mmol.L ABG O2 Saturation 97.4 (95-98) % ABG O2 Content 15.9 (15-23) ML/dl ABG Base Excess 2.8 (-2.0-3.0) mmol/L ABG Hemoglobin 11.9 (11.7-17.4) g/dL ABG Carboxyhemoglobin 2.4 H (0.5-1.5) % POC ABG HHb (Measured) 2.5 (0-5) % ABG Methemoglobin 0.6 (0.0-3.0) % ABG O2 Capacity 16.3 (16-24) mL/dl Hgb O2 Saturation 94.5 L (95.0-98.0) % FiO2 24.0 % Sodium (132-148) mmol/L Potassium (3.6-5.0) mmol/L Chloride (98-107) mmol/L Carbon Dioxide (21-33) mmol/L Anion Gap (10-20) BUN (7-21) mg/dL Creatinine (0.8-1.5) mg/dl Est GFR ( Amer) Est GFR (Non-Af Amer) POC Glucose (mg/dL) (65-110) mg/dL Random Glucose (70-110) mg/dL Calcium (8.4-10.5) mg/dL Total Bilirubin (0.2-1.3) mg/dL AST (17-59) U/L ALT (7-56) U/L Alkaline Phosphatase (38-126) U/L Total Protein (5.8-8.3) g/dL Albumin (3.0-4.8) g/dL Globulin gm/dL Albumin/Globulin Ratio (1.1-1.8) Laboratory Results - last 24 hr 06/10/17 06/11/17 06/11/17 17:30 03:50 03:50 WBC 9.6 RBC 4.55 Hgb 10.7 L Hct 34.9 L MCV 76.7 L MCH 23.5 L MCHC 30.7 L RDW 21.9 H Plt Count 279 MPV 9.1 pCO2 50 H pO2 83.0 HCO3 28.9 H ABG pH 7.37 ABG Total CO2 30.4 H ABG O2 Saturation 97.4 ABG O2 Content 15.9 ABG Base Excess 2.8 ABG Hemoglobin 11.9 ABG Carboxyhemoglobin 2.4 H POC ABG HHb (Measured) 2.5 ABG Methemoglobin 0.6 ABG O2 Capacity 16.3 Hgb O2 Saturation 94.5 L FiO2 24.0 Sodium 135 Potassium 4.3 Chloride 99 Carbon Dioxide 28 Anion Gap 12 BUN 10 Creatinine 0.7 L Est GFR ( Amer) > 60 Est GFR (Non-Af Amer) > 60 POC Glucose (mg/dL) Random Glucose 141 H Calcium 9.6 Total Bilirubin 0.3 AST 42 ALT 30 Alkaline Phosphatase 95 Total Protein 6.8 Albumin 3.4 Globulin 3.4 Albumin/Globulin Ratio 1.0 L 06/11/17 06/11/17 05:01 11:08 WBC RBC Hgb Hct MCV MCH MCHC RDW Plt Count MPV pCO2 43 pO2 276.0 H HCO3 27.9 ABG pH 7.42 ABG Total CO2 29.2 H ABG O2 Saturation 99.9 H ABG O2 Content 15.5 ABG Base Excess 3.0 ABG Hemoglobin 10.8 L ABG Carboxyhemoglobin 1.8 H POC ABG HHb (Measured) 0.1 ABG Methemoglobin 0.8 ABG O2 Capacity 15.5 L Hgb O2 Saturation 97.4 FiO2 100.0 Sodium Potassium Chloride Carbon Dioxide Anion Gap BUN Creatinine Est GFR ( Amer) Est GFR (Non-Af Amer) POC Glucose (mg/dL) 133 H Random Glucose Calcium Total Bilirubin AST ALT Alkaline Phosphatase Total Protein Albumin Globulin Albumin/Globulin Ratio Critical Care Progress Note - Nutrition Nutrition: Nutrition Category Date Time Status NPO Diet [DIET] Diets 06/11/17 Dinner Ordered Attending/Attestation - Attestation I have personally seen and examined this patient.: Yes I have fully participated in the care of the patient.: Yes I have reviewed all pertinent clinical information: Yes Notes (Text): 06/11/17 17:41 62 yo male with compromised upper airways, now s/p trach, much more comfortable. Off of sedation on PS. RLL infiltrate, on abx. HOB>35, oral hygiene , sedation vacation and weaning trials. conservative fluid management. pulmonary toilet, early mobilization. DVT/GI prphylaxis. maintain euvolemia, euglycemia and 02sat>90% ccm time 40 min
--- NOTE | 2017-06-11 22:07 | CP.PCM.CON ---
History of Present Illness - History of Present Illness History of Present Illness: 62 year old male with PMH of sepsis with right sided HCAP with epiglotittis, morbid obesity with BMI 41, history of CHF was recently admitted in [facility] because of HCAP and epiglottitis. He came in complaining of continued shortness of breath as well as increased leg swelling. He is found to have possible tracheal narrowing because of epiglottis swelling and now has tracheostomy. He is also diagnosed to have acute bronchitis and is currently on the ventilator and sedated. There is no note of fever, no vomiting, no diarrhea. Infectious Diseases consult is requested to further evaluate and manage. Review of Systems - Review of Systems Systems not reviewed;Unavailable: Intubated Past Patient History - Past Medical History & Family History Past Medical History?: Yes - Past Social History Smoking Status: Never Smoked - CARDIAC Hx Congestive Heart Failure: Yes - PULMONARY Hx Respiratory Disorders: Yes Other/Comment: AIRWAY BLOCKAGE, TRACHEOSTOMY - NEUROLOGICAL Hx Neurological Disorder: No - HEENT Hx HEENT Problems: Yes - RENAL Hx Chronic Kidney Disease: No - ENDOCRINE/METABOLIC Hx Endocrine Disorders: No - HEMATOLOGICAL/ONCOLOGICAL Hx Blood Disorders: No - INTEGUMENTARY Hx Dermatological Problems: No - MUSCULOSKELETAL/RHEUMATOLOGICAL Hx Musculoskeletal Disorders: Yes Hx Falls: Yes - GASTROINTESTINAL Hx Gastrointestinal Disorders: No - PSYCHIATRIC Hx Psychophysiologic Disorder: No Hx Substance Use: No - SURGICAL HISTORY Other/Comment: right knee surgery, TRACHEOSTOMY - ANESTHESIA Hx Anesthesia: Yes Meds Allergies/Adverse Reactions: Allergies Allergy/AdvReac Type Severity Reaction Status Date / Time No Known Allergies Allergy Verified 06/09/17 19:01 - Medications Medications: Current Medications Albuterol/Ipratropium (Duoneb 3 Mg/0.5 Mg (3 Ml) Ud) 3 ml IH [id number] [facility] Last Admin: 06/11/17 01:22 Dose: 3 ml Albuterol/Ipratropium (Duoneb 3 Mg/0.5 Mg (3 Ml) Ud) 3 ml IH Q2H PRN PRN Reason: Shortness of Breath Budesonide (Pulmicort Respules) 0.5 mg IH [id number] [facility] Last Admin: 06/10/17 20:18 Dose: 0.5 mg Heparin Sodium (Porcine) (Heparin) 5,000 units SC Q8 [facility] PRN Reason: Protocol Last Admin: 06/11/17 05:07 Dose: 5,000 units Ampicillin Sodium/Sulbactam (Sodium 3 gm/ Sodium Chloride) 100 mls @ 200 mls/ hr IVPB Q6 LUCIA PRN Reason: Protocol Last Admin: 06/11/17 05:07 Dose: 200 mls/hr Clindamycin Phosphate 600 mg/ (Sodium Chloride) 54 mls @ 102 mls/hr IVPB Q8 LUCIA PRN Reason: Protocol Last Admin: 06/11/17 05:07 Dose: 102 mls/hr Propofol (Diprivan) 1,000 mg in 100 mls @ 3.334 mls/hr IV .Q24H PRN; Protocol; 5 MCG/KG/MIN PRN Reason: TITRATE PER MD ORDER Last Titration: 06/11/17 05:00 Dose: 10 mcg/kg/min, 6.668 mls/hr Sodium Chloride (Sodium Chloride 0.9%) 1,000 mls @ 100 mls/hr IV .Q10H [facility] Last Admin: 06/11/17 04:40 Dose: 100 mls/hr Methylprednisolone (Solu-Medrol) 60 mg IVP Q6H [facility] Last Admin: 06/11/17 04:39 Dose: 60 mg Metoprolol Tartrate (Lopressor) 25 mg PO BID [facility] Last Admin: 06/10/17 18:00 Dose: Not Given Pantoprazole Sodium (Protonix Inj) 40 mg IVP DAILY [facility] Last Admin: 06/10/17 15:01 Dose: 40 mg Physical Exam - Constitutional Appears: Other (intubated and sedated) - Head Exam Head Exam: NORMAL INSPECTION - ENT Exam Additional comments: tracheostomy tube in place - Respiratory Exam Respiratory Exam: Decreased Breath Sounds - Cardiovascular Exam Cardiovascular Exam: +S1, +S2 - GI/Abdominal Exam GI & Abdominal Exam: Soft. absent: Tenderness Results - Vital Signs Recent Vital Signs: Last Vital Signs Temp 98.8 F 06/10/17 17:00 Pulse 91 H 06/11/17 06:20 Resp 23 06/11/17 06:20 BP 129/84 06/11/17 06:00 Pulse Ox 99 06/11/17 06:20 - Labs Result Diagrams: 06/11/17 03:50 06/11/17 03:50 Labs: Laboratory Results - last 24 hr 06/10/17 06/11/17 06/11/17 17:30 03:50 03:50 WBC 9.6 RBC 4.55 Hgb 10.7 L Hct 34.9 L MCV 76.7 L MCH 23.5 L MCHC 30.7 L RDW 21.9 H Plt Count 279 MPV 9.1 pCO2 50 H pO2 83.0 HCO3 28.9 H ABG pH 7.37 ABG Total CO2 30.4 H ABG O2 Saturation 97.4 ABG O2 Content 15.9 ABG Base Excess 2.8 ABG Hemoglobin 11.9 ABG Carboxyhemoglobin 2.4 H POC ABG HHb (Measured) 2.5 ABG Methemoglobin 0.6 ABG O2 Capacity 16.3 Hgb O2 Saturation 94.5 L FiO2 24.0 Sodium 135 Potassium 4.3 Chloride 99 Carbon Dioxide 28 Anion Gap 12 BUN 10 Creatinine 0.7 L Est GFR ( Amer) > 60 Est GFR (Non-Af Amer) > 60 Random Glucose 141 H Calcium 9.6 Total Bilirubin 0.3 AST 42 ALT 30 Alkaline Phosphatase 95 Total Protein 6.8 Albumin 3.4 Globulin 3.4 Albumin/Globulin Ratio 1.0 L 06/11/17 05:01 WBC RBC Hgb Hct MCV MCH MCHC RDW Plt Count MPV pCO2 43 pO2 276.0 H HCO3 27.9 ABG pH 7.42 ABG Total CO2 29.2 H ABG O2 Saturation 99.9 H ABG O2 Content 15.5 ABG Base Excess 3.0 ABG Hemoglobin 10.8 L ABG Carboxyhemoglobin 1.8 H POC ABG HHb (Measured) 0.1 ABG Methemoglobin 0.8 ABG O2 Capacity 15.5 L Hgb O2 Saturation 97.4 FiO2 100.0 Sodium Potassium Chloride Carbon Dioxide Anion Gap BUN Creatinine Est GFR ( Amer) Est GFR (Non-Af Amer) Random Glucose Calcium Total Bilirubin AST ALT Alkaline Phosphatase Total Protein Albumin Globulin Albumin/Globulin Ratio Assessment & Plan - Assessment and Plan (Free Text) Plan: Assessment ventilator-dependent, tracheostomy-dependent respiratory failure due to epiglottitis on top of acute bronchitis histroy of sepsis with right sided HCAP morbid obesity with BMI 41 Plan Started Vancomycin and Merrem and will continue to monitor clinically
[2017-06-12] MEDS: Albuterol-Ipratrop 3 mg / 0.5 (3 ml) UD IH SCH ×4 (01:06→21:30)
[2017-06-12] MEDS: Sodium Chloride 0.9% 1,000 ML IV SCH ×3 (03:00→22:00)
[2017-06-12 05:56] LABS: ARTERIAL BLOOD GAS HCO3 24.5 mmol/L (21-28); ARTERIAL BLOOD GAS HEMOGLOBIN 9.8 g/dL (11.7-17.4); ARTERIAL BLOOD GAS O2 CAPACITY 13.9 mL/dl (16-24); ARTERIAL BLOOD GAS O2 CONTENT 13.9 ML/dl (15-23); ARTERIAL BLOOD GAS O2 SAT 99.9 % (95-98); ARTERIAL BLOOD GAS PCO2 30 mm/Hg (35-45); ARTERIAL BLOOD GAS PH 7.52 (7.35-7.45); ARTERIAL BLOOD GAS TCO2 25.4 mmol.L (22-28)
[2017-06-12 06:04] LABS: HEMOGLOBIN 10.4 g/dL (14.0-18.0); MEAN CELL VOLUME 77.5 fl (80.0-105.0); MEAN CORPUSCULAR HEMOGLOBIN 23.6 pg (25.0-35.0); MEAN CORPUSCULAR HGB CONC 30.5 g/dl (31.0-37.0); MEAN PLATELET VOLUME 9.3 fl (7.0-11.0); RBC 4.4 10^6/uL (3.5-6.1); WHITE BLOOD COUNT 12.2 10^3/ul (4.5-11.0)
[2017-06-12 06:21] LABS: ALB/GLOB RATIO 0.9 (1.1-1.8); ALBUMIN 3.1 g/dL (3.0-4.8); ALT/SGPT 29 U/L (7-56); AST/SGOT 25 U/L (17-59); BLOOD UREA NITROGEN 15 mg/dL (7-21); CALCIUM 9.3 mg/dL (8.4-10.5); GFR AFRICAN-AMERICAN > 60; GFR NON-AFRICAN AMERICAN > 60
[2017-06-12] MEDS: MethylPREDNISolone 40 mg Vial IVP SCH ×3 (06:34→22:33)
[2017-06-12] MEDS: Meropenem IV 1 gm in NS 50 ML IVPB SCH ×3 (06:35→22:35)
--- NOTE | 2017-06-12 07:31 | PN ---
DATE:06/12/17 The patient remains on the ventilator. He is currently on CPAP and pressure support. He is awake and alert. He is not short of breath. OBJECTIVE VITAL SIGNS: Temperature is 98.6, pulse 104, respirations 20, blood pressure 138/76. Oxygen saturation on CPAP and pressure support - 98%. HEENT: Normocephalic, atraumatic. NECK: No JVD. There is a tracheostomy in place. CARDIOVASCULAR: Positive S1, S2. No S3 gallop. LUNGS: Decreased breath sounds at the bases. Less rhonchi. No wheezing. EXTREMITIES: No clubbing, cyanosis or edema. Calves are nontender to palpation. GASTROINTESTINAL: Abdomen is soft, nontender and nondistended. Bowel sounds are positive. SKIN: No acute rash. NEUROLOGIC: Exam limited at the present time. PERTINENT LABORATORY DATA: Chest x-ray was done this morning and reviewed. Compared to yesterday's film, today's film shows a definite decrease in the right lower lobe infiltrate. Arterial blood gas was ordered - pending - not done yet. IMPRESSION 1. Respiratory failure. 2. Upper airway obstruction, requiring repeat tracheostomy. 3. Possible aspiration pneumonia - right lower lobe. 4. Acute bronchitis. 5. Mild anemia. 6. Obstructive sleep apnea. PLAN: The patient remains on the ventilator. He is currently on CPAP and pressure support. He is awake and alert, not short of breath. I did discuss the case with the night nurse at length. The night nurse stated that the patient had a very good night. I did review the chest x-ray as above. The chest x-ray shows definite improvement - with a decrease in the right lower lobe infiltrate. I would continue with the antibiotic coverage as per Infectious Disease. Input by Dr. Sandhu is noted. As above, we are awaiting a repeat arterial blood gas to be done this morning. On physical exam, there is certainly less bronchospasm noted. I will continue with the current nebulizer treatments and intravenous steroids(as per the ICU team) for now. Clinical status of the patient is significantly improved - compared to a few days ago. However, he does remain guarded overall. I will discuss the above with the entire ICU team in the next few moments. I will also discuss the above with Dr. Page later this morning. Yunior Toscano MD [id number]
[2017-06-12] MEDS: Budesonide 0.5 mg/2 ml Inhal Susp UD IH SCH ×2 (08:09→21:30)
[2017-06-12] MEDS: Vancomycin 1gm in NS 250ml 1 GM/250 ML BAG IVPB SCH ×2 (09:31→23:45)
[2017-06-12] MEDS ORDERED: Metoprolol 1 mg/ml Inj IVP ONE (09:40)
--- NOTE | 2017-06-12 10:30 | RAD ---
HISTORY: Intubated COMPARISON: June 11, 2017. FINDINGS: LUNGS: Improved aeration of the lungs particularly right lower lobe. PLEURA: No significant pleural effusion identified, no pneumothorax apparent. CARDIOVASCULAR: Cardiomegaly. No evidence of acute, significant cardiovascular disease. OSSEOUS STRUCTURES: No significant abnormalities. VISUALIZED UPPER ABDOMEN: Normal. OTHER FINDINGS: Stable, satisfactory position of tracheostomy device. IMPRESSION: Improved aeration right lower lobe. Otherwise no interval change.
--- NOTE | 2017-06-12 12:13 | PN ---
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 SUBJECTIVE: The patient is resting, awake and alert, on CPAP pressure support ventilator. The patient has a tracheostomy and has no obvious distress at this time. No complaints of chest pain or abdominal pain. No nausea or vomiting. No diarrhea. PHYSICAL EXAMINATION: VITAL SIGNS: Physical exam note that his temperature is 99.3, his pulse is 103, respirations are 20 and his BP is 148/76. SKIN: Warm and dry. HEENT: Head is atraumatic, normocephalic. Eyes reactive to light. Ear, nose and throat seemed to be within normal limits. NECK: Supple. No JVD. No thyroid enlargement. No lymph nodes, but tracheostomy is in place. LUNGS: Reveal rare rhonchi at the bases. ABDOMEN: Soft. Decreased bowel sounds. No organomegaly noted. GENITALIA AND RECTAL: Deferred. MUSCULOSKELETAL: No joint deformities. EXTREMITIES: Reveal slight lower extremity edema. NEUROLOGICALLY: Seemed to be grossly intact. LABORATORY DATA: As far as his laboratories are concerned, his white count is 12.2, hemoglobin is 10.4, hematocrit 34.1 with platelets of 280,000. His arterial blood gas reveals a pH of 7.52, pCO2 of 30, pO2 of 219. His sodium is 139, potassium 4.0, chloride 104, CO2 of 28 with a BUN of 15, creatinine of 0.7 and a glucose of 125. As far as his chest x-ray, it reveals that there is some right-sided infiltrates. IMPRESSION: My impression is that this patient has respiratory failure secondary to upper airway obstruction and stridor. The patient had emergency tracheostomy placed and is noted to have right-sided pneumonia as well. He has a history of obesity as well and is noted to be tachycardic. PLAN: As far as our plan, we will continue with vent weaning protocol, may attempt trach collar today. The patient is getting pulmonary toilet and we will follow his chest x-ray and arterial blood gas closely as well. He is getting DuoNeb as far as bronchodilator, getting Lopressor for his cardiac rate and meropenem and vancomycin IV antibiotics. The patient is on Solu-Medrol as well as a Pulmicort. We will continue with IV solutions of 0.9% normal saline. We will continue to treat aggressively along with the other consultants and the primary care doctor. Carlos Diehl MD
--- NOTE | 2017-06-12 15:56 | PN ---
DATE: SUBJECTIVE: I saw him in Intensive Care Unit. He has a trach. He is on the ventilator again. He is alert, looking at me. He put both thumbs up that he is feeling better. MEDICATIONS: He is on Diprivan, DuoNebs, heparin, Merrem IV, Protonix, Pulmicort, IV fluids, Solu-Medrol at a very high dose 60 every 6 hours, and vancomycin IV. OBJECTIVE: VITAL SIGNS: He has a 99.3 temperature, 103 pulse, 148/76 blood pressure, 25 respiratory rate, and 95% O2 sat. HEENT: Head is atraumatic, normocephalic. NECK: He has got a trach and wants to attach to the ventilator. HEART: Regular rate. LUNGS: Decreased breath sounds, but may be little bit clear. Less wheeze and less stridor. ABDOMEN: Soft, morbidly obese, nontender. EXTREMITIES: +1/4 pitting edema. LABORATORY DATA: He has a 12.2 white count prior from steroid, 10.4 hemoglobin, 34.1 hematocrit with 280 platelets. He has a 139 sodium, potassium is 4, BUN is 50, creatinine 0.7. GFR is greater than 60, sugar is 125, calcium 9.3, total bili is 0.3, AST is 25, ALT is 29, alk phos 81, total protein 6.4. ASSESSMENT AND PLAN: He is being seen by Pulmonary, Infectious Disease, Cardiology, the flag decorator. He is in trouble. He had a chest x-ray that shows stable tracheostomy, improved aeration of the right lower lobe. He has a ventilator dependent tracheostomy, right now with respiratory failure due to epiglottitis on top of acute bronchitis. He has a history of sepsis with right-sided acute pneumonia, we are trying to prevent that he is morbidly obese. I am going to continue aggressive treatment and care. He has got multiple doctors seeing him. We will check his labs tomorrow. IV antibiotics. Hopefully, if we can get him off the ventilator. Sonny Page DO [facility]
--- NOTE | 2017-06-13 02:21 | PN ---
DATE: 06/12/2017 SUBJECTIVE: The patient is in bed. He was seen early this morning in 129, bed 3. Patient had no fevers and no chills. PHYSICAL EXAMINATION: VITAL SIGNS: Temperature is 98, blood pressure is 119/80, respiratory rate of 23, heart rate of 74. HEENT: Unremarkable. NECK: Supple. LUNGS: Have decreased breath sounds. HEART: Normal S1, S2. ABDOMEN: Soft, nontender. LABORATORY EXAMINATION: Reveals a white count of 12, 200, hemoglobin of 10, platelets of 280. Chemistries reveal a BUN of 15, creatinine of 0.7. Urinalysis is noted. Microbiology reveals E. Coli in the urine. Blood cultures are negative. Review of orders reveals the patient is on meropenem, IV vancomycin. ASSESSMENT AND PLAN: This is a 62-year-old male who was seen in 129, bed 3 with a tracheostomy-dependent respiratory failure, ventilator-dependent failure secondary to epiglottitis on top of acute bronchitis, on vancomycin and meropenem and patient with morbid obesity with body mass index of 41, history of sepsis with right-sided healthcare-associated pneumonia. Day #2 of vancomycin and meropenem. ____ progress note is reviewed. Dr. Toscano's progress note is reviewed. Dr. Page's note is reviewed. We will follow closely with you. Pedro Luis Mccracken MD
[2017-06-13] MEDS: Albuterol-Ipratrop 3 mg / 0.5 (3 ml) UD IH SCH ×4 (03:10→21:39)
[2017-06-13 05:45] LABS: HEMOGLOBIN 10.4 g/dL (14.0-18.0); MEAN CELL VOLUME 78.1 fl (80.0-105.0); MEAN CORPUSCULAR HEMOGLOBIN 23.7 pg (25.0-35.0); MEAN CORPUSCULAR HGB CONC 30.4 g/dl (31.0-37.0); MEAN PLATELET VOLUME 8.9 fl (7.0-11.0); RBC 4.38 10^6/uL (3.5-6.1); RED CELL DISTRIBUTION WIDTH 22.9 % (11.5-14.5); WHITE BLOOD COUNT 8.9 10^3/ul (4.5-11.0)
[2017-06-13] MEDS: Meropenem IV 1 gm in NS 50 ML IVPB SCH ×3 (05:59→22:19)
[2017-06-13] MEDS: MethylPREDNISolone 40 mg Vial IVP SCH ×4 (06:00→22:18)
[2017-06-13 06:03] LABS: ALB/GLOB RATIO 0.9 (1.1-1.8); ALBUMIN 3.2 g/dL (3.0-4.8); ALT/SGPT 26 U/L (7-56); AST/SGOT 25 U/L (17-59); BLOOD UREA NITROGEN 18 mg/dL (7-21); CALCIUM 8.9 mg/dL (8.4-10.5); GFR AFRICAN-AMERICAN > 60; GFR NON-AFRICAN AMERICAN > 60
[2017-06-13] MEDS: Budesonide 0.5 mg/2 ml Inhal Susp UD IH SCH ×2 (08:53→21:46)
[2017-06-13] MEDS: Vancomycin 1gm in NS 250ml 1 GM/250 ML BAG IVPB SCH ×2 (09:31→22:20)
--- NOTE | 2017-06-13 10:01 | RAD ---
HISTORY: f/u COMPARISON: Multiple serial examinations preceding the most recent study: June 12, 2017. FINDINGS: LUNGS: Improving lower lobe infiltrates. PLEURA: No significant pleural effusion identified, no pneumothorax apparent. CARDIOVASCULAR: Cardiomegaly. No evidence of acute, significant cardiovascular disease. OSSEOUS STRUCTURES: No significant abnormalities. VISUALIZED UPPER ABDOMEN: Normal. OTHER FINDINGS: Stable, satisfactory position of tracheostomy device. IMPRESSION: Improving lower lobe infiltrates.
--- NOTE | 2017-06-13 13:02 | PN ---
DATE: 06/13/2017 SUBJECTIVE: The patient is resting in bed. Awake and alert. Tolerated CPAP overnight and this morning, will be placed on trach collar. We will follow his O2 saturations closely. Continue with aggressive pulmonary toilet and note that if he has any chest pain or abdominal pain. No complaints of increased shortness of breath, cough, wheezing, chest congestion at this time. The patient still has tracheostomy in place. PHYSICAL EXAMINATION VITAL SIGNS: Note that his temperature is 98.3, his pulse is 63, rate is 16 and BP is 135/85. SKIN: Warm and dry. HEENT: Head is atraumatic, normocephalic. Eyes, reactive to light. Ears, nose, and throat seemed to be within normal limits. NECK: Supple. No JVD. No thyroid enlargement, but tracheostomy in place. LUNGS: Reveal rare rhonchi at the bases. HEART: Has regular rate and rhythm. Normal S1, S2. ABDOMEN: Soft, nontender. Decreased bowel sounds. GENITALIA: Deferred. RECTAL: Deferred. MUSCULOSKELETAL: No joint deformities. EXTREMITIES: Reveal trace lower extremity edema. NEUROLOGIC: He seemed to be grossly intact. LABORATORY DATA: As far as his laboratories are concerned, his white count is 8.9, hemoglobin is 10.4, hematocrit 34.2 with platelets of 226,000. Sodium is 138, potassium 4.3, chloride 105, CO2 of 27 with a BUN of 18, creatinine of 0.6 and a glucose of 134. IMPRESSION: As far as impression, the patient has respiratory failure secondary to upper airway obstruction/stridor. The patient had emergency tracheostomy placed. He has right-sided pneumonia and obesity. PLAN: As far as plan, we will continue with trach care and start trach collar O2 and follow O2 saturations closely. The patient will continue with DuoNeb as a bronchodilator; continue on his Lopressor, meropenem as well as vancomycin. The patient is on Solu-Medrol and Pulmicort and IV fluids. We will continue to treat aggressively along with the other consultants and the primary care doctor. Carlos Diehl MD [facility] # [id number]
--- NOTE | 2017-06-13 15:09 | PN ---
DATE: 06/13/2017 PULMONARY PROGRESS NOTE SUBJECTIVE: The patient was seen and examined at bedside in the Intensive Care Unit. PHYSICAL EXAMINATION VITAL SIGNS: As follows: Temperature is 98.3, pulse 63, respirations 20, blood pressure 135/85, tracheostomy site is clear. Intake and output is positive 300 mL. HEAD, EARS, NOSE, AND THROAT: Within normal limits. NECK: Supple with no jugular vein distention. CHEST: Symmetrical. HEART: S1 and S2. No S3. Regular. LUNGS: Diminished breath sounds at both lung bases. No wheezing. GASTROINTESTINAL: Soft, nontender. No organomegaly. EXTREMITIES: No pedal edema. SKIN: Dry; intact. No rashes. LABORATORY DATA: I have reviewed his chemistries, which are normal and WBC 8.9, hemoglobin of 10.4 this morning. ASSESSMENT: 1. Respiratory failure. 2. Upper airway obstruction, status post tracheostomy. 3. Rule out aspiration pneumonia of right lower lobe, although the chest x-ray is clear and I do not see signs of aspiration pneumonia. 4. Obstructive sleep apnea, which responds very well to continuous positive airway pressure. PLAN: The patient continues to improve. He is awake and alert. Not short of breath. I discussed his progress with the ICU team. I reviewed the chest x-ray, which shows no infiltrate. So, the right lower lobe infiltrate has resolved and aspiration pneumonia is resolving on current antibiotics as per Infectious Disease. We will continue close monitoring and weaning of any mechanical support with tracheostomy in place. Tristen Romano MD MTDFunmilayo
[2017-06-13] MEDS: Sodium Chloride 0.9% 1,000 ML IV SCH (17:40)
--- NOTE | 2017-06-13 17:42 | PN ---
DATE: SUBJECTIVE: Patient is in bed, in no acute distress, nontoxic. OBJECTIVE VITAL SIGNS: Temperature is 98, blood pressure is 128/60, respiratory rate of 18. HEENT: Examination is unremarkable. NECK: Supple. LUNGS: Have decreased breath sounds. HEART: Normal S1 and S2. ABDOMEN: Soft, nontender. LABORATORY DATA: Examination reveals a white count of 8.9, hemoglobin of 10, platelets of 226,000. BUN of 18, creatinine of 0.6. Urinalysis is noted. Microbiology reveals E. coli in the urine. Blood cultures, have no growth. The E. coli in the urine is pansensitive. Review of orders reveals the patient to be on vancomycin and meropenem. Patient's chest x-ray is improving, lower lobe infiltrate. ASSESSMENT AND PLAN: This is a 62-year-old male who was seen in [facility], bed 3 with tracheostomy-dependent respiratory failure; ventilator-dependent failure with epiglottitis on top of acute bronchitis, on vancomycin and meropenem day #3 for treatment of epiglottis and pneumonia. We will continue the present course. Patient appears to be improving. Review of the medication review of the patient to be on Solu-Medrol and the patient is given vancomycin at 10.30 morning and 10.30 at night. We will order a vancomycin trough level for tomorrow at 09.30, an hour before tomorrow's 10.30 dose. We will follow closely with you. Pedro Luis Mccracken MD
--- NOTE | 2017-06-13 18:47 | PN ---
DATE: SUBJECTIVE: I saw him sitting up, bed to chair. He is on trach collar right now. He is off the ventilator. He is alert. He is asking for food. We cannot give him food until we get a different trach or remove the trach. He is on Diprivan, DuoNeb, heparin, Merrem IV, Protonix, Pulmicort, IV fluids, Solu-Medrol, very high dose of vancomycin. PHYSICAL EXAMINATION: VITAL SIGNS: He has 98.3 temperature, 83 pulse, 128/67 blood pressure, 11 respiratory rate, and 94% O2 sat. HEENT: Head is atraumatic, normocephalic. NECK: He has a trach collar, on oxygen. HEART: Regular rate. LUNGS: Decreased breath sounds with decreased congestion and wheezing. ABDOMEN: Morbidly obese, soft, nontender. EXTREMITIES: Trace edema. He is on vancomycin, Solu-Medrol, IV fluids, Pulmicort, Protonix, Merrem, heparin, DuoNeb, Diprivan. LABORATORY DATA: He has an 8.9 white count, better; 10.4 hemoglobin; 34.2 hematocrit with 226 platelets. He has 138 sodium, potassium 4.3. BUN is 18, creatinine 0.6. GFR is greater than 60. Sugar is 134. Calcium is 8.9. Total bili is 0.3. AST 25, ALT is 26, alk phos 77, total protein 6.5. Urine is clean. E. coli in the urine. He had a chest x-ray today, which was improving; lower lobe infiltrate which is good. He is being seen by Infectious Disease, well tender, Pulmonary, Cardiology. He has tracheostomy-dependent respiratory ventilator at this point with the ventilator now off. He had epiglottitis, acute bronchitis. Now, he has bilateral infiltrates. He is obese. Continue aggressive treatment and care. We will check his labs tomorrow. Sonny Page DO
[2017-06-14] MEDS: Albuterol-Ipratrop 3 mg / 0.5 (3 ml) UD IH SCH ×4 (05:32→20:27)
[2017-06-14] MEDS: Meropenem IV 1 gm in NS 50 ML IVPB SCH ×3 (05:53→21:42)
[2017-06-14] MEDS: MethylPREDNISolone 40 mg Vial IVP SCH ×4 (05:53→22:45)
[2017-06-14] MEDS: Sodium Chloride 0.9% 1,000 ML IV SCH ×2 (05:55→15:16)
[2017-06-14 06:20] LABS: HEMOGLOBIN 10.6 g/dL (14.0-18.0); MEAN CORPUSCULAR HEMOGLOBIN 23.3 pg (25.0-35.0); MEAN CORPUSCULAR HGB CONC 29.9 g/dl (31.0-37.0); MEAN PLATELET VOLUME 9.2 fl (7.0-11.0); RBC 4.54 10^6/uL (3.5-6.1); RED CELL DISTRIBUTION WIDTH 22.7 % (11.5-14.5); WHITE BLOOD COUNT 9.4 10^3/ul (4.5-11.0)
[2017-06-14 06:50] LABS: ALB/GLOB RATIO 0.9 (1.1-1.8); ALBUMIN 3.1 g/dL (3.0-4.8); ALT/SGPT 29 U/L (7-56); AST/SGOT 22 U/L (17-59); BLOOD UREA NITROGEN 19 mg/dL (7-21); CALCIUM 9.4 mg/dL (8.4-10.5); GFR AFRICAN-AMERICAN > 60; GFR NON-AFRICAN AMERICAN > 60
[2017-06-14] MEDS: Budesonide 0.5 mg/2 ml Inhal Susp UD IH SCH ×2 (08:14→20:27)
--- NOTE | 2017-06-14 08:56 | PN ---
DATE: 06/14/2017 PULMONARY NOTE SUBJECTIVE: The patient remains on CPAP and pressure support. He is awake and alert. He is not short of breath. PHYSICAL EXAMINATION: VITAL SIGNS: Temperature is 98.2, pulse is 70, respirations 18/20, blood pressure 126/78. Oxygen saturation is 100%. HEENT: Normocephalic, atraumatic. No JVD. There is a tracheostomy in place. There is some bleeding from the tracheostomy site. CARDIOVASCULAR: Positive S1, S2. No S3 gallop. LUNGS: Decreased breath sounds at the bases. Minimal/less rhonchi. No wheezing. EXTREMITIES: No clubbing, cyanosis or edema. Calves are nontender to palpation. GI: Abdomen is soft, nontender and nondistended. Bowel sounds are positive. SKIN: No acute rash. NEUROLOGIC: Limited at the present time. PERTINENT LABORATORY DATA: Chest x-ray was done this morning and reviewed. It is a poor semi-erect portable film. There are minimal/less infiltrates noted at the right base. IMPRESSION: 1. Respiratory failure. 2. Upper airway obstruction, requiring repeat tracheostomy. 3. Possible aspiration pneumonia - right lower lobe. 4. Acute bronchitis. 5. Mild anemia. 6. Obstructive sleep apnea. PLAN: The patient remains on CPAP and pressor support. He is awake and alert. He is not short of breath. I did discuss the case with the night nurse at length. The night nurse stated that the patient had a pretty good night, but there is some bleeding from the tracheostomy site. ENT will be recalled this morning. I have also reviewed the chest x-ray. There is minimal/less infiltrate noted at the right lower lobe. I would continue with the antibiotic coverage as per Infectious Disease. The temperatures have resolved. The leukocytosis has also resolved. On physical exam, there is certainly less bronchospasm noted. I will continue with the current nebulizer treatments and speak to the ICU team about possibly decreasing the intravenous steroids. Bronchospasm is significantly less. The clinical status of the patient is significantly improved - compared to last week. However, again, his overall status/prognosis does remain guarded. I will discuss the above with the entire ICU team in the next few moments. I will also discuss the above with Dr. Page. Yunior Toscano MD [facility] # [id number] [facility]
--- NOTE | 2017-06-14 09:47 | RAD ---
Portable chest radiograph AP semi-erect portable chest radiograph was obtained. Findings: There is stable position of the tracheostomy tube. There is mild pulmonary venous congestion. There is right basilar airspace disease. Again seen is small right pleural effusion. No pneumothorax. Impression: Right lower lobe airspace disease and small right pleural effusion. Pulmonary venous congestion.
[2017-06-14] MEDS: Vancomycin 1gm in NS 250ml 1 GM/250 ML BAG IVPB SCH ×2 (10:07→22:44)
--- NOTE | 2017-06-14 11:51 | CP.CCUPN ---
<Tucker Sparks - Last Filed: 06/14/17 11:48> CCU Subjective - Physician Review Subjective (Free Text): Pt was seen and evaluated at bedside. Pt is resting comfortably, with no complaints at this time. No acute issues overnight. patient denies chest pain, shortness of breath, or any other complaints at this time. 06/14/17 11:48 CCU Objective - Vital Signs / Intake & Output Intake and Output (Last 8hrs): Intake & Output 06/13/17 06/14/17 06/14/17 22:59 06:59 14:59 Intake Total 1500 Output Total 1235 Balance 265 Intake: IV 1500 Right Forearm 1500 Oral 0 Output: Urine 1235 Urethral (Huerta) 855 Urine, Voided 380 Other: # Bowel Movements 0 - Physical Exam Head: Positive for: Atraumatic, Normocephalic Pupils: Positive for: PERRL Extroacular Muscles: Positive for: EOMI Conjunctiva: Positive for: Normal Mouth: Positive for: Moist Mucous Membranes Neck: Positive for: Other (trache collar) Respiratory/Chest: Positive for: Rhonchi. Negative for: Respiratory Distress, Accessory Muscle Use, Wheezes Cardiovascular: Positive for: Regular Rate and Rhythm, Normal S1, S2. Negative for: Murmurs Abdomen: Positive for: Normal Bowel Sounds. Negative for: Tenderness, Distention, Peritoneal Signs Back: Positive for: Normal Inspection Upper Extremity: Positive for: Normal Inspection. Negative for: Cyanosis, Edema Lower Extremity: Positive for: Edema, NORMAL PULSES. Negative for: CALF TENDERNESS Neurological: Positive for: GCS=15, Speech Normal Skin: Positive for: Warm, Dry, Normal Color. Negative for: Rashes Psychiatric: Positive for: Alert, Oriented x 3, Normal Insight, Normal Concentration - Medications Active Medications: Active Medications Generic Name Dose Route Start Last Admin Trade Name Freq PRN Reason Stop Dose Admin Albuterol/Ipratropium 3 ml 06/10/17 14:00 06/14/17 08:14 Duoneb 3 Mg/0.5 Mg (3 Ml) Ud IH 3 ml [id number] LUCIA Administration Albuterol/Ipratropium 3 ml 06/10/17 08:33 Duoneb 3 Mg/0.5 Mg (3 Ml) Ud IH Q2H PRN Shortness of Breath Budesonide 0.5 mg 06/10/17 20:00 06/14/17 08:14 Pulmicort Respules IH 0.5 mg [id number] LUCIA Administration Heparin Sodium (Porcine) 5,000 units 06/10/17 14:45 06/14/17 05:49 Heparin SC Not Given Q8 LUCIA Protocol Propofol 1,000 mg in 100 mls @ 3.334 mls/hr 06/10/17 23:26 06/11/17 18:31 Diprivan IV 0 mcg/kg/min .Q24H PRN 0 mls/hr TITRATE PER MD ORDER Titration Protocol 5 MCG/KG/MIN Sodium Chloride 1,000 mls @ 100 mls/hr 06/11/17 04:45 06/14/17 05:55 Sodium Chloride 0.9% IV 100 mls/hr .Q10H LUCIA Administration Vancomycin HCl 1 gm in 250 mls @ 167 mls/hr 06/11/17 10:30 06/14/17 10:07 Vancomycin 1gm IVPB 167 mls/hr Q12H LUCIA Administration Protocol Meropenem 50 mls @ 100 mls/hr 06/11/17 14:00 06/14/17 05:53 Merrem Iv 1 Gm Premix IVPB 06/18/17 14:01 100 mls/hr Q8 LUCIA Administration Protocol Methylprednisolone 60 mg 06/10/17 17:00 06/14/17 10:12 Solu-Medrol IVP 60 mg Q6H LUCIA Administration Pantoprazole Sodium 40 mg 06/10/17 14:45 06/14/17 10:07 Protonix Inj IVP 40 mg DAILY LUCIA Administration - Patient Studies Lab Studies: Lab Studies 06/14/17 06/14/17 06/14/17 Range/Units 09:30 05:50 05:50 WBC 9.4 (4.5-11.0) 10^3/ul RBC 4.54 (3.5-6.1) 10^6/uL Hgb 10.6 L (14.0-18.0) g/dL Hct 35.4 L (42.0-52.0) % MCV 78.0 L (80.0-105.0) fl MCH 23.3 L (25.0-35.0) pg MCHC 29.9 L (31.0-37.0) g/dl RDW 22.7 H (11.5-14.5) % Plt Count 229 (120.0-450.0) 10^3/uL MPV 9.2 (7.0-11.0) fl Sodium 138 (132-148) mmol/L Potassium 4.3 (3.6-5.0) mmol/L Chloride 104 (98-107) mmol/L Carbon Dioxide 27 (21-33) mmol/L Anion Gap 11 (10-20) BUN 19 (7-21) mg/dL Creatinine 0.6 L (0.8-1.5) mg/dl Est GFR ( Amer) > 60 Est GFR (Non-Af Amer) > 60 Random Glucose 133 H (70-110) mg/dL Calcium 9.4 (8.4-10.5) mg/dL Total Bilirubin 0.3 (0.2-1.3) mg/dL AST 22 (17-59) U/L ALT 29 (7-56) U/L Alkaline Phosphatase 71 (38-126) U/L Total Protein 6.4 (5.8-8.3) g/dL Albumin 3.1 (3.0-4.8) g/dL Globulin 3.3 gm/dL Albumin/Globulin Ratio 0.9 L (1.1-1.8) Vancomycin Trough 5.9 (5.0-10.0) ug/mL Laboratory Results - last 24 hr 06/14/17 06/14/17 06/14/17 05:50 05:50 09:30 WBC 9.4 RBC 4.54 Hgb 10.6 L Hct 35.4 L MCV 78.0 L MCH 23.3 L MCHC 29.9 L RDW 22.7 H Plt Count 229 MPV 9.2 Sodium 138 Potassium 4.3 Chloride 104 Carbon Dioxide 27 Anion Gap 11 BUN 19 Creatinine 0.6 L Est GFR ( Amer) > 60 Est GFR (Non-Af Amer) > 60 Random Glucose 133 H Calcium 9.4 Total Bilirubin 0.3 AST 22 ALT 29 Alkaline Phosphatase 71 Total Protein 6.4 Albumin 3.1 Globulin 3.3 Albumin/Globulin Ratio 0.9 L Vancomycin Trough 5.9 Review of Systems - Cardiovascular Cardiovascular: absent: Chest Pain, Dyspnea, Dyspnea on Exertion - Respiratory Respiratory: absent: Cough, Dyspnea - Gastrointestinal Gastrointestinal: absent: Abdominal Pain, Nausea, Vomiting Critical Care Progress Note - Nutrition Nutrition: Nutrition Category Date Time Status NPO Diet [DIET] Diets 06/11/17 Dinner Ordered Assessment/Plan - Assessment and Plan (Free Text) Assessment: 62 year old male with PMHx CHF, LILIYA, morbid obesity, Hx of airway block, and history of ventilator dependant respiratory failure with tracheostomy 1 month ago. Presented to ED in respiratory distress, found to have RLL pneumonia on CXR ; given abx. Respiratory distress worsened and intubation was indicated, but tracheostomy was done in the OR due to history of difficult intubation with aryepilglottic swelling. Pt now on trach collar. will be downgraded to med surg. Plan: Neuro: AAOx3 Continue to monitor mental status Cardio: Hemodynamically stable Maintain MAP>65mmHg Last echo done 04/28/17 shows EF of 52% Pulm: Chest xray CPAP with Pressure Support, trach collar Continue Duonebs, Budesonide GI: Protonix ppx ID: -Patient is afebrile, without leukocytosis -Infectious disease consulted, recs appreciated -Vancomycin, Merrem as per ID -steroids Renal: Strict Is and Os Replete electrolytes as needed IVF NS at 100mL/hr DVT ppx: heparin GI ppx: protonix Dispo: downgrade to med surg <Juan Wallace - Last Filed: 06/14/17 12:01> CCU Objective - Vital Signs / Intake & Output Intake and Output (Last 8hrs): Intake & Output 06/13/17 06/14/17 06/14/17 22:59 06:59 14:59 Intake Total 1500 Output Total 1235 Balance 265 Intake: IV 1500 Right Forearm 1500 Oral 0 Output: Urine 1235 Urethral (Huerta) 855 Urine, Voided 380 Other: # Bowel Movements 0 - Medications Active Medications: Active Medications Generic Name Dose Route Start Last Admin Trade Name Freq PRN Reason Stop Dose Admin Albuterol/Ipratropium 3 ml 06/10/17 14:00 06/14/17 08:14 Duoneb 3 Mg/0.5 Mg (3 Ml) Ud IH 3 ml [id number] LUCIA Administration Albuterol/Ipratropium 3 ml 06/10/17 08:33 Duoneb 3 Mg/0.5 Mg (3 Ml) Ud IH Q2H PRN Shortness of Breath Budesonide 0.5 mg 06/10/17 20:00 06/14/17 08:14 Pulmicort Respules IH 0.5 mg [id number] LUCIA Administration Heparin Sodium (Porcine) 5,000 units 06/10/17 14:45 06/14/17 05:49 Heparin SC Not Given Q8 LUCIA Protocol Propofol 1,000 mg in 100 mls @ 3.334 mls/hr 06/10/17 23:26 06/11/17 18:31 Diprivan IV 0 mcg/kg/min .Q24H PRN 0 mls/hr TITRATE PER MD ORDER Titration Protocol 5 MCG/KG/MIN Sodium Chloride 1,000 mls @ 100 mls/hr 06/11/17 04:45 06/14/17 05:55 Sodium Chloride 0.9% IV 100 mls/hr .Q10H LUCIA Administration Vancomycin HCl 1 gm in 250 mls @ 167 mls/hr 06/11/17 10:30 06/14/17 10:07 Vancomycin 1gm IVPB 167 mls/hr Q12H LUCIA Administration Protocol Meropenem 50 mls @ 100 mls/hr 06/11/17 14:00 06/14/17 05:53 Merrem Iv 1 Gm Premix IVPB 06/18/17 14:01 100 mls/hr Q8 LUCIA Administration Protocol Methylprednisolone 60 mg 06/10/17 17:00 06/14/17 10:12 Solu-Medrol IVP 60 mg Q6H LUCIA Administration Pantoprazole Sodium 40 mg 06/10/17 14:45 06/14/17 10:07 Protonix Inj IVP 40 mg DAILY LUCIA Administration - Patient Studies Lab Studies: Lab Studies 06/14/17 06/14/17 06/14/17 Range/Units 09:30 05:50 05:50 WBC 9.4 (4.5-11.0) 10^3/ul RBC 4.54 (3.5-6.1) 10^6/uL Hgb 10.6 L (14.0-18.0) g/dL Hct 35.4 L (42.0-52.0) % MCV 78.0 L (80.0-105.0) fl MCH 23.3 L (25.0-35.0) pg MCHC 29.9 L (31.0-37.0) g/dl RDW 22.7 H (11.5-14.5) % Plt Count 229 (120.0-450.0) 10^3/uL MPV 9.2 (7.0-11.0) fl Sodium 138 (132-148) mmol/L Potassium 4.3 (3.6-5.0) mmol/L Chloride 104 (98-107) mmol/L Carbon Dioxide 27 (21-33) mmol/L Anion Gap 11 (10-20) BUN 19 (7-21) mg/dL Creatinine 0.6 L (0.8-1.5) mg/dl Est GFR ( Amer) > 60 Est GFR (Non-Af Amer) > 60 Random Glucose 133 H (70-110) mg/dL Calcium 9.4 (8.4-10.5) mg/dL Total Bilirubin 0.3 (0.2-1.3) mg/dL AST 22 (17-59) U/L ALT 29 (7-56) U/L Alkaline Phosphatase 71 (38-126) U/L Total Protein 6.4 (5.8-8.3) g/dL Albumin 3.1 (3.0-4.8) g/dL Globulin 3.3 gm/dL Albumin/Globulin Ratio 0.9 L (1.1-1.8) Vancomycin Trough 5.9 (5.0-10.0) ug/mL Laboratory Results - last 24 hr 06/14/17 06/14/17 06/14/17 05:50 05:50 09:30 WBC 9.4 RBC 4.54 Hgb 10.6 L Hct 35.4 L MCV 78.0 L MCH 23.3 L MCHC 29.9 L RDW 22.7 H Plt Count 229 MPV 9.2 Sodium 138 Potassium 4.3 Chloride 104 Carbon Dioxide 27 Anion Gap 11 BUN 19 Creatinine 0.6 L Est GFR ( Amer) > 60 Est GFR (Non-Af Amer) > 60 Random Glucose 133 H Calcium 9.4 Total Bilirubin 0.3 AST 22 ALT 29 Alkaline Phosphatase 71 Total Protein 6.4 Albumin 3.1 Globulin 3.3 Albumin/Globulin Ratio 0.9 L Vancomycin Trough 5.9 Critical Care Progress Note - Nutrition Nutrition: Nutrition Category Date Time Status NPO Diet [DIET] Diets 06/11/17 Dinner Ordered Assessment/Plan - Assessment and Plan (Free Text) Plan: Patient seen and examined on rounds with resident, agree with note with following additions/exceptions: Patient is 62yo male with PMHx of CHF, LILIYA, morbid obesity, airway compromise s/ p trach 1 month ago, presented to the ER in resp distress, taken to OR for emergent trach, 2/2 difficult intubation. Currently afebrile, HD stable, comfortable on Tcollar>24hr now, tolerating it well. No major complaints. Surgery following. On antibiotics. Resp failure, s/p trach PNA Morbid obesity Recommend: - cont with trach collar as tolerated - antibiotics as per ID - follow up cultures - BP control - FS control - follow up ID - follow up surgery - IVF hydration - GI ppx - DVT ppx - Stable, transfer to telemetry
--- NOTE | 2017-06-14 12:27 | CP.PCM.PN ---
Subjective - Date & Time of Evaluation Date of Evaluation: 06/14/17 Time of Evaluation: 08:00 - Subjective Subjective: Comfortable in bed, now off the ventilator, no fevers. Objective - Vital Signs/Intake and Output Vital Signs (last 24 hours): Temp Pulse Resp BP Pulse Ox 98.2 F 70 22 126/78 100 06/13/17 12:00 06/14/17 02:00 06/13/17 22:50 06/13/17 22:00 06/13/17 22:50 - Medications Medications: Current Medications Albuterol/Ipratropium (Duoneb 3 Mg/0.5 Mg (3 Ml) Ud) 3 ml IH [id number] LUCIA Last Admin: 06/14/17 05:32 Dose: 3 ml Albuterol/Ipratropium (Duoneb 3 Mg/0.5 Mg (3 Ml) Ud) 3 ml IH Q2H PRN PRN Reason: Shortness of Breath Budesonide (Pulmicort Respules) 0.5 mg IH [id number] [facility] Last Admin: 06/13/17 21:46 Dose: 0.5 mg Heparin Sodium (Porcine) (Heparin) 5,000 units SC Q8 LUCIA PRN Reason: Protocol Last Admin: 06/14/17 05:49 Dose: Not Given Propofol (Diprivan) 1,000 mg in 100 mls @ 3.334 mls/hr IV .Q24H PRN; Protocol; 5 MCG/KG/MIN PRN Reason: TITRATE PER MD ORDER Last Titration: 06/11/17 18:31 Dose: 0 mcg/kg/min, 0 mls/hr Sodium Chloride (Sodium Chloride 0.9%) 1,000 mls @ 100 mls/hr IV .Q10H [facility] Last Admin: 06/14/17 05:55 Dose: 100 mls/hr Vancomycin HCl (Vancomycin 1gm) 1 gm in 250 mls @ 167 mls/hr IVPB Q12H LUCIA PRN Reason: Protocol Last Admin: 06/13/17 22:20 Dose: 167 mls/hr Meropenem (Merrem Iv 1 Gm Premix) 50 mls @ 100 mls/hr IVPB Q8 LUCIA PRN Reason: Protocol Stop: 06/18/17 14:01 Last Admin: 06/14/17 05:53 Dose: 100 mls/hr Methylprednisolone (Solu-Medrol) 60 mg IVP Q6H [facility] Last Admin: 06/14/17 05:53 Dose: 60 mg Pantoprazole Sodium (Protonix Inj) 40 mg IVP DAILY [facility] Last Admin: 06/13/17 09:31 Dose: 40 mg - Labs Labs: 06/14/17 05:50 06/14/17 05:50 - Constitutional Appears: Chronically Ill - Head Exam Head Exam: NORMAL INSPECTION - ENT Exam Additional comments: tracheostomy tube in place - Neck Exam Neck Exam: absent: Meningismus - Respiratory Exam Respiratory Exam: Decreased Breath Sounds - Cardiovascular Exam Cardiovascular Exam: +S1, +S2 - GI/Abdominal Exam GI & Abdominal Exam: Soft. absent: Tenderness Assessment and Plan - Assessment and Plan (Free Text) Plan: Assessment racheostomy-dependent respiratory failure due to epiglottitis on top of acute bronchitis, S/P VDRF, slowly improving histroy of sepsis with right sided HCAP morbid obesity with BMI 41 Plan continue Vancomycin and Merrem day 4 to complete 4-7 days of therapy will continue to monitor clinically
--- NOTE | 2017-06-14 13:09 | PN ---
DATE: SUBJECTIVE: I saw him sitting in the hospital bed. His trach has got blood everywhere. They are trying to contain it. He is comfortable. He is not coughing, just bleeding around the trach. We will put the heparin on hold. He does have an ENT consult, we will have them come in, they know him and put his trach in. He is on albuterol; heparin, which I put on hold; Merrem; propofol; Protonix; Pulmicort; IV fluids; Solu-Medrol at high dose 60 mg IV every 6 hours and vancomycin. PHYSICAL EXAMINATION VITAL SIGNS: He has 98.2 temperature, 69 pulse, 137/82 blood pressure, 21 respiratory rate, 97% O2 sat on room air. HEENT: Head is atraumatic, normocephalic. NECK: Has got a trach with blood everywhere, they had to clean that up, the nurses will come in, in. HEART: Regular rate. LUNGS: Decreased breath sounds, but clear. ABDOMEN: Soft, obese. He is still hungry. He knows he cannot eat right now. EXTREMITIES: Trace edema. LABORATORY DATA: He has 9.4 white count, 10.6 hemoglobin, 35.4 hematocrit with 229,000 platelets. Sodium 138, potassium 4.3, BUN 19, creatinine 0.6, GFR is greater than 60. Sugar is 133, calcium is 9.4, total bili is 0.3. AST 22, ALT is 29, alkaline phosphatase 71, total protein is 6.4. PLAN: We will continue with the aggressive treatment and care. He is being seen by Infectious Disease, the mat sewer, Pulmonary, ENT and they need to come back to fix the trach. I will check his labs tomorrow. Heparin is on hold. Await Ears, Nose and Throat. Continue IV antibiotics. Sonny Page DO
--- NOTE | 2017-06-14 14:01 | PN ---
DATE: 06/14/2017 CARDIOLOGY FOLLOWUP SUBJECTIVE: The patient is feeling much better. He is on a trach collar. PHYSICAL EXAMINATION: VITAL SIGNS: Blood pressure is 126/78, heart rate is in the 80s. NECK: Negative JVD. LUNGS: Without rales. HEART: S1, S2. EXTREMITIES: Without edema. LABORATORY DATA: Hemoglobin is 10.6. Chemistry: BUN and creatinine are unremarkable. IMPRESSION: 1. Upper airway obstruction secondary to a previous tracheostomy. 2. Chronic obstructive pulmonary disease. 3. Dyspnea, which is better. 4. Obesity. PLAN: Given these findings, we will mobilize the patient today. We will get the patient out of bed. From a cardiac perspective, the patient can be transferred out of the unit. Clayton Garland MD
--- NOTE | 2017-06-14 15:58 | CP.CCUPN ---
CCU Subjective - Physician Review Events Since Last Encounter (Free Text): 06/14/17 15:54 Patient was seen at bedside s/p surgicel packing around trach Trach collar no active bleeding noted mild blood in mucosal secretions noted. Breathing non labored onS/p Trach bleeding has resolved trach tent. Imp-S/p trach breathing has resolved Upper airway obstruction stable p-continue present trach care /suctioned/trach tent Dr Vera CCU Objective - Physical Exam Head: Positive for: Atraumatic, Normocephalic Pupils: Positive for: PERRL Extroacular Muscles: Positive for: EOMI Conjunctiva: Positive for: Normal Mouth: Positive for: Moist Mucous Membranes Neck: Positive for: Other (trache collar) Respiratory/Chest: Positive for: Rhonchi. Negative for: Respiratory Distress, Accessory Muscle Use, Wheezes Cardiovascular: Positive for: Regular Rate and Rhythm, Normal S1, S2. Negative for: Murmurs Abdomen: Positive for: Normal Bowel Sounds. Negative for: Tenderness, Distention, Peritoneal Signs Back: Positive for: Normal Inspection Upper Extremity: Positive for: Normal Inspection. Negative for: Cyanosis, Edema Lower Extremity: Positive for: Edema, NORMAL PULSES. Negative for: CALF TENDERNESS Neurological: Positive for: GCS=15, Speech Normal Skin: Positive for: Warm, Dry, Normal Color. Negative for: Rashes Psychiatric: Positive for: Alert, Oriented x 3, Normal Insight, Normal Concentration - Medications Active Medications: Active Medications Generic Name Dose Route Start Last Admin Trade Name Freq PRN Reason Stop Dose Admin Albuterol/Ipratropium 3 ml 06/10/17 14:00 06/14/17 13:17 Duoneb 3 Mg/0.5 Mg (3 Ml) Ud IH 3 ml [id number] LUCIA Administration Albuterol/Ipratropium 3 ml 06/10/17 08:33 Duoneb 3 Mg/0.5 Mg (3 Ml) Ud IH Q2H PRN Shortness of Breath Budesonide 0.5 mg 06/10/17 20:00 06/14/17 08:14 Pulmicort Respules IH 0.5 mg [id number] LUCIA Administration Heparin Sodium (Porcine) 5,000 units 06/10/17 14:45 06/14/17 05:49 Heparin SC Not Given Q8 LUCIA Protocol Propofol 1,000 mg in 100 mls @ 3.334 mls/hr 06/10/17 23:26 06/11/17 18:31 Diprivan IV 0 mcg/kg/min .Q24H PRN 0 mls/hr TITRATE PER MD ORDER Titration Protocol 5 MCG/KG/MIN Sodium Chloride 1,000 mls @ 100 mls/hr 06/11/17 04:45 06/14/17 15:16 Sodium Chloride 0.9% IV Not Given .Q10H LUCIA Vancomycin HCl 1 gm in 250 mls @ 167 mls/hr 06/11/17 10:30 06/14/17 10:07 Vancomycin 1gm IVPB 167 mls/hr Q12H LUCIA Administration Protocol Meropenem 50 mls @ 100 mls/hr 06/11/17 14:00 06/14/17 15:15 Merrem Iv 1 Gm Premix IVPB 06/18/17 14:01 100 mls/hr Q8 LUCIA Administration Protocol Methylprednisolone 60 mg 06/10/17 17:00 06/14/17 10:12 Solu-Medrol IVP 60 mg Q6H LUCIA Administration Pantoprazole Sodium 40 mg 06/10/17 14:45 06/14/17 10:07 Protonix Inj IVP 40 mg DAILY LUCIA Administration - Patient Studies Lab Studies: Lab Studies 06/14/17 06/14/17 06/14/17 Range/Units 09:30 05:50 05:50 WBC 9.4 (4.5-11.0) 10^3/ul RBC 4.54 (3.5-6.1) 10^6/uL Hgb 10.6 L (14.0-18.0) g/dL Hct 35.4 L (42.0-52.0) % MCV 78.0 L (80.0-105.0) fl MCH 23.3 L (25.0-35.0) pg MCHC 29.9 L (31.0-37.0) g/dl RDW 22.7 H (11.5-14.5) % Plt Count 229 (120.0-450.0) 10^3/uL MPV 9.2 (7.0-11.0) fl Sodium 138 (132-148) mmol/L Potassium 4.3 (3.6-5.0) mmol/L Chloride 104 (98-107) mmol/L Carbon Dioxide 27 (21-33) mmol/L Anion Gap 11 (10-20) BUN 19 (7-21) mg/dL Creatinine 0.6 L (0.8-1.5) mg/dl Est GFR ( Amer) > 60 Est GFR (Non-Af Amer) > 60 Random Glucose 133 H (70-110) mg/dL Calcium 9.4 (8.4-10.5) mg/dL Total Bilirubin 0.3 (0.2-1.3) mg/dL AST 22 (17-59) U/L ALT 29 (7-56) U/L Alkaline Phosphatase 71 (38-126) U/L Total Protein 6.4 (5.8-8.3) g/dL Albumin 3.1 (3.0-4.8) g/dL Globulin 3.3 gm/dL Albumin/Globulin Ratio 0.9 L (1.1-1.8) Vancomycin Trough 5.9 (5.0-10.0) ug/mL Laboratory Results - last 24 hr 06/14/17 06/14/17 06/14/17 05:50 05:50 09:30 WBC 9.4 RBC 4.54 Hgb 10.6 L Hct 35.4 L MCV 78.0 L MCH 23.3 L MCHC 29.9 L RDW 22.7 H Plt Count 229 MPV 9.2 Sodium 138 Potassium 4.3 Chloride 104 Carbon Dioxide 27 Anion Gap 11 BUN 19 Creatinine 0.6 L Est GFR ( Amer) > 60 Est GFR (Non-Af Amer) > 60 Random Glucose 133 H Calcium 9.4 Total Bilirubin 0.3 AST 22 ALT 29 Alkaline Phosphatase 71 Total Protein 6.4 Albumin 3.1 Globulin 3.3 Albumin/Globulin Ratio 0.9 L Vancomycin Trough 5.9 Critical Care Progress Note - Nutrition Nutrition: Nutrition Category Date Time Status NPO Diet [DIET] Diets 06/11/17 Dinner Ordered
[2017-06-15] MEDS: Sodium Chloride 0.9% 1,000 ML IV SCH ×3 (01:29→10:07)
[2017-06-15] MEDS: Albuterol-Ipratrop 3 mg / 0.5 (3 ml) UD IH SCH ×4 (02:03→19:40)
[2017-06-15] MEDS: MethylPREDNISolone 40 mg Vial IVP SCH ×3 (05:53→17:47)
[2017-06-15] MEDS: Meropenem IV 1 gm in NS 50 ML IVPB SCH ×3 (05:54→21:16)
[2017-06-15 06:50] LABS: HEMOGLOBIN 11.7 g/dL (14.0-18.0); MEAN CELL VOLUME 77.5 fl (80.0-105.0); MEAN CORPUSCULAR HEMOGLOBIN 23.5 pg (25.0-35.0); MEAN CORPUSCULAR HGB CONC 30.3 g/dl (31.0-37.0); MEAN PLATELET VOLUME 8.9 fl (7.0-11.0); RBC 4.98 10^6/uL (3.5-6.1); RED CELL DISTRIBUTION WIDTH 22.6 % (11.5-14.5); WHITE BLOOD COUNT 11.8 10^3/ul (4.5-11.0)
[2017-06-15 07:32] LABS: ALBUMIN 3.3 g/dL (3.0-4.8); ALT/SGPT 37 U/L (7-56); AST/SGOT 24 U/L (17-59); BLOOD UREA NITROGEN 21 mg/dL (7-21); CALCIUM 9.2 mg/dL (8.4-10.5); GFR AFRICAN-AMERICAN > 60; GFR NON-AFRICAN AMERICAN > 60
[2017-06-15] MEDS: Budesonide 0.5 mg/2 ml Inhal Susp UD IH SCH ×2 (07:36→19:40)
--- NOTE | 2017-06-15 07:43 | RAD ---
HISTORY: follow up COMPARISON: Portable chest 06/14/2017. FINDINGS: LUNGS: Endotracheal tube is unchanged in position with mild improvement inspiratory volume. Limited bibasilar airspace disease appreciated though somewhat diminished at the right base. PLEURA: Borderline bilateral trace pleural effusions blunt the costophrenic sulci. No pneumothorax bilaterally. CARDIOVASCULAR: Cardiac silhouette appears stable. Diminished pulmonary venous congestion pattern. OSSEOUS STRUCTURES: No significant abnormalities. VISUALIZED UPPER ABDOMEN: Normal. OTHER FINDINGS: None. IMPRESSION: Diminished pulmonary venous congestion pattern. Limited bibasilar atelectasis or infiltrates remain but are somewhat diminished on the right. Trace bilateral pleural effusions are in question.
--- NOTE | 2017-06-15 08:51 | PN ---
DATE: 06/15/2017 PULMONARY NOTE SUBJECTIVE: The patient appears very comfortable this morning. He is not short of breath at rest. PHYSICAL EXAMINATION: VITAL SIGNS: Temperature is 97.6, pulse is 73, respirations 18/20, blood pressure 133/90. Oxygen saturation on trach collar is 99%. HEENT: Normocephalic, atraumatic. No JVD. Positive tracheostomy. CARDIOVASCULAR: Positive S1, S2. No S3 gallop. LUNGS: Decreased breath sounds at the bases. Minimal/less rhonchi. No wheezing. EXTREMITIES: No clubbing, cyanosis or edema. Calves are nontender to palpation. GI: Abdomen is soft, nontender and nondistended. Bowel sounds are positive. SKIN: No acute rash. NEUROLOGIC: Limited at the present time. PERTINENT LABORATORY DATA: Chest x-ray was done this morning and reviewed. The chest x-ray is not significantly changed from yesterday's film. IMPRESSION: 1. Respiratory failure. 2. Upper airway obstruction, requiring repeat tracheostomy. 3. Possible aspiration pneumonia - right lower lobe. 4. Acute bronchitis. 5. Mild anemia. 6. Obstructive sleep apnea. PLAN: The patient appears comfortable this morning. He is not short of breath at rest. He is awake and alert. He does state to feeling much better overall. On physical exam, there is certainly less bronchospasm noted. In addition, the oxygen saturation on trach collar is now 99-100%. I will continue with the current nebulizer treatments and decrease the intravenous steroids this morning. I would continue with the ENT evaluation. Input by Dr. Vera is noted. The patient remains on antibiotic therapy - as per Infectious Disease. Input by Dr. Sandhu is noted. The temperatures have fully resolved. The leukocytosis has also fully resolved. The clinical status of the patient is significantly improved - compared to the initial presentation. I will discuss the above with Dr. Page. Yunior Toscano MD MTDD
[2017-06-15] MEDS: Vancomycin 1gm in NS 250ml 1 GM/250 ML BAG IVPB SCH ×2 (10:07→22:09)
--- NOTE | 2017-06-15 12:36 | CP.PCM.PN ---
Subjective - Date & Time of Evaluation Date of Evaluation: 06/15/17 Time of Evaluation: 11:05 - Subjective Subjective: Comfortable in bed, no fevers, not in distress. Objective - Vital Signs/Intake and Output Vital Signs (last 24 hours): Temp Pulse Resp BP Pulse Ox 97.6 F 73 20 133/90 99 06/15/17 06:00 06/15/17 06:00 06/15/17 06:00 06/15/17 06:00 06/15/17 06:00 Intake and Output: 06/15/17 06/15/17 06:59 18:59 Intake Total 900 Output Total 950 Balance -50 - Medications Medications: Current Medications Albuterol/Ipratropium (Duoneb 3 Mg/0.5 Mg (3 Ml) Ud) 3 ml IH [id number] [facility] Last Admin: 06/15/17 07:36 Dose: 3 ml Albuterol/Ipratropium (Duoneb 3 Mg/0.5 Mg (3 Ml) Ud) 3 ml IH Q2H PRN PRN Reason: Shortness of Breath Budesonide (Pulmicort Respules) 0.5 mg IH [id number] [facility] Last Admin: 06/15/17 07:36 Dose: 0.5 mg Heparin Sodium (Porcine) (Heparin) 5,000 units SC Q8 [facility] PRN Reason: Protocol Last Admin: 06/14/17 05:49 Dose: Not Given Sodium Chloride (Sodium Chloride 0.9%) 1,000 mls @ 100 mls/hr IV .Q10H [facility] Last Admin: 06/15/17 10:07 Dose: 100 mls/hr Vancomycin HCl (Vancomycin 1gm) 1 gm in 250 mls @ 167 mls/hr IVPB Q12H [facility] PRN Reason: Protocol Last Admin: 06/15/17 10:07 Dose: 167 mls/hr Meropenem (Merrem Iv 1 Gm Premix) 50 mls @ 100 mls/hr IVPB Q8 [facility] PRN Reason: Protocol Stop: 06/18/17 14:01 Last Admin: 06/15/17 05:54 Dose: 100 mls/hr Methylprednisolone (Solu-Medrol) 40 mg IVP Q6 [facility] Pantoprazole Sodium (Protonix Inj) 40 mg IVP DAILY [facility] Last Admin: 06/15/17 10:07 Dose: 40 mg - Labs Labs: 04/03/18 06:15 06/15/17 06:15 - Constitutional Appears: Chronically Ill - Head Exam Head Exam: NORMAL INSPECTION - ENT Exam ENT Exam: Mucous Membranes Moist - Neck Exam Neck Exam: absent: Meningismus Additional comments: tracheostomy tube in place, site intact, clean - Respiratory Exam Respiratory Exam: Decreased Breath Sounds - Cardiovascular Exam Cardiovascular Exam: +S1, +S2 - GI/Abdominal Exam GI & Abdominal Exam: Soft. absent: Tenderness Assessment and Plan - Assessment and Plan (Free Text) Plan: Assessment tracheostomy-dependent respiratory failure due to epiglottitis on top of acute bronchitis, S/P VDRF, slowly improving histroy of sepsis with right sided HCAP morbid obesity with BMI 41 Plan continue Vancomycin and Merrem day 5 to complete 4-7 days of therapy will continue to monitor clinically
--- NOTE | 2017-06-15 14:45 | CP.PCM.PN ---
Subjective - Date & Time of Evaluation Date of Evaluation: 06/15/17 Time of Evaluation: 13:00 - Subjective Subjective: Pt seen and examined, sitting in chair no respiratory difficulty, surgicel around tracheotomy tube. Denies pain. Breathing well Review of Systems - Constitutional Constitutional: absent: Fever, Chills, Sweats, Weakness - EENT Eyes: As Per HPI Ears: As Per HPI Nose/Mouth/Throat: As Per HPI - Cardiovascular Cardiovascular: As Per HPI - Respiratory Respiratory: As Per HPI - Genitourinary Genitourinary: As Per HPI - Integumentary Integumentary: As Per HPI - Neurological Neurological: As Per HPI - Psychiatric Psychiatric: As Per HPI, UNREMARKABLE - Endocrine Endocrine: As Per HPI Objective - Vital Signs/Intake and Output Vital Signs (last 24 hours): Temp Pulse Resp BP Pulse Ox 98.1 F 66 19 124/86 99 06/15/17 12:00 06/15/17 12:00 06/15/17 12:00 06/15/17 12:00 06/15/17 06:00 Intake and Output: 06/15/17 06/15/17 06:59 18:59 Intake Total 900 Output Total 950 Balance -50 - Medications Medications: Current Medications Albuterol/Ipratropium (Duoneb 3 Mg/0.5 Mg (3 Ml) Ud) 3 ml IH [id number] [facility] Last Admin: 06/15/17 13:21 Dose: 3 ml Albuterol/Ipratropium (Duoneb 3 Mg/0.5 Mg (3 Ml) Ud) 3 ml IH Q2H PRN PRN Reason: Shortness of Breath Budesonide (Pulmicort Respules) 0.5 mg IH [id number] [facility] Last Admin: 06/15/17 07:36 Dose: 0.5 mg Heparin Sodium (Porcine) (Heparin) 5,000 units SC Q8 [facility] PRN Reason: Protocol Last Admin: 06/14/17 05:49 Dose: Not Given Sodium Chloride (Sodium Chloride 0.9%) 1,000 mls @ 100 mls/hr IV .Q10H [facility] Last Admin: 06/15/17 10:07 Dose: 100 mls/hr Vancomycin HCl (Vancomycin 1gm) 1 gm in 250 mls @ 167 mls/hr IVPB Q12H [facility] PRN Reason: Protocol Last Admin: 06/15/17 10:07 Dose: 167 mls/hr Meropenem (Merrem Iv 1 Gm Premix) 50 mls @ 100 mls/hr IVPB Q8 [facility] PRN Reason: Protocol Stop: 06/18/17 14:01 Last Admin: 06/15/17 05:54 Dose: 100 mls/hr Methylprednisolone (Solu-Medrol) 40 mg IVP Q6 [facility] Last Admin: 06/15/17 12:12 Dose: 40 mg Pantoprazole Sodium (Protonix Inj) 40 mg IVP DAILY [facility] Last Admin: 06/15/17 10:07 Dose: 40 mg - Labs Labs: 06/15/17 06:15 06/15/17 06:15 - Head Exam Head Exam: ATRAUMATIC, NORMAL INSPECTION, NORMOCEPHALIC - Eye Exam Pupil Exam: NORMAL ACCOMODATION, PERRL - ENT Exam ENT Exam: Mucous Membranes Moist - Neck Exam Additional comments: tracheotomy in place no active bleeding surgicel in place - Respiratory Exam Respiratory Exam: NORMAL BREATHING PATTERN Assessment and Plan (1) Laryngeal edema determined by laryngoscopy Status: Acute (2) Dyspnea and respiratory abnormalities Status: Acute (3) Stridulous breathing Status: Acute (4) Acute recurrent maxillary sinusitis Status: Acute (5) Chest congestion Status: Acute (6) Pneumonia Status: Acute (7) Abdominal aortic aneurysm (AAA) 3.0 cm to 5.5 cm in diameter in male Status: Acute (8) Supraglottic edema Status: Acute - Assessment and Plan (Free Text) Plan: continue conservative mgmt, begin diet soft, tracheotomy change later this week to #6 shiley noncuffed/nonfenestrated tube with passey skylar valve. Pt to have discharge planning involved for tracheotomy supplies. Pt will be worked up further as out patient
--- NOTE | 2017-06-15 14:54 | PN ---
DATE: SUBJECTIVE: I saw him resting comfortably in bed. He still has a trach on with oxygen. There is no more bleeding. He is comfortable. ENT did come in. He says he is hungry, but he cannot eat yet, no other acute complaints and he is breathing well on oxygen. PHYSICAL EXAMINATION: VITAL SIGNS: He has a 97.6 temperature, 73 pulse, 133/90 blood pressure, 20 respiratory rate, and 99% O2 sat on trach collar. HEENT: His head is atraumatic, normocephalic. Trach is in place, oxygen is on, no bleeding at this time. He is off heparin, it is on hold. HEART: Regular rate. LUNGS: Decreased breath sounds, but clear bilaterally. ABDOMEN: Soft, morbidly obese. NEUROLOGIC: Without tremors. EXTREMITIES: Have no edema. MEDICATIONS: He is currently on DuoNeb, heparin, which is on hold, Merrem IV, Protonix, Pulmicort, IV fluids, Solu-Medrol 40 IV every 6 hours and vancomycin IV. LABORATORY DATA: He has a 11.8 white count, he is on antibiotics, 11.7 hemoglobin; 38.6 hematocrit with 250 platelets. He has a 138 sodium, potassium 4.2. BUN is 21, creatinine 0.7. GFR is greater than 60. Sugar is 135. Calcium is 9.2. Total bili is 0.4, AST is 24, ALT is 37, alk phos is 69, total protein is 6.8. He is being seen by Ears, Nose, and Throat, Infectious Disease, Cardiology. He had a chest x-ray which showed diminished pulmonary congestion and limited bilateral atelectasis that is improving. He is here for status post tracheostomy, he was on a ventilator. He had epiglottitis, acute bronchitis, obesity. Continue aggressive treatment and care. Hopefully, we can get him off the trach soon. We will follow. We will check his labs tomorrow. Sonny Page DO
--- NOTE | 2017-06-15 15:17 | PN ---
DATE: 06/15/2017 CARDIOLOGY FOLLOWUP SUBJECTIVE: The patient is comfortable. No dyspnea. PHYSICAL EXAMINATION: VITAL SIGNS: Blood pressure is 124/86, heart rates in the 60s. NECK: Negative JVD. LUNGS: Without rales. HEART: Reveals S1, S2. EXTREMITIES: Without edema. LABORATORY DATA: Hemoglobin is 11.7. Chemistries: BUN and creatinine are unremarkable. Glucose is 135. IMPRESSION: 1. Respiratory status is stable. 2. Tracheostomy care is necessary. 3. Chronic obstructive pulmonary disease. 4. Obesity. 5. Elevated glucose. PLAN: Given these findings, the patient's cardiac status is stable. We will need to continue trach care. We will discontinue telemetry today. Clayton Garland MD
[2017-06-16] MEDS: MethylPREDNISolone 40 mg Vial IVP SCH ×5 (00:43→22:59)
[2017-06-16] MEDS: Sodium Chloride 0.9% 1,000 ML IV SCH ×2 (00:43→09:30)
[2017-06-16] MEDS: Albuterol-Ipratrop 3 mg / 0.5 (3 ml) UD IH SCH ×4 (01:28→20:20)
[2017-06-16 06:20] LABS: HEMOGLOBIN 11.1 g/dL (14.0-18.0); MEAN CELL VOLUME 77.1 fl (80.0-105.0); MEAN CORPUSCULAR HEMOGLOBIN 23.3 pg (25.0-35.0); MEAN CORPUSCULAR HGB CONC 30.2 g/dl (31.0-37.0); MEAN PLATELET VOLUME 9.3 fl (7.0-11.0); RBC 4.77 10^6/uL (3.5-6.1); RED CELL DISTRIBUTION WIDTH 22.3 % (11.5-14.5); WHITE BLOOD COUNT 11.2 10^3/ul (4.5-11.0)
[2017-06-16] MEDS: Meropenem IV 1 gm in NS 50 ML IVPB SCH ×3 (06:42→21:39)
[2017-06-16 06:50] LABS: ALBUMIN 3.2 g/dL (3.0-4.8); ALT/SGPT 39 U/L (7-56); AST/SGOT 30 U/L (17-59); BLOOD UREA NITROGEN 17 mg/dL (7-21); CALCIUM 9.4 mg/dL (8.4-10.5); GFR AFRICAN-AMERICAN > 60; GFR NON-AFRICAN AMERICAN > 60
[2017-06-16] MEDS: Budesonide 0.5 mg/2 ml Inhal Susp UD IH SCH ×2 (07:35→20:20)
--- NOTE | 2017-06-16 08:31 | PN ---
DATE: 06/15/2017 SUBJECTIVE: I saw Gema resting comfortably in bed. His trach has stopped bleeding, I stopped the heparin and ENT had seen him. He is hungry, but he can be fed through the trach, they have not changed that. He is on Dulcolax, albuterol, heparin which I stopped, Merrem, Protonix, Pulmicort, IV fluids, Solu-Medrol and vancomycin IV. PHYSICAL EXAMINATION VITAL SIGNS: He has a 97.6 temperature, 70 pulse, 133/90 blood pressure, 20 respiratory rate, 99% O2 sat on trach collar. GENERAL: He is alert and talking to me. He is telling me he is hungry. HEENT: Head is atraumatic, normocephalic. He has got a trach with oxygen on, it has stopped bleeding at this time. HEART: Regular rate. LUNGS: Decreased breath sounds, but clear. ABDOMEN: Soft, morbidly obese, nontender. EXTREMITIES: No edema. LABORATORY DATA: He has 138 sodium, potassium 4.2, BUN 21, creatinine 0.7, GFR is greater than 60, sugar is 135, calcium is 9.2, total bili is 0.4, AST 24, ALT is 37, alkaline phosphatase 69, total protein 6.8. White count is 11.8, he is on IV antibiotics; hemoglobin is 11.7; hematocrit 38.6; platelets of 250. Sonny Page DO
--- NOTE | 2017-06-16 08:38 | PN ---
DATE: 06/16/2017 PULMONARY NOTE SUBJECTIVE: The patient appears comfortable this morning. He is not short of breath at rest. PHYSICAL EXAMINATION VITAL SIGNS: (Last noted in the computer): Temperature is 98, pulse 91, respirations 18, blood pressure 126/90. Oxygen saturation on room air is 100%. HEENT: Normocephalic, atraumatic. NECK: No JVD. Positive tracheostomy. CARDIOVASCULAR: Positive S1, S2. No S3 gallop. LUNGS: Improved breath sounds at the bases. Much less rhonchi. No wheezing. EXTREMITIES: No clubbing, cyanosis or edema. Calves are nontender to palpation. GI: Abdomen is soft, nontender, nondistended. Bowel sounds are positive. SKIN: No acute rash. NEUROLOGIC: Exam limited at the present time. IMPRESSION: 1. Respiratory failure. 2. Upper airway obstruction, requiring repeat tracheostomy. 3. Possible aspiration pneumonia-right lower lobe. 4. Acute bronchitis. 5. Mild anemia. 6. Obstructive sleep apnea. PLAN: The patient appears comfortable this morning. He is not short of breath at rest. He does state to feeling much, much better overall. I did discuss the case with the night nurse at length. The night nurse stated that the patient had a very good night. On physical exam, there is much less bronchospasm noted. In addition, the alveolar-arterial gradient has now resolved. Oxygen saturation on room air is 100%. I will continue with the current nebulizer treatments and decrease the intravenous steroids this morning. The patient remains on antibiotic therapy. Input by Dr. Sandhu is noted. The temperatures have resolved. Only a very mild leukocytosis remains. Input by ENT (Dr. Kidd) is also noted. The clinical status of this patient is significantly improved overall. I will discuss the above with Dr. Page. Yunior Toscano MD MTDD
[2017-06-16] MEDS: Vancomycin 1gm in NS 250ml 1 GM/250 ML BAG IVPB SCH ×2 (09:29→21:37)
--- NOTE | 2017-06-16 15:03 | CP.PCM.PN ---
Subjective - Date & Time of Evaluation Date of Evaluation: 06/16/17 Time of Evaluation: 10:40 - Subjective Subjective: Comfortable on a chair, no fevers, not in distress. Objective - Vital Signs/Intake and Output Vital Signs (last 24 hours): Temp Pulse Resp BP Pulse Ox 98.6 F 83 20 138/95 H 98 06/16/17 08:16 06/16/17 08:16 06/16/17 08:16 06/16/17 08:16 06/16/17 08:16 Intake and Output: 06/16/17 06/16/17 06:59 18:59 Intake Total 1380 Output Total 2700 Balance -1320 - Medications Medications: Current Medications Albuterol/Ipratropium (Duoneb 3 Mg/0.5 Mg (3 Ml) Ud) 3 ml IH [id number] [facility] Last Admin: 06/16/17 07:35 Dose: 3 ml Albuterol/Ipratropium (Duoneb 3 Mg/0.5 Mg (3 Ml) Ud) 3 ml IH Q2H PRN PRN Reason: Shortness of Breath Budesonide (Pulmicort Respules) 0.5 mg IH [id number] [facility] Last Admin: 06/16/17 07:35 Dose: 0.5 mg Heparin Sodium (Porcine) (Heparin) 5,000 units SC Q8 [facility] PRN Reason: Protocol Last Admin: 06/14/17 05:49 Dose: Not Given Sodium Chloride (Sodium Chloride 0.9%) 1,000 mls @ 100 mls/hr IV .Q10H [facility] Last Admin: 06/16/17 00:43 Dose: 100 mls/hr Vancomycin HCl (Vancomycin 1gm) 1 gm in 250 mls @ 167 mls/hr IVPB Q12H [facility] PRN Reason: Protocol Last Admin: 06/15/17 22:09 Dose: 167 mls/hr Meropenem (Merrem Iv 1 Gm Premix) 50 mls @ 100 mls/hr IVPB Q8 [facility] PRN Reason: Protocol Stop: 06/18/17 14:01 Last Admin: 06/16/17 06:42 Dose: 100 mls/hr Methylprednisolone (Solu-Medrol) 40 mg IVP Q8H [facility] Last Admin: 06/16/17 07:53 Dose: Not Given Pantoprazole Sodium (Protonix Inj) 40 mg IVP DAILY [facility] Last Admin: 06/15/17 10:07 Dose: 40 mg - Labs Labs: 06/16/17 06:00 06/16/17 06:00 - Constitutional Appears: Chronically Ill - Head Exam Head Exam: NORMAL INSPECTION - ENT Exam Additional comments: tracheostomy tube in place - Respiratory Exam Respiratory Exam: Decreased Breath Sounds - Cardiovascular Exam Cardiovascular Exam: +S1, +S2 - GI/Abdominal Exam GI & Abdominal Exam: Soft. 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
--- NOTE | 2017-06-16 17:53 | PN ---
DATE: 06/16/2017 CARDIOLOGY FOLLOWUP SUBJECTIVE: The patient is comfortable in a chair without shortness of breath. His trach is still in place. PHYSICAL EXAMINATION: VITAL SIGNS: Blood pressure is 121/63, heart rate is in the 80s. NECK: Negative JVD. LUNGS: Without rales. HEART: S1, S2. EXTREMITIES: Without edema. LABORATORY DATA: Noted. IMPRESSION: 1. Status post upper respiratory obstruction which was relieved with replacement of his tracheostomy. 2. Chronic obstructive pulmonary disease. 3. Obesity. 4. Borderline diabetes mellitus. Given these findings, the patient is here for continued trach care. He is hemodynamically stable. Clayton Garland MD
[2017-06-17] MEDS: Albuterol-Ipratrop 3 mg / 0.5 (3 ml) UD IH SCH ×4 (01:40→19:51)
[2017-06-17 07:23] LABS: HEMOGLOBIN 11.5 g/dL (14.0-18.0); MEAN CELL VOLUME 77.4 fl (80.0-105.0); MEAN CORPUSCULAR HEMOGLOBIN 24.3 pg (25.0-35.0); MEAN CORPUSCULAR HGB CONC 31.3 g/dl (31.0-37.0); RBC 4.74 10^6/uL (3.5-6.1); RED CELL DISTRIBUTION WIDTH 22.3 % (11.5-14.5); WHITE BLOOD COUNT 15.8 10^3/ul (4.5-11.0)
[2017-06-17] MEDS: Budesonide 0.5 mg/2 ml Inhal Susp UD IH SCH ×2 (07:23→19:51)
[2017-06-17 07:41] LABS: ALBUMIN 3.3 g/dL (3.0-4.8); ALT/SGPT 39 U/L (7-56); AST/SGOT 18 U/L (17-59); BLOOD UREA NITROGEN 14 mg/dL (7-21); CALCIUM 9.4 mg/dL (8.4-10.5); GFR AFRICAN-AMERICAN > 60; GFR NON-AFRICAN AMERICAN > 60
[2017-06-17] MEDS: MethylPREDNISolone 40 mg Vial IVP SCH ×3 (08:00→22:07)
[2017-06-17] MEDS: Meropenem IV 1 gm in NS 50 ML IVPB SCH ×2 (08:07→18:07)
--- NOTE | 2017-06-17 08:15 | PN ---
DATE: SUBJECTIVE: I saw him sitting up in bed. He is much more comfortable. He is breathing better. He is eating a little bit. ENT came in. They made a plan on also changing his trach and he is soon to be discharged when they get that arranged. Cardiology is happy with him. MEDICATIONS: He is currently on DuoNeb; heparin; Merrem IV by ID; Protonix; Pulmicort; IV fluids; Solu-Medrol 40 every 8, july be we could start decreasing that; vancomycin IV. PHYSICAL EXAMINATION VITAL SIGNS: Temperature 98, 91 pulse, 126/90 blood pressure, 18 respiratory rate and 100% O2 saturation on room air. HEENT: His head is atraumatic, normocephalic. NECK: Has a trach. No signs of bleeding at this time. HEART: Regular rate. LUNGS: Decreased breath sounds, but clear. No wheezing. No rhonchi. No rales. ABDOMEN: Soft. Morbidly obese. EXTREMITIES: Have trace edema. LABORATORY DATA: He has a white count 11.2, he is on steroids; 11.1 hemoglobin, hematocrit and 247 platelets. He has a 137 sodium, potassium 4.4, BUN is 17, creatinine 0.6, GFR is greater than 60, sugar is 144, calcium is 9.4, total bili is 0.3, AST is 30, ALT is 39 and alkaline phosphatase 65, total protein 6.4. ASSESSMENT AND PLAN: He is being seen by Cardiology. He said he is doing well. ENT said they are going to change the trach. Infectious Disease has got him on IV antibiotics, I think another day to go. Hopefully, we will change it to tablets and he is on a lot of IV Solu-Medrol by Pulmonary. They have no plans to decrease the steroids at this time. I saw Pulmonary. I will discuss this with them. This is a patient who has got respiratory distress. He was on the ventilator for acute respiratory failure, epiglottitis, he is trached. Sonny Page DO [facility] DIVISIONFunmilayo
--- NOTE | 2017-06-17 09:01 | PN ---
DATE: 07/16/2017 PULMONARY NOTE SUBJECTIVE: The patient appears comfortable this morning. He is not short of breath at rest. PHYSICAL EXAMINATION: VITAL SIGNS: (Last noted in the computer): Temperature is 98.6, pulse of 92, respirations 16, blood pressure 121/82. Oxygen saturation on room air is 96%. HEENT: Normocephalic, atraumatic. No JVD. Positive tracheostomy. CARDIOVASCULAR: Positive S1 and S2. No S3 gallop. LUNGS: Minimal/less rhonchi. No wheezing. EXTREMITIES: No clubbing, cyanosis or edema. Calves are nontender to palpation. GI: Abdomen is soft, nontender and nondistended. Bowel sounds are positive. SKIN: No acute rash. NEUROLOGIC: Limited at the present time. IMPRESSION: 1. Respiratory failure. 2. Upper airway obstruction, requiring repeat tracheostomy. 3. Possible aspiration pneumonia - right lower lobe. 4. Acute bronchitis. 5. Mild anemia. 6. Obstructive sleep apnea. PLAN: The patient appears very comfortable this morning. He is not short of breath at rest. He does state to feeling much, much better overall. I did discuss the case with the night nurse at length. The night nurse stated that the patient had a very good night. The night nurse also stated that Dr. Kidd will be back later this afternoon for a tracheostomy change. On physical exam, his bronchospasm continues to resolve. In addition, the oxygen saturation on room air is now 96%. I will continue with the current nebulizer treatments and steroid taper this morning. The patient remains on antibiotic therapy - as per Infectious Disease. Input by Dr. Sandhu is noted. The temperatures have resolved. There is a mild leukocytosis - which may be due to the steroids. The clinical status of this patient is significantly improved overall. I will discuss the above with Dr. Page. Yunior Toscano MD MTDFunmilayo
[2017-06-17] MEDS: Vancomycin 1gm in NS 250ml 1 GM/250 ML BAG IVPB SCH ×2 (10:32→22:07)
--- NOTE | 2017-06-17 12:31 | CP.PCM.PN ---
Subjective - Date & Time of Evaluation Date of Evaluation: 06/17/17 Time of Evaluation: 11:30 - Subjective Subjective: Comfortable on a chair, no fevers, not in distress, breathing much better. Objective - Vital Signs/Intake and Output Vital Signs (last 24 hours): Temp Pulse Resp BP Pulse Ox 98 F 87 18 121/81 95 06/17/17 06:00 06/17/17 06:00 06/17/17 06:00 06/17/17 06:00 06/17/17 06:00 Intake and Output: 06/17/17 06/17/17 06:59 18:59 Intake Total 1080 Output Total 2075 Balance -995 - Medications Medications: Current Medications Albuterol/Ipratropium (Duoneb 3 Mg/0.5 Mg (3 Ml) Ud) 3 ml IH [id number] [facility] Last Admin: 06/17/17 07:23 Dose: 3 ml Albuterol/Ipratropium (Duoneb 3 Mg/0.5 Mg (3 Ml) Ud) 3 ml IH Q2H PRN PRN Reason: Shortness of Breath Budesonide (Pulmicort Respules) 0.5 mg IH [id number] [facility] Last Admin: 06/17/17 07:23 Dose: 0.5 mg Heparin Sodium (Porcine) (Heparin) 5,000 units SC Q8 [facility] PRN Reason: Protocol Last Admin: 06/17/17 08:06 Dose: Not Given Vancomycin HCl (Vancomycin 1gm) 1 gm in 250 mls @ 167 mls/hr IVPB Q12H [facility] PRN Reason: Protocol Last Admin: 06/17/17 10:32 Dose: 167 mls/hr Meropenem (Merrem Iv 1 Gm Premix) 50 mls @ 100 mls/hr IVPB Q8 [facility] PRN Reason: Protocol Stop: 06/18/17 14:01 Last Admin: 06/17/17 08:07 Dose: 100 mls/hr Methylprednisolone (Solu-Medrol) 40 mg IVP Q12 [facility] Last Admin: 06/17/17 10:33 Dose: 40 mg Pantoprazole Sodium (Protonix Inj) 40 mg IVP DAILY [facility] Last Admin: 06/17/17 10:33 Dose: 40 mg - Labs Labs: 06/17/17 06:45 06/17/17 06:45 - Constitutional Appears: Non-toxic, Chronically Ill - Head Exam Head Exam: NORMAL INSPECTION - Neck Exam Neck Exam: absent: Meningismus Additional comments: tracheostomy tube in place - Respiratory Exam Respiratory Exam: Decreased Breath Sounds - Cardiovascular Exam Cardiovascular Exam: +S1, +S2 - GI/Abdominal Exam GI & Abdominal Exam: Soft. 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
--- NOTE | 2017-06-17 15:48 | PN ---
DATE: SUBJECTIVE: He is sitting out of bed to chair. He is comfortable. The trach is in place. He is doing well. He is waiting for the trach replacement later on this afternoon with Ear, Nose, and Throat. The Solu-Medrol has been weaned down slowly with Dr. Toscano. The plan is that tomorrow he will be discharged with the trach and will be following outpatient heparin, Merrem IV, Protonix, Pulmicort, Solu-Medrol down to 40 mg every 12 hours, vancomycin IV. OBJECTIVE: VITAL SIGNS: He has a 98 temperature, 87 pulse, 121/81 blood pressure, 18 respiratory rate, 95% O2 stat on room air. HEENT: His head is atraumatic, normocephalic. NECK: He has a trach, it is clean, no bleeding. HEART: Regular rate. LUNGS: Decreased breath sounds, but clear. ABDOMEN: Soft, obese, nontender. EXTREMITIES: Trace edema. LABORATORY DATA: He has a15.8 white count, could be from the steroids, 11.5 hemoglobin, 36.7 hematocrit with 220 platelets. Sodium 137, potassium is 4. BUN is 14, creatinine 0.6. GFR is greater than 60. Sugar is 129. Calcium is 9.4. Total bilirubin is 0.3, AST is 18, ALT is 29, alkaline phosphatase 59, total protein is 6.6. He has been seen by Pulmonary, Cardiology, and ENT. The plan will be, the trach will be changed tonight with Ear, Nose and Throat, then tomorrow hopefully discharge him p.o. prednisone. He will be follow up in the outpatient. History of respiratory failure, upper airway obstruction requiring repeat tracheostomy. Possible aspiration pneumonia, right lower lobe. Acute bronchitis, mild anemia, obstructive sleep apnea. He is obese, but overall he is improving. We will continue with aggressive treatment and care tomorrow. Discussed with patient. Sonny Page DO [facility]
--- NOTE | 2017-06-17 16:48 | PN ---
DATE: 06/17/2017 CARDIOLOGY FOLLOWUP SUBJECTIVE: The patient is sitting in a chair, watching TV without shortness of breath. PHYSICAL EXAMINATION: VITAL SIGNS: Blood pressure is 121/81, heart rate in the 80s. NECK: Negative JVD. LUNGS: Without rales. HEART: Reveals S1, S2. EXTREMITIES: Without edema. LABORATORY DATA: White count is 15.8. Chemistries: BUN and creatinine are unremarkable. IMPRESSION: 1. Status post upper airway obstruction secondary to #2. 2. Previous tracheostomy. 3. Chronic obstructive pulmonary disease. 4. Diabetes mellitus. 5. Obesity. PLAN: Given these findings, the patient is stable hemodynamically and respiratory gamble. Awaiting for ENT for procedure to change his tracheostomy. Clayton Garland MD
[2017-06-18] MEDS: Albuterol-Ipratrop 3 mg / 0.5 (3 ml) UD IH SCH ×4 (01:18→21:05)
[2017-06-18] MEDS: Meropenem IV 1 gm in NS 50 ML IVPB SCH (01:27)
[2017-06-18 07:21] LABS: HEMOGLOBIN 11.6 g/dL (14.0-18.0); MEAN CELL VOLUME 78.7 fl (80.0-105.0); MEAN CORPUSCULAR HEMOGLOBIN 23.7 pg (25.0-35.0); MEAN CORPUSCULAR HGB CONC 30.1 g/dl (31.0-37.0); MEAN PLATELET VOLUME 9.2 fl (7.0-11.0); RBC 4.89 10^6/uL (3.5-6.1); RED CELL DISTRIBUTION WIDTH 22.3 % (11.5-14.5); WHITE BLOOD COUNT 12.7 10^3/ul (4.5-11.0)
[2017-06-18 07:42] LABS: ALBUMIN 3.4 g/dL (3.0-4.8); ALT/SGPT 36 U/L (7-56); AST/SGOT 18 U/L (17-59); BLOOD UREA NITROGEN 13 mg/dL (7-21); CALCIUM 9.7 mg/dL (8.4-10.5); GFR AFRICAN-AMERICAN > 60; GFR NON-AFRICAN AMERICAN > 60
[2017-06-18] MEDS: Budesonide 0.5 mg/2 ml Inhal Susp UD IH SCH ×2 (08:31→21:05)
--- NOTE | 2017-06-18 08:37 | PN ---
DATE: 06/18/2017 PULMONARY NOTE SUBJECTIVE: The patient appears very comfortable this morning. He is not short of breath at rest. PHYSICAL EXAMINATION VITAL SIGNS: (Last noted in the computer): Temperature is 97.6, pulse is 82, respirations 18, blood pressure 103/72. Oxygen saturation on room air is 96%. HEENT: Normocephalic, atraumatic. No JVD. Positive tracheostomy. CARDIOVASCULAR: Positive S1, S2. No S3 gallop. LUNGS: Very minimal/much less rhonchi. No wheezing. EXTREMITIES: No clubbing, cyanosis or edema. Calves are nontender to palpation. GI: Abdomen is soft, nontender and nondistended. Bowel sounds are positive. SKIN: No acute rash. NEUROLOGIC: Limited at the present time. IMPRESSION: 1. Respiratory failure. 2. Upper airway obstruction, requiring repeat tracheostomy. 3. Possible aspiration pneumonia - right lower lobe. 4. Acute bronchitis. 5. Mild anemia. 6. Obstructive sleep apnea. PLAN: The patient appears very comfortable this morning. He is not short of breath at rest. He does state to feeling much, much better overall. I did discuss the case with the night nurse at length. The night nurse stated that the patient had a very good night. On physical exam, the patient's bronchospasm continues to resolve. In addition, the oxygen saturation on room air is now 96%. I will continue with the current nebulizer treatments and change to oral steroids this morning. The patient remains on antibiotic therapy - as per Infectious Disease. The temperatures have resolved. The leukocytosis is resolving. The patient is also for tracheostomy change - hopefully today. I would certainly continue with the ENT evaluation. The clinical status of this patient is significantly improved overall. I will discuss the above with Dr. Page. Yunior Toscano MD [facility]
--- NOTE | 2017-06-18 11:11 | CP.PCM.PN ---
Subjective - Date & Time of Evaluation Date of Evaluation: 06/18/17 Time of Evaluation: 09:30 - Subjective Subjective: Comfortable on a chair, no fevers, breathing well. No nausea or diarrhea. Objective - Vital Signs/Intake and Output Vital Signs (last 24 hours): Temp Pulse Resp BP Pulse Ox 97.6 F 82 18 103/72 96 06/17/17 22:00 06/17/17 22:00 06/17/17 22:00 06/17/17 22:00 06/17/17 22:00 Intake and Output: 06/18/17 06/18/17 06:59 18:59 Intake Total 1080 Output Total 2380 Balance -1300 - Medications Medications: Current Medications Albuterol/Ipratropium (Duoneb 3 Mg/0.5 Mg (3 Ml) Ud) 3 ml IH [id number] [facility] Last Admin: 06/18/17 01:18 Dose: 3 ml Albuterol/Ipratropium (Duoneb 3 Mg/0.5 Mg (3 Ml) Ud) 3 ml IH Q2H PRN PRN Reason: Shortness of Breath Budesonide (Pulmicort Respules) 0.5 mg IH [id number] [facility] Last Admin: 06/17/17 19:51 Dose: 0.5 mg Heparin Sodium (Porcine) (Heparin) 5,000 units SC Q8 [facility] PRN Reason: Protocol Last Admin: 06/17/17 22:07 Dose: Not Given Pantoprazole Sodium (Protonix Inj) 40 mg IVP DAILY [facility] Last Admin: 06/17/17 10:33 Dose: 40 mg Prednisone (Prednisone Tab) 40 mg PO DAILY [facility] - Labs Labs: 06/18/17 06:30 06/18/17 06:30 - Constitutional Appears: Non-toxic, Chronically Ill - Head Exam Head Exam: NORMAL INSPECTION - ENT Exam ENT Exam: Mucous Membranes Moist - Neck Exam Neck Exam: absent: Meningismus Additional comments: tracheostomy tube in place - Respiratory Exam Respiratory Exam: Decreased Breath Sounds - Cardiovascular Exam Cardiovascular Exam: +S1, +S2 - GI/Abdominal Exam GI & Abdominal Exam: Soft. 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
--- NOTE | 2017-06-18 13:22 | CP.PCM.PN ---
Subjective - Date & Time of Evaluation Date of Evaluation: 06/18/17 Time of Evaluation: 13:20 - Subjective Subjective: pt seen and examined doing well, no further bleeding from neck Objective - Vital Signs/Intake and Output Vital Signs (last 24 hours): Temp Pulse Resp BP Pulse Ox 97.4 F L 83 22 147/98 H 99 06/18/17 06:00 06/18/17 06:00 06/18/17 06:00 06/18/17 09:46 06/18/17 06:00 Intake and Output: 06/18/17 06/18/17 06:59 18:59 Intake Total 1080 Output Total 2380 Balance -1300 - Medications Medications: Current Medications Albuterol/Ipratropium (Duoneb 3 Mg/0.5 Mg (3 Ml) Ud) 3 ml IH [id number] [facility] Last Admin: 06/18/17 08:31 Dose: 3 ml Albuterol/Ipratropium (Duoneb 3 Mg/0.5 Mg (3 Ml) Ud) 3 ml IH Q2H PRN PRN Reason: Shortness of Breath Amlodipine Besylate (Norvasc) 2.5 mg PO DAILY [facility] Budesonide (Pulmicort Respules) 0.5 mg IH [id number] [facility] Last Admin: 06/18/17 08:31 Dose: 0.5 mg Furosemide (Lasix) 40 mg PO DAILY [facility] Last Admin: 06/18/17 09:46 Dose: 40 mg Heparin Sodium (Porcine) (Heparin) 5,000 units SC Q8 [facility] PRN Reason: Protocol Last Admin: 06/17/17 22:07 Dose: Not Given Pantoprazole Sodium (Protonix Ec Tab) 40 mg PO ACB [facility] Prednisone (Prednisone Tab) 40 mg PO DAILY [facility] Last Admin: 06/18/17 09:46 Dose: 40 mg - Labs Labs: 06/18/17 06:30 06/18/17 06:30 - Constitutional Appears: Well, Non-toxic - Head Exam Head Exam: ATRAUMATIC, NORMAL INSPECTION - Eye Exam Eye Exam: EOMI, Normal appearance, PERRL Pupil Exam: NORMAL ACCOMODATION, PERRL - ENT Exam ENT Exam: Mucous Membranes Moist, Normal Exam - Neck Exam Neck Exam: Full ROM Additional comments: tracheotomy tube changed to #6 shiley non fen non cuffed tube - Respiratory Exam Respiratory Exam: NORMAL BREATHING PATTERN - Extremities Exam Extremities Exam: Normal Inspection - Back Exam Back Exam: NORMAL INSPECTION - Neurological Exam Neurological Exam: Normal Gait - Psychiatric Exam Psychiatric exam: Normal Affect, Normal Mood Assessment and Plan (1) Laryngeal edema determined by laryngoscopy Status: Acute (2) Dyspnea and respiratory abnormalities Status: Acute (3) Stridulous breathing Status: Acute (4) Acute recurrent maxillary sinusitis Status: Acute (5) Chest congestion Status: Acute (6) Pneumonia Status: Acute (7) Abdominal aortic aneurysm (AAA) 3.0 cm to 5.5 cm in diameter in male Status: Acute (8) Supraglottic edema Status: Acute - Assessment and Plan (Free Text) Plan: pt stable from ENT standpoint. Maintain tracheotomy tube, will need laryngeal procedure as out patient in future
--- NOTE | 2017-06-18 17:48 | PN ---
DATE: SUBJECTIVE: I was hoping to discharge him today. I was waiting for Ear, Nose and Throat to see him last night and change his trach. He did not show, waiting for today for the trach to be changed. I discussed with Pulmonary and they are concerned, so I would like to watch patient after trach change to make sure there is no pulmonary spasm. So, hoping that it could be done today and possibly discharge later today or tomorrow. 12 o'clock, he will be discharged tomorrow. He is on DuoNeb, heparin, Lasix, prednisone, Protonix and Pulmicort. PHYSICAL EXAMINATION: VITAL SIGNS: He has a 97.4 temp, 83 pulse, 147/98 blood pressure, 22 respiratory rate, 99% O2 sat on room air. I will adjust his blood pressure medications. HEENT: His head is atraumatic, normocephalic. GENERAL: He is alert. He has got a trach. He is coughing a little bit. HEART: Regular rate. LUNGS: Decreased breath sounds, but clear. ABDOMEN: Soft, morbidly obese. EXTREMITIES: +1/4 pitting edema. LABORATORY DATA: He has a 12.7 white count, he is on steroids, 11.6 hemoglobin, 38.5 hematocrit with 229 platelets. He has a 140 sodium, potassium 4.4, BUN is 30, creatinine 0.6, GFR is greater than 60, sugar is 115, calcium 9.7, total bili is 0.3, AST is 18, ALT is 36, alkaline phosphatase 72, total protein 6.9. ASSESSMENT AND PLAN: He is being seen by Cardio, Pulmonary, Infectious Disease and we are waiting for ENT to see him. He has a tracheostomy, acute bronchitis. He is currently on no antibiotics. We will wait for Ear, Nose and Throat to come in to change his tracheostomy. Then we will watch him and if he does well, we will discharge him hopefully in the next 24 hours. Sonny Page DO [facility] HOSPITALFunmilayo
[2017-06-19] MEDS: Albuterol-Ipratrop 3 mg / 0.5 (3 ml) UD IH SCH ×2 (03:30→07:13)
[2017-06-19] MEDS: Budesonide 0.5 mg/2 ml Inhal Susp UD IH SCH (07:13)
[2017-06-19 07:26] LABS: HEMOGLOBIN 10.5 g/dL (14.0-18.0); MEAN CELL VOLUME 78.9 fl (80.0-105.0); MEAN CORPUSCULAR HEMOGLOBIN 23.3 pg (25.0-35.0); MEAN CORPUSCULAR HGB CONC 29.6 g/dl (31.0-37.0); MEAN PLATELET VOLUME 9.5 fl (7.0-11.0); RBC 4.5 10^6/uL (3.5-6.1); RED CELL DISTRIBUTION WIDTH 22.3 % (11.5-14.5); WHITE BLOOD COUNT 12.9 10^3/ul (4.5-11.0)
[2017-06-19] MEDS ORDERED: Pantoprazole 40 mg EC Tab PO SCH (07:30)
[2017-06-19 07:48] LABS: ALBUMIN 2.9 g/dL (3.0-4.8); ALT/SGPT 31 U/L (7-56); AST/SGOT 21 U/L (17-59); BLOOD UREA NITROGEN 12 mg/dL (7-21); CALCIUM 8.9 mg/dL (8.4-10.5); GFR AFRICAN-AMERICAN > 60; GFR NON-AFRICAN AMERICAN > 60
[2017-06-19 08:15] VITALS: PULSE 80; RESP 22; TEMP 97; O2SAT 95
[2017-06-19 09:17] VITALS: BP 111/66
[2017-06-19] MEDS ORDERED: Potassium Chloride 20 mEq ER Tab PO ONE (10:30)
--- NOTE | 2017-06-19 12:31 | CP.PCM.PN ---
Subjective - Date & Time of Evaluation Date of Evaluation: 06/19/17 Time of Evaluation: 11:30 - Subjective Subjective: No fevers, not in distress, afebrile, no nausea, no diarrhea, no SOB at rest. Objective - Vital Signs/Intake and Output Vital Signs (last 24 hours): Temp Pulse Resp BP Pulse Ox 97 F L 80 22 111/66 95 06/19/17 08:14 06/19/17 08:14 06/19/17 08:14 06/19/17 09:15 06/19/17 08:14 Intake and Output: 06/19/17 06/19/17 06:59 18:59 Intake Total 460 Balance 460 - Medications Medications: Current Medications Albuterol/Ipratropium (Duoneb 3 Mg/0.5 Mg (3 Ml) Ud) 3 ml IH [id number] [facility] Last Admin: 06/19/17 07:13 Dose: 3 ml Albuterol/Ipratropium (Duoneb 3 Mg/0.5 Mg (3 Ml) Ud) 3 ml IH Q2H PRN PRN Reason: Shortness of Breath Amlodipine Besylate (Norvasc) 2.5 mg PO DAILY [facility] Last Admin: 06/19/17 09:15 Dose: Not Given Budesonide (Pulmicort Respules) 0.5 mg IH [id number] [facility] Last Admin: 06/19/17 07:13 Dose: 0.5 mg Furosemide (Lasix) 40 mg PO DAILY [facility] Last Admin: 06/19/17 09:14 Dose: 40 mg Heparin Sodium (Porcine) (Heparin) 5,000 units SC Q8 [facility] PRN Reason: Protocol Last Admin: 06/19/17 06:17 Dose: Not Given Pantoprazole Sodium (Protonix Ec Tab) 40 mg PO ACB [facility] Last Admin: 06/19/17 08:45 Dose: 40 mg Prednisone (Prednisone Tab) 40 mg PO DAILY [facility] Last Admin: 06/19/17 09:13 Dose: 40 mg - Labs Labs: 06/19/17 07:00 06/19/17 07:00 - Constitutional Appears: Chronically Ill - Head Exam Head Exam: NORMAL INSPECTION - ENT Exam ENT Exam: Mucous Membranes Moist - Neck Exam Neck Exam: absent: Meningismus Additional comments: tracheostomy tube in place - Respiratory Exam Respiratory Exam: Decreased Breath Sounds - Cardiovascular Exam Cardiovascular Exam: +S1, +S2 - GI/Abdominal Exam GI & Abdominal Exam: Soft. 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
--- NOTE | 2017-06-19 12:45 | PN ---
DATE: 06/19/2017 PULMONARY PROGRESS NOTE SUBJECTIVE: Mr. Fernandez is feeling great. He claims to be going home today. He is anxious to get out of the hospital and get back to his activities of daily living. His long history has been discussed with him. He has sustained significant trauma, having had aspiration pneumonia and revision of a tracheostomy, he has obstructive sleep apnea. PHYSICAL EXAMINATION: VITAL SIGNS: Stable. He is afebrile. Respiratory rate 16, blood pressure 110/70, O2 sat 98% on room air. HEENT: Normocephalic, atraumatic. No jugular venous distention. No bruit. There is tracheostomy present. CARDIOVASCULAR: Regular rhythm. S1, S2 without murmur, gallop or rub. LUNGS: Clear to percussion and auscultation. ABDOMEN: Soft. Bowel sounds are normoactive without mass, guarding, rebound or organomegaly. EXTREMITIES: Reveal no clubbing, cyanosis or edema. There is no Homans' sign. SKIN: Dry. There is no rash or excoriation. NEUROLOGIC: Normal. CLINICAL IMPRESSION: 1. Status post respiratory failure. 2. Status post upper airway obstruction. 3. Present tracheostomy. 4. Obstructive sleep apnea. PLAN: The patient will apparently be discharged today. I have advised the patient to follow up with Dr. Yunior Toscano, his educational adviser for followup outpatient care. His oxygen saturation is normal and does not require a home oxygen therapy. We will discuss his outpatient medications with Dr. Page when he makes rounds this morning. The card from the office has been given to the patient and asked to follow up with Dr. Toscano as described above. Thank you for the opportunity to see this gentleman. He will be followed as an outpatient as required. Marv Glover MD
--- NOTE | 2017-06-20 09:23 | DS ---
SUBJECTIVE: I saw him sitting up in bed. He is doing well with the new trach. He understands how to clean and take care of it. He has got instructions, while the equipment was left in the house right now, which is good. He can go home this afternoon. He is on Duoneb; Lasix; Norvasc; prednisone 40 for three days, 30 for two days, 20 for two days, 10 for two days and stop; Protonix; Pulmicort; potassium 10 mEq daily, that is what he will be on. PHYSICAL EXAMINATION VITAL SIGNS: He has 97 temp, 80 pulse, 111/66 blood pressure, 22 respiratory rate, 95% O2 sat on room air. HEENT: His head is atraumatic, normocephalic. NECK: Has got a trach. HEART: Regular rate. LUNGS: Decreased breath sounds, but clear. No wheezes, rhonchi or rales. ABDOMEN: Soft, morbidly obese. EXTREMITIES: Have trace edema if any. MEDICATIONS: He will continue with the water pill, Lasix daily. LABORATORY DATA: He had a 12.9 white count, he is on steroids. He has 10.5 hemoglobin, 35.5 hematocrit with 216 platelets. He has a 139 sodium, potassium is 3.4 . I gave him a K-Dur 20 this morning and I put him on K-Dur 10 daily when he goes home. BUN 12, creatinine 0.6, GFR is greater than 60. Sugar is 95. Calcium is 8.9. Total bili is 0.2, AST is 21, ALT is 31, alkaline phosphatase 55, total protein is 6. ASSESSMENT AND PLAN: Overall, he is quite well. He was seen by Ear, Nose and Throat, Infectious Diseases, Cardiology, Pulmonary. He is status post tracheostomy; status post acute respiratory failure, on the ventilator, also congestive heart failure. He had epiglottitis and he will be discharged. We will see him in the office in a week. Sonny Paeg DO
== END 2017-06-19 14:22 | disposition home or self-care (01) | DRG 4 ==
LOC: ED 18:58 → ERH 21:52 → 5RNO 23:44 → CCU 06-10 15:37 → 3RSO 06-14 21:24 → 5RNO 06-15 23:02
PROVIDERS: ADMIT Family Medicine; ATTEND Family Medicine
PROC: 0BH17EZ Insertion of Endotracheal Airway into Trachea, Via Natural or Artificial Opening (ICD-10-PCS; 2017-06-10)
PROC: 5A1945Z Respiratory Ventilation, 24-96 Consecutive Hours (ICD-10-PCS; 2017-06-10)
PROC: 0B110F4 Bypass Trachea to Cutaneous with Tracheostomy Device, Open Approach (ICD-10-PCS; principal; 2017-06-10 21:00)
DX: J69.0 Pneumonitis due to inhalation of food and vomit (principal); J96.00 Acute respiratory failure, unspecified whether with hypoxia or hypercapnia; J05.10 Acute epiglottitis without obstruction; Z68.41 Body mass index [BMI] 40.0-44.9, adult; Z99.11 Dependence on respirator [ventilator] status; Y95 Nosocomial condition; R40.2412 Glasgow coma scale score 13-15, at arrival to emergency department; I50.9 Heart failure, unspecified; I71.4 Abdominal aortic aneurysm, without rupture; J01.01 Acute recurrent maxillary sinusitis; G47.33 Obstructive sleep apnea (adult) (pediatric); E66.01 Morbid (severe) obesity due to excess calories; E11.65 Type 2 diabetes mellitus with hyperglycemia; D64.9 Anemia, unspecified; J20.9 Acute bronchitis, unspecified; J38.4 Edema of larynx

== ENCOUNTER 2018-06-17 08:05 | Day surgery (SDC) | payer BC ==
[2018-06-09 14:42] VITALS: BMI 40.5
[2018-06-17] MEDS ORDERED: Propofol 10 mg/ml Inj (20 ML) ONE ×4 (09:56→11:33)
[2018-06-17] MEDS ORDERED: ePHEDrine 50 mg/ml Inj ONE (11:42)
[2018-06-17] MEDS ORDERED: Sodium Chloride 0.9% 1,000 ML IV SCH (12:15)
[2018-06-17 16:41] VITALS: TEMP 97.6; O2SAT 95
[2018-06-17 16:49] VITALS: BP 126/73; PULSE 72; RESP 18
== END 2018-06-17 13:55 | disposition home or self-care (01) ==
LOC: ENDO 08:05
PROVIDERS: ATTEND Internal Medicine Gastroenterology
DX: Z12.11 Encounter for screening for malignant neoplasm of colon (principal); C18.7 Malignant neoplasm of sigmoid colon; D12.8 Benign neoplasm of rectum; K64.1 Second degree hemorrhoids; I10 Essential (primary) hypertension; E78.5 Hyperlipidemia, unspecified
CPT/HCPCS: 45385; 88305; J2001; J2704; J7030 ×2; J7040